=== PATIENT | male | born 1985 | race African-American/Black ===

== ENCOUNTER 2022-10-15 13:27 | Emergency (ER) | payer MEDICARE, MEDICAID, SELFPAY ==
[2022-10-15 13:28] VITALS: BP 155/105; PULSE 85; RESP 16; TEMP 36.2; O2SAT 100; BMI 43.7
--- NOTE | 2022-10-15 14:24 | CT_ITS ---
CT LEFT LOWER EXTREMITY WITH 3-D IMAGING CLINICAL INDICATION: Nonspecific pain and swelling TECHNIQUE: Axial CT images of the LEFT lower extremity was performed without IV contrast material. Coronal and sagittal reformats were provided. RADIATION DOSAGE (If Supplied By Facility): CTDIvol = ( 15.35 ) mGy, DLP = ( 979.32 ) mGycm COMPARISON: No relevant prior comparison study available FINDINGS: Bones: Femur demonstrates normal mineralization. There is mild narrowing of the lateral patellofemoral joint space with a small joint effusion. Degenerative spur noted on the anterior as well as posterior femoral condyles. Nonspecific subchondral lucency noted in the distal aspect of the lateral femur and there is subchondral sclerosis along the articular surface of the medial femoral condyle suggesting osteochondritis dissecans. There are similar subchondral sclerotic and lucent changes in the medial tibial plateau with degenerative spurs noted in the medial and lateral proximal tibia. There is a remnant of a threaded screw in the posterior proximal tibia there is a lucency inferior to the screw which I suspect was from previous surgical hardware. There is no demonstrated fracture or suspicious osseous lesion in the tibia fibula or visualized foot bones. Soft Tissues: There is induration of the subcutaneous fat anterior to the proximal medial tibia with skin thickening suggesting an inflammatory process such as cellulitis but this could also be post traumatic. There is no organized abscess. The musculature around the tibia and fibula otherwise free of abnormality. No induration of the posterior tissues. CT/Extremity Lower WITH Contrast IMPRESSION: Significant degenerative arthritic changes in the knee joint with moderate narrowing of the medial knee joint compartment, mild narrowing of the lateral posterior patellofemoral joint space. Associated joint effusion Degenerative spurs and subchondral sclerotic changes and lucencies in the distal femur and tibia, the sclerotic change on the articular surface of the distal medial femur suggests osteochondritis dissecans. Lucency in the proximal tibia likely from previous hardware there is a threaded screw in the posterior femur but it is incomplete. Induration of the subcutaneous fat anterior and medial to the proximal tibia suggesting a diffuse cellulitis there is associated skin thickening. Electronically Signed: Larry Paris MD at 15:25 EDT ,
--- NOTE | 2022-10-15 14:27 | ED.VIS.LOWEX ---
HPI History of Present Illness Chief Complaint: Lower Extremity Injury Narrative Narrative: 37-year-old male past medical history of remote tibial osteotomy secondary to deformity, originally had surgery at [facility], then [address] [facility] for bone graft presents with his because of left knee pain worse with movement, and warmth to his left anterior tibial area. He denies any fevers or chills, but has been having increased pain worse with movement of his left leg. No nausea or vomiting, no other symptoms. He and his are concerned mainly because he is having heat in the area of his scar on the anterior tibial area. He has pain on the lower portion of his knee that hurts when he bends it. He is able to get it into a sitting position. He denies any drainage from the area. No other symptoms. No chest pain or shortness of breath. PFSH PFSH Home Medications doxycycline hyclate 100 mg tablet 100 mg PO BID 10 days #20 tabs 10/15/22 [Rx Last Taken Unknown] hydrocodone-acetaminophen 5-325mg 5mg-325mg 1 tab PO Q6H PRN PRN Pain 3 days #10 TABLETS 10/15/22 [Rx Last Taken Unknown] sulfamethoxazole 800 mg-trimethoprim 160 mg tablet (Bactrim DS) 1 tab PO BID #20 tabs 10/15/22 [Rx Last Taken Unknown] Allergy/AdvReac Type Severity Reaction Status Date / Time Penicillins Allergy Severe Anaphylaxis Verified 10/15/22 13:30 Social History Smoking Status: Light Smoker (<10/day) ROS ROS ED ROS Narrative Constitutional: No fever, no chills. HEENT: No sore throat. No neck pain. No loss of vision. No rhinorrhea. Cardiovascular: No chest pain. No palpitations. No pedal edema. Respiratory: No cough, no shortness of breath. Abdominal: No abdominal pain. No nausea. No vomiting. Genitourinary: No dysuria. No hematuria. Musculoskeletal: No myalgias. Left knee pain, left anterior tibial pain with warmth. Neurologic: No headaches. No dizziness. No lightheadedness. Skin: No rash. No change in color. Psychiatric: No depression. No anxiety. EXAM Physical Exam Narrative Exam Narrative: Afebrile. Vital signs noted. HEENT: Normocephalic. Atraumatic. PERRL, EOMI. Neck soft and supple. No point tenderness or step off. Cardiovascular: Regular rate and rhythm. No murmurs, rubs, or gallops appreciated. Respiratory: No tachypnea. Lungs clear to auscultation bilaterally. Gastrointestinal: Abdomen soft, nontender, with normoactive bowel sounds. No rebound or guarding. Neurological: Awake. Alert. Nonfocal, nonlateralizing. Skin: No rash. Normal color. No pallor. Musculoskeletal: No pedal edema. Limited range of motion left knee secondary to pain. Able to slowly lift leg off bed. No overt erythema. Positive scarring anterior tibial area. No fluctuance. Palpable dorsalis pedis pulse. Const Vital Signs: 10/15/22 13:28 Temperature 97.2 F L Temperature Source Temporal Pulse Rate 85 Respiratory Rate 16 Blood Pressure 155/105 H Blood Pressure Mean 121 Pulse Ox 100 Oxygen Delivery Method Room Air MDM MDM MDM Narrative Medical decision making narrative: Concern would be for cutaneous abscess. I have low suspicion for septic arthritis of his left knee as that area is not as warm, and he is afebrile here, there is no overt erythema of the joint. Comprehensive work-up was pursued. He was administered morphine and ondansetron and a bolus of normal saline provided for analgesia. I will check a CBC, CMP, and lactic acid along with an ESR and CRP. CT imaging will be obtained of the left knee and left anterior tibial area to look for effusion and/or abscess. I reviewed the patient's laboratory work, he has a normal white count of 5.9, hemoglobin 13.9, hematocrit 43.9, platelet count low at 86. There is no prior with which to compare. Review of his electrolyte panel shows sodium normal at 140 with potassium normal at 4.2, chloride slightly elevated at 111, anion gap low at 4 with a BUN of 21 and creatinine of 1.10. He was bolused normal saline 1 L intravenously. AST and ALT are normal. C-reactive protein is slightly elevated at 23.8 with a ESR of 51. However, based on review of the radiology report of the CT of the lower extremity, he does have cellulitis of the anterior tibial area. He has significant joint space narrowing and arthritis of the left knee especially in the medial area. Once again, I have low concern for septic arthritis. The CT did reveal induration of the subcutaneous fat anterior and medial to the proximal tibia consistent with cellulitis. I do feel that is where his ESR and CRP are slightly elevated from. I do not feel that arthrocentesis is indicated. He has a normal lactic acid as well. I feel he be treated with outpatient antibiotics for his cellulitis. He was given his first doses of doxycycline and Bactrim DS here as he has a penicillin allergy of anaphylaxis. He was referred to Dr. Christianson on-call for orthopedics. He was also given a prescription for 10 [place] tablets for analgesia. He was placed in an Wiley wrap and given crutches for his knee effusion. I feel he be discharged safely home with follow-up, I do not feel that he requires observation at this time. Patient and are agreeable to the plan. Return instructions reviewed. Disposition is discharged home in stable condition. History & Record Review Discussion w/independent historian: Patient and Family Additional record(s) reviewed:: No prior records Lab Data Attestation: I reviewed the patient's lab results. Labs: Laboratory Results - last 24 hr 10/15/22 14:40 WBC 5.9 RBC 4.83 Hgb 13.9 Hct 43.9 MCV 90.9 MCH 28.8 MCHC 31.7 L RDW Std Deviation 46.9 H RDW Coeff of Carmenza 13.9 Plt Count 86 L MPV 10.1 Immature Gran % (Auto) 0.200 Neut % (Auto) 66.9 Lymph % (Auto) 21.7 [place] % (Auto) 8.5 Eos % (Auto) 2.0 Baso % (Auto) 0.7 Absolute Neuts (auto) 4.0 Absolute Lymphs (auto) 1.28 Nucleated RBC % 0 Differential Comment SCANNED ESR 51 H Sodium 140 Potassium 4.2 Chloride 111 H Carbon Dioxide 25.0 Anion Gap 4 L BUN 21 H Creatinine 1.10 Estim Creat Clear Calc 99.94 Est GFR (MDRD) Af Amer 96 Est GFR (MDRD) Non-Af 80 BUN/Creatinine Ratio 19.1 Glucose 97 Lactic Acid 1.1 Calcium 8.7 Total Bilirubin 0.40 AST 29 ALT 51 Alkaline Phosphatase 96 C-React Prot Ext Range 23.80 H Total Protein 7.9 Albumin 3.3 Globulin 4.6 H Albumin/Globulin Ratio 0.7 L Radiography Diagnostic Testing: Clinical Impression(s) from Imaging Studies Lower Extremity CT 10/15/22 14:24 IMPRESSION: Significant degenerative arthritic changes in the knee joint with moderate narrowing of the medial knee joint compartment, mild narrowing of the lateral posterior patellofemoral joint space. Associated joint effusion Degenerative spurs and subchondral sclerotic changes and lucencies in the distal femur and tibia, the sclerotic change on the articular surface of the distal medial femur suggests osteochondritis dissecans. Lucency in the proximal tibia likely from previous hardware there is a threaded screw in the posterior femur but it is incomplete. Induration of the subcutaneous fat anterior and medial to the proximal tibia suggesting a diffuse cellulitis there is associated skin thickening. Electronically Signed: Larry Paris MD at 15:25 EDT , Discharge Plan Triage Chief Complaint: Lower Extremity Injury ED Provider: Dakota Goetz Dx/Rx/DC Orders Clinical Impression: Knee effusion, left, Cellulitis, Arthritis of knee, left Instructions: ED Cellulitis, ED Knee Effusion, ED Osteoarthritis Prescriptions: New sulfamethoxazole-trimethoprim [Bactrim DS] 800-160 mg tablet 1 tab PO BID Qty: 20 0RF doxycycline hyclate 100 mg tablet 100 mg PO BID 10 Days Qty: 20 0RF hydrocodone-acetaminophen 5-325 mg tablet 1 tab PO Q6H PRN PRN (Reason: Pain) 3 Days Qty: 10 0RF Primary Care Provider: Adilia Yoder MD Referrals: Adilia Yoder MD [Other] Thom Christianson DO [Med Staff - Active Staff] - 3-5 Days Disposition Disposition: Home, Self Care
[2022-10-15] MEDS: Morphine 4 MG/ML Syringe IV (14:45)
[2022-10-15] MEDS: Ondansetron 4 MG/2 ML Vial IV (14:45)
[2022-10-15] MEDS: 0.9% Normal Saline 1,000 ML 1000 ML IV (14:45)
[2022-10-15 14:57] LABS: Absolute Lymphocyte Count 1.28 X10^3/uL (0.83-4.51); Basophil# 0.04 X10^3/uL; Basophil% 0.7 % (0-1); Eosinophil# 0.12 X10^3/uL; Hematocrit 43.9 % (40-54); Hemoglobin 13.9 g/dL (13.0-16.5); Lymphocyte # 1.28 X10^3/ul (0.83-4.51); Lymphocyte % 21.7 % (19-41); Mean Corp Hgb Conc 31.7 g/dL (32-36); Mean Corpuscular Hgb 28.8 pg (27.0-32.0); Mean Corpuscular Volume 90.9 fL (80-94); Mean Platelet Vol. 10.1 fl (6.2-12.0); Monocyte% 8.5 % (0-10); NRBC Flagged by Analyzer 0 % (0-5); Neutrophil # 3.95 X10^3/uL (2.7-7.7); Neutrophil % 66.9 % (47-70); POSITIVE COUNT YES; Platelet Count 86 K/mm3 (150-450); RBC Distribution Width CV 13.9 % (11.6-14.6); RBC Distribution Width SD 46.9 fl (35.1-43.9); Red Blood Count 4.83 M/mm3 (4.6-6.2); White Blood Count 5.9 K/mm3 (4.4-11.0)
[2022-10-15 15:00] LABS: Differential Indicated SCAN CRITERIA MET
[2022-10-15 15:14] LABS: Differential Comment SCANNED
[2022-10-15 15:19] LABS: ALB/GLOB Ratio 0.7 RATIO (0.9-2.4); AST(SGOT) 29 U/L (15-37); Alanine Aminotransfer ALT/SGPT 51 U/L (16-61); Albumin, Serum 3.3 g/dL (3.2-5.0); Alkaline Phosphatase 96 U/L (45-117); Anion Gap 4 (5-15); BUN 21 mg/dL (7-18); BUN/Creat Ratio 19.1 RATIO (10-20); Calcium,Total 8.7 mg/dL (8.5-10.1); Chloride 111 mmol/L (98-107); EST Glomerular Filtration Rate 80 mL/min (>60); Est Glom Filt Rate - Afr Amer 96 mL/min (>60); Estimated Creatinine Clearance 99.94 ml/min; Globulin 4.6 g/dL (2.2-4.2); Glucose 97 mg/dL (74-106); Potassium 4.2 mmol/L (3.5-5.1); Protein, Total 7.9 g/dL (6.4-8.2); Sodium Level 140 mmol/L (136-145)
[2022-10-15 15:20] LABS: Erythrocyte Sedimentation Rate 51 mm/hr (0-20)
[2022-10-15 15:29] LABS: Lactic Acid 1.1 mmol/L (0.4-1.9)
[2022-10-15] MEDS: Doxycycline 100 MG CAPSULE PO (16:38)
[2022-10-15] MEDS: Smz/Tmp Ds Tablet 1 TABLET PO (16:38)
[2022-10-15 16:48] VITALS: BP 142/82; PULSE 80; RESP 16
== END 2022-10-15 16:49 | disposition home or self-care (01) ==
PROVIDERS: Emergency Provider Emergency Medicine; Visit Provider Emergency Medicine
DX: L03.116 Cellulitis of left lower limb (principal); F17.200 Nicotine dependence, unspecified, uncomplicated; M17.12 Unilateral primary osteoarthritis, left knee; Z79.899 Other long term (current) drug therapy
CPT/HCPCS: 73701; 80053; 83605; 85025; 85652; 86140; 96361; 96374; 96375; 99283; J7030; Q9967; A4216; J2405

== ENCOUNTER → 2022-10-22 | Outpatient (CLI) | payer MEDICARE, MEDICAID, SELFPAY ==
[2022-10-22 11:40] LABS: Pathologist Comment May follow
[2022-10-22 12:24] LABS: RBC /Synovial Fluid 0.034 10^6/uL (0); Synovial Fld Mononuclear WBC # 0.527 10^3/ul; Synovial Fld Mononuclear WBC % 95.3 %; Synovial Fld Polynuclear WBC # 0.026 10^3/uL; Synovial Fld Polynuclear WBC % 4.7 %
[2022-10-22 12:26] LABS: AUTO B FLUID DILUENT BKGD CT WBC <0.1 RBC <0.01 (W<.1,R<.01); Appearance /Synovial Fluid Cloudy (CLEAR); Color / Synovial Fluid Red (Pale Yellow); Source- Body Fluid SYNOVIAL
[2022-10-22 12:30] LABS: Source / Synovial Fluid LEFT KNEE
[2022-10-22 12:37] LABS: CRYSTALS, BODY FLUID See PATH REV
[2022-10-22 13:03] LABS: Body Fluid QC Type(s) BF1Q,BF2Q; Lymph 74 %; Monocyte /Synovial Fluid 11 %; Neutrophil 11 % (0-25); Other Cell /Synovial Fluid 4 %
[2022-10-23 13:19] LABS: Pathologist Review Reviewed
== END | disposition home or self-care (01) ==
LOC: LABSPEC 11:32
PROVIDERS: Referring Provider Physician Assistant Surgical; Visit Provider Physician Assistant Surgical
DX: M17.32 Unilateral post-traumatic osteoarthritis, left knee (principal); M25.462 Effusion, left knee
CPT/HCPCS: 87205; 89050; 89051; 89060

== ENCOUNTER 2022-11-13 21:27 | Observation (INO) | payer MEDICARE, MEDICAID, SELFPAY ==
[2022-11-13 21:28] VITALS: BP 146/93; PULSE 86; RESP 18; TEMP 36.8; O2SAT 100
--- NOTE | 2022-11-13 22:06 | CT_ITS ---
INDICATION: Neuro deficit, acute, stroke suspected EXAMINATION: CT BRAIN - CT Head Stroke Protocol W/O Contrast Injection TECHNIQUE: Multiple axial images were obtained of the head with sagittal and coronal reconstructed images. Individualized dose optimization techniques were used for this CT. IV Contrast dosage and agent: None. COMPARISON: None. FINDINGS: BRAIN PARENCHYMA: No evidence of an acute infarct or intracranial hemorrhage. No evidence of a mass. Focal area of low-attenuation in the peripheral left temporooccipital lobe. CSF SPACES: The ventricles, sulci and subarachnoid cisterns are appropriate for age. CALVARIUM, SKULL BASE, PARANASAL SINUSES AND MASTOID AIR CELLS: No fracture. Mastoid air cells are clear. Probable mucous retention cysts in the bilateral maxillary sinuses. ORBITS: The globes, extraocular muscles, optic nerves and retrobulbar fat are unremarkable. CT/STROKE Brain/Head without Cont IMPRESSION: 1. No acute intracranial abnormality. 2. Focal area of low-attenuation in the peripheral left temporooccipital lobe likely representing encephalomalacia from prior injury or infarct. Given no prior exams for comparison, recommend follow-up with nonemergent MRI. N.B. : The above Results were Read Back by Mark Song DO to TOM Figueroa, and understanding confirmed on 11/13/2022 22:53:02 (ET). Electronically Signed: Mark Song DO at 22:53 EDT ,
[2022-11-13 22:24] VITALS: BMI 43.4
[2022-11-13 22:28] VITALS: PULSE 79; RESP 18; O2SAT 100; BMI 43.4
[2022-11-13 22:30] VITALS: BMI 43.4
--- NOTE | 2022-11-13 22:32 | RAD_ITS ---
INDICATION: Neuro deficit, acute, stroke suspected EXAMINATION/TECHNIQUE: X-RAY - XR Chest 1 View COMPARISON: None. FINDINGS: LINES/DEVICES: None. LUNGS: No consolidation or evidence of an effusion. No evidence of edema or a pneumothorax. MEDIASTINUM AND CARDIOVASCULAR STRUCTURES: Cardiac silhouette is normal in size and contour. Mediastinum is unremarkable. BONES AND SOFT TISSUES: No acute abnormality. RAD/Chest 1 View IMPRESSION: No evidence of cardiopulmonary disease. Electronically Signed: Mark Song DO at 23:07 EDT ,
[2022-11-13 22:36] LABS: Absolute Lymphocyte Count 1.95 X10^3/uL (0.83-4.51); Absolute Neutrophil Count 2.8 X10^3/uL (2.0-7.7); Basophil# 0.05 X10^3/uL; Basophil% 0.9 % (0-1); Eosinophil# 0.18 X10^3/uL; Eosinophils% 3.3 % (0-5); Hemoglobin 13.3 g/dL (13.0-16.5); Lymphocyte # 1.95 X10^3/ul (0.83-4.51); Lymphocyte % 35.6 % (19-41); Mean Corp Hgb Conc 32.4 g/dL (32-36); Mean Corpuscular Hgb 29.2 pg (27.0-32.0); Mean Corpuscular Volume 89.9 fL (80-94); Mean Platelet Vol. 10.4 fl (6.2-12.0); Monocyte# 0.48 X10^3/uL; Monocyte% 8.8 % (0-10); NRBC Flagged by Analyzer 0 % (0-5); Neutrophil # 2.79 X10^3/uL (2.7-7.7); POSITIVE COUNT YES; Platelet Count 74 K/mm3 (150-450); RBC Distribution Width CV 13.1 % (11.6-14.6); Red Blood Count 4.56 M/mm3 (4.6-6.2); White Blood Count 5.5 K/mm3 (4.4-11.0)
[2022-11-13 22:43] LABS: Prothrombin Time (Protime)PT. 13.4 SECONDS (11.7-14.9)
--- NOTE | 2022-11-13 22:44 | ED.RN ---
PER DR DACOSTA, [facility] NOT NEEDED
[2022-11-13 22:45] LABS: Partial Thromboplast Time 68.6 Seconds (24.1-36.2)
[2022-11-13 22:49] LABS: Differential Indicated SCAN CRITERIA MET
[2022-11-13 22:50] LABS: Platelet Estimate MOD DEC (ADEQ); Red Cell Morphology N CHROM NORMAL (NORM C&C)
[2022-11-13 22:51] LABS: Anisocytosis RARE; Macrocytosis RARE
[2022-11-13 22:52] LABS: Anion Gap 1 (5-15); BUN 12 mg/dL (7-18); BUN/Creat Ratio 10.2 RATIO (10-20); Chloride 106 mmol/L (98-107); Creatinine, Serum 1.18 mg/dL (0.70-1.30); EST Glomerular Filtration Rate 73 mL/min (>60); Est Glom Filt Rate - Afr Amer 89 mL/min (>60); Estimated Creatinine Clearance 93.16 ml/min; Glucose 253 mg/dL (74-106); Potassium 4.1 mmol/L (3.5-5.1); Sodium Level 135 mmol/L (136-145); Troponin-I HS 10 pg/mL (3.0-78.0)
--- NOTE | 2022-11-13 23:06 | PCM.HP.STD ---
HPI - General General Date of Admission: 11/13/22 Date of Service: 11/13/22 Chief Complaint: Aphasia HPI Narrative MITALI RAMOS, is a 37 M with a significant history of morbid obesity, type 2 diabetes mellitus and DVT of the right leg who presents emergency department with aphasia x2 days. Patient reports that per his at times he gets stuck in bringing his words out. He denies dysarthria. He also reports left-sided headache which with coughing and with lying flat. The headache is mild to moderate. Further he reports 30 minutes episode where he had blurry vision. This transient vision loss occurred on the day before presentation. And at that time with abnormal eye he could see better. He denies any weakness. [facility] Medical History (Updated 11/13/22 @ 23:[address] Inocente Valles MD) DM type 2 (diabetes mellitus, type 2) Home Medications doxycycline hyclate 100 mg tablet 100 mg PO BID 10 days #20 tabs 10/15/22 [Rx Last Taken Unknown] hydrocodone-acetaminophen 5-325mg 5mg-325mg 1 tab PO Q6H PRN PRN Pain 3 days #10 TABLETS 10/15/22 [Rx Last Taken Unknown] sulfamethoxazole 800 mg-trimethoprim 160 mg tablet (Bactrim DS) 1 tab PO BID #20 tabs 10/15/22 [Rx Last Taken Unknown] metformin 1,000 mg tablet 1,000 mg PO BID 11/13/22 [History Last Taken Unknown] Allergy/AdvReac Type Severity Reaction Status Date / Time Penicillins Allergy Severe Anaphylaxis Verified 11/13/22 21:30 Family History (Updated 11/13/22 @ 23:[address] Inocente Valles MD) Other Aneurysm of artery of head and neck region Diabetes Surgical History (Updated 11/13/22 @ 23:[address] Inocente Valles MD) History of surgery on lower extremity Social History Smoking Status: Light Smoker (<10/day) ROS ROS Narrative Pertinent positives and pertinent negatives as noted in HPI. All other systems were reviewed and are negative Vital Signs Vital Signs Vital Signs: 11/13/22 21:28 11/13/22 22:28 11/13/22 22:28 Temperature 98.3 F Temperature Source Temporal Pulse Rate 86 79 Respiratory Rate 18 18 Blood Pressure 146/93 H Blood Pressure Mean 110 Pulse Ox 100 100 100 Oxygen Delivery Method Room Air Room Air Weight Weight: 145.5 kg Body Mass Index (BMI) 43.4 Physical Exam Narrative Physical exam: General: Well-nourished, well-developed. Head: Normocephalic, atraumatic, no tenderness Eyes: Vision is grossly intact. EOMI ENT, no trauma, moist mucous membranes, no rhinorrhea Neck: Nontender, No thyromegaly. CVS: Regular rate and rhythm. S1-S2 present. No murmur, gallop or rub. Respiratory : clear to auscultation bilaterally, chest wall nontender Abdomen: Soft, nontender, nondistended, normal bowel sounds, no masses : Deferred Back: Nontender, no CVA tenderness Extremities: Nontender full range of motion, no trauma Skin: Normal color, no trauma, abrasions Neuro: Alert, oriented, cranial nerves II through XII grossly intact. Strength 5 out of 5 in all 5 extremities. No dysmetria with [id number] test or dobbins to heel test. Not Hyperreflexia in the elbow or knee jerk reflex bilateral. Psychiatry: Normal mood. Normal affect. Not depressed. Not anxious. Results Lab / Micro Data Attestation: I reviewed the patient's lab results. 11/13/22 22:25 11/13/22 22:25 Labs: Laboratory Results - last 24 hr 11/13/22 22:25: WBC 5.5, RBC 4.56 L, Hgb 13.3, Hct 41.0, MCV 89.9, MCH 29.2, MCHC 32.4, RDW Std Deviation 43.0, RDW Coeff of Carmenza 13.1, Plt Count 74 L, MPV 10.4, Immature Gran % (Auto) 0.400, Neut % (Auto) 51.0, Lymph % (Auto) 35.6, [place] % (Auto) 8.8, Eos % (Auto) 3.3, Baso % (Auto) 0.9, Absolute Neuts (auto) 2.8, Absolute Lymphs (auto) 1.95, Nucleated RBC % 0, Differential Comment SEE COMMENT, Platelet Estimate MOD DEC, RBC Morphology N CHROM, Anisocytosis RARE, Macrocytosis RARE, PT 13.4, INR 1.0, APTT 68.6 H, Sodium 135 L, Potassium 4.1, Chloride 106, Carbon Dioxide 28.0, Anion Gap 1 L, BUN 12, Creatinine 1.18, Estim Creat Clear Calc 93.16, Est GFR (MDRD) Af Amer 89, Est GFR (MDRD) Non-Af 73, BUN/Creatinine Ratio 10.2, Glucose 253 H, Calcium 9.0, Troponin I High Sens [address] 11/13/22 22:06 IMPRESSION: 1. No acute intracranial abnormality. 2. Focal area of low-attenuation in the peripheral left temporooccipital lobe likely representing encephalomalacia from prior injury or infarct. Given no prior exams for comparison, recommend follow-up with nonemergent MRI. N.B. : The above Results were Read Back by Mark Song DO to TOM Figueroa, and understanding confirmed on 11/13/2022 22:53:02 (ET). Electronically Signed: Mark Song DO at 22:53 EDT , ADDENDUM: 11/13/22 2300 IMPRESSION: 1. No acute intracranial abnormality. 2. Focal area of low-attenuation in the peripheral left temporooccipital lobe likely representing encephalomalacia from prior injury or infarct. Given no prior exams for comparison, recommend follow-up with nonemergent MRI. N.B. : The above Results were Read Back by Mark Song DO to TOM Figueroa, and understanding confirmed on 11/13/2022 22:53:02 (ET). 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 Focal area of low attenuation in the peripheral left temporal occipital lobe likely representing encephalomalacia from prior injury or infarcts Hospitalist independent interpretation of head CT:Agree with radiologist interpretation Lipid profile and A1c ordered. Physical therapy, occupational therapy and speech therapy to work with patient. N.p.o. until bedside swallow eval. Daily aspirin ordered. High intensity statin ordered Patient is outside window for permissive hypertension. MRI of head; brain; and neck. Echocardiogram ordered. Diabetes mellitus Patient with hyperglycemia on presentation Hold home metformin Monitor Accu-Cheks Correction scale insulin ordered. Elevated blood pressure without diagnosis of hypertension: Trend blood pressures. As needed hydralazine ordered. Morbid Obesity: BMI: 43.5 kg/m?. Complicates care. Lifestyle modification recommended. Tobacco abuse Counseled. Nicotine patch applied DVT Prophylaxis Continue home Eliquis the patient takes for history of right leg DVT. Time spent in the patient's overall evaluation,decision-making process, review of diagnostic data, adjustment of management, discussion with other providers, nursing nursing and ancillary staff involved in patient's care documentation, 60 minutes. Charges/Coding Visit Charges Inpatient E&M: 82765 Init Hosp L3
[2022-11-13 23:16] VITALS: BP 135/86; PULSE 79; RESP 18; TEMP 36.4; O2SAT 99
[2022-11-13 23:37] VITALS: BP 142/82; PULSE 77; RESP 19; O2SAT 100
[2022-11-13] MEDS: Aspirin 81 MG TAB.CHEW 324 MG PO (23:37)
--- NOTE | 2022-11-13 23:56 | ECHOD_ITS ---
Reason For Study: TIA/CVA Procedure This was a 2D Doppler, Color Flow transthoracic echocardiogram. Exam performed portable in patient room. Left Ventricle Normal LV size. Mild concentric left ventricular hypertrophy. Mid cavitary false tendon noted. The left ventricular ejection fraction is 65 %. Right Ventricle Normal right ventricle. Atria The left atrium is moderately enlarged. Normal right atrium. Bubble contrast study is negative for PFO/ASD. Mitral Valve Moderate focal mitral valve thickening. Mild (1+) mitral valve insufficiency. Tricuspid Valve Trivial tricuspid valve insufficiency. Unable to estimate RV systolic pressure due to insufficient tricuspid regurgitant envelope. Aortic Valve Trisinus/trileaflet aortic valve. Pulmonic Valve Trivial pulmonic valve insufficiency. Great Vessels Normal sized aortic root. Pericardium/Pleural No pericardial effusion. Medication Performed a rapid injection of agitated mix of 9 cc saline and 1cc air to assess for atrial septal defect. MMode/2D Measurements & Calculations LVIDd: 5.2 cm IVSd: 1.2 cm Ao root diam: 3.4 cm LVIDs: 3.2 cm LVPWd: 1.3 cm RVDd: 4.2 cm FS: 37.3 % LAV(MOD-bp): 53.2 ml LVAd ap4: 35.1 cm2 SV(MOD-sp4): 79.8 ml LAV(MOD-bp) Indexed: 20.4 ml/m2 LVLd ap4: 8.5 cm LAV(MOD-sp2): 63.5 ml EDV(MOD-sp4): 117.7 ml LAV(MOD-sp4): 44.5 ml EDV(sp4-el): 122.4 ml LVAs ap4: 18.0 cm2 LVLs ap4: 7.1 cm ESV(MOD-sp4): 37.9 ml ESV(sp4-el): 39.0 ml EF(MOD-sp4): 67.8 % EF(sp4-el): 68.1 % SV(sp4-el): 83.3 ml LA A4 area: 18.0 cm2 LA dimension(2D): 4.6 cm RA A4 area: 16.5 cm2 TAPSE: 2.8 cm Time Measurements MV dec time: 0.38 sec Doppler Measurements & Calculations MV E max jose: 113.2 cm/sec Lat Peak E' Jose: 6.0 cm/sec Med Peak E' Jose: 6.9 cm/sec MV A max jose: 125.6 cm/sec E/E' lat: 18.9 E/E' med: 16.3 MV E/A: 0.90 MV dec slope: 295.3 cm/sec2 Ao V2 max: 141.2 cm/sec LV V1 max: 116.8 cm/sec Ao max P.0 mmHg LV V1 max P.5 mmHg Ao V2 mean: 97.6 cm/sec Ao mean P.3 mmHg Ao V2 VTI: 30.4 cm PA V2 max: 110.0 cm/sec ECHO/Echo Complete Interpretation Summary Mild concentric left ventricular hypertrophy. The left ventricular ejection fraction is 65 %. Mid cavitary false tendon noted. The left atrium is moderately enlarged. Bubble contrast study is negative for PFO/ASD. Mild (1+) mitral valve insufficiency. Moderate focal mitral valve thickening. Consider cardiac MRI/CRISTI for further ev aluation if clinically indicated. Ordering Physician: Inocente Valles Performed By: Feli Briscoe, LIU, RVT
[2022-11-14 00:01] VITALS: BP 168/109; PULSE 72; RESP 18; TEMP 36.8; O2SAT 100
--- NOTE | 2022-11-14 00:06 | ED.VIS.STROK ---
HPI History of Present Illness Chief Complaint: Neuro S/Sx Narrative Narrative: 37-year-old male with past medical history of diabetes, hypertension, tobacco abuse presenting with intermittent symptoms of difficulty with word finding/speech. He states that at times his cannot recognize what he is saying. He also points out that sometimes he is having trouble saying the words and can identify that what he saying is not correct. He states that yesterday he had some pain behind his eye and states that his vision was blurred for about 30 minutes and he just rested and slept better. No history of stroke. No history of head trauma. No history of migraine. Patient currently feeling like it is his baseline. [facility] Medical History DM type 2 (diabetes mellitus, type 2) Home Medications doxycycline hyclate 100 mg tablet 100 mg PO BID 10 days #20 tabs 10/15/22 [Rx Last Taken Unknown] hydrocodone-acetaminophen 5-325mg 5mg-325mg 1 tab PO Q6H PRN PRN Pain 3 days #10 TABLETS 10/15/22 [Rx Last Taken Unknown] sulfamethoxazole 800 mg-trimethoprim 160 mg tablet (Bactrim DS) 1 tab PO BID #20 tabs 10/15/22 [Rx Last Taken Unknown] metformin 1,000 mg tablet 1,000 mg PO BID 11/13/22 [History Last Taken Unknown] Allergy/AdvReac Type Severity Reaction Status Date / Time Penicillins Allergy Severe Anaphylaxis Verified 11/13/22 21:30 Family History Other Aneurysm of artery of head and neck region Diabetes Surgical History History of surgery on lower extremity Social History Smoking Status: Light Smoker (<10/day) ROS ROS ED Constitutional Constitutional ED: Denies chills, fever(s) or sweats Eyes Eyes: Denies blurry vision or change in vision ENT ENT ED: Denies ear pain or sore throat Cardiovascular Cardiovascular: Denies chest pain, palpitations or racing heartbeat Respiratory/Chest Respiratory/Chest: Denies cough, dyspnea or sputum Gastrointestinal Gastrointestinal: Denies abdominal pain, constipation, diarrhea, nausea or vomiting Genitourinary Genitourinary ED: Denies dysuria, hematuria or urinary frequency Musculoskeletal Musculoskeletal: Denies arthralgias, myalgias or neck pain Integumentary Denies abscess, Abrasions or rash Neurologic Neurologic: Reports other Details: Patient difficult ; Denies headache(s), paresthesias or weakness Psychiatric Psychiatric: Denies anxiety, depression, suicidal ideation or suicidal thoughts Endocrine Endocrinology: Denies polydipsia or polyuria EXAM Physical Exam Const Vital Signs: 11/13/22 21:28 11/13/22 22:28 11/13/22 22:28 Temperature 98.3 F Temperature Source Temporal Pulse Rate 86 79 Respiratory Rate 18 18 Blood Pressure 146/93 H Blood Pressure Mean 110 Pulse Ox 100 100 100 Oxygen Delivery Method Room Air Room Air Positive well nourished General Appearance ED: NAD HEENT Reports moist mucous membranes Eyes PERRL and EOMs intact bilaterally Chest Wall inspection of chest normal Resp normal respiratory effort and clear to auscultation bilaterally Auscultation: Negative for rales, rhonchi or wheezes Cardio no murmurs GI normal to inspection, nondistended, normoactive bowel sounds Extremity normal to inspection General Extremety ED: Yes deformity General Extremity: deformity Neuro oriented x3 and CN's II-XII intact bilaterally Sensorium / Orientation: alert Motor Exam: strength 5/5 throughout Psych mental status grossly normal Skin no wounds NIHSS NIHSS Initial: 1a Level of Consciousness: 0 1b LOC Questions (Score 2 if aphasic/stupor): 0 1c LOC Commands (Only score 1st attempt): 0 2 Best Gaze (If aphasic, use reflexive mvmts.): 0 3 Visual: 0 4 Facial Palsy: 0 5 Motor Arm Right (UN = amputation/fusion): 0 5 Motor Arm Left: 0 6 Motor Leg Right: 0 6 Motor Leg Left: 0 7 Limb ataxia (Only + if out of proportion): 0 8 Sensory (Aphasia/stupor=0 or 1, coma=2): 0 9 Best Language: 0 10 Dysarthria (mute, coma=2, intubated=UN): 0 11 Extinction and Inattention (only scored if +): 0 Total Score: 0 MDM MDM MDM Narrative Medical decision making narrative: 37-year-old male presenting with intermittent problems with speech. Does not describe slurred speech but more word finding at difficulty expressing himself. He also had a headache behind his eyes states that his vision was blurred for about 30 minutes. Currently he is at his baseline. NIH stroke scale score of 0. Differential includes TIA, stroke, migraine. CBC was obtained to assess white blood cell count, hemoglobin, platelets. BMP to assess renal function and electrolytes as well as glucose and anion gap. High-sensitivity troponin EKG to assess for ischemia and dysrhythmia. Chest x-ray to rule out pneumonia. CT brain was obtained as well. Lab work-up all within normal limits. EKG sinus rhythm with a ventricular rate of 79 bpm without sign of ischemic change or ectopy on my interpretation. My interpretation is no acute process. CT brain interpreted asFocal area of low-attenuation in the peripheral left temporooccipital lobe likely representing encephalomalacia from prior injury or infarct. Has no history of stroke. Given the abnormal finding the radiologist did call me to state that the patient would benefit from an MRI. Discussed with hospitalist for admission. Impression: 1. TIA Lab Data Attestation: I reviewed the patient's lab results. Labs: Laboratory Results - last 24 hr 11/13/22 22:25 WBC 5.5 RBC 4.56 L Hgb 13.3 Hct 41.0 MCV 89.9 MCH 29.2 MCHC 32.4 RDW Std Deviation 43.0 RDW Coeff of Carmenza 13.1 Plt Count 74 L MPV 10.4 Immature Gran % (Auto) 0.400 Neut % (Auto) 51.0 Lymph % (Auto) 35.6 [place] % (Auto) 8.8 Eos % (Auto) 3.3 Baso % (Auto) 0.9 Absolute Neuts (auto) 2.8 Absolute Lymphs (auto) 1.95 Nucleated RBC % 0 Differential Comment SEE COMMENT Platelet Estimate MOD DEC RBC Morphology N CHROM Anisocytosis RARE Macrocytosis RARE PT 13.4 INR 1.0 APTT 68.6 H Sodium 135 L Potassium 4.1 Chloride 106 Carbon Dioxide 28.0 Anion Gap 1 L BUN 12 Creatinine 1.18 Estim Creat Clear Calc 93.16 Est GFR (MDRD) Af Amer 89 Est GFR (MDRD) Non-Af 73 BUN/Creatinine Ratio 10.2 Glucose 253 H Calcium 9.0 Troponin I High Sens 10 Radiography Diagnostic Testing: Clinical Impression(s) from Imaging Studies Brain CT 11/13/22 22:06 IMPRESSION: 1. No acute intracranial abnormality. 2. Focal area of low-attenuation in the peripheral left temporooccipital lobe likely representing encephalomalacia from prior injury or infarct. Given no prior exams for comparison, recommend follow-up with nonemergent MRI. N.B. : The above Results were Read Back by Mark Song DO to TOM Figueroa, and understanding confirmed on 11/13/2022 22:53:02 (ET). Electronically Signed: Mark Song DO at 22:53 EDT , ADDENDUM: 11/13/22 2300 IMPRESSION: 1. No acute intracranial abnormality. 2. Focal area of low-attenuation in the peripheral left temporooccipital lobe likely representing encephalomalacia from prior injury or infarct. Given no prior exams for comparison, recommend follow-up with nonemergent MRI. N.B. : The above Results were Read Back by Mark Song DO to TOM Figueroa, and understanding confirmed on 11/13/2022 22:53:02 (ET). Electronically Signed: Mark Song DO at 22:53 EDT , Chest X-Ray 11/13/22 22:32 IMPRESSION: No evidence of cardiopulmonary disease. Electronically Signed: Mark Song DO at 23:07 EDT , Discharge Plan Disposition Disposition: Acute Care Hospital [facility], [place] Discharge Date/Time: 11/13/22 23:43
[2022-11-14 00:20] VITALS: BMI 43.0
[2022-11-14] MEDS: Acetaminophen 325 MG Tablet 650 MG PO ×2 (00:57→06:57)
[2022-11-14] MEDS: Atorvastatin Calcium 80 MG Tablet PO (00:57)
[2022-11-14] MEDS: APIXABAN 5 MG TABLET PO ×2 (00:58→11:56)
[2022-11-14 01:42] LABS: Bedside Glucose 208 mg/dL (74-106)
[2022-11-14 02:24] VITALS: BMI 43.0
[2022-11-14 04:05] VITALS: BP 143/95; PULSE 71; RESP 18; TEMP 35.8; O2SAT 100
[2022-11-14 06:30] LABS: Absolute Lymphocyte Count 1.88 X10^3/uL (0.83-4.51); Absolute Neutrophil Count 2.7 X10^3/uL (2.0-7.7); Basophil# 0.05 X10^3/uL; Basophil% 0.9 % (0-1); Eosinophil# 0.24 X10^3/uL; Eosinophils% 4.3 % (0-5); Hematocrit 39.7 % (40-54); Hemoglobin 12.9 g/dL (13.0-16.5); Lymphocyte # 1.88 X10^3/ul (0.83-4.51); Lymphocyte % 34.1 % (19-41); Mean Corp Hgb Conc 32.5 g/dL (32-36); Mean Corpuscular Hgb 29.5 pg (27.0-32.0); Mean Corpuscular Volume 90.8 fL (80-94); Mean Platelet Vol. 10.2 fl (6.2-12.0); Monocyte# 0.65 X10^3/uL; Monocyte% 11.8 % (0-10); NRBC Flagged by Analyzer 0 % (0-5); Neutrophil # 2.67 X10^3/uL (2.7-7.7); Neutrophil % 48.4 % (47-70); POSITIVE COUNT YES; Platelet Count 73 K/mm3 (150-450); RBC Distribution Width CV 13.1 % (11.6-14.6); RBC Distribution Width SD 44.3 fl (35.1-43.9); Red Blood Count 4.37 M/mm3 (4.6-6.2); White Blood Count 5.5 K/mm3 (4.4-11.0)
[2022-11-14] MEDS: Insulin Lispro 100 UNIT/ML INSULN.PEN SC ×3 (06:54→16:34)
[2022-11-14 06:58] LABS: Anion Gap 2 (5-15); BUN 13 mg/dL (7-18); Calcium,Total 8.6 mg/dL (8.5-10.1); Chloride 106 mmol/L (98-107); Cholesterol 123 mg/dL (200); Creatinine, Serum 1.18 mg/dL (0.70-1.30); EST Glomerular Filtration Rate 73 mL/min (>60); Est Glom Filt Rate - Afr Amer 89 mL/min (>60); Estimated Creatinine Clearance 93.16 ml/min; Glucose 226 mg/dL (74-106); High Density Lipoprotein 30 mg/dL; Potassium 3.9 mmol/L (3.5-5.1); Sodium Level 134 mmol/L (136-145); Triglycerides 183 mg/dL; Very Low Density Lipoprotein 37 mg/dL (5-40)
[2022-11-14 07:16] LABS: Bedside Glucose 269 mg/dL (74-106)
[2022-11-14 08:35] LABS: Hemoglobin A1c 7.4 % (3.8-5.6)
--- NOTE | 2022-11-14 09:05 | PN.HOSP_ITS ---
Subjective Subjective Had issues in regards to expressive aphasia. States that it is better but he still having difficulty finding the words. Objective Data Objective Data Vital Signs: Vital Signs Temp Pulse Resp BP Pulse Ox O2 Del Method 35.8 C L 71 18 143/95 H 100 Room Air 11/14/22 04:05 11/14/22 04:05 11/14/22 04:05 11/14/22 04:05 11/14/22 04:05 11/14/22 08:33 Oxygen Delivery Method Room Air Weight: 144.1 kg Body Mass Index (BMI) 43.0 Intake & Output: Intake and Output for Last 24 Hours 11/12/22 11/13/22 11/14/22 23:59 23:59 23:59 Intake Total 120 / 120 Balance 120 / 120 Lab / Micro Data 11/14/22 05:15 11/14/22 05:15 Labs: Laboratory Results - last 24 hr 11/13/22 22:25: WBC 5.5, RBC 4.56 L, Hgb 13.3, Hct 41.0, MCV 89.9, MCH 29.2, MCHC 32.4, RDW Std Deviation 43.0, RDW Coeff of Carmenza 13.1, Plt Count 74 L, MPV 10.4, Immature Gran % (Auto) 0.400, Neut % (Auto) 51.0, Lymph % (Auto) 35.6, [place] % (Auto) 8.8, Eos % (Auto) 3.3, Baso % (Auto) 0.9, Absolute Neuts (auto) 2.8, Absolute Lymphs (auto) 1.95, Nucleated RBC % 0, Differential Comment SEE COMMENT, Platelet Estimate MOD DEC, RBC Morphology N CHROM, Anisocytosis RARE, Macrocytosis RARE, PT 13.4, INR 1.0, APTT 68.6 H, Sodium 135 L, Potassium 4.1, Chloride 106, Carbon Dioxide 28.0, Anion Gap 1 L, BUN 12, Creatinine 1.18, Estim Creat Clear Calc 93.16, Est GFR (MDRD) Af Amer 89, Est GFR (MDRD) Non-Af 73, BUN/Creatinine Ratio 10.2, Glucose 253 H, Calcium 9.0, Troponin I High Sens 10 11/14/22 01:01: POC Glucose 208 H 11/14/22 05:15: WBC 5.5, RBC 4.37 L, Hgb 12.9 L, Hct 39.7 L, MCV 90.8, MCH 29.5, MCHC 32.5, RDW Std Deviation 44.3 H, RDW Coeff of Carmenza 13.1, Plt Count 73 L, MPV 10.2, Immature Gran % (Auto) 0.500, Neut % (Auto) 48.4, Lymph % (Auto) 34.1, Mo no % (Auto) 11.8 H, Eos % (Auto) 4.3, Baso % (Auto) 0.9, Absolute Neuts (auto) 2.7, Absolute Lymphs (auto) 1.88, Nucleated RBC % 0, Sodium 134 L, Potassium 3.9, Chloride 106, Carbon Dioxide 26.0, Anion Gap 2 L, BUN 13, Creatinine 1.18, Estim Creat Clear Calc 93.16, Est GFR (MDRD) Af Amer 89, Est GFR (MDRD) Non-Af 73, BUN/Creatinine Ratio 11.0, Glucose 226 H, Hemoglobin A1c 7.4 H, Calcium 8.6, Triglycerides 183, Cholesterol 123, LDL Cholesterol 56, VLDL Cholesterol 37, HDL Cholesterol 30 L 11/14/22 06:52: POC Glucose 269 H Radiography Diagnostic Testing: Radiology Impression Brain CT 11/13/22 22:06 IMPRESSION: 1. No acute intracranial abnormality. 2. Focal area of low-attenuation in the peripheral left temporooccipital lobe likely representing encephalomalacia from prior injury or infarct. Given no prior exams for comparison, recommend follow-up with nonemergent MRI. N.B. : The above Results were Read Back by Mark Song DO to TOM Figueroa, and understanding confirmed on 11/13/2022 22:53:02 (ET). Electronically Signed: Mark Song DO at 22:53 EDT , ADDENDUM: 11/13/22 0335 IMPRESSION: 1. No acute intracranial abnormality. 2. Focal area of low-attenuation in the peripheral left temporooccipital lobe likely representing encephalomalacia from prior injury or infarct. Given no prior exams for comparison, recommend follow-up with nonemergent MRI. N.B. : The above Results were Read Back by Mark Song DO to TOM Figueroa, and understanding confirmed on 11/13/2022 22:53:02 (ET). Electronically Signed: Mark Song DO at 22:53 EDT , Chest X-Ray 11/13/22 22:32 IMPRESSION: No evidence of cardiopulmonary disease. Electronically Signed: Mark Song DO at 23:07 EDT , Physical Exam Const alert and no apparent distress HEENT head/scalp atraumatic and moist oral mucous membranes Extremity normal to inspection Neuro oriented x3, moves all extremities, no focal motor deficits and no sensory deficits noted Sensorium / Orientation: awake and alert Psych affect normal Assessment & Plan Assessment/Plan (1) CVA (cerebral vascular accident): PLAN: MRI of the brain shows acute left posterior cerebral artery territory infarct. MRA of the head neck showed narrowing and diminished flow of the T3 segment of the left posterior cerebellar artery, concerning for thrombus. Echo pending Consult SOC teleneurology (2) Thrombocytopenia: PLAN: Through [facility]: Last available plt was from 06/06/2022: plt 106. PLAN: Plan Chronic conditions: * Diabetes mellitus type 2: Patient with hyperglycemia on presentation. Hold home metformin. Monitor Accu-Cheks. Correction scale insulin ordered. * Elevated blood pressure without diagnosis of hypertension: Trend blood pressures. As needed hydralazine ordered. * Morbid Obesity: BMI: 43.5 kg/m?. Complicates care. Lifestyle modification recommended. * Tobacco abuseCounseled. Nicotine patch applied * h/o DVT: apixaban. DVT Prophylaxis: not indicated as already on anticoagulation. Charges/Coding Visit Charges Inpatient E&M: 01280 Subs Hosp L2
--- NOTE | 2022-11-14 09:30 | MRI_ITS ---
ACR Level 3 findings have been noted. An addendum which confirms receipt of the report will follow. HISTORY: stroke, left-sided headache, difficulty with speech. TECHNIQUE: Multiplanar and multisequence MR images of the brain were obtained without contrast. 294 images. COMPARISON: CT prior day. FINDINGS: BRAIN PARENCHYMA: Mild-moderate zone of restricted diffusion in the left temporal lobe extending to the occipital cortex. Corresponding cytotoxic edema with T2 FLAIR signal abnormality and mild sulcal effacement. No acute intracranial hemorrhage identified. CSF SPACES: Cerebral ventricles, cortical sulci, and other extra-axial CSF spaces otherwise within normal limits in size for age. No significant midline shift or other mass effect.No extra-axial fluid collection. VASCULAR SYSTEM: Refer to MRA. PARANASAL SINUSES AND MASTOID AIR CELLS: No significant air fluid levels. ORBITS: Symmetric contents. MRI/Brain without Contrast IMPRESSION: Acute left posterior cerebral artery territory infarct. Electronically Signed: Leigh Ann Cruz MD at 12:00 EDT ,
--- NOTE | 2022-11-14 09:30 | MRI_ITS ---
HISTORY: stroke, slurred speech. TECHNIQUE: Routine [id number] carotid MR angiogram protocol was performed without contrast. 3D reconstructions were reviewed. NASCET criteria using the distal ICAs for comparison were used for evaluation of stenoses. 552 images. COMPARISON: None. FINDINGS: RIGHT CCA: No occlusion or significant stenosis. RIGHT ICA: No occlusion, significant stenosis, or dissection. LEFT CCA: No occlusion or significant stenosis. LEFT ICA: No occlusion, significant stenosis, or dissection. RIGHT VERTEBRAL ARTERY: No occlusion, significant stenosis, or dissection. LEFT VERTEBRAL ARTERY: No occlusion, significant stenosis, or dissection. MRI/MRA Neck without Contrast IMPRESSION: No evidence for significant stenosis or occlusion in the vertebral or carotid arteries of the neck. Electronically Signed: Leigh Ann Cruz MD at 13:05 EDT ,
--- NOTE | 2022-11-14 09:30 | MRI_ITS ---
HISTORY: Stroke, lt sided headache difficulty with speech. TECHNIQUE: Routine [place]/brain 3D time of flight MR angiogram protocol was performed without contrast. 3D reconstructions were reviewed. 195 images. COMPARISON: None. FINDINGS: ICAs: No significant stenosis, occlusion, or aneurysm at the intracranial/visualized segments. ACAs: No significant stenosis at the visualized segments. No anterior communicating artery aneurysm. MCAs: No significant stenosis or vascular malformation at the visualized segments. instrument sterilizer: Narrowing and diminished flow in the P3 segment of the left posterior cerebral artery. Patent left P1, P2, and T4 segments of the left posterior cerebral artery. No significant stenosis on the right. BASILAR ARTERY: No significant stenosis, occlusion, or aneurysm. VERTEBRAL ARTERIES: No significant stenosis or vascular malformation at the intradural/visualized segments. MRI/MRA Head ONLY without Contrast IMPRESSION: Narrowing and diminished flow in the T3 segment of the left posterior cerebral artery, concerning for thrombus. No evidence for large vessel occlusion in the anterior circulation. Electronically Signed: Leigh Ann Cruz MD at 12:11 EDT ,
[2022-11-14 11:46] VITALS: BP 157/98; PULSE 65; RESP 16; TEMP 36; O2SAT 100
[2022-11-14] MEDS: Aspirin 81 MG TAB.CHEW PO (11:56)
[2022-11-14 12:15] LABS: Bedside Glucose 197 mg/dL (74-106)
--- NOTE | 2022-11-14 13:52 | CHAPLAIN ---
Type of Pastoral Visit _x__ Initial Visit ___ Follow-up Visit ___ On-call Visit ___ General Patient Visit ___ Spiritual Assessment ___ Family Conference ___ Bereavement ___ Rapid Response ___ Code Blue ___ Other (describe below) Pastoral Care Referral From _x__ Patient ___ Family ___ Nurse ___ Physician ___ Lime Spreader ___ Chief Operator Hydroformer ___ Other (describe below) Sacrament/Intervention ___ Active listening ___ Anointing ___ Yazdanism ___ Bereavement ___ Communion ___ Mona exploration ___ ___ Life review ___ Prayer ___ Reconciliation ___ Sacrament of Sick _x__ Supportive presence ___ Wedding ___ Other (describe below) Pastoral Comments patient is resting in the recliner; pt states that he is waiting for his results and just wants to know what his results are so he can go home; pt says that what he wants is to have his children come; in another minute his family arrived; left pt to have visit with his family
[2022-11-14 14:35] VITALS: BMI 43.0
[2022-11-14 15:10] VITALS: BP 151/84; PULSE 68; RESP 16; TEMP 36.4; O2SAT 100
--- NOTE | 2022-11-14 15:22 | CASEMGMT ---
SHAWNA CM in to discuss discharging needs with patient. Discussed recommendation for outpatient ST therapy. Script received and provided to patient with information for [facility], placed in discharge folder. Patient had no further questions or concerns at this time.
--- NOTE | 2022-11-14 15:49 | CASEMGMT ---
Met with patient to complete MONTILLA form. M[place]A form explained to patient who voiced understanding and signed form. Original form placed in pt?s chart and copy provided to patient. Cathleen Dutton, Discharge Planning Asst.
--- NOTE | 2022-11-14 16:00 | PCM.DC.SUM ---
Providers Date of Admission: 11/13/22 Primary Care Physician: No Primary Care Phys Reason For Visit: ACUTE CVA Diagnosis Discharge Diagnosis (1) CVA (cerebral vascular accident): Status: Acute Code(s): I63.9 - Cerebral infarction, unspecified Plan: MRI of the brain shows acute left posterior cerebral artery territory infarct. MRA of the head neck showed narrowing and diminished flow of the T3 segment of the left posterior cerebellar artery, concerning for thrombus. Echo pending [facility] teleneurology: recommending consult to hematology and cardiology for CRISTI. Concern for underlying coagulopathy. I discussed with Dr. Perez. He recommended labs checking for factor V Leiden mutation, prothrombin gene mutation and MTHFR. By time does get back patient can follow-up with the hematology office. 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 With the patient's thrombocytopenia, Dr. Mcguire is okay with the patient being on apixaban and aspirin. I discussed with Dr. Herrera about the recommendations by neurology. He is currently unavailable to review the echocardiogram the patient just had. Being the patient is overall better, I do not feel the patient needs to stay in the hospital to have a CRISTI which would not be able to be performed until next week as patient is already anticoagulated. There is no clinical signs of endocarditis. Patient to follow-up with cardiology as outpatient to see if a CRISTI would be warranted. Additionally, patient will need to follow-up with neurology as outpatient. (2) Thrombocytopenia: Status: Inactive Code(s): D69.6 - Thrombocytopenia, unspecified Plan: Through [facility]: Last available plt was from 06/06/2022: plt 106. Will need outpt follow up. Plan Chronic conditions: Diabetes mellitus type 2: Patient with hyperglycemia on presentation. Hold home metformin. Monitor Accu-Cheks. Correction scale insulin ordered. Elevated blood pressure without diagnosis of hypertension: Trend blood pressures. As needed hydralazine ordered. Morbid Obesity: BMI: 43.5 kg/m?. Complicates care. Lifestyle modification recommended. Tobacco abuseCounseled. Nicotine patch applied h/o DVT: apixaban. DVT Prophylaxis: not indicated as already on anticoagulation. Medications at Discharge Home Medications metformin 1,000 mg tablet 1,000 mg PO BID 11/13/22 apixaban 5 mg tablet (Eliquis) 5 mg PO BID CLOT IN RT LEG 11/14/22 aspirin 81 mg chewable tablet 81 mg PO DAILY@0800 #0 tabs 11/14/22 atorvastatin 80 mg tablet 80 mg PO QHS #30 tabs 11/14/22 cetirizine 10 mg tablet 10 mg PO BID ALLERGY 11/14/22 epinephrine 0.3 mg/0.3 mL injection, auto-injector 0.3 mg subcut PRN 11/14/22 omeprazole 20 mg capsule,delayed release 20 mg PO BID ACID REFLUX 11/14/22 Hospital Course Operations None Procedures 2-D Echocardiogram Summary of Care Provided Minutes Spent on Discharge: 45 Hospital Course: Patient presents with a several day history of expressive aphasia. Patient came and had MRI that showed acute left posterior cerebellar artery territory infarct. Since he has been here, his speech is improved where the expressive aphasia is less prominent. Patient was seen by neurology who is concern for coagulopathy. Patient does have a known history of DVT and had been on Eliquis for that and had been seeing hematology for that. Neurology did recommend inpatient hematology as well as cardiology consultations. I spoke with specialist from [facility] and both did not feel it was necessary to keep the patient in the hospital. Patient will follow-up with both the specialist. Dr. Perez, of hematology, recommended checking a prothrombin gene mutation, factor V mutation as well as MTHFR. Those are send outs and will take time to get back and can follow-up with them in the office. Spoke with Dr. Herrera who has not had a chance to read the 2D echocardiogram yet but stated that any CRISTI would not be able to be performed until next week. I do not feel is necessary to keep the patient in the hospital waiting for test as there is no ongoing medical management and patient is already anticoagulated on apixaban. Given patient's new diagnosis of thrombocytopenia, it was seen that patient did have a low normal platelet count back in May but no other baseline labs to compare to (that was seen in [facility]). Dr. Perez is okay with the patient being on apixaban as well as aspirin even with his thrombocytopenia. Weight / BMI Weight Weight: 144.1 kg Body Mass Index (BMI) 43.0 ABG / Lab / Microbiology Data 11/14/22 05:15 11/14/22 05:15 Laboratory: Laboratory Results - last 24 hr 11/13/22 22:25: WBC 5.5, RBC 4.56 L, Hgb 13.3, Hct 41.0, MCV 89.9, MCH 29.2, MCHC 32.4, RDW Std Deviation 43.0, RDW Coeff of Carmenza 13.1, Plt Count 74 L, MPV 10.4, Immature Gran % (Auto) 0.400, Neut % (Auto) 51.0, Lymph % (Auto) 35.6, [place] % (Auto) 8.8, Eos % (Auto) 3.3, Baso % (Auto) 0.9, Absolute Neuts (auto) 2.8, Absolute Lymphs (auto) 1.95, Nucleated RBC % 0, Differential Comment SEE COMMENT, Platelet Estimate MOD DEC, RBC Morphology N CHROM, Anisocytosis RARE, Macrocytosis RARE, PT 13.4, INR 1.0, APTT 68.6 H, Sodium 135 L, Potassium 4.1, Chloride 106, Carbon Dioxide 28.0, Anion Gap 1 L, BUN 12, Creatinine 1.18, Estim Creat Clear Calc 93.16, Est GFR (MDRD) Af Amer 89, Est GFR (MDRD) Non-Af 73, BUN/Creatinine Ratio 10.2, Glucose 253 H, Calcium 9.0, Troponin I High Sens 10 11/14/22 01:01: POC Glucose 208 H 11/14/22 05:15: WBC 5.5, RBC 4.37 L, Hgb 12.9 L, Hct 39.7 L, MCV 90.8, MCH 29.5, MCHC 32.5, RDW Std Deviation 44.3 H, RDW Coeff of Carmenza 13.1, Plt Count 73 L, MPV 10.2, Immature Gran % (Auto) 0.500, Neut % (Auto) 48.4, Lymph % (Auto) 34.1, [place] % (Auto) 11.8 H, Eos % (Auto) 4.3, Baso % (Auto) 0.9, Absolute Neuts (auto) 2.7, Absolute Lymphs (auto) 1.88, Nucleated RBC % 0, Sodium 134 L, Potassium 3.9, Chloride 106, Carbon Dioxide 26.0, Anion Gap 2 L, BUN 13, Creatinine 1.18, Estim Creat Clear Calc 93.16, Est GFR (MDRD) Af Amer 89, Est GFR (MDRD) Non-Af 73, BUN/Creatinine Ratio 11.0, Glucose 226 H, Hemoglobin A1c 7.4 H, Calcium 8.6, Triglycerides 183, Cholesterol 123, LDL Cholesterol 56, VLDL Cholesterol 37, HDL Cholesterol 30 L 11/14/22 06:52: POC Glucose 269 H 11/14/22 11:53: POC Glucose 197 H Radiography Diagnostic Testing: Radiology Impression Brain CT 11/13/22 22:06 IMPRESSION: 1. No acute intracranial abnormality. 2. Focal area of low-attenuation in the peripheral left temporooccipital lobe likely representing encephalomalacia from prior injury or infarct. Given no prior exams for comparison, recommend follow-up with nonemergent MRI. N.B. : The above Results were Read Back by Mark Song DO to TOM Figueroa, and understanding confirmed on 11/13/2022 22:53:02 (ET). Electronically Signed: Mark Song DO at 22:53 EDT Reading Location ID and State: [facility] / [place] Tel , Service support , ADDENDUM: 11/13/22 2300 IMPRESSION: 1. No acute intracranial abnormality. 2. Focal area of low-attenuation in the peripheral left temporooccipital lobe likely representing encephalomalacia from prior injury or infarct. Given no prior exams for comparison, recommend follow-up with nonemergent MRI. N.B. : The above Results were Read Back by Mark Song DO to TOM Figueroa, and understanding confirmed on 11/13/2022 22:53:02 (ET). Electronically Signed: Mark Song DO at 22:53 EDT , Chest X-Ray 11/13/22 22:32 IMPRESSION: No evidence of cardiopulmonary disease. Electronically Signed: Mark Song DO at 23:07 EDT , Brain MRI 11/14/22 09:30 IMPRESSION: Acute left posterior cerebral artery territory infarct. Electronically Signed: Leigh Ann Cruz MD at 12:00 EDT , ADDENDUM: 11/14/22 1437 IMPRESSION: Acute left posterior cerebral artery territory infarct. N.B. : Eve Quiñones RN, confirmed on 11/14/2022 14:30:59 (ET) that the healthcare facility has received the radiology report. Electronically Signed: Leigh Ann Cruz MD at 12:00 EDT Reading Location ID and State: [facility] / [place] Tel , Service support , Head MRA 11/14/22 09:30 IMPRESSION: Narrowing and diminished flow in the T3 segment of the left posterior cerebral artery, concerning for thrombus. No evidence for large vessel occlusion in the anterior circulation. Electronically Signed: Leigh Ann Cruz MD at 12:11 EDT , ADDENDUM: 11/14/22 1310 IMPRESSION: undefined Neck MRA 11/14/22 09:30 IMPRESSION: No evidence for significant stenosis or occlusion in the vertebral or carotid arteries of the neck. Electronically Signed: Leigh Ann Cruz MD at 13:05 EDT , D/C Instructions Discharge Diet: Low fat / Low cholesterol Meaningful Use Info Meaningful Use Diagnoses (Choose all that apply): Ischemic CVA CVA Therapy Assessed for PT,OT and/or ST?: Yes Ischemic Stroke Antithrombotic order at d/c?: Yes Dx of Atrial fib/flutter?: No Anticoagulant at discharge?: Yes Statins at discharge?: Yes Primary Dx Acute Ischemic CVA?: Yes Reason IV thrombolytic not ordered: Medical Contraindication Discharge Plan Admission Admit Date/Time: 11/13/22 23:06 Primary Reason for Your Visit: Stroke Attending Provider: Mayur Fields Primary Care Provider: Tia Shelton,Tawanna Primary Consulting Providers: Inocente Valles Instructions Additional Instructions / Restrictions: You had a stroke. You had studies to evaluate for what is called a hypercoagulable state (clotting disorder) performed. You will need to follow-up with hematology for follow-up on those labs to see if any changes need to be done with your medications or not. The neurologist who saw you recommended you see cardiology for a procedure called a transesophageal echocardiogram. Please follow-up with cardiology to set that appointment up. Also follow-up with neurology for follow-up purposes from your stroke. If you have any further events such as difficulty speaking, weakness on one side of the body or the other, notify someone or return to the emergency room immediately. Discharge Orders/Prescriptions Prescriptions: New atorvastatin 80 mg Tablet 80 mg PO QHS Qty: 30 0RF aspirin 81 mg Tablet,Chewable 81 mg PO DAILY@0800 Qty: 0 0RF Continued metformin 1,000 mg tablet 1,000 mg PO BID cetirizine 10 mg tablet 10 mg PO BID omeprazole 20 mg capsule,delayed release(DR/EC) 20 mg PO BID epinephrine 0.3 mg/0.3 mL auto-injector 0.3 mg subcut PRN Eliquis 5 mg tablet 5 mg PO BID Referrals / Follow Up: [facility] [Provider Group] - Within 1 Month (Stroke follow-up) [facility] [Provider Group] - Within 1 Month (Stroke follow-up. Evaluation for transesophageal echocardiogram) *[facility] [Provider Group] - Within 2 Weeks (Follow-up for hypercoagulable studies, thrombocytopenia.) Care Physician,No Primary [Primary Care Provider] - Disposition Disposition (needs filled in before D/C Order can be placed): Home, Self Care Charges/Coding Visit Charges Inpatient E&M: 52759 Disch Hosp >30min
--- NOTE | 2022-11-14 16:01 | CASEMGMT ---
Social Work Reason for referral: CVA - complete PHQ-9 SW presented to pt's room. Introduced self and role. Inquired how pt was feeling since CVA dx. Pt states fine other than occasional slurred speech. SW requested to complete PHQ-9. Pt agreed. Score 5/. Pt answered yes to poor appetite and explained he has lost about 100 lbs in 5 months. Stating he only eats dinner, which is an average size amount of well-balanced food; otherwise, pt drinks water throughout the day. SW offered to notify Dr for possible intervention. Pt states this was desired, stating I just figured that was the best way to [lose weight] and it worked. SW offered for pt to speak with [facility] about proper diet for desired weight loss. Pt agreed. SW inquired about alcohol/tobacco/drug use. Pt admitted to alcohol use on the weekend. SW requested further details. Pt states Thursday to Thursday at noon he drinks a 24 pack of beer, and smokes 1/2 pack of cigarettes of day. Pt denied resources or desired to quick smoking or drinking. Denied drug use. SW inquired about PCP. Pt states he saw [facility] but would like to establish with local PCP. SW provided healthcare directory for resources. Pt denied any other issues/concerns. SW thanked pt for conversation. No other SW needs identified. ELY verbally notified RN of ticket sales supervisor consult. Evelyn Lewis, [employer]
[2022-11-14 16:58] LABS: Bedside Glucose 217 mg/dL (74-106)
[2022-11-14 17:50] VITALS: BMI 43.0
== END 2022-11-14 16:12 | disposition home or self-care (01) ==
LOC: ED 23:09 → PCU 23:21
PROVIDERS: Admitting Provider Hospitalist; Emergency Provider Student in an Organized Health Care Education/Training Program
DX: I63.9 Cerebral infarction, unspecified (principal); E66.01 Morbid (severe) obesity due to excess calories; Z68.41 Body mass index [BMI] 40.0-44.9, adult; D69.6 Thrombocytopenia, unspecified; E11.9 Type 2 diabetes mellitus without complications; R47.01 Aphasia; I10 Essential (primary) hypertension; Z79.84 Long term (current) use of oral hypoglycemic drugs; H53.8 Other visual disturbances; Z79.899 Other long term (current) drug therapy; F17.200 Nicotine dependence, unspecified, uncomplicated; R29.700 NIHSS score 0; Z86.718 Personal history of other venous thrombosis and embolism; Z79.01 Long term (current) use of anticoagulants; I08.1 Rheumatic disorders of both mitral and tricuspid valves
CPT/HCPCS: 36415; 70450; 70544; 70547; 70551; 71045; 80048; 80061; 81240; 81241; 81291; 82962; 83036; 84484; 85025; 85610; 85730; 92523; 93005; 93306; 94762; 97161; 97166; 99221; 99285; 99406; Q9957; A4216; G0378

== ENCOUNTER 2022-11-23 17:24 | Emergency (ER) | payer MEDICARE, MEDICAID, SELFPAY ==
[2022-11-23 17:25] VITALS: BP 187/97; PULSE 102; RESP 16; TEMP 36.3; O2SAT 100; BMI 42.3
--- NOTE | 2022-11-23 17:37 | EDS_ITS ---
<Statement entered by Kristy Ott MD - 11/23/22 21:02> I have personally performed a face to face assessment of the patient and have reviewed the CORNELIUS Note. Patient presents with painful rash to his penis. He does have a history of diabetes and states his blood sugars have been running between 80 and 130 at home. He was admitted last month secondary to a CVA. He denies dysuria. He has no fever or chills. He denies concern for STD. Patient sitting upright in bed no acute distress. Head and neck examination unremarkable. Heart is regular rate and rhythm. Lung sounds are clear. Abdomen is soft and nontender. examination reveals mild edema along the distal aspect of the penis around the circumcision site. No focal draining wound. No discharge from the urethra. No skin rash noted in the groin lines. Urinalysis obtained and does reveal 1000 of glucose. No definite infection. Urine for gonorrhea and chlamydia is sent, however will take several hours for a final result. Patient is given a dose of Diflucan here and given topical yeast cream to treat balanitis. Return instructions given. HPI History of Present Illness Chief Complaint: Rash Narrative Narrative: 37-year-old male presents with rash on his penis that started a week ago. It started as 1 small painful sore on the left side and now he has several on the right side as well with some fluid accumulation under the foreskin. No discharge from the tip of the penis. No dysuria. He states he always has frequency with his type 2 diabetes. No fever or chills. Denies concern for STI. [facility] Medical History DM type 2 (diabetes mellitus, type 2) Home Medications metformin 1,000 mg tablet 1,000 mg PO BID diabetes 11/13/22 [History Last Taken Unknown] apixaban 5 mg tablet (Eliquis) 5 mg PO BID CLOT IN RT LEG 11/14/22 [History Last Taken 11/13/22 09:16 5 mg] aspirin 81 mg chewable tablet 81 mg PO DAILY@0800 #0 tabs 11/14/22 [Rx Last Taken Unknown] atorvastatin 80 mg tablet 80 mg PO QHS #30 tabs 11/14/22 [Rx Last Taken Unknown] cetirizine 10 mg tablet 10 mg PO BID ALLERGY 11/14/22 [History Last Taken 11/13/22 09:17 10 mg] epinephrine 0.3 mg/0.3 mL injection, auto-injector 0.3 mg subcut PRN allergies 11/14/22 [History Last Taken Unknown] omeprazole 20 mg capsule,delayed release 20 mg PO BID ACID REFLUX 11/14/22 [History Last Taken 11/13/22 09:18 20 mg] clotrimazole 1 % topical cream 1 applic topical BID #15 grams 11/23/22 [Rx Last Taken Unknown] Allergy/AdvReac Type Severity Reaction Status Date / Time bee venom protein (honey bee) Allergy Severe Anaphylaxis Verified 11/23/22 17:26 Penicillins Allergy Severe Anaphylaxis Verified 11/23/22 17:26 Family History Other Aneurysm of artery of head and neck region Diabetes Surgical History History of surgery on lower extremity Social History Smoking Status: Light Smoker (<10/day) ROS ROS ED ROS Narrative Constitutional: Negative for fever, chills, malaise. GI: Negative for abdominal pain, nausea, vomiting. : Negative for dysuria. Skin: Positive for rash. EXAM Physical Exam Narrative Exam Narrative: CONST: Patient sitting in no acute distress. EYES: Normal inspection. NECK: Normal inspection. RESP: No respiratory distress, CTAB. CVS: Regular rate and rhythm, no murmur, no gallop. ABD: Soft and nontender, no guarding or rebound, nondistended. : Uncircumcised penis, under the foreskin there are small amount of yellow discharge that looks like smegma and several small red lesions on the shaft of the penis. No vesicles, no swelling. Normal scrotum and groin. SKIN: Color normal, no rash, warm, dry, intact. EXTREMITIES: Normal appearance, no pedal edema. NEURO: Oriented x4. PSYCH: Normal affect. Const Vital Signs: 11/23/22 17:25 Temperature 97.4 F L Temperature Source Temporal Pulse Rate 102 H Respiratory Rate 16 Blood Pressure 187/97 H Blood Pressure Mean 127 Pulse Ox 100 Oxygen Delivery Method Room Air MDM MDM MDM Narrative Medical decision making narrative: Patient was evaluated for a genital rash. On exam his uncircumcised penis has evidence of balanitis. There is smegma/discharge that may be a candidal infection. Since he is diabetic a fingerstick glucose was checked and is 190. There are a few sores that don't necessarily look herpetic in nature and there is no fluid present to culture. At this time he has no concern for STI and I don't think antivirals are indicated. There is no evidence of abscess or Vicki's gangrene. Urinalysis has no evidence of radha UTI and was sent for gonorrhea/chlamydia culture. He was treated with Diflucan 150 mg x 1 and prescribed topical clotrimazole with follow-up instructions. He was discharged in stable condition. Lab Data Attestation: I reviewed the patient's lab results. Labs: Laboratory Results - last 24 hr 11/23/22 11/23/22 17:41 18:58 Urine Color Yellow Urine Clarity Clear Urine pH 6.0 Ur Specific [place] 1.025 Urine Protein 100 H Urine Glucose (UA) 1000 H Urine Ketones 5 H Urine Occult Blood 150 H Urine Nitrite Negative Urine Bilirubin Negative Urine Urobilinogen Normal Ur Leukocyte Esterase 25 H Urine RBC 5-10 SEEN Urine WBC 0-5 SEEN Ur Squamous Epith Cells 0-5 SEEN Urine Bacteria 1+ Urine Mucus 0 SEEN POC Glucose 190 H Discharge Plan Triage Chief Complaint: Rash ED Midlevel Provider: Heather Fry ED Provider: Kristy Ott Dx/Rx/DC Orders Clinical Impression: Balanitis Instructions: ED Balanitis Prescriptions: New clotrimazole 1 % cream 1 applic topical BID Qty: 15 0RF Rx Instructions: applied topically until symptoms resolve No Action metformin 1,000 mg tablet 1,000 mg PO BID cetirizine 10 mg tablet 10 mg PO BID omeprazole 20 mg capsule,delayed release(DR/EC) 20 mg PO BID epinephrine 0.3 mg/0.3 mL auto-injector 0.3 mg subcut PRN Eliquis 5 mg tablet 5 mg PO BID atorvastatin 80 mg Tablet 80 mg PO QHS Qty: 30 0RF aspirin 81 mg Tablet,Chewable 81 mg PO DAILY@0800 Qty: 0 0RF Primary Care Provider: Care Physician,No Primary Referrals: Care Physician,No Primary [Primary Care Provider] - Activity Restrictions/Additional Instructions: We are treating you for balanitis which is inflammation of the foreskin and head of the penis. Please carefully cleanse the foreskin daily and apply the cream twice a day until symptoms resolve. If symptoms worsen see your primary care doctor or return to ER. Disposition Disposition: Home, Self Care
[2022-11-23 18:10] LABS: Mucous, Urine 0 SEEN /hpf (<or=2+)
[2022-11-23 18:13] LABS: Color, Urine Yellow (Yellow); Glucose, Dipstick 1000 mg/dl (Normal); Ketone-Dipstick 5 mg/dl (Negative); Leukocyte Esterase-Dipstick 25 /ul (Negative); Nitrite-Dipstick Negative (Negative); Occult Blood-Urine 150 /ul (Negative); Protein-Dipstick 100 mg/dl (Negative); Specific Gravity, Urine 1.025 (1.002-1.030); Urine Bilirubin Dipstick Negative (Negative); Urine Clarity Clear (Clear); Urine Urobilinogen Normal (Normal)
[2022-11-23 19:07] LABS: Bacteria 1+ /hpf (None Seen); Red Blood Cells-Urine 5-10 SEEN /hpf (0-5); Squamous Epithelial Cells - UA 0-5 SEEN /hpf (0-5); White Blood Cells 0-5 SEEN /hpf (0-5)
[2022-11-23 19:16] LABS: Bedside Glucose 190 mg/dL (74-106)
[2022-11-23] MEDS: FLUCONAZOLE 150 MG TABLET PO (19:52)
== END 2022-11-23 19:55 | disposition home or self-care (01) ==
PROVIDERS: Physician Assistant; Emergency Provider Emergency Medicine; Visit Provider Emergency Medicine
DX: N48.1 Balanitis (principal); E11.9 Type 2 diabetes mellitus without complications; F17.200 Nicotine dependence, unspecified, uncomplicated
CPT/HCPCS: 81001; 82962; 87491; 87591; 99282

== ENCOUNTER 2022-12-05 09:36 | Emergency (ER) | payer MEDICARE, MEDICAID, SELFPAY ==
[2022-12-05 09:37] VITALS: BP 159/100; PULSE 95; RESP 18; TEMP 35.5; O2SAT 97
[2022-12-05 09:54] VITALS: BMI 42.2
--- NOTE | 2022-12-05 09:54 | EX.ED.DYSGE1 ---
HPI History of Present Illness Chief Complaint: Bite Informant: patient Narrative Narrative: 37-year-old male diabetic on Eliquis due to recent CVA presenting to the emergency room following a dog bite. Patient states that he was letting his new pitbull mix dog outside. He states that it bit him left hand and face. Unknown last tetanus but he states that it is most likely need of updating. He notes a penicillin allergy. [facility] Medical History Atypical chest pain CVA (cerebral vascular accident) Deep vein thrombosis (DVT) of popliteal vein of right lower extremity Depression DM type 2 (diabetes mellitus, type 2) ED (erectile dysfunction) Elevated blood pressure reading Essential hypertension GERD (gastroesophageal reflux disease) Lupus anticoagulant positive Morbid obesity due to excess calories Thrombocytopenia Tobacco abuse Home Medications metformin 1,000 mg tablet 1,000 mg PO BID diabetes 11/13/22 [History Last Taken Unknown] apixaban 5 mg tablet (Eliquis) 5 mg PO BID CLOT IN RT LEG 11/14/22 [History Last Taken 11/13/22 09:16 5 mg] aspirin 81 mg chewable tablet 81 mg PO DAILY@0800 #0 tabs 11/14/22 [Rx Last Taken Unknown] atorvastatin 80 mg tablet 80 mg PO QHS #30 tabs 11/14/22 [Rx Last Taken Unknown] cetirizine 10 mg tablet 10 mg PO BID ALLERGY 11/14/22 [History Last Taken 11/13/22 09:17 10 mg] epinephrine 0.3 mg/0.3 mL injection, auto-injector 0.3 mg subcut PRN allergies 11/14/22 [History Last Taken Unknown] clotrimazole 1 % topical cream 1 applic topical BID #15 grams 11/23/22 [Rx Last Taken Unknown] omeprazole 20 mg capsule,delayed release 20 mg PO BID PRN ACID REFLUX 11/25/22 [History Last Taken Unknown] clindamycin HCl 300 mg capsule (Cleocin HCl) 300 mg PO Q6H #28 CAPSULES 12/05/22 [Rx Last Taken Unknown] hydrocodone-acetaminophen 5-325mg 5mg-325mg 1 tab PO Q6H PRN PRN Pain 3 days #12 TABLETS 12/05/22 [Rx Last Taken Unknown] sulfamethoxazole 800 mg-trimethoprim 160 mg tablet 1 tab PO BID #14 TABLETS 10/20/23 [Rx Last Taken Unknown] Allergy/AdvReac Type Severity Reaction Status Date / Time bee venom protein (honey bee) Allergy Severe Anaphylaxis Verified 11/25/22 10:45 Penicillins Allergy Severe Anaphylaxis Verified 11/25/22 10:45 pineapple Allergy Severe Anaphylaxis Verified 11/25/22 10:45 bee pollen Allergy Intermediate Swelling Verified 11/25/22 10:45 celecoxib AdvReac Intermediate Hives Verified 11/25/22 10:45 Family History Mother Diabetes Hypertension Heart disease DVT (deep venous thrombosis) Father Diabetes Hypertension Other Aneurysm of artery of head and neck region Surgical History History of surgery on lower extremity Social History Smoking Status: Light Smoker (<10/day) alcohol intake: current alcohol intake frequency: a few times a month substance use type: does not use ROS ROS ED Constitutional Constitutional ED: Denies chills or weight loss Eyes Eyes: Denies change in vision or diplopia ENT ENT ED: Denies ear pain, rhinorrhea or sore throat Cardiovascular Cardiovascular: Denies chest pain, orthopnea, palpitations or racing heartbeat Respiratory/Chest Respiratory/Chest: Denies cough, dyspnea or orthopnea Gastrointestinal Gastrointestinal: Denies abdominal pain, diarrhea, nausea or vomiting Genitourinary Genitourinary ED: Denies dysuria, hematuria or urinary frequency Musculoskeletal Musculoskeletal: Denies arthralgias or myalgias Integumentary Reports other Details: See history of present illness ; Denies abscess or rash Neurologic Neurologic: Denies headache(s) or weakness Psychiatric Psychiatric: Denies anxiety, depression, suicidal ideation or suicidal thoughts Endocrine Endocrinology: Denies polydipsia, polyphagia or polyuria Allergic/Immunologic Allergic/Immunologic ED: Denies mouth swelling, tongue swelling or urticaria EXAM Physical Exam Const Vital Signs: 12/05/22 09:37 Temperature 95.9 F L Temperature Source Temporal Pulse Rate 95 Respiratory Rate 18 Blood Pressure 159/100 H Blood Pressure Mean 119 Pulse Ox 97 Oxygen Delivery Method Room Air Positive well nourished and well developed General Appearance ED: well developed HEENT Reports normocephalic and moist mucous membranes HEENT Narrative: The left upper lip is gone. There is no pink remaining. It is down to subcutaneous tissue. Bleeding controlled. There is a 5 cm Y-shaped laceration over the anterior aspect of the nose. There are 2 puncture wounds on the dorsum of the left hand laterally. There is a 3 cm laceration to the thenar eminence of the left hand. There is mild venous bleeding. Eyes PERRL and EOMs intact bilaterally Neck no lymphadenopathy, supple and no JVD Resp normal respiratory effort and clear to auscultation bilaterally Cardio regular rate, regular rhythm and no murmurs GI normal to inspection, nondistended, normoactive bowel sounds and non-tender Palpation: soft Back/Spine no CVA tenderness and normal ROM Extremity normal to inspection General Extremety ED: Negative for edema General Extremity: Negative for edema Neuro oriented x3 and CN's II-XII intact bilaterally Sensorium / Orientation: alert Motor Exam: strength 5/5 throughout Psych mental status grossly normal Mood & Affect: Negative for depressed or tearful Skin no rashes or lesions noted and no wounds MDM MDM MDM Narrative Medical decision making narrative: My independent interpretation of the plain films of the left hand is metallic subcutaneous foreign bodies noted in the index finger. No obvious dental fragments from dog. Let was applied to the nose. Patient received a [place] clindamycin and Bactrim due to penicillin allergy. Using 1% lidocaine the laceration on the left thenar eminence was anesthetized. It was washed with Shur-Clens irrigated and explored. Wound edges were loosely approximated using a total of 7 simple interrupted 4-0 Ethilon sutures. There were a total of 4 puncture wounds noted on the dorsum of the left hand laterally. 2 were gaping significantly and still had bleeding. 2 were very superficial in nature. The 2 lacerations were about 0.5 cm in length. They were washed with Shur-Clens and explored irrigated and locally anesthetized using 1% lidocaine. Each was closed using a single simple opted 4-0 Ethilon stitch. After sufficient time attention was turned to the nose and let was removed. The wound was further locally anesthetized using 1% lidocaine. Upon exploration revealed this is more of a flap-like laceration. It was fully irrigated using sterile saline and washed with Shur-Clens. A total of 6 simple interrupted 5-0 Ethilon sutures were used to loosely approximate the wound edges. Attention then was turned towards the lip. The upper lip avulsion was unable to be restored and bleeding is controlled at this time. There is actually a lower lip laceration crossing the vermilion border and extending into the mucosal surface of the left lower mouth. This measures approximately 1 cm and is also Y-shaped and formation. A simple interrupted 5-0 Ethilon stay stitch was placed along the vermilion border. 5-0 Vicryl stitches were used to close the lip and mucosal surface. Patient will receive pain medication and as well as clindamycin and Bactrim to cover for the dog bites. He was given return instructions. He will need to follow-up with plastic surgery. Radiography Diagnostic Testing: Clinical Impression(s) from Imaging Studies Hand X-Ray 12/05/22 10:19 IMPRESSION: Multiple punctate radiopaque foreign bodies in the volar fat pad of the distal second finger. No demonstrated acute fracture. Electronically Signed: Shawn Huffman MD at 10:42 EDT , Discharge Plan Triage Chief Complaint: Bite ED Provider: Malachi Jaramillo Dx/Rx/DC Orders Clinical Impression: DM type 2 (diabetes mellitus, type 2), Dog bite of hand, Avulsion of lip, Dog bite of face, Complex laceration of nose, Laceration of lip Instructions: Animal Bites and Scratches, ED Dog Bite, ED Laceration: All Closures, ED Skin Avulsion Prescriptions: New clindamycin HCl [Cleocin HCl] 300 mg capsule 300 mg PO Q6H Qty: 28 0RF hydrocodone-acetaminophen [hydrocodone-acetaminophen] 5-325 mg tablet 1 tab PO Q6H PRN PRN (Reason: Pain) 3 Days Qty: 12 0RF sulfamethoxazole-trimethoprim [sulfamethoxazole-trimethoprim] 800-160 mg tablet 1 tab PO BID Qty: 14 0RF No Action clotrimazole 1 % cream 1 applic topical BID Qty: 15 0RF Rx Instructions: applied topically until symptoms resolve metformin 1,000 mg tablet 1,000 mg PO BID cetirizine 10 mg tablet 10 mg PO BID epinephrine 0.3 mg/0.3 mL auto-injector 0.3 mg subcut PRN Eliquis 5 mg tablet 5 mg PO BID atorvastatin 80 mg Tablet 80 mg PO QHS Qty: 30 0RF aspirin 81 mg Tablet,Chewable 81 mg PO DAILY@0800 Qty: 0 0RF omeprazole 20 mg capsule,delayed release(DR/EC) 20 mg PO BID PRN (Reason: ACID REFLUX) Primary Care Provider: Care Physician,No Primary Referrals: Srinath Vasquez MD [Med Staff - Active Staff] - As soon as possible Care Physician,No Primary [Primary Care Provider] - Disposition Disposition: Home, Self Care
[2022-12-05] MEDS: Diphth,Pertuss(Acell),Tet Vac 0.5 ML Vial IM (10:13)
[2022-12-05] MEDS: HYDROcodone Bitartrate/Apap 5/325 Tablet PO (10:14)
[2022-12-05] MEDS: Clindamycin HCl 150 MG Capsule 300 MG PO (10:14)
[2022-12-05] MEDS: Smz/Tmp Ds Tablet 1 TABLET PO (10:14)
[2022-12-05] MEDS: Lidocaine/Epi/Tetracaine 50 ML 1 APPLIC TOPICAL (10:15)
[2022-12-05] MEDS: Lidocaine 1% (20 ml mdv) 20 ML Vial INFILT (10:15)
--- NOTE | 2022-12-05 10:19 | RAD_ITS ---
STUDY: X-RAY - LEFT HAND REASON FOR EXAM: Male, 37 years old. Dog bite. TECHNIQUE: 3 views of the left hand. COMPARISON: None. FINDINGS: Normal radiocarpal articulation. Normal distal radioulnar joint. Normal visualized carpal bones. Normal carpal articulations Normal carpometacarpal articulation of the thumb. Normal second through fifth carpometacarpal joints. Normal metacarpi. Normal metacarpophalangeal joint of the thumb. Normal interphalangeal joint of the thumb. Normal proximal and distal phalanges of the thumb. Normal metacarpophalangeal joints of the second through fifth fingers. Normal proximal and distal interphalangeal joints of the second through fifth fingers. Normal phalanges of the second through fifth fingers. There is no demonstrated acute fracture. There are multiple punctate radiopaque foreign bodies in the volar fat pad of the distal second finger. RAD/Hand Min 3 Views IMPRESSION: Multiple punctate radiopaque foreign bodies in the volar fat pad of the distal second finger. No demonstrated acute fracture. Electronically Signed: Shawn Huffman MD at 10:42 EDT ,
[2022-12-05 11:57] VITALS: BP 138/80; PULSE 76; RESP 16; O2SAT 99
== END 2022-12-05 11:58 | disposition home or self-care (01) ==
PROVIDERS: Emergency Provider Emergency Medicine; Visit Provider Emergency Medicine
DX: S01.21XA Laceration without foreign body of nose, initial encounter (principal); E11.9 Type 2 diabetes mellitus without complications; S61.432A Puncture wound without foreign body of left hand, initial encounter; S01.511A Laceration without foreign body of lip, initial encounter; S61.412A Laceration without foreign body of left hand, initial encounter; W54.0XXA Bitten by dog, initial encounter; I10 Essential (primary) hypertension; F17.200 Nicotine dependence, unspecified, uncomplicated; Z79.01 Long term (current) use of anticoagulants; Z79.82 Long term (current) use of aspirin; Z79.84 Long term (current) use of oral hypoglycemic drugs; Z79.899 Other long term (current) drug therapy; Z88.0 Allergy status to penicillin; Z86.73 Personal history of transient ischemic attack (TIA), and cerebral infarction without residual deficits
CPT/HCPCS: 12002; 12014; 73130; 90715; 99285

== ENCOUNTER 2023-08-24 12:36 | Emergency (ER) | payer MEDICARE, MEDICAID, SELFPAY ==
[2023-08-24 12:36] VITALS: BP 161/95; PULSE 90; RESP 16; TEMP 36.4; O2SAT 98; BMI 41.5
--- NOTE | 2023-08-24 12:59 | ED.RN ---
PATIENT STATES THIS INJURY HAPPENED AT WORK BUT DOES NOT WANT TO FILE UNDER WORKERS COMP
--- NOTE | 2023-08-24 13:53 | EX.ED.UPPERE ---
HPI History of Present Illness HPI Narrative: 38-year-old gentleman history of prior DVT on Eliquis has lupus anticoagulant and diabetes. He was using a knife and accidentally cut his left thumb webspace. He is right-hand dominant. Denies any other complaints is just at the last couple hours. Chief Complaint: Laceration Informant: patient Occured/Mechanism Mechanism/Context: Yes injury Onset/Context/Timing Onset: Today Timing: Continuous Quality of Pain: Sharp Current Severity: Mild Maximum Severity: Mild Associated Symptoms Associated Symptoms: Negative for Parasthesia, Weakness or Loss of Funtion Narrative Narrative: 38-year-old male [id number] on Eliquis due to DVT and lupus anticoagulant laceration left thumb webspace. Needs repaired. Tetanus Immunization: <5 years Prior similar symptoms: Yes Recent Illness/Hospitalization: No PFSH PFSH Medical History Laceration of lower lip with complication Smoker On apixaban therapy DM type 2, goal HbA1c < 7.5% Open wound of left hand due to dog bite Open wound of lip due to dog bite Open wound of nose due to dog bite Dog bite Tibial anomaly Avulsion of lip Essential hypertension ED (erectile dysfunction) Depression Atypical chest pain Deep vein thrombosis (DVT) of popliteal vein of right lower extremity GERD (gastroesophageal reflux disease) Lupus anticoagulant positive CVA (cerebral vascular accident) Morbid obesity due to excess calories Tobacco abuse Elevated blood pressure reading DM type 2 (diabetes mellitus, type 2) Thrombocytopenia Home Medications ?Medication ?Instructions ?Recorded ?Last Taken ?Type metformin 1,000 mg tablet 1,000 mg PO BID diabetes 11/13/22 Unknown History apixaban 5 mg tablet (Eliquis) 5 mg PO BID CLOT IN RT LEG 11/14/22 11/13/22 09:16 History 5 mg aspirin 81 mg chewable tablet 81 mg PO DAILY@0800 #0 tabs 11/14/22 Unknown Rx atorvastatin 80 mg tablet 80 mg PO QHS #30 tabs 11/14/22 Unknown Rx cetirizine 10 mg tablet 10 mg PO BID ALLERGY 11/14/22 11/13/22 09:17 History 10 mg epinephrine 0.3 mg/0.3 mL 0.3 mg subcut PRN allergies 11/14/22 Unknown History injection, auto-injector clotrimazole 1 % topical cream 1 applic topical BID #15 grams 11/23/22 Unknown Rx omeprazole 20 mg capsule,delayed 20 mg PO BID PRN ACID REFLUX 11/25/22 Unknown History release sulfamethoxazole 800 1 tab PO BID #14 TABLETS 12/05/22 Unknown Rx mg-trimethoprim 160 mg tablet mupirocin 2 % topical ointment 1 applic topical DAILY #22 grams 12/16/22 Unknown Rx Allergy/AdvReac Type Severity Reaction Status Date / Time bee venom protein (honey bee) Allergy Severe Anaphylaxis Verified 08/24/23 12:38 Penicillins Allergy Severe Anaphylaxis Verified 08/24/23 12:38 pineapple Allergy Severe Anaphylaxis Verified 08/24/23 12:38 bee pollen Allergy Intermediate Swelling Verified 08/24/23 12:38 celecoxib AdvReac Intermediate Hives Verified 08/24/23 12:38 Family History Mother Diabetes Hypertension Heart disease DVT (deep venous thrombosis) Father Diabetes Hypertension Other Aneurysm of artery of head and neck region Surgical History History of surgery on lower extremity Social History Smoking Status: Light Smoker (<10/day) alcohol intake: current alcohol intake frequency: a few times a month substance use type: does not use ROS ROS ED ROS Narrative Denies recent illness. Review of Systems ROS Unobtainable: Denies due to encephalopathy Constitutional Constitutional ED: Denies chills or fever(s) Eyes Eyes: Denies blurry vision ENT ENT ED: Denies ear pain Cardiovascular Cardiovascular: Denies chest pain Respiratory/Chest Respiratory/Chest: Denies cough or dyspnea Gastrointestinal Gastrointestinal: Denies abdominal pain Genitourinary Genitourinary ED: Denies dysuria or hematuria Musculoskeletal Musculoskeletal: Denies back pain Integumentary Denies abscess, Abrasions or rash Neurologic Neurologic: Denies headache(s) Psychiatric Psychiatric: Denies anxiety Endocrine Endocrinology: Denies cold intolerance Hematologic/Lymphatic Hematologic/Lymphatic: Reports easy bleeding and easy bruising Allergic/Immunologic Allergic/Immunologic ED: Denies mouth swelling or tongue swelling EXAM Physical Exam Narrative Exam Narrative: 38-year-old male no acute distress vital signs stable afebrile. HEENT exam unremarkable. Lungs clear. Heart regular rhythm no murmur. Abdomen soft nontender. Moving all 4 extremities. Left thumb webspace is a laceration. Hand is neurovascularly intact. There is oozing of blood. No pulsatile bleeding. No foreign body or infection. Const Vital Signs: 08/24/23 12:36 Temperature 97.5 F L Temperature Source Temporal Pulse Rate 90 Respiratory Rate 16 Blood Pressure 161/95 H Blood Pressure Mean 117 Pulse Ox 98 Oxygen Delivery Method Room Air Positive well nourished and well developed; Negative for cachectic, contractures or unkempt General Appearance ED: well developed and NAD; Negative for unkempt, cachectic, contractures, cyanotic or diaphoretic Nutritional Appearance: Negative for cachectic HEENT Reports moist mucous membranes normocephalic and atraumatic; Negative for trauma or tenderness Eyes PERRL and EOMs intact bilaterally General Eye ED: Negative for other Neck full ROM and supple General: Negative for tenderness Lymph Lymphatic: Negative for other Chest Wall inspection of chest normal Resp normal respiratory effort and clear to auscultation bilaterally Effort and Inspection: Negative for pain with movement Auscultation: Negative for rales, rhonchi, wheezes or diminished lung sounds Cardio regular rate, regular rhythm, S1 normal heart sound, S2 normal heart sound and no murmurs Rate: Negative for bradycardia or tachycardic Rhythm: Negative for abnormal rhythm GI non-tender, non-distended and no masses Inspection: Negative for abdominal distention Auscultation: normoactive bowel sounds Palpation: soft; Negative for tender, guarding or rebound tenderness present Back/Spine no CVA tenderness General Back: Negative for CVA tenderness Cervical Spine: Negative for cervical spine tenderness Thoracic Spine / Upper Back: Negative for thoracic spinal tenderness Lumbar Spine / Lower Back: Negative for lumbar spinal tenderness Extremity normal to inspection and full ROM Extremity Narrative: Except left hand webspace between thumb and index finger laceration. Neurovascular intact. Normal range of motion. Normal sensation. General Extremety ED: Negative for edema General Extremity: Negative for edema Neuro oriented x3, CN's II-XII intact bilaterally, moves all extremities, no focal motor deficits and no sensory deficits noted Sensorium / Orientation: alert, oriented to person, oriented to place and oriented to time; Negative for orientation impaired, lethargic or stuporous Motor Exam: strength 5/5 throughout Psych mental status grossly normal Appearance: Negative for unkempt Attitude: No agitated Mood & Affect: Negative for depressed, anxious or tearful Skin General Skin Exam: Negative for petechiae Lesions: no lesions Rashes: no rashes Trauma: no lacerations or abrasions and laceration; Negative for abrasion MDM MDM MDM Narrative Medical decision making narrative: 38-year-old male left hand laceration will need repaired. Tetanus is up-to-date. Left hand laceration repair. About 1 inch laceration on the skin and subcu tissue of his left webspace. Patient did not want any anesthetic. Cleaned with Shur-Clens. Washed and irrigated with saline. Explored. Closed using 3 simple interrupted 4-0 Ethilon sutures. Proper hemostasis wound closure obtained. Patient instructed on wound care and suture removal in 10 days. History & Record Review Discussion w/independent historian: Patient and Family Procedures Lacerations Left hand laceration repair:: Length: 1 in Prep: [place]-Clens Laceration repair: Irrigated, Skin sutures and Wound explored Number of Sutures/Triangle: 3 Suture Information: Ethilon, Simple and 4-0 Comment: Left hand laceration near the webspace of the left thumb and index finger. Left thumb is neurovascularly intact with full flexion extension. Normal sensation. And range of motion. Patient did not want an anesthetized he was offered several times. Cleaned with Shur-Clens. Irrigated. Closed using 3 simple erupted 4-0 Ethilon sutures. Proper hemostasis and wound closure obtained. Discharge Plan Triage Chief Complaint: Laceration ED Provider: Zacekry Souza Dx/Rx/DC Orders Clinical Impression: Laceration of left hand, Chronic anticoagulation, History of deep vein thrombosis, History of diabetes mellitus Instructions: ED Laceration, Hand: All Closures Prescriptions: No Action mupirocin 2 % ointment 1 applic topical DAILY Qty: 22 3RF clotrimazole 1 % cream 1 applic topical BID Qty: 15 0RF Rx Instructions: applied topically until symptoms resolve metformin 1,000 mg tablet 1,000 mg PO BID cetirizine 10 mg tablet 10 mg PO BID epinephrine 0.3 mg/0.3 mL auto-injector 0.3 mg subcut PRN Eliquis 5 mg tablet 5 mg PO BID atorvastatin 80 mg Tablet 80 mg PO QHS Qty: 30 0RF aspirin 81 mg Tablet,Chewable 81 mg PO DAILY@0800 Qty: 0 0RF omeprazole 20 mg capsule,delayed release(DR/EC) 20 mg PO BID PRN (Reason: ACID REFLUX) sulfamethoxazole-trimethoprim [sulfamethoxazole-trimethoprim] 800-160 mg tablet 1 tab PO BID Qty: 14 0RF Primary Care Provider: Care Physician,No Primary Referrals: Care Physician,No Primary [Primary Care Provider] - Activity Restrictions/Additional Instructions: Keep the wound dry and clean. You can clean it daily with soap and water or peroxide and water. Dry thoroughly. Do not let it soak in any dirty water. Apply antibiotic ointment daily. Stitches out in 10 days. Watch for any signs of infection such as pus, redness, fever or streaks is seen return. Print Language: Upper Sorbian Disposition Disposition: Home, Self Care
[2023-08-24 15:18] VITALS: BP 155/92; PULSE 87; RESP 18; TEMP 36.6; O2SAT 98
== END 2023-08-24 15:20 | disposition home or self-care (01) ==
PROVIDERS: Emergency Provider Emergency Medicine; Visit Provider Emergency Medicine
DX: S61.412A Laceration without foreign body of left hand, initial encounter (principal); E11.9 Type 2 diabetes mellitus without complications; W26.0XXA Contact with knife, initial encounter; D68.62 Lupus anticoagulant syndrome; I10 Essential (primary) hypertension; F17.200 Nicotine dependence, unspecified, uncomplicated; Z79.82 Long term (current) use of aspirin; Z79.84 Long term (current) use of oral hypoglycemic drugs; Z79.01 Long term (current) use of anticoagulants; Z79.899 Other long term (current) drug therapy; Z86.718 Personal history of other venous thrombosis and embolism
CPT/HCPCS: 12001; 99284

== ENCOUNTER 2024-08-09 07:31 | Emergency (ER) | payer MEDICARE, MEDICAID, SELFPAY ==
[2024-08-09 07:33] VITALS: BP 153/92; PULSE 78; RESP 16; TEMP 36.7; O2SAT 100; BMI 41.2
--- NOTE | 2024-08-09 07:54 | ED.VIS.LOWEX ---
HPI History of Present Illness Chief Complaint: Lower Extremity Injury Informant: patient and spouse/S.O. 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 There is drainage. States that a year and a half ago had a skin tag for which he bumped it sheared off. He did have intermittent swelling and drainage that would resolve. He went to [facility] care 1 time was told to monitor. We discussed if he is discussed this with his primary care doctor he cannot recall the discussion. She no other states when things brought up he has always been told to monitor it. No formal evaluation of it. Denies fever or chills. States yesterday with Band-Aids there is exudative drainage. Prior similar symptoms: Yes PFSH PFS Medical History Laceration of lower lip with complication Smoker On apixaban therapy DM type 2, goal HbA1c < 7.5% Open wound of left hand due to dog bite Open wound of lip due to dog bite Open wound of nose due to dog bite Dog bite Tibial anomaly Avulsion of lip Essential hypertension ED (erectile dysfunction) Depression Atypical chest pain Deep vein thrombosis (DVT) of popliteal vein of right lower extremity GERD (gastroesophageal reflux disease) Lupus anticoagulant positive CVA (cerebral vascular accident) Morbid obesity due to excess calories Tobacco abuse Elevated blood pressure reading DM type 2 (diabetes mellitus, type 2) Thrombocytopenia Home Medications ?Medication ?Instructions ?Recorded ?Last Taken ?Type metformin 1,000 mg tablet 1,000 mg PO BID diabetes 11/13/22 Unknown History apixaban 5 mg tablet (Eliquis) 5 mg PO BID CLOT IN RT LEG 11/14/22 11/13/22 09:16 History 5 mg aspirin 81 mg chewable tablet 81 mg PO DAILY@0800 #0 tabs 11/14/22 Unknown Rx atorvastatin 80 mg tablet 80 mg PO QHS #30 tabs 11/14/22 Unknown Rx cetirizine 10 mg tablet 10 mg PO BID ALLERGY 11/14/22 11/13/22 09:17 History 10 mg epinephrine 0.3 mg/0.3 mL 0.3 mg subcut PRN allergies 11/14/22 Unknown History injection, auto-injector clotrimazole 1 % topical cream 1 applic topical BID #15 grams 11/23/22 Unknown Rx omeprazole 20 mg capsule,delayed 20 mg PO BID PRN ACID REFLUX 11/25/22 Unknown History release sulfamethoxazole 800 1 tab PO BID #14 TABLETS 12/05/22 Unknown Rx mg-trimethoprim 160 mg tablet mupirocin 2 % topical ointment 1 applic topical DAILY #22 grams 12/16/22 Unknown Rx doxycycline monohydrate 100 mg 100 mg PO BID #14 CAPSULES 08/09/24 Unknown Rx capsule Allergy/AdvReac Type Severity Reaction Status Date / Time bee venom protein (honey bee) Allergy Severe Anaphylaxis Verified 08/09/24 07:35 Penicillins Allergy Severe Anaphylaxis Verified 08/09/24 07:35 pineapple Allergy Severe Anaphylaxis Verified 08/09/24 07:35 bee pollen Allergy Intermediate Swelling Verified 08/09/24 07:35 celecoxib AdvReac Intermediate Hives Verified 08/09/24 07:35 Family History Mother Diabetes Hypertension Heart disease DVT (deep venous thrombosis) Father Diabetes Hypertension Other Aneurysm of artery of head and neck region Surgical History History of surgery on lower extremity Social History Smoking Status: Light Smoker (<10/day) alcohol intake: current alcohol intake frequency: a few times a month substance use type: does not use ROS ROS ED Constitutional Constitutional ED: Denies fever(s) Cardiovascular Cardiovascular: Denies chest pain Respiratory/Chest Respiratory/Chest: Denies cough Gastrointestinal Gastrointestinal: Denies diarrhea or vomiting Musculoskeletal Musculoskeletal: Denies none Integumentary Reports wounds; Denies rash Neurologic Neurologic: Denies weakness EXAM Physical Exam Const Vital Signs: 08/09/24 07:33 Temperature 98.1 F Temperature Source Oral Pulse Rate 78 Respiratory Rate 16 Blood Pressure 153/92 H Blood Pressure Mean 112 Pulse Ox 100 Oxygen Delivery Method Room Air Positive well nourished and well developed General Appearance ED: well developed HEENT normocephalic and atraumatic Eyes General Eye ED: Yes normal appearance of both eyes Neck full ROM Resp normal respiratory effort and normal air movement Cardio regular rate and regular rhythm GI soft to palpation Extremity full ROM Extremity Narrative: Right lower leg: Ankle medial aspect proximal to the malleolus there is an open wound slight drainage. Dark pigmentation of skin no clear evaluation of erythema. No tenderness proximally on the skin. No crepitus. Neuro oriented x3 Skin no rashes or lesions noted and no wounds MDM MDM MDM Narrative Medical decision making narrative: Interventions / MDM: Differential diagnosis: Recurrent wound infection right leg. History of diabetes, chronic anticoagulation Diagnosis considered but do not suspect: N/A My EKG interpretation: N/A Imaging independently reviewed and interpreted by myself: Three-view x-ray right ankle: Soft tissue swelling no soft tissue air. External documents reviewed: N/A Test considered but not ordered:N/A ED course: Diabetic increasing drainage. Recurrent. I will check basic labs x-ray will obtain wound culture. 0910: White count normal at 5.7. Creatinine stable at 1.39 from previous labs. Wound culture sent pending. Patient started on doxycycline twice a day. He is given follow-up with podiatry for recurrent wound infection near his ankle. He use Tylenol as needed. Re-evaluation: stable Disposition discussed with patient/family/significant other: Patient and significant other Case discussed with consulting clinician: N/A This note was generated with [employer] dictation software. It may contain incorrect words, spelling, and punctuation that were not noted in checking the note before signing. Lab Data Attestation: I reviewed the patient's lab results. Labs: Laboratory Results - last 24 hr 08/09/24 08/09/24 08:00 08:06 WBC 5.7 RBC 4.40 L Hgb 13.3 Hct 40.0 MCV 90.9 MCH 30.2 MCHC 33.3 RDW Std Deviation 46.9 H RDW Coeff of [place] 13.9 Plt Count 89 L MPV 9.8 Immature Gran % (Auto) 0.500 Neut % (Auto) 61.4 Lymph % (Auto) 25.3 [place] % (Auto) 9.1 Eos % (Auto) 3.0 Baso % (Auto) 0.7 Absolute Neuts (auto) 3.5 Absolute Lymphs (auto) 1.44 Nucleated RBC % 0 Sodium 136 Potassium 5.0 Chloride 106 Carbon Dioxide 19.4 L Anion Gap 11 BUN 20 H Creatinine 1.39 H Estim Creat Clear Calc 101.66 Est GFR (MDRD) Non-Af 66 BUN/Creatinine Ratio 14.3 Glucose 224 H Calcium 8.6 Radiography Diagnostic Testing: Clinical Impression(s) from Imaging Studies Ankle X-Ray 08/09/24 07:55 IMPRESSION: Soft tissue swelling. No bony abnormality is seen. Reading Location: [id number] Discharge Plan Triage Chief Complaint: Lower Extremity Injury ED Provider: Usama Pool Dx/Rx/DC Orders Clinical Impression: Wound infection, History of diabetes mellitus, Chronic anticoagulation Instructions: ED Wound Check (Infection) Prescriptions: New doxycycline monohydrate 100 mg capsule 100 mg PO BID Qty: 14 0RF No Action mupirocin 2 % ointment 1 applic topical DAILY Qty: 22 3RF clotrimazole 1 % cream 1 applic topical BID Qty: 15 0RF Rx Instructions: applied topically until symptoms resolve metformin 1,000 mg tablet 1,000 mg PO BID cetirizine 10 mg tablet 10 mg PO BID epinephrine 0.3 mg/0.3 mL auto-injector 0.3 mg subcut PRN Eliquis 5 mg tablet 5 mg PO BID atorvastatin 80 mg Tablet 80 mg PO QHS Qty: 30 0RF aspirin 81 mg Tablet,Chewable 81 mg PO DAILY@0800 Qty: 0 0RF omeprazole 20 mg capsule,delayed release(DR/EC) 20 mg PO BID PRN (Reason: ACID REFLUX) sulfamethoxazole-trimethoprim [sulfamethoxazole-trimethoprim] 800-160 mg tablet 1 tab PO BID Qty: 14 0RF Referrals: Malachi Piña DPM [Med Staff - Active Staff] - 1 Week Care Physician,No Primary [Non-Staff] - Activity Restrictions/Additional Instructions: Recurrent wound infections to your right lower leg. White count normal wound culture sent and pending. Take antibiotic as prescribed. Daily wound care. Follow-up with podiatry. Print Language: Serbian Disposition Disposition: Home, Self Care
--- NOTE | 2024-08-09 07:55 | RAD_ITS ---
PROCEDURE: ANKLE 2 VIEWS 08/09/2024 REASON FOR EXAM: INFECTION TECHNIQUE: ANKLE 2 VIEWS COMPARISON: None FINDINGS: Bones: No fracture or bony lesion. Joints: Normal alignment. Mortise appears intact. No effusion. Soft tissues: Soft tissue swelling. Other: RAD/Ankle 2 Views IMPRESSION: Soft tissue swelling. No bony abnormality is seen. Reading Location: [facility]
[2024-08-09 08:14] LABS: Absolute Lymphocyte Count 1.44 X10^3/uL (0.83-4.51); Absolute Neutrophil Count 3.5 X10^3/uL (2.0-7.7); Basophil# 0.04 X10^3/uL; Basophil% 0.7 % (0-1); Eosinophil# 0.17 X10^3/uL; Hemoglobin 13.3 g/dL (13.0-16.5); Lymphocyte # 1.44 X10^3/ul (0.83-4.51); Lymphocyte % 25.3 % (19-41); Mean Corp Hgb Conc 33.3 g/dL (32-36); Mean Corpuscular Hgb 30.2 pg (27.0-32.0); Mean Corpuscular Volume 90.9 fL (80-94); Mean Platelet Vol. 9.8 fl (6.2-12.0); Monocyte# 0.52 X10^3/uL; Monocyte% 9.1 % (0-10); NRBC Flagged by Analyzer 0 % (0-5); Neutrophil # 3.49 X10^3/uL (2.7-7.7); Neutrophil % 61.4 % (47-70); POSITIVE COUNT YES; Platelet Count 89 K/mm3 (150-450); RBC Distribution Width CV 13.9 % (11.6-14.6); RBC Distribution Width SD 46.9 fl (35.1-43.9); White Blood Count 5.7 K/mm3 (4.4-11.0)
[2024-08-09 08:18] LABS: Differential Indicated SCAN CRITERIA MET
[2024-08-09 09:09] LABS: Anion Gap 11 (5-15); BUN 20 mg/dL (4-19); BUN/Creat Ratio 14.3 RATIO (10-20); Calcium,Total 8.6 mg/dL (7.6-11.0); Carbon Dioxide 19.4 mmol/L (21.0-32.0); Chloride 106 mmol/L (98-108); Creatinine, Serum 1.39 mg/dL (0.70-1.20); EST Glomerular Filtration Rate 66 (>60); Estimated Creatinine Clearance 101.66 ml/min (50-250); Glucose 224 mg/dL (70-99); Sodium Level 136 mmol/L (133-145)
[2024-08-09] MEDS: Doxycycline 100 MG CAPSULE PO (09:19)
[2024-08-09 09:23] VITALS: BP 135/78; PULSE 78; RESP 16; TEMP 37.1; O2SAT 100
== END 2024-08-09 09:24 | disposition home or self-care (01) ==
PROVIDERS: Emergency Provider Emergency Medicine; Visit Provider Emergency Medicine
DX: S91.001A Unspecified open wound, right ankle, initial encounter (principal); E11.9 Type 2 diabetes mellitus without complications; L08.9 Local infection of the skin and subcutaneous tissue, unspecified; X58.XXXA Exposure to other specified factors, initial encounter; I10 Essential (primary) hypertension; F17.200 Nicotine dependence, unspecified, uncomplicated; Z79.01 Long term (current) use of anticoagulants; Z79.82 Long term (current) use of aspirin; Z79.84 Long term (current) use of oral hypoglycemic drugs; Z79.899 Other long term (current) drug therapy
CPT/HCPCS: 73600; 80048; 85025; 87070; 87075; 87077; 87186; 87205; 99284; A4216

== ENCOUNTER → 2024-08-26 | Outpatient (CLI) | payer MEDICARE, MEDICAID, SELFPAY ==
--- NOTE | 2024-08-26 09:00 | VDLE_ITS ---
Reason For Study Reason For Study: BLE SWelling RIGHT LEFT GSV is normal. GSV is normal. CFV is compressible, spontaneous, phasic, competent CFV is compressible, spontaneous, phasic, competent, and demonstrates normal augmentation. and demonstrates normal augmentation. FV is compressible, spontaneous, phasic, competent FV is compressible, spontaneous, phasic, competent and demonstrates normal augmentation. and demonstrates normal augmentation. POP V is compressible, spontaneous, phasic, competent POP V is compressible, spontaneous, phasic, competent and demonstrates normal augmentation. and demonstrates normal augmentation. T/P Trunk is PARTIALLY COMPRESSIBLE with hyperechoic T/P Trunk is compressible. intraluminal echogenicity. Finding is consistent with PTV is compressible. CHRONIC DVT. LT PerV is compressible. PTV is compressible. RT PerV is compressible. Procedure This is a venous duplex using B-mode, color flow and spectral Doppler. Exam performed in department. The exam was diagnostic. VL/Venous Duplex US - Michael Extrem Interpretation Summary Chronic deep vein thrombosis noted in the right tibioperoneal trunk vein. Deep veins of the left lower extremity are patent and compressible segmentally. There is no evidence of left lower extremity deep vein thrombosis. The bilateral great saphenous veins appear dong nt and compressible segmentally. Ordering Physician: Malachi Piña Referring Physician: N/A Performed By: Titi Snyder RVT
== END | disposition home or self-care (01) ==
LOC: CVS 08:58
PROVIDERS: Referring Provider Podiatrist; Visit Provider Podiatrist
DX: I82.541 Chronic embolism and thrombosis of right tibial vein (principal); I82.551 Chronic embolism and thrombosis of right peroneal vein; R22.42 Localized swelling, mass and lump, left lower limb
CPT/HCPCS: 93970

== ENCOUNTER → 2024-09-03 | Outpatient (CLI) | payer MEDICARE, MEDICAID, SELFPAY ==
--- OUTSIDE RECORDS SUMMARY | 2024-09-03 09:11 | XMS RPT_ITS | CCD ---
Author Organization [facility] CliniSywy Care Team Providers Care Oracle Database Administrator Name Role Phone CHETAN BLAKE Unavailable Unavailable SonticLing edwards Unavailable Unavailable SonticLing edwards Unavailable Unavailable Danielle Clarke Unavailable Unavaila ble IMCA Primary Care Unavailable QUINTEN DONG Attending Unavailable Adilia Ascencio Unavailable Unavailable Adilia Ascencio Unavailable Unavailable Ling Allen Unavailable Unavailable Antonio Bojorquez Unavailable Unavailable Jim El Unavailable Unavailable Rachel Ascencio Unavailable Unavailable Danielle Clarke DO Primary Care Provider Adilia Ascencio Unavailable Unavailable Unavailable Unavailable Primary Care Provider Unavailabl e Unavailable Unavailable IMELDA FONG Attending Unavailable NO, PHYSICIAN Primary Care Unavailable Sonu, Dr. Adilia Hawthorne Referring Unavail able Sonu, Dr. Adilia Hawthorne Primary Care Unavail able Sonu, Dr. Adilia Hawthorne Attending Unavail able Sonu, Dr. Adilia Hawthorne Referring Unavail able Sonu, Dr. Adilia Hawthorne Primary Care Unavail able Sonu, Dr. Adilia Hawthorne Attending Unavail able Adilia Ascencio MD Primary Care Provider Dr. Milton Tate Emergency Provider Care Physician, No Primary Primary Care Provider Unavailable Dr. Inocente Valles Admit Provider [phone] Dr. Inocente Valles Other Provider [phone] Dr. Mayur Fields Attending Provider [phone] Dr. Mayur Fields Other Provider Dr. Amber Herrera Attending Provider Adilia Ascencio MD (Historical) Primary Care Provid er Unavailable Adilia Ascencio MD Primary Care Provider Adilia Ascencio MD Unavailable ADILIA ASCENCIO Primary Care Unavailable NINFA FELIPE Referring Unavailable ADILIA ASCENCIO Primary Care Unavailable ADILIA ASCENCIO Attending Unavailable ADILIA ASCENCIO Primary Care Unavailable NINFA FELIPE Attending Unavailable ADILIA ASCENCIO Referring Unavailable ADILIA ASCENCIO Primary Care Unavailable Adilia Ascencio MD Unavailable Adilia Ascencio MD (Historical) Primary Care Provid er Unavailable Corine MELO, Dr. Forrester Emergency Provider Corine MELO, Dr. Forrester Attending Provider Ayana DPM, Dr. Ly Attending Provider Ayana DPM, Dr. Ly Referring Provider [phone] ADILIA OSEI Primary Care Provider Dede DHALIWAL, Dr. Merchant Attending Provider [phone] Master DPM, Dr. Khan Attending Provider Care Physician, No Primary Primary Care Provider Unavailable Mayur Aguayo Attending Unavailable Usama Pool Attending Unavailable Care Physician, No Primary Primary Care Unava ilable Malachi Piña Referring Unavailable Malachi Piña Attending Unavailable Town Doctor, Out of Primary Care Unavailable Care Physician, No Primary Primary Care Unava ilable Malachi Piña Referring Unavailable Bill Thao Attending Unavailable Malachi Piña Referring Unavailable Malachi Piña Attending Unavailable LLOYD SALAZAR Primary Care Unavailable Allergies Allergy Classification Reported Allergen(s) Allergy Type Date of Onset Reaction(s) Facility Bee/Wasp/Ant Venom (1 source) bee venom Substance Allergy 5 [facility] Penicillins (antibiotic) (2 sources) Amoxicillin Drug Allergy 5 [facility] pineapple allergenic extract (1 source) pineapple allergenic extract Drug Allergy 5 [facility] (7 sources) amoxicillin; Translations: [AMOXICILLIN] Drug Allergy 5 [facility] Repository (15 sources) bee pollen; Translations: [BEE POLLEN] Drug Allergy 3 Unknown, [facility] Repository (20 sources) Penicillins; Translations: [PENICILLINS] Propensity to adverse reactions to drug (disorder) 5 Anaphylaxis, Unknown, Hives [facility] Repository (16 sources) pineapple flavor; Translations: [PINEAPPLE] Drug Allergy 5 Anaphylaxis, Swelling [facility] Repository (12 sources) apis mellifera venom Allergy to substance (finding) [facility] Work Phone: (12 sources) bee pollen Allergy to substance (finding) [facility] Work Phone: (18 sources) celecoxib; Translations: [CeleBREX CAPS] Drug Allergy 3 Hives [facility] Work Phone: (7 sources) bee venom Propensity to adverse reactions to drug 5 Hives, Unknown [facility] Work Phone: (3 sources) celecoxib; Translations: [CELECOXIB] Drug Allergy 3 [facility] (3 sources) BEE VENOM PROTEIN (HONEY BEE); Translations: [BEE VENOM PROTEIN (HONEY BEE)] Propensity to adverse reactions to drug (disorder) 3 [facility] Medications Current Medications Medication Drug Class(es) Dates Sig (Normalized) Sig (Original) [id number] 200 actuat albuterol 0.09 mg/actuat metered dose inhaler (3 sources) beta2-Adrenergic Agonist Start: 05-26-2024 take 2 puff(s) by inhalation every four hours as needed for wheezing albuterol HFA (PROVENTIL HFA, VENTOLIN HFA) 90 mcg/actuation inhaler Inhale 2 puffs as instructed every 4 hours as needed for wheezing/shortnes s of breath. 1 each 05/26/2024 Active Start: 10-12-2015 albuterol (PRO VENTIL) (2.5 MG/3ML) 0.083% nebulizer solution Take 3 mLs by nebulization every 6 hours as needed for Wheezing 120 each 3 10/12/2015 Active apixaban 5 mg oral tablet (20 sources) Factor Xa Inhibitor Start: 05-22-2022 End: 04-29-2024 take 1 tablet by mouth twice daily Apixaban (Eliquis) 5 mg tablet Active 5 mg PO TWICE A DAY November 14, 2022 12:00am CLOT IN RT LEG Start: 05-22-2022 End: 04-30-2023 ELIQUIS 5 mg tab(s) once jose alfredo ly. 01/14/2023 Active Start: 01-14-2017 take 1 tablet by swapna th twice daily Eliquis 5 MG Oral Tablet take 1 tablet by mouth twice a day Quantity: 60 Refills: 5 Ordered: 11-Sep-2021 Adilia Ascencio MD Start : 14-Jan-2017 Active Start: 01-09-2017 take 2 tablets by mo uth twice daily, then take 1 tablet by mouth twice daily apixaban (ELIQUIS) 5 MG TABS tablet Take 2 tablets by mouth twice daily for 7 days then take 1 tablet by mouth twice daily thereafter. 74 tablet 0 01/09/2017 Active Comment on above: once daily. aspirin 81 mg chewable tablet (5 sources) Platelet Aggregation Inhibitor, Nonsteroidal Anti-inflammatory Drug Start: 11-15-19 take 1 tablet by mouth once daily Aspirin 81 mg Tablet,Chewable Active 81 mg PO DAILY@0800 0 0 November 14, 2022 12:00am atorvastatin 80 mg oral tablet (6 sources) HMG-CoA Reductase Inhibitor Start: 11-15-19 End: 10-27-19 take 1 tablet by mouth at bedtime Atorvastatin 80 mg Tablet Active 80 mg PO AT BEDTIME 30 0 November 14, 2022 12:00am cetirizine hydrochloride 10 mg oral tablet (20 sources) Histamine-1 Receptor Antagonist Start: 05-23-19 End: 07-29-19 take 1 tablet by mouth twice daily Cetirizine 10 mg tablet Active 10 mg PO TWICE A DAY November 14, 2022 12:00am ALLERGY Start: 06-03-2017 take 1 tablet by swapna th once daily in the morning cetirizine (ZYRTEC) 10 mg tablet Take 1 tablet by mouth every morning. 30 tablet 11 06/30/2017 Active Start: 06-03-2017 take 1 tablet by swapna th twice daily Cetirizine HCl - 10 MG Oral Tablet 1 po bid Quantity: 180 Refills: 3 Ordered: 28-Feb-2021 Adilai Ascencio MD Start : 03-Jun-2017 Active Comment on above: Take 1 tablet by swapna th every morning. [id number] 0.3 ml EPINEPHrine 1 mg/ml auto-injector (20 sources) alpha-Adrenergic Agonist, beta-Adrenergic Agonist, Catecholamine Start: 11-14-2022 Epinephrine 0.3 mg/0.3 mL auto-injector Active 0.3 mg SC NEEDED November 14, 2022 12:00am allergies Start: 07-31-2017 EPINEPHrine (E PIPEN 2-DIANNE) 0.3 mg/0.3 mL auto-injector Inject 0.3 mL intramuscularly as needed (for allergic reaction.Seek emergent medical care immediately after use.Disp:one 2-pack w/net trainer). 1 Each 1 07/31/2017 Active Start: 09-13-2014 End: 06-06-2022 EPINEPHrine 0.3 mg/0.3 mL in jection syringe Indications: Bee sting allergy Inject 0.3 mL (0.3 mg) as directed if needed for anaphylaxis. As Directed 2 each 2 06/06/2022 Active Start: 09-13-2014 EPINEPHrine 0. 3 MG/0.3ML Injection Solution Auto-injector INJECT 0.3ML INTRAMUSCULARLY DIRECTED. Quantity: 1 Refills: 1 Ordered: 12-Jun-2020 Adilia Ascencio MD Start : 13-Sep-2014 Active Start: 09-13-2014 EpiPen 2-Dianne 0 .3 MG/0.3ML Injection Solution Auto-injector INJECT 0.3ML INTRAMUSCULARLY DIRECTED. Quantity: 1 Refills: 1 Adilia Ascencio MD Start : 13-Sep-2014 Active 2 Solution Auto-injector Pen Comment on above: Inject 0.3 mL intram uscularly as needed (for allergic reaction.Seek emergent medical care immediately after use.Disp:one 2-pack w/net trainer). FreeStyle glucose monitoring kit (3 sources) FreeStyle glucos e monitoring kit 1 each. Check blood sugar 1-2 times daily Active FreeStyle glucos e monitoring kit 1 each. Check blood sugar 1-2 times daily 0 Active furosemide 20 mg oral tablet (2 sources) Loop Diuretic Start: 11-10-2016 take 1 tablet by mouth twice daily furosemide (LASIX) 20 MG tablet Indications: Edema of right lower extremity Take 1 tablet by mouth 2 times daily 60 tablet 3 11/10/2016 Active hydrocortisone 25 mg/ml topical cream (2 sources) Corticosteroid Start: 10-22-2016 hydrocortisone (ANUSOL-HC) 2.5 % rectal cream Indications: First degree hemorrhoids Place rectally 2 times daily. 30 g 0 10/22/2016 Active Inhalational Spacing Device (1 source) Start: 05-26-2024 End: 05-26-2024 Inhalational Spacing Device 1 device one time only for 1 dose. 1 each 05/26/2024 05/26/2024 Active lisinopril 5 mg oral tablet (2 sources) Angiotensin Converting Enzyme Inhibitor Start: 01-12-2017 take 1 tablet by mouth once daily lisinopril (PRINIVIL;ZESTRIL) 5 MG tablet take 1 tablet by mouth once daily 90 tablet 2 01/12/2017 Active loratadine 10 mg oral tablet (2 sources) Start: 06-03-2017 take 1 tablet by mouth once daily at bedtime loratadine (CLARITIN) 10 MG tablet Indications: Urticaria One po qhs 30 tablet 6 06/03/2017 Active metFORMIN hydrochloride 1000 mg oral tablet (20 sources) Biguanide Start: 11-13-2022 End: 05-02-2023 take 1 tablet by mouth twice daily Metformin 1,000 mg tablet Active 1000 mg PO TWICE A DAY November 13, 2022 12:00am diabetes Start: 06-22-2021 take 2 tablets by mo uth twice daily at mealtime metFORMIN (GLUCOPHAGE) 500 mg tablet Indications: Knee pain , Left tibia vara Take 2 tablets by mouth twice daily with meals. 60 tablet 06/22/2021 Active Start: 04-11-2014 End: 06-09-2022 take 1 tablet by mouth in the morning metFORMIN (Glucophage) 500 mg tablet Take 1 tablet (500 mg) by mouth in the morning and 1 tablet (500 mg) in the evening. Take with meals. 0 04/11/2014 06/09/2022 Discontinued (Reorder) Comment on above: Take 2 tablets by mo uth twice daily with meals. naproxen 500 mg oral tablet (2 sources) Nonsteroidal Anti-inflammatory Drug Start: 11-11-19 17 take 1 tablet by mouth twice daily at mealtime naproxen (NAPROSYN) 500 MG tablet Indications: Acute right ankle pain Take 1 tablet by mouth 2 times daily (with meals) 60 tablet 3 11/10/2016 Active sertraline 50 mg oral tablet (2 sources) Serotonin Reuptake Inhibitor Start: 12-15-19 15 take 1 tablet by mouth once daily sertraline (ZOLOFT) 50 MG tablet Indications: Major depressive disorder, single episode, moderate (HCC) Take 1 tablet by mouth daily 30 tablet 5 12/14/2014 Active tadalafil 20 mg oral tablet (2 sources) Phosphodiesterase 5 Inhibitor Start: 04-14-19 17 tadalafil (CIALIS) 20 MG tablet Indications: Vasculogenic erectile dysfunction, unspecified vasculogenic erectile dysfunction type Take 1 tablet by mouth as needed for Erectile Dysfunction 9 tablet 3 04/14/2016 Active Completed/Discontinued Medications Medication Drug Class(es) Dates Sig (Normalized) Sig (Original) acetaminophen 325 mg / HYDROcodone bitartrate 5 mg oral tablet (9 sources) Opioid Agonist Start: 12-05-2022 End: 08-24-2023 Hydrocodone-Acetami nophen 5-325 mg tablet Discontinued 1 {tbl} PO EVERY 6 HOURS NEEDED as needed for Pain 12 3 December 05, 2022 August 24, 2023 12:58pm Dog bite of face Open bite of other part of head, initial encounter Bitten by dog, initial encounter Start: 12-05-2022 take 1 tablet by swapna th every six hours as needed Hydrocodone-Acetaminophen Active 1 TABLE T PO EVERY 6 HOURS NEEDED 12 3 December 05, 2022 Start: 10-15-2022 End: 11-14-2022 Hydrocodone-Acetaminophen 5- 325 mg tablet Discontinued 1 {tbl} PO EVERY 6 HOURS NEEDED as needed for Pain 10 3 October 15, 2022 November 14, 2022 12:14am Effusion of left knee Effusion, left knee Start: 10-15-2022 End: 11-14-2022 take 1 tablet by mouth every six hours as needed Hydrocodone-Acetaminophen Discontinued 1 TABLET PO EVERY 6 HOURS NEEDED 10 3 October 15, 2022 November 14, 2022 12:14am acetaminophen 325 mg / oxyCODONE hydrochloride 5 mg oral tablet (4 sources) Opioid Agonist Start: 12-11-2022 End: 12-23-2022 take 7-10 tablets by mouth every six hours as needed for pain Oxycodone-Acetaminophen (Percocet) 5-325 mg tablet Discontinued 1 {tbl} PO EVERY 6 HOURS as needed for pain (scale score 7-10) 28 7 0 December 16, 2022 December 22, 2022 1:00am December 23, 2022 1:05am Lip laceration Dog bite of face Complex laceration of nose Dog bite of hand Avulsion of lip Laceration without foreign body of lip, initial encounter Open bite of other part of head, initial encounter Bitten by dog, initial encounter Laceration without foreign body of nose, initial encounter Open bite of unspecified hand, initial encounter Unspecified open wound of lip, initial encounter 28 tabs (twenty-eight) Boost Glucose Control Oral Liquid (8 sources) Start: 06-12-2020 Boost Glucose Control Oral Liquid 1 CAN TWICE A DAY Quantity: 1 Refills: 4 Ordered: 12-Jun-2020 Adilia Ascencio MD Start : 12-Jun-2020 Active clindamycin 300 mg oral capsule (3 sources) Lincosamide Antibacterial Start: 12-05-2022 End: 12-16-2022 take 1 capsule by mouth every six hours Clindamycin Hcl (Cleocin Hcl) 300 mg capsule Discontinued 300 mg PO EVERY 6 HOURS 28 0 December 05, 2022 12:00am December 16, 2022 9:53am clotrimazole 10 mg/ml topical cream (3 sources) Azole Antifungal Start: 11-23-2022 End: 08-31-2024 Clotrimazole 1 % cream Discontinued 1 NMA TOPICAL TWICE A DAY 15 0 November 23, 2022 12:00am August 31, 2024 8:44am applied topically until symptoms resolve doxycycline monohydrate 100 mg oral capsule (9 sources) Tetracycline-clas s Drug Start: 08-09-2024 End: 08-31-2024 take 1 capsule by mouth twice daily Doxycycline Monohydrate 100 mg capsule Discontinued 100 mg PO TWICE A DAY 14 0 August 09, 2024 12:00am August 31, 2024 8:44am Start: 05-26-2024 End: 05-31-2024 take 1 tablet by mouth twice daily doxycycline (VIBRA-TABS) 100 mg tablet Indications: Acute non-recurrent maxillary sinusitis Take 1 tablet by mouth two times a day for 5 days. 10 tablet 05/26/2024 05/31/2024 Active Start: 10-15-2022 End: 11-14-2022 take 1 tablet by mouth twice daily Doxycycline Hyclate 100 mg tablet Discontinued 100 mg PO TWICE A DAY 20 10 0 October 15, 2022 12:00am November 14, 2022 12:14am iopamidol (ISOVUE-370) 76 % injection 75 mL (1 source) Start: 02-10-2021 End: 02-10-2021 iopamidol (ISOVUE-370) 76 % injection 75 mL isopropyl alcohol 0.7 ml/ml medicated pad (4 sources) Start: 05-18-2014 RA Flo Rosa bs 70 % Pad USE TWICE A DAY FOR CHECKING BLOOD SUGARS Quantity: 200 Refills: 3 Adilia Ascencio MD Start : 18-May-2014 Active mupirocin 0.02 mg/mg topical ointment (5 sources) RNA Synthetase Inhibitor Antibacterial Start: 04-20-2023 End: 04-30-2023 mupirocin (Bactroban) 2 % ointment Start: 12-11-2022 End: 08-31-2024 Mupirocin 2 % ointment Disco ntinued 1 NMA TOPICAL DAILY 22 3 December 16, 2022 10:23am August 31, 2024 8:44am nut.tx.gluc intol,lf,soy-fib er (Boost Glucose ControL) 0.06-1.1 gram-kcal/mL liquid (2 sources) Start: 06-12-2020 End: 04-30-2023 nut.tx.gluc intol,lf,soy-fib er (Boost Glucose ControL) 0.06-1.1 gram-kcal/mL liquid Take by mouth 2 times a day. 1 CAN TWICE A DAY 0 06/12/2020 04/30/2023 Discontinued (Med List Cleanup) Start: 06-12-2020 nut.tx.gluc in emily,lf,soy-fiber (Boost Glucose ControL) 0.06- 1.1 gram-kcal/mL liquid Take by mouth 2 times a day. 1 CAN TWICE A DAY 0 06/12/2020 Active omeprazole 20 mg delayed release oral capsule (20 sources) Proton Pump Inhibitor Start: 06-06-2022 End: 07-24-2024 take 1 capsule by mouth twice daily Omeprazole 20 mg capsule,delayed release(DR/EC) Discontinued 20 mg PO TWICE A DAY November 14, 2022 12:00am November 25, 2022 10:44am ACID REFLUX Start: 02-27-2014 End: 06-06-2022 take 1 capsule by mouth once daily omeprazole (PriLOSEC) [address] capsule Take 1 capsule (20 mg) by mouth once daily. 0 02/27/2014 06/06/2022 Discontinued (Reorder) Comment on above: Take 20 mg by mouth once daily. RHM TechnologyTouch Ultra 2 w/Device Kit (4 sources) Start: 11-18-2017 OneTouch Ultra 2 w/Device Kit USE TO CHECK BLOOD SUGARS 1-2 TIMES DAILY Quantity: 1 Refills: 0 Adilia Ascencio MD Start : 18-Nov-2017 Active OneTouch Ultra Blue STRP (1 source) Start: 04-11-2014 OneTouch Ultra Blue STRP USE TO TEST 1-2 times per day Quantity: 200 Refills: 3 Adilia Ascencio MD Start : 11-Apr-2014 Active sulfamethoxazole 800 mg / trimethoprim 160 mg oral tablet (9 sources) Dihydrofolate Reductase Inhibitor Antibacterial, Sulfonamide Antimicrobial Start: 12-05-2022 End: 08-31-2024 Sulfamethoxazole-Trime thoprim 800-160 mg tablet Discontinued 1 {tbl} PO TWICE A DAY December 05, 2022 12:00am August 31, 2024 8:44am Start: 12-05-2022 take 1 tablet by swapna twice daily Sulfamethoxazole-Trimethoprim Active 1 T ABLET PO TWICE A DAY December 05, 2022 12:00am Start: 10-15-2022 End: 11-14-2022 Sulfamethoxazole-Trimethopri m (Bactrim Ds) 800-160 mg tablet Discontinued 1 {tbl} PO TWICE A DAY October 15, 2022 12:00am November 14, 2022 12:14am varenicline 0.5 mg oral tablet (10 sources) Partial Cholinergic Nicotinic Agonist Start: 01-18-2018 take 1 tablet by mouth twice daily Chantix Continuing Month Dianne 1 MG Oral Tablet TAKE 1 TABLET TWICE DAILY. Quantity: 60 Refills: 1 Adilia Ascencio MD Start : 18-Jan-2018 Active Start: 09-05-2015 varenicline (C HANTIX STARTING MONTH DIANNE) 0.5 MG X 11 & 1 MG X 42 tablet Indications: Tobacco use Take by mouth. 53 each 0 09/05/2015 Active warfarin sodium 5 mg oral tablet (6 sources) Vitamin K Antagonist Start: 05-28-2023 End: 08-24-2023 take 1 tablet by mouth once daily Warfarin 10 mg tablet Discontinued 10 mg PO DAILY 5 May 28, 2023 12:00am August 24, 2023 12:58pm Start: 05-28-2023 End: 08-24-2023 take 1 tablet by mouth once daily Warfarin 5 mg tablet Discontinued 5 mg PO DAILY 30 May 28, 2023 12:00am August 24, 2023 12:58pm Problems Active Problems Problem Classification Problem Date Documented Da te Episodic/Chronic Acute cerebrovascular disease (9 sources) Cerebrovascular accident; Translations: [Cerebral infarction, unspecified] Onset: 4 11-25-2022 Chronic Aortic and peripheral arterial embolism or thrombosis (2 sources) Thromboembolic disorder; Translations: [Embolism and thrombosis of unspecified artery] 12-09-2022 Chronic Comment on above: Pt has been on Eliqu is for a long time. Remains on it. 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 Has had Thrombocytop enia for some time. This could be ITP. Since KHRIS is positive it may be related to Rheumatologic disease. Diabetes mellitus without complication (20 sources) Type 2 diabetes mellitus; Translations: [Type 2 diabetes mellitus without complication] Onset: 5 11-08-2014 Chronic E Codes: Natural/environment (2 sources) Dog bite - wound; Translations: [Bitten by dog, initial encounter] 12-11-2022 Episodic Esophageal disorders (1 source) Gastroesophageal reflux disease without esophagitis; Translations: [Gastro-esophageal reflux disease without esophagitis] 06-06-2022 Chronic Essential hypertension (10 sources) Hypertensive disorder; Translations: [Essential (primary) hypertension] Onset: 5 Resolved: 0 04-14-2016 Chronic Headache; including migraine (2 sources) Chronic tension-type headache, not intractable; Translations: [Chronic tension-type headache, not intractable] Onset: 4 Chronic Hemorrhoids (4 sources) Internal hemorrhoids; Translations: [Internal hemorrhoid] Episodic Immunizations and screening for infectious disease (20 sources) Lupus anticoagulant disorder; Translations: [Other and unspecified nonspecific immunological findings] Onset: 2 Resolved: 1 Episodic Comment on above: Persistent KHRIS posit ivity Inflammatory conditions of male genital organs (3 sources) Balanitis; Translations: [Balanitis] 12-01-2022 Chronic Mood disorders (3 sources) Major depression, single episode; Translations: [Major depressive disorder, single episode, unspecified] Onset: 7 06-13-2020 Chronic Mycoses (4 sources) Tinea barbae; Translations: [Tinea barbae] Episodic Open wounds of extremities (4 sources) Unspecified open wound, right lower leg, initial encounter; Translations: [Dog bite of hand] Onset: 2 12-05-2022 Episodic Open wounds of extremities (4 sources) Open wound of left hand due to dog bite; Translations: [Open bite of left hand, initial encounter] 12-11-2022 Episodic Open wounds of head; neck; and trunk (20 sources) Laceration of lip ; Translations: [Laceration without foreign body of lip, initial encounter] 12-05-2022 Episodic Comment on above: left upper lip near the commissure left lower lip invol ving the lexis border near the commissure Osteoarthritis (9 sources) Arthritis of knee; Translations: [Unilateral primary osteoarthritis, left knee] Onset: 1 10-15-2022 Chronic Other aftercare (1 source) Removal of sutures done; Translations: [Encounter for removal of sutures] Episodic Other aftercare (4 sources) Long-term current use of anticoagulant; Translations: [snf (current) use of anticoagulants] 08-09-2024 Episodic Other aftercare (2 sources) Drug therapy finding; 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] 12-11-2022 Episodic Other bone disease and musculoskeletal deformities (8 sources) Tibia vara; 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, 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 Other bone disease and musculoskeletal deformities (4 sources) Tibia vara; Translations: [[place]'s disease, left] Episodic Other circulatory disease (2 sources) Peripheral vascular disease; Translations: [Other specified peripheral vascular diseases] 08-31-2024 Chronic Other circulatory disease (1 source) Other specified peripheral vascular diseases; Translations: [Other specified peripheral vascular diseases] Onset: 5 Chronic Other circulatory disease (3 sources) Elevated blood pressure; Translations: [Elevated blood-pressure reading, without diagnosis of hypertension] 11-25-2022 Episodic Other connective tissue disease (4 sources) Foot pain; Translations: [Left foot pain] Episodic Other connective tissue disease (3 sources) Neurological symptom; Translations: [Unspecified symptoms and signs involving the nervous system] 11-22-2022 Episodic Other connective tissue disease (1 source) Unspecified symptoms and signs involving the nervous system; Translations: [Other symptoms involving nervous and musculoskeletal systems] 11-14-2022 Episodic Other injuries and conditions due to external causes (1 source) Angioneurotic edema, initial encounter; Translations: [Angioneurotic edema, initial encounter] Onset: 8 Episodic Other injuries and conditions due to external causes (4 sources) Nonunion of fracture; Translations: [Nonunion, fracture] Episodic Other injuries and conditions due to external causes (2 sources) Local infection of wound; Translations: [Other injury of unspecified body region, initial encounter] 08-09-2024 Episodic Other injuries and conditions due to external causes (1 source) Unspecified injury of right ankle, initial encounter; Translations: [Unspecified injury of right ankle, initial encounter] Onset: 5 Episodic Other lower respiratory disease (1 source) Wheezing; Translations: [Wheezing] 05-26-2024 Episodic Other male genital disorders (4 sources) Impotence; Translations: [Erectile dysfunction] Chronic Other male genital disorders (5 sources) Erectile dysfunction co-occurrent and due to arterial insufficiency; Translations: [Erectile dysfunction due to arterial insufficiency] Onset: 5 11-08-2014 Chronic Other male genital disorders (17 sources) Male erectile dysfunction, unspecified; Translations: [Erectile dysfunction] Onset: 7 04-18-2022 Chronic Other non-traumatic joint disorders (6 sources) Effusion of joint of left knee; Translations: [Effusion, left knee] 10-15-2022 Episodic Other nutritional; endocrine; and metabolic disorders (8 sources) Morbid obesity; Translations: [Morbid (severe) obesity due to excess calories] Onset: 5 11-08-2014 Chronic Other nutritional; endocrine; and metabolic disorders (4 sources) H/O: diabetes mellitus; Translations: [Personal history of other endocrine, nutritional and metabolic disease] 08-09-2024 Episodic Other screening for suspected conditions (not mental disorders or infectious disease) (13 sources) Patient encounter status; Translations: [Screening for thyroid disorders] Episodic Other skin disorders (1 source) Localized swelling, mass and lump, right lower limb; Translations: [Localized swelling, mass and lump, right lower limb] Onset: 5 Episodic Other upper respiratory disease (1 source) Allergic rhinitis due to pollen; Translations: [Allergic rhinitis due to pollen] 04-30-2023 Chronic Other upper respiratory disease (2 sources) Allergic rhinitis due to pollen; Translations: [Allergic rhinitis due to pollen] Onset: 4 Chronic Other upper respiratory infections (6 sources) Viral upper respiratory tract infection; Translations: [Acute upper respiratory infection, unspecified] Onset: 8 Episodic Phlebitis; thrombophlebitis and thromboembolism (20 sources) Chronic deep venous thrombosis of popliteal vein; Translations: [Chronic venous embolism and thrombosis of deep vessels of proximal lower extremity] Onset: 7 Chronic Phlebitis; thrombophlebitis and thromboembolism (20 sources) Deep venous thrombosis of lower extremity; Translations: [Acute deep venous thrombosis of femoral vein] Onset: 6 Resolved: 8 08-27-2015 Episodic Pneumonia (except that caused by tuberculosis or sexually transmitted disease) (2 sources) Pneumonia, unspecified organism; Translations: [Pneumonia, unspecified organism] Onset: 3 Episodic Residual codes; unclassified (4 sources) Chronic pain; Translations: [Chronic pain] Chronic Residual codes; unclassified (3 sources) Tobacco user; Translations: [Tobacco use] 11-22-2022 Episodic Screening and history of mental health and substance abuse codes (8 sources) Ex-cigarette smoker; Translations: [Personal history of tobacco use] Episodic Comment on above: 3-4 cigarrettes olivia y; Skin and subcutaneous tissue infections (17 sources) Furuncle of buttock; Translations: [Cellulitis] Onset: 5 10-15-2022 Episodic Substance-related disorders (12 sources) Smoker; Translations: [Nicotine dependence] Onset: 7 06-13-2020 Chronic Transient cerebral ischemia (2 sources) Transient cerebral ischemic attack, unspecified; Translations: [Transient cerebral ischemic attack, unspecified] Onset: 4 Chronic Unclassified (2 sources) Pain in unspecified knee / M25.569(ICD-10) Onset: 8 Unclassified (1 source) Unilateral primary osteoarthritis, left knee / M17.12(ICD-10) Onset: 8 Unclassified (2 sources) Dry socket Onset: 9 Viral infection (1 source) Viral disease; Translations: [Viral infection, unspecified] 04-17-2023 Episodic Past or Other Problems Problem Classification Problem Date Documented Date Episodic/Chronic Adjustment disorders (15 sources) Adjustment disorder; Translations: [Unspecified adjustment reaction] Onset: 04-18-2022 Resolved: 04-18-2022 04-18-2022 Chronic Allergic reactions (20 sources) Allergy, unspecified, initial encounter; Translations: [Allergy to bee venom] Onset: 11-07-2016 Resolved: 04-18-2022 06-06-2022 Episodic Anal and rectal conditions (20 sources) Anal fissure; Translations: [Anorectal pain] Onset: 04-18-2022 Resolved: 04-18-2022 04-18-2022 Episodic Blindness and vision defects (10 sources) Visual disturbance; Translations: [Unspecified visual disturbance] Onset: 04-18-2022 Resolved: 04-18-2022 04-18-2022 Episodic Fracture of lower limb (15 sources) Unspecified fracture of left lower leg, subsequent encounter for open fracture type I or II with malunion; Translations: [Open fracture of lower leg] Onset: 04-18-2022 Resolved: 04-18-2022 04-18-2022 Episodic Malaise and fatigue (11 sources) Fatigue; Translations: [Other malaise and fatigue] Onset: 04-18-2022 Resolved: 04-18-2022 04-18-2022 Episodic Nonspecific chest pain (2 sources) Chest pain; Translations: [Chest pain, unspecified] Onset: 06-19-2021 Resolved: 06-20-2021 Episodic Other acquired deformities (3 sources) Knee joint valgus deformity; Translations: [Valgus deformity, not elsewhere classified, unspecified knee] Onset: 06-13-2020 06-13-2020 Episodic Other aftercare (3 sources) Long-term current use of insulin; 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] Onset: 01-09-2017 06-13-2020 Episodic Other aftercare (3 sources) Long-term current use of drug therapy; Translations: [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] Onset: 11-07-2016 06-13-2020 Episodic Other bone disease and musculoskeletal deformities (1 source) Left tibia vara; 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, left] Onset: 04-18-2022 Resolved: 04-18-2022 04-18-2022 Chronic Other bone disease and musculoskeletal deformities (2 sources) Juvenile osteochondrosis of lower extremity, excluding foot; 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, left] Onset: 04-18-2022 Resolved: 04-18-2022 04-18-2022 Chronic Other connective tissue disease (3 sources) Disorder of soft tissue; Translations: [Other specified soft tissue disorders] Onset: 01-09-2017 06-13-2020 Episodic Other connective tissue disease (3 sources) Enthesopathy; Translations: [Other enthesopathies, not elsewhere classified] Onset: 12-26-2016 06-13-2020 Episodic Other injuries and conditions due to external causes (8 sources) H/O: fracture; Translations: [Personal history of traumatic fracture] Resolved: 06-12-2020 Episodic Other lower respiratory disease (4 sources) Snoring; Translations: [Snoring] Onset: 09-24-2023 Episodic Other lower respiratory disease (1 source) Snoring; Translations: [Snoring] 11-04-2023 Episodic Other non-traumatic joint disorders (5 sources) Pain in unspecified knee; Translations: [Pain in joint, lower leg] Onset: 08-15-2014 11-08-2014 Episodic Other non-traumatic joint disorders (5 sources) Knee pain; Translations: [Pain in unspecified knee] Onset: 11-08-2014 11-08-2014 Episodic Other skin disorders (8 sources) Sebaceous cyst of skin; Translations: [Sebaceous cyst] Resolved: 06-12-2020 Episodic Poisoning by nonmedicinal substances (3 sources) Poisoning due to arthropod venom; Translations: [Toxic effect of venom of other arthropod, undetermined, initial encounter] Onset: 06-17-2016 06-13-2020 Episodic Residual codes; unclassified (6 sources) Postprocedural state finding; Translations: [Other specified postprocedural states] Onset: 11-07-2016 06-13-2020 Episodic Residual codes; unclassified (3 sources) Localized edema; Translations: [Localized edema] Onset: 11-07-2016 06-13-2020 Episodic Residual codes; unclassified (3 sources) No current problems or disability; Translations: [Other specified health status] Onset: 06-13-2020 06-13-2020 Episodic Screening and history of mental health and substance abuse codes (4 sources) Ex-cigarette smoker; Translations: [Former cigarette smoker] Unclassified (4 sources) Patient encounter status; Translations: [Routine screening for STI (sexually transmitted infection)] Unclassified (4 sources) Sebaceous cyst of skin; Translations: [Sebaceous cyst of right axilla] Unclassified (2 sources) Onset: 04-30-2023 Resolved: 09-24-2023 04-30-2023 NEGATED: Highlighted row has not occurred!Residual codes; unclassified (20 sources) Disease Episodic Results Test Name Value Interpretation Reference Range Facility Venous duplex ultrasound rep ortOrdered By: Mayur Aguayo on 08-29-2024 US Vein [facility] [address] [place] [address] Venous Duplex US - Michael Extrem 08/26/24 0909 MR#: [id number] Acct: [id number] Name: MITALI RAMOS Rep #:[id number] : 1985 39 From: Mayur Almaraz Attending Dr: Dr. Malachi Piña, DPM Status: REG CLI Ordering Dr: Malachi Piña DPM Date: 08/26/24 Location: CVS Sex: M AA Admitted: Reason For Study Reason For Study: BLE SWelling RIGHT LEFT GSV is normal. GSV is normal. CFV is compressible, spontaneous, phasic, competent CFV is compressible, spontaneous, phasic, competent, and demonstrates normal augmentation. and demonstrates normal augmentation. FV is compressible, spontaneous, phasic, competent FV is compressible, spontaneous, phasic, competent and demonstrates normal augmentation. and demonstrates normal augmentation. POP V is compressible, spontaneous, phasic, competent POP V is compressible, spontaneous, phasic, competent and demonstrates normal augmentation. and demonstrates normal augmentation. T/P Trunk is PARTIALLY COMPRESSIBLE with hyperechoic T/P Trunk is compressible. intraluminal echogenicity. Finding is consistent with PTV is compressible. CHRONIC DVT. LT PerV is compressible. PTV is compressible. RT PerV is compressible. Procedure This is a venous duplex using B-mode, color flow and spectral Doppler. Exam performed in department. The exam was diagnostic. VL/Venous Duplex US - Michael Extrem Interpretation Summary Chronic deep vein thrombosis noted in the right tibioperoneal trunk vein. Deep veins of the left lower extremity are patent and compressible segmentally. There is no evidence of left lower extremity deep vein thrombosis. The bilateral great saphenous veins appear patent and compressible segmentally. 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 Malachi Piña, DPM Status: R EG CLI Ordering Dr: Malachi Piña DPM Date: 08/26/24 Location: CVS Sex: M AA Admitted: Reason For Study Reason For Study: BLE SWelling RIGHT LEFT GSV is normal. GSV is normal. CFV is compressible, spontaneous, phasic, competent CFV is compressible, spontaneous, phasic, competent, and demonstrates normal augmentation. and demonstrates normal augmentation. FV is compressible, spontaneous, phasic, competent FV is compressible, spontaneous, phasic, competent and demonstrates normal augmentation. and demonstrates normal augmentation. POP V is compressible, spontaneous, phasic, competent POP V is compressible, spontaneous, phasic, competent and demonstrates normal augmentation. and demonstrates normal augmentation. T/P Trunk is PARTIALLY COMPRESSIBLE with hyperechoic T/P Trunk is compressible. intraluminal echogenicity. Finding is consistent with PTV is compressible. CHRONIC DVT. LT PerV is compressible. PTV is compressible. RT PerV is compressible. Procedure This is a venous duplex using B-mode, color flow and spectral Doppler. Exam performed in department. The exam was diagnostic. VL/Venous Duplex US - Michael Extrem Interpretation Summary Chronic deep vein thrombosis noted in the right tibioperoneal trunk vein. Deep veins of the left lower extremity are patent and compressible segmentally. There is no evidence of left lower extremity deep vein thrombosis. The bilateral great saphenous veins appear patent and compressible segmentally. ___ Ordering Physician: Malachi Piña Referring Physician: N/A Performed By: Titi Snyder, T 08/29/24 1245 Date Mayur Aguayo MD CC: DPJimmy Piña; ADILIAAnaya OSEI Date Dictated: 08/26/24 0909 Date Transcribed: 08/29/24 1245 Professor Of Biblical Studies: Signed [facility] Wound Cultureon 08-20-2024 WC #2 PSEUDOMONAS LUTEO LA IDENTIFICATION AND SENSITIVITY PERFORMED AT [facility]. #3 Clinical correlation necessary, Possible skin contamination. Wound Culture RESULTS CALLED TO KATIE CANO 08/13/24 0850 Juju Serrano. REPORT READ BACK BY . Wound Culture Copy of report sent to Infection Control Printer [id number] 08/13/24 0851 [facility] Aeromonas sobria Amount Growth 2+ MARKER Multi Drug Resistant OrganismA MARKER Multi Drug Resistant OrganismA Amount Growth 2+ Pseudomonas spp Amount Growth Rare Aeromonas sobria: REACTION Staphylococcus epidermidis Pip+Tazo Islt BEULAH >=128 Pseudomonas spp: REACTION Amikacin Islt BEULAH Aztreonam Islt BEULAH S Cefepime Islt BEULAH S Cefotaxime Islt BEULAH cefTRIAXone Islt BEULAH S Ciprofloxacin Islt BEULAH S Gentamicin Islt BEULAH S levoFLOXacin Islt BEULAH S Meropenem Islt BEULAH S Pip+Tazo Islt BEULAH S Tetracycline Islt BEULAH S Tobramycin Islt BEULAH S TMP SMX Islt BEULAH S Staphylococcus epidermidis: REACTION cefOXitin Susc Islt NEG Doxycycline Islt BEULAH 1 S Clindamycin Islt BEULAH >=4 R Clindamycin.induced Susc Islt Erythromycin Islt BEULAH >=8 R Gentamicin Islt BEULAH <=0.5 S Linezolid Islt BEULAH 1 S Oxacillin Susc Islt <=0.25 S Tetracycline Islt BEULAH 2 S TMP SMX Islt BEULAH >=320 R Vancomycin Islt BEULAH 2 S Normal [facility] Comment on above: Performed By: #### M 100.3000, M100.4001, M100.1999 #### [facility] [address] [place], [address] Culture, Anaerobic Any Sourc fernando 08-13-2024 CUAN No anaerobic bacteri a isolated. Normal [facility] Comment on above: Performed By: #### M 100.3000, M100.4001, M100.1999 #### [facility] [address] [place], [address] Absolute lymphocyte countOrd ered By: Usama Pool on 08-09-2024 Lymphocytes Auto (Unsp spec) [#/Vol] 1.44 10*3/uL 0.83-4.51 [facility] Absolute neutrophil countOrd ered By: Usama Pool on 08-09-2024 Neutrophils (Bld) [#/Vol] 3.5 10*3/uL 2.0-7.7 [facility] Anaerobic cultureOrdered By: Usama Pool on 08-09-2024 Bacteria identified Anaer cx Nom (Unsp spec) No anaerobic bacteria isolated. [facility] Anion gap in Serum or Plasma Ordered By: Usama Pool on 08-09-2024 Anion gap [Moles/Vol] 11 mmol/L 5-15 [facility] Ankle 2 Viewson 08-09-[address] [facility] Services [address] [place] [address] Ankle 2 Views MR#: [id number] Acct: [id number] Name: MITALI RAMOS Rep #: [id number] : 1985 M 39 From: Flaquito person MD PCP: Status: REG ER Study: Ankle 2 Views Date of Exam: 08/09/24 Exam# [id number] Ordering Dr: Usama Pool DO PROCEDURE: ANKLE 2 VIEWS 08/09/2024 REASON FOR EXAM: INFECTION TECHNIQUE: ANKLE 2 VIEWS COMPARISON: None FINDINGS: Bones: No fracture or bony lesion. Joints: Normal alignment. Mortise appears intact. No effusion. Soft tissues: Soft tissue swelling. Other: RAD/Ankle 2 Views IMPRESSION: Soft tissue swelling. No bony abnormality is seen. Reading Location: [id number] CC: Dr. Usama Pool, DO Professor Of Biblical Studies: Signed Normal [facility] Automated lymphocyte count a s percentage of total leukocytesOrdered By: Usama Pool on 08-09-2024 Lymphocytes/100 WBC Auto (Unsp spec) 25.3 % 19-41 [facility] BUN/creatinine ratioOrdered By: Usama Pool on 08-09-2024 Urea nitrogen/Creatinine [Mass ratio] 14.3 mg/mg 10- [facility] Basic Metabolic Profile (BMP )on 08-09-2024 BUN/CRE 14.3 RATIO Normal -20 [facility] Comment on above: Performed By: #### L 100.0100, L500.2500 #### [facility] [address] [place], [address] ECRCL 101.66 ml/min Normal 50-250 [facility] Comment on above: Performed By: #### L 100.0100, L500.2500 #### [facility] [address] [place], [address] GAP 11 Normal 5-15 [facility] Comment on above: Performed By: #### L 100.0100, L500.2500 #### [facility] [address] [place], [address] Potassium [Moles/Vol] 5.0 mmol/L Normal 3.3-5.1 [facility] Comment on above: Result Comment: Hemo lysis present, Results??could be affected. ?? Performed By: #### L 100.0100, L500.2500 #### [facility] [address] [place], [address] Basophil percentageOrdered B y: Usama Pool on 08-09-2024 Basophils/100 WBC (Bld) 0.7 % 0-1 [facility] CBC W/Diff, Automatedon 06-2 4-2025 Absolute Lymph 1.44 X10 3/uL Normal 0.83-4.51 [facility] Comment on above: Performed By: #### L 100.0100, L500.2500 #### [facility] [address] [place], [address] Absolute Neut 3.5 X10 3/uL Normal 2.0-7.7 [facility] Comment on above: Performed By: #### L 100.0100, L500.2500 #### [facility] [address] [place], [address] Basophils/100 WBC (Bld) 0.7 % Normal 0-1 [facility] Comment on above: Performed By: #### L 100.0100, L500.2500 #### [facility] [address] [place], [address] Eosinophils/100 WBC (Bld) 3.0 % Normal 0-5 [facility] Comment on above: Performed By: #### L 100.0100, L500.2500 #### [facility] [address] [place], [address] Erythrocyte distribution width (RBC) [Ratio] 13.9 % Normal 11.6-14.6 [facility] Comment on above: Performed By: #### L 100.0100, L500.2500 #### [facility] [address] [place], [address] Hematocrit (Bld) [Volume fraction] 40.0 % Normal 40-54 [facility] Comment on above: Performed By: #### L 100.0100, L500.2500 #### [facility] [address] [place], [address] Hemoglobin (Bld) [Mass/Vol] 13.3 g/dL Normal 13.0-16.5 [facility] Comment on above: Performed By: #### L 100.0100, L500.2500 #### [facility] [address] [place], [address] IG% 0.500 Normal 0.0-0.9 [facility] Comment on above: Result Comment: IG% - Immature Granulocytes (promyelocytes, myelocytes and metamyelocytes) > 1% indicates that a LEFT SHIFT is Present. Performed By: #### L 100.0100, L500.2500 #### [facility] [address] [place], [address] Lymphocytes/100 WBC (Bld) 25.3 % Normal 19-41 [facility] Comment on above: Performed By: #### L 100.0100, L500.2500 #### [facility] [address] [place], [address] MCH (RBC) [Entitic mass] 30.2 pg Normal 27.0-32.0 [facility] Comment on above: Performed By: #### L 100.0100, L500.2500 #### [facility] [address] [place], [address] MCHC (RBC) [Mass/Vol] 33.3 g/dL Normal 32-36 [facility] Comment on above: Performed By: #### L 100.0100, L500.2500 #### [facility] [address] [place], [address] MCV (RBC) [Entitic vol] 90.9 fL Normal 80-94 [facility] Comment on above: Performed By: #### L 100.0100, L500.2500 #### [facility] [address] [place], [address] Monocytes/100 WBC (Bld) 9.1 % Normal 0-10 [facility] Comment on above: Performed By: #### L 100.0100, L500.2500 #### [facility] [address] [place], [address] Neutrophils/100 WBC (Bld) 61.4 % Normal 47-70 [facility] Comment on above: Performed By: #### L 100.0100, L500.2500 #### [facility] [address] [place], [address] Nucleated RBC (Bld) [#/Vol] 0 10*3/uL Normal 0-5 [facility] Comment on above: Performed By: #### L 100.0100, L500.2500 #### [facility] [address] [place], [address] Platelet mean volume (Bld) [Entitic vol] 9.8 fL Normal 6.2-12.0 [facility] Comment on above: Performed By: #### L 100.0100, L500.2500 #### [facility] [address] [place], [address] Platelets (Bld) [#/Vol] 89 10*3/uL Low 150-450 [facility] Comment on above: Performed By: #### L 100.0100, L500.2500 #### [facility] [address] [place], [address] RBC (Bld) [#/Vol] 4.40 10*6/uL Low 4.6-6.2 [facility] Comment on above: Performed By: #### L 100.0100, L500.2500 #### [facility] [address] [place], [address] RDW SD 46.9 fl High 35.1-43.9 [facility] Comment on above: Performed By: #### L 100.0100, L500.2500 #### [facility] [address] [place], [address] WBC (Bld) [#/Vol] 5.7 10*3/uL Normal 4.4-11.0 [facility] Comment on above: Performed By: #### L 100.0100, L500.2500 #### [facility] [address] [place], [address] Carbon dioxide, total [Moles /volume] in Central venous bloodOrdered By: Usama Pool on 08-09-2024 CO2 [Moles/Vol] 19.4 mmol/L Low 21.0-32.0 [facility] Comment on above: Performed By: #### L 100.0100, L500.2500 #### [facility] [address] [place], [address] Chloride assayOrdered By: Wood Pool on 08-09-2024 Chloride [Moles/Vol] 106 mmol/L Normal 98-108 [facility] Comment on above: Performed By: #### L 100.0100, L500.2500 #### [facility] [address] [place], [address] Emergency Department Summary on 08-09-2024 Emergency Department Summary [facility] Medical Records Department [address] [place] [address] Emergency Department Summary 08/09/24 MR#: [id number] Acct: [id number] Name: MITALI RAMOS Rep #: [id number] : 1985 39 From: Usama Mayfield PCP: Status:REG ER Location: ED HPI History of Present Illness Chief Complaint: Lower Extremity Injury Informant: patient and spouse/S.O. 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 There is drainage. States that a year and a half ago had a skin tag for which he bumped it sheared off. He did have intermittent swelling and drainage that would resolve. He went to express care 1 time was told to monitor. We discussed if he is discussed this with his primary care doctor he cannot recall the discussion. She no other states when things brought up he has always been told to monitor it. No formal evaluation of it. Denies fever or chills. States yesterday with Band-Aids there is exudative drainage. Prior similar symptoms: Yes PFSH PFSH Medical History Laceration of lower lip with complication Smoker On apixaban therapy DM type 2, goal HbA1c < 7.5% Open wound of left hand due to dog bite Open wound of lip due to dog bite Open wound of nose due to dog bite Dog bite Tibial anomaly Avulsion of lip Essential hypertension ED (erectile dysfunction) Depression Atypical chest pain Deep vein thrombosis (DVT) of popliteal vein of right lower extremity GERD (gastroesophageal reflux disease) Lupus anticoagulant positive CVA (cerebral vascular accident) Morbid obesity due to excess calories Tobacco abuse Elevated blood pressure reading DM type 2 (diabetes mellitus, type 2) Thrombocytopenia Home Medications ???Medication ???Instructions ???Recorded ???Last Taken ???Type metformin 1,000 mg tablet 1,000 mg PO BID diabetes 11/13/22 Unknown History apixaban 5 mg tablet (Eliquis) 5 mg PO BID CLOT IN RT LEG 3 11/13/22 09:16 History 5 mg aspirin 81 mg chewable tablet 81 mg PO DAILY@0800 #0 tabs Unknown Rx atorvastatin 80 mg tablet 80 mg PO QHS #30 tabs 11/14/22 Unk nown Rx cetirizine 10 mg tablet 10 mg PO BID ALLERGY 11/14/2210/18 09:17 History 10 mg epinephrine 0.3 mg/0.3 mL 0.3 mg subcut PRN allergies Unknown History injection, auto-injector clotrimazole 1 % topical cream 1 applic topical BID #15 grams 10/08 Unknown Rx omeprazole 20 mg capsule,delayed 20 mg PO BID PRN ACID REFLUX 11/25 Unknown History release sulfamethoxazole 800 1 tab PO BID #14 TABLETS 12/05/22 Unknown Rx mg-trimethoprim 160 mg tablet mupirocin 2 % topical ointment 1 applic topical DAILY #22 grams 1 Unknown Rx doxycycline monohydrate 100 mg 100 mg PO BID #14 CAPSULES 5 Unknown Rx capsule Allergy/AdvReac Type Severity Reaction Status Date / Time bee venom protein (honey bee) Allergy Severe Anaphylaxis Verified 08/09/24 07:35 Penicillins Allergy Severe Anaphylaxis Verified 08/09/24 07:35 pineapple Allergy Severe Anaphylaxis Verified 08/09/24 07:35 bee pollen Allergy Intermediate Swelling Verified 08/09/24 07:35 celecoxib AdvReac Intermediate Hives Verified 08/09/24 07:35 Family History Mother Diabetes Hypertension Heart disease DVT (deep venous thrombosis) Father Diabetes Hypertension Other Aneurysm of artery of head and neck region Surgical History History of surgery on lower extremity Social History Smoking Status: Light Smoker (<10/day) alcohol intake: current alcohol intake frequency: a few times a month substance use type: does not use ROS ROS ED Constitutional Constitutional ED: Denies fever(s) Cardiovascular Cardiovascular: Denies chest pain Respiratory/Chest Respiratory/Chest: Denies cough Gastrointestinal Gastrointestinal: Denies diarrhea or vomiting Musculoskeletal Musculoskeletal: Denies none Integumentary Reports wounds; Denies rash Neurologic Neurologic: Denies weakness EXAM Physical Exam Const Vital Signs: 08/09/24 07:33 Temperature 98.1 F Temperature Source Oral Pulse Rate 78 Respiratory Rate 16 Blood Pressure 153/92 H Blood Pressure Mean 112 Pulse Ox 100 Oxygen Delivery Method Room Air Positive well nourished and well developed General Appearance ED: well developed HEENT normocephalic and atraumatic Eyes General Eye ED: Yes normal appearance of both eyes Neck full ROM Resp normal respiratory effort and normal air movement Cardio re (more content not included)... Normal [facility] Eosinophil percentageOrdered By: Usama Pool on 08-09-2024 Eosinophils/100 WBC (Bld) 3.0 % 0-5 [facility] Erythrocyte distribution wid th ratioOrdered By: Usama Pool on 08-09-2024 Erythrocyte distribution width (RBC) [Ratio] 13.9 % 11.6-14.6 [facility] Erythrocyte distribution wid th standard deviationOrdered By: Usama Pool on 08-09-2024 Erythrocyte distribution width (RBC) [Ratio] 46.9 fl High 35.1-43.9 [facility] Glomerular filtration rate ( GFR) estimation/1.73 sq m using serum, plasma, or whole bOrdered By: Usama Pool on 06-24-2025 GFR/1.73 sq M.predicted among non-blacks MDRD (S/P/Bld) [Vol rate/Area] 66 mL/min/{1.73_m2} Normal >60 [facility] Comment on above: mL/min/1.73m2 CKD-EP I Creatinine Equation (2020) Result Comment: mL/m in/1.73m2 CKD-EPI Creatinine Equation (2020) Performed By: #### L 100.0100, L500.2500 #### [facility] [address] [place], [address] Gram Stainon 08-09-2024 GS Negative Normal [facility] Comment on above: Performed By: #### M 100.3000, M100.4001, M100.2000 #### [facility] [address] [place], [address] Gram stainOrdered By: Usama santacruz on 08-09-2024 Microscopic observation Gram stain Nom (Unsp spec) [facility] Hematocrit Auto (Bld) [Volum e fraction]Ordered By: Usama Pool on 08-09-2024 Hematocrit (Bld) [Volume fraction] 40.0 % 40-54 [facility] Hemoglobin measurementOrdere d By: Usama Pool on 08-09-2024 Hemoglobin (Bld) [Mass/Vol] 13.3 g/dL 13.0-16.5 [facility] Immature granulocytes/100 WB C Auto (Bld)Ordered By: Usama Pool on 08-09-2024 Immature granulocytes/100 WBC (Bld) 0.500 % 0.0-0.9 [facility] Comment on above: IG% - Immature Granu locytes (promyelocytes, myelocytes and metamyelocytes) > 1% indicates that a LEFT SHIFT is Present. MCV (mean corpuscular volume ) determinationOrdered By: Usama Pool on 08-09-2024 MCV (RBC) [Entitic vol] 90.9 fL 80-94 [facility] Mean corpuscular hemoglobin (MCH) determinationOrdered By: Usama Pool on 08-09-2024 MCH (RBC) [Entitic mass] 30.2 pg 27.0-32.0 [facility] Mean corpuscular hemoglobin concentration (MCHC) determinationOrdered By: Usama Le on 08-09-2024 MCHC (RBC) [Mass/Vol] 33.3 g/dL 32-36 [facility] Mean platelet volume determi nationOrdered By: Usama Le on 08-09-2024 Platelet mean volume (Bld) [Entitic vol] 9.8 fL 6.2-12.0 [facility] Monocyte percentageOrdered B y: Usama Pool on 08-09-2024 Monocytes/100 WBC (Bld) 9.1 % 0-10 [facility] Neutrophil percentageOrdered By: Usama Pool on 08-09-2024 Neutrophils/100 WBC (Bld) 61.4 % 47-70 [facility] Nucleated red blood cell per centageOrdered By: Usama Pool on 08-09-2024 Nucleated RBC/100 WBC (Bld) [Ratio] 0 % 0-5 [facility] Platelet countOrdered By: Wood Pool on 08-09-2024 Platelets (Bld) [#/Vol] 89 10*3/uL Low 150-450 [facility] Potassium measurement (mass/ volume)Ordered By: Usama Pool on 08-09-2024 Potassium (Unsp spec) [Mass/Vol] 5.0 mmol/L 3.3-5.1 [facility] Comment on above: Hemolysis present, R esults could be affected. RBC Auto (Bld) [#/Vol]Ordere d By: Usama Pool on 08-09-2024 RBC (Bld) [#/Vol] 4.40 10*6/uL Low 4.6-6.2 [facility] Routine wound cultureOrdered By: Usama Pool on 08-09-2024 Microbial culture, routine Staphylococcus epidermidis Abnormal [facility] Serum creatinine measurement (mass/volume)Ordered By: Usama Pool on 08-09-2024 Creatinine [Mass/Vol] 1.39 mg/dL High 0.70-1.20 [facility] Comment on above: Performed By: #### L 100.0100, L500.2500 #### [facility] [place], [address] Serum glucose measurement (m ass/volume)Ordered By: Usama Pool on 08-09-2024 Glucose [Mass/Vol] 224 mg/dL High 70-99 [facility] Comment on above: Performed By: #### L 100.0100, L500.2500 #### [facility] [address] [place], [address] Serum or plasma calcium eran urement (mass/volume)Ordered By: Usama Pool on 08-09-2024 Calcium [Mass/Vol] 8.6 mg/dL Normal 7.6-11.0 [facility] Comment on above: Performed By: #### L 100.0100, L500.2500 #### [facility] [address] [place], [address] Serum or plasma urea nitroge n measurement (mass/volume)Ordered By: Usama Pool on 08-09-2024 Urea nitrogen [Mass/Vol] 20 mg/dL High 4-19 [facility] Comment on above: Performed By: #### L 100.0100, L500.2500 #### [facility] [address] [place], [address] Sodium levelOrdered By: Usama Pool on 08-09-2024 Sodium [Moles/Vol] 136 mmol/L Normal 133-145 [facility] Comment on above: Performed By: #### L 100.0100, L500.2500 #### [facility] [address] [place], [address] White blood cell (WBC) count Ordered By: Usama Pool on 08-09-2024 WBC (Bld) [#/Vol] 5.7 10*3/uL 4.4-11.0 [facility] CNCOon 07-05-2024 CNCO Letter Text Normal [facility] CNOVon 05-26-2024 CNOV Office Visit ([facility] ) ----- MITALI RAMOS ([id number]) 1985 M Date Time Provider Department 05/26/24 9:15 AM CHARLES MARTINEZ [facility] During your visit today, we recorded the following information about you: Temperature Pulse Respiration Blood pressure 98.1 degrees 79/minute 20/minute 142/91 Weight 140.5 kg Charles Martinez APRN.[facility] 05/26/2024 9:38 AM Signed Sinusitis You have been seen for a sinus infection. Sinus infections are common. They often happen after people have a virus or a common cold. Symptoms are: Pain in the face, green or yellow mucous from the nose, fever (temperature higher than 100.4?F / 38?C) and chills. There may also be a feeling of fullness or pressure in the face. Decongestants may be used to help the sinuses drain. Sometimes a steroid spray is used. You may need antibiotics for the infection. Not all cases of sinusitis need antibiotics. Viruses cause most sinusitis. Antibiotics do not work on viruses. Sometimes sinusitis and be caused by bacteria. These cases usually get better with medicine to help the sinuses drain. Antibiotics should be given only to patients who have symptoms for more than 2 weeks and if they have fever, severe sinus pain and pus mixed in with the mucus. YOU SHOULD SEEK MEDICAL ATTENTION IMMEDIATELY, EITHER HERE OR AT THE NEAREST EMERGENCY DEPARTMENT, IF ANY OF THE FOLLOWING OCCURS: You do not get better with treatment. You have severe headaches and high fever (temperature higher than 100.4?F / 38?C) or any confusion. You have worse pain in the face Your face gets more swollen Charles Martinez APRN.[employer] 05/26/2024 10:07 AM Signed [facility] Subjective Mitali Ramos is a 38 year old male. Patient presents with: Cough: Chest congestion x1 week Cough Associated symptoms include wheezing. Pertinent negatives include no chest pain, no chills and no shortness of breath. patient is a 38-year-old male with a chronic history of DM II, DVTs, and smoking who presents with sinus cough and congestion times a week. He denies any fever body aches no chest pain or shortness of breath. He is taking sinus cough and congestion over the counter, with little relief. Review of Systems Constitutional: Negative for chills, fatigue and fever. HENT: Positive for sinus pressure and sinus pain. Respiratory: Positive for cough and wheezing. Negative for chest tightness and shortness of breath. Cardiovascular: Negative for chest pain. Gastrointestinal: Negative for abdominal pain, nausea and vomiting. Objective BP 142/91 Pulse 79 Temp 36.7 ?C (98.1 ?F) Resp 20 Wt (!) 140.5 kg (309 lb 11.9 oz) SpO2 100% BMI 42.01 kg/m? PAST MEDICAL HISTORY Diagnosis Date Diabetes mellitus (HCC) DVT (deep venous thrombosis) (HCC) GERD (gastroesophageal reflux disease) Hypertension PAST SURGICAL HISTORY Procedure Laterality Date HIP SURGERY HX pins in femers bilaterally KNEE SURGERY HX 2014 ALLERGIES Amoxicillin, Bee Pollen, Penicillins, and Pineapple MEDICATIONS ELIQUIS 5 mg tab(s) once daily. metFORMIN (GLUCOPHAGE) 500 mg tablet Take 2 tablets by mouth twice daily with meals. EPINEPHrine (EPIPEN 2-DIANNE) 0.3 mg/0.3 mL auto-injector Inject 0.3 mL intramuscularly as needed (for allergic reaction.Seek emergent medical care immediately after use.Disp:one 2-pack w/net trainer). omeprazole (PRILOSEC) 20 mg capsule Take 20 mg by mouth once daily. cetirizine (ZYRTEC) 10 mg tablet Take 1 tablet by mouth every morning. doxycycline (VIBRA-TABS) 100 mg tablet Take 1 tablet by mouth two times a day for 5 days. albuterol HFA (PROVENTIL HFA, VENTOLIN HFA) 90 mcg/actuation inhaler Inhale 2 puffs as instructed every 4 hours as needed for wheezing/shortness of breath. Inhalational Spacing Device 1 device one time only for 1 dose. ONETOUCH ULTRA TEST test strip FAMILY HISTORY Problem Relation Age of Onset Diabetes Mother Ischemic Heart Disease Mother Previous stent Hypertension Father Diabetes Father Diabetes Sister Heart Sister Heart Failure Sister Social History Tobacco Use Smoking status: Every Day Current packs/day: 0.50 Types: Cigarettes Smokeless tobacco: Never Substance Use Topics Alcohol use: Yes Comment: occ Drug use: Yes Frequency: 7.0 times per week Types: Marijuana Comment: DAILY Physical Exam Constitutional: Appearance: Normal appearance. HENT: Head: Normocephalic and atraumatic. Right Ear: A middle ear effusion is present. Left Ear: A middle ear effusion is present. Nose: Congestion and rhinorrhea present. Right Sinus: Maxillary sinus tenderness present. Left Sinus: Maxillary sinus tenderness present. Cardiovascular: Rate and Rhythm: Normal rate and regular rhythm. Pulmonary: Effort: Pulmonary effort is normal. No respiratory distress. Breath sounds: No stridor. Wheezing present. No rhonch (more content not included)... Normal [facility] Home sleep apnea test (HSAT) on 11-04-[address] [facility] Work Phone: Albumin/Creatinineon 024 Albumin/Creatinine DL <= 20 mg/L (U) [Mass ratio] 392.8 ug/mg Creat Normal [facility] Comment on above: Performed By: #### 1 4959-1 #### MAGO Tomas ([id number]) [facility] ([facility]) [address] [place] [address] Albumin/Creatinine DL <= 20 mg/L (U) [Mass ratio]on 04-30-2023 Albumin DL <= 20 mg/L (U) [Mass/Vol] 768.0 mg/L Normal Not established [facility] Comment on above: Performed By: #### 1 4959-1 #### MAGO Tomas ([id number]) [facility] ([facility]) [address] [place] [address] Creatinine (U) [Mass/Vol] 195.5 mg/dL Normal 20.0-370.0 [facility] Comment on above: Performed By: #### 1 4959-1 #### MAGO Tomas ([id number]) [facility] ([facility]) [address] [place] [address] 25158 CBC W Auto Differential pane l (Bld)on 04-30-2023 Basophils (Bld) [#/Vol] 0.04 x10*3/uL Normal 0.00-0.10 [facility] Comment on above: Performed By: #### 5 7021-8 #### MAGO Tomas ([id number]) [facility] ([facility]) [address] [place] [address] 41173 Basophils/100 WBC (Bld) 0.7 % Normal 0.0-2.0 [facility] Comment on above: Performed By: #### 5 7021-8 #### MAGO Tomas ([id number]) [facility] ([facility]) [address] [place] [address] 31776 Eosinophils (Bld) [#/Vol] 0.13 x10*3/uL Normal 0.00-0.70 [facility] Comment on above: Performed By: #### 5 7021-8 #### MAGO Tomas ([id number]) [facility] ([facility]) [address] [place] [address] 04763 Eosinophils/100 WBC (Bld) 2.1 % Normal 0.0-6.0 [facility] Comment on above: Performed By: #### 5 7021-8 #### MAGO Tomas ([id number]) [facility] ([facility]) [address] [place] [address] 59885 Erythrocyte distribution width (RBC) [Ratio] 14.3 % Normal 11.5-14.5 [facility] Comment on above: Performed By: #### 5 7021-8 #### MAGO Tomas ([id number]) [facility] ([facility]) [address] [place] [address] 24013 Hematocrit (Bld) [Volume fraction] 44.3 % Normal 41.0-52.0 [facility] Comment on above: Performed By: #### 5 7021-8 #### MAGO Tomas ([id number]) [facility] ([facility]) [address] [place] [address] 32023 Hemoglobin (Bld) [Mass/Vol] 14.5 g/dL Normal 13.5-17.5 [facility] Comment on above: Performed By: #### 5 7021-8 #### MAGO Tomas ([id number]) [facility] ([facility]) [address] [place] [address] 68564 Immature granulocytes (Bld) [#/Vol] 0.03 x10*3/uL Normal 0.00-0.70 [facility] Comment on above: Performed By: #### 5 7021-8 #### MAGO Tomas ([id number]) [facility] ([facility]) [address] [place] [address] Immature granulocytes/100 WBC (Bld) 0.5 % Normal 0.0-0.9 [facility] Comment on above: Result Comment: Shelby ture Granulocyte Count (IG) includes promyelocytes, myelocytes and metamyelocytes but does not include bands. Percent differential counts (%) should be interpreted in the context of the absolute cell counts (cells/UL). Performed By: #### 5 7021-8 #### MAGO Tomas ([id number]) [facility] ([facility]) [address] [place] [address] 19450 Lymphocytes (Bld) [#/Vol] 2.10 x10*3/uL Normal 1.20-4.80 [facility] Comment on above: Performed By: #### 5 7021-8 #### MAGO Tomas ([id number]) [facility] ([facility]) [address] [place] [address] 43869 Lymphocytes/100 WBC (Bld) 34.4 % Normal 13.0-44.0 [facility] Comment on above: Performed By: #### 5 7021-8 #### MAGO Tomas ([id number]) [facility] ([facility]) [address] [place] [address] 76584 MCH (RBC) [Entitic mass] 29.9 pg Normal 26.0-34.0 [facility] Comment on above: Performed By: #### 5 7021-8 #### MAGO Tomas ([id number]) [facility] ([facility]) [id number] [place] [address] 98121 MCHC (RBC) [Mass/Vol] 32.7 g/dL Normal 32.0-36.0 [facility] Comment on above: Performed By: #### 5 7021-8 #### MAGO Tomas ([id number]) [facility] ([facility]) [address] [place] [address] MCV (RBC) [Entitic vol] 91 fL Normal 80-100 [facility] Comment on above: Performed By: #### 5 7021-8 #### MAGO Tomas ([id number]) [facility] ([facility]) [address] [place] [address] 79238 Monocytes (Bld) [#/Vol] 0.52 x10*3/uL Normal 0.10-1.00 [facility] Comment on above: Performed By: #### 5 7021-8 #### MAGO Tomas ([id number]) [facility] ([facility]) [address] [place] [address] 52534 Monocytes/100 WBC (Bld) 8.5 % Normal 2.0-10.0 [facility] Comment on above: Performed By: #### 5 7021-8 #### MAGO Tomas ([id number]) [facility] ([facility]) [address] [place] [address] 69456 Neutrophils (Bld) [#/Vol] 3.28 x10*3/uL Normal 1.20-7.70 [facility] Comment on above: Result Comment: Perc ent differential counts (%) should be interpreted in the context of the absolute cell counts (cells/uL). Performed By: #### 5 7021-8 #### MAGO Tomas ([id number]) [facility] ([facility]) [id number] [place] [address] 50428 Neutrophils/100 WBC (Bld) 53.8 % Normal 40.0-80.0 [facility] Comment on above: Performed By: #### 5 7021-8 #### MAGO Tomas ([id number]) [facility] ([facility]) [address] [place] [address] 47678 Nucleated RBC/100 WBC (Bld) [Ratio] 0.0 /100 WBCs Normal 0.0-0.0 [facility] Comment on above: Performed By: #### 5 7021-8 #### MAGO Tomas ([id number]) [facility] ([facility]) [address] [place] [address] 85444 Platelets (Bld) [#/Vol] 122 x10*3/uL Low 150-450 [facility] Comment on above: Performed By: #### 5 7021-8 #### MAGO Tomas ([id number]) [facility] ([facility]) [id number] [place] [address] 21913 RBC (Bld) [#/Vol] 4.85 x10*6/uL Normal 4.50-5.90 [facility] Comment on above: Performed By: #### 5 7021-8 #### MAGO Tomas ([id number]) [facility] ([facility]) [address] [place] [address] 92894 WBC (Bld) [#/Vol] 6.1 x10*3/uL Normal 4.4-11.3 [facility] Comment on above: Performed By: #### 5 7021-8 #### MAGO Tomas ([id number]) [facility] ([facility]) [address] [place] [address] 35228 Comprehensive metabolic 2000 panelon 04-30-2023 Albumin BCP dye [Mass/Vol] 4.1 g/dL Normal 3.4-5.0 [facility] Comment on above: Performed By: #### 2 4323-8 #### MAGO Tomas ([id number]) [facility] ([facility]) [address] [place] [address] 36306 ALP [Catalytic activity/Vol] 104 U/L Normal 33-120 [facility] Comment on above: Performed By: #### 2 4323-8 #### MAGO Tomas ([id number]) [facility] ([facility]) [id number] [place] [address] 82406 ALT With P-5'-P [Catalytic activity/Vol] 82 U/L High 10-52 [facility] Comment on above: Result Comment: Keyana ents treated with Sulfasalazine may generate falsely decreased results for ALT. Performed By: #### 2 4323-8 #### MAGO Tomas ([id number]) [facility] ([facility]) [id number] [place] [address] 31742 Anion gap [Moles/Vol] 12 mmol/L Normal 10-20 [facility] Comment on above: Performed By: #### 2 4323-8 #### MAGO Tomas ([id number]) [facility] ([facility]) [address] [place] [address] 32378 AST With P-5'-P [Catalytic activity/Vol] 40 U/L High 9-39 [facility] Comment on above: Performed By: #### 2 4323-8 #### MAGO Tomas ([id number]) [facility] ([facility]) [id number] [place] [address] 09519 Bilirubin [Mass/Vol] 0.5 mg/dL Normal 0.0-1.2 [facility] Comment on above: Performed By: #### 2 4323-8 #### MAGO Tomas ([id number]) [facility] ([facility]) [address] [place] [address] 56871 Calcium [Mass/Vol] 9.2 mg/dL Normal 8.6-10.6 [facility] Comment on above: Performed By: #### 2 4323-8 #### MAGO Tomas ([id number]) [facility] ([facility]) [address] [place] [address] 46918 Chloride [Moles/Vol] 104 mmol/L Normal 98-107 [facility] Comment on above: Performed By: #### 2 4323-8 #### MAGO Tomas ([id number]) [facility] ([facility]) [address] [place] [address] 64011 CO2 [Moles/Vol] 25 mmol/L Normal 21-32 [facility] Comment on above: Performed By: #### 2 4323-8 #### MAGO Tomas ([id number]) [facility] ([facility]) [address] [place] [address] Creatinine [Mass/Vol] 1.05 mg/dL Normal 0.50-1.30 [facility] Comment on above: Performed By: #### 2 4323-8 #### MAGO Tomas ([id number]) [facility] ([facility]) [address] [place] [address] GFR/1.73 sq M.predicted MDRD (S/P/Bld) [Vol rate/Area] mL/min/{1.73_m2} Normal >60 [facility] Comment on above: Result Comment: Calc ulations of estimated GFR are performed using the 2020 CKD-EPI Study Refit equation without the race variable for the IDMS-Traceable creatinine methods. https://jasn.asnjournals.org/content//ASN.15999 16388 Performed By: #### 2 4323-8 #### MAGO Tomas ([id number]) [facility] ([facility]) [address] [place] [address] Glucose [Mass/Vol] 110 mg/dL High 74-99 [facility] Comment on above: Performed By: #### 2 4323-8 #### MAGO ZEPEDA L ([id number]) [facility] ([facility]) [address] [place] [address] Potassium [Moles/Vol] 4.2 mmol/L Normal 3.5-5.3 [facility] Comment on above: Performed By: #### 2 4323-8 #### MAGO ZEPEDA L ([id number]) [facility] ([facility]) [address] [place] [address] Protein [Mass/Vol] 7.7 g/dL Normal 6.4-8.2 [facility] Comment on above: Performed By: #### 2 4323-8 #### MAGO ZEPEDA L ([id number]) [facility] ([facility]) [address] [place] [address] Sodium [Moles/Vol] 137 mmol/L Normal 136-145 [facility] Comment on above: Performed By: #### 2 4323-8 #### MAGO Tomas ([id number]) [facility] ([facility]) [id number] [place] [address] 34617 Urea nitrogen [Mass/Vol] 12 mg/dL Normal 6-23 [facility] Comment on above: Performed By: #### 2 4323-8 #### MAGO Tomas ([id number]) [facility] ([facility]) [id number] [place] [address] 26521 HbA1c (Bld) [Mass fraction]o n 04-30-2023 Average glucose Estimated from glycated hemoglobin (Bld) [Mass/Vol] 209 mg/dL Normal Not Established [facility] Comment on above: Order Comment: Diagn osis of Diabetes-Adults Non-Diabetic: < or = 5.6% Increased risk for developing diabetes: 5.7-6.4% Diagnostic of diabetes: > or = 6.5% Monitoring of Diabetes Age (y)....................... Therapeutic Goal (%) Adults: >18.........................<7.0 Pediatrics: 13-18...................<7.5 Pediatrics: 7-12....................<8.0 Pediatrics: 0-6..................... 7.5-8.5 [place] [employer]. Diabetes Care 33(S1), Feb 2009 Performed By: #### 4 548-4 #### MAGO Tomas ([id number]) [facility] ([facility]) [address] [place] [address] 81353 Hemoglobin A1c/Hemoglobin.to maxi 04-30-2023 HbA1c (Bld) [Mass fraction] 8.9 % High see below [facility] Comment on above: Order Comment: Diagn osis of Diabetes-Adults Non-Diabetic: < or = 5.6% Increased risk for developing diabetes: 5.7-6.4% Diagnostic of diabetes: > or = 6.5% Monitoring of Diabetes Age (y)....................... Therapeutic Goal (%) Adults: >18.........................<7.0 Pediatrics: 13-18...................<7.5 Pediatrics: 7-12....................<8.0 Pediatrics: 0-6..................... 7.5-8.5 [place] [employer]. Diabetes Care 33(S1), Feb 2009 Performed By: #### [phone] #### MAGO Tomas ([id number]) [facility] ([facility]) [id number] [place] [address] STREP A MOLECULAR (POC)on Procedural Control Valid [facility] Strep A (POCT) Negative Negative [facility] Basophil percentageOrdered B y: Heather Fry on 11-23-2022 Basophil percentage 0-5 SEEN /hpf 0-5 [facility] Bilirubin Test strip Ql (U)O rdered By: Heather Fry on 11-23-2022 Bilirubin Ql (U) Negative Negative [facility] Glucose Glucometer (BldC) [M ass/Vol]Ordered By: Kristy Ott on 11-23-2022 Glucose [Mass/Vol] 190 mg/dL 74-106 [facility] Comment on above: MANAGEMENT OF PATIEN T CARE PER NURSING PROTOCOL Ketones Test strip Ql (U)Ord ered By: Heather Fry on 11-23-2022 Ketones Ql (U) 5 mg/dl Negative [facility] Mucus LM Ql (Urine sed)Order ed By: Heather Fry on 11-23-2022 Mucus Ql (Urine sed) 0 SEEN /hpf [facility] Neisseria gonorrhoeae genita l PCROrdered By: Heather Fry on 11-23-2022 N. gonorrhoeae DNA LÓPEZ+probe Ql (Genital specimen) [facility] Nitrite Test strip Ql (U)Ord ered By: Heather Fry on 11-23-2022 Nitrite Ql (U) Negative Negative [facility] No Panel InformationOrdered By: Heather Fry on 11-23-2022 Chlamydia trachomatis (PCR) [facility] Protein Test strip Ql (U)Ord ered By: Heather Fry on 11-23-2022 Protein Ql (U) 100 mg/dl Negative [facility] Squamous epithelial cells de tection in urine sediment by light microscopyOrdered By: Heather Fry on 11-23-2022 Epithelial cells.squamous LM Ql (Urine sed) 0-5 SEEN /hpf 0-5 [facility] Urine blood detectionOrdered By: Heather Fry on 11-23-2022 RBC Ql (U) 150 /ul Negative [facility] RBC Ql (U) 5-10 SEEN /hpf 0-5 [facility] Urine clarityOrdered By: Claudia Fry on 11-23-2022 Clarity (U) Clear Clear [facility] Urine color determinationOrd ered By: Heather Fry on 11-23-2022 Color (U) Yellow Yellow [facility] Urine glucose detectionOrder ed By: Heather Fry on 11-23-2022 Glucose Ql (U) 1000 mg/dl Normal [facility] Urine leukocyte esterase det ection by dipstickOrdered By: Heather Fry on 11-23-2022 Leukocyte esterase Test strip Ql (U) 25 /ul Negative [facility] Urine pHOrdered By: Heather raphael on 11-23-2022 pH (U) 6.0 [pH] 5.0 - 8.0 [facility] Urine sediment bacteria coun t by microscopy (number/high power field)Ordered By: Heather Fry on 11-23-2022 Bacteria LM.HPF (Urine sed) [#/Area] 1 /[HPF] None Seen [facility] Urine specific gravity measu rementOrdered By: Heather Fry on 11-23-2022 Specific gravity (U) [Rel density] 1.025 1.002-1.030 [facility] Urobilinogen Auto test strip Ql (U)Ordered By: Heather Fry on 11-23-2022 Urobilinogen Ql (U) Normal mg/dl Normal [facility] Absolute lymphocyte countOrd ered By: Inocente Valles on 11-14-2022 Lymphocytes Auto (Unsp spec) [#/Vol] 1.88 10*3/uL 0.83-4.51 [facility] Basophil percentageOrdered B y: Inocente Valles on 11-14-2022 Basophils/100 WBC (Bld) 0.9 % 0-1 [facility] Chloride [Moles/Vol] 106 mmol/L 98-107 [facility] Cholesterol [Mass/Vol] 123 mg/dL <200 [facility] Comment on above: <200 mg/dL Desirable 200-240 mg/dL Borderline >240 mg/dL High Risk Eosinophils/100 WBC (Bld) 4.3 % 0-5 [facility] Glucose [Mass/Vol] 226 mg/dL 74-106 [facility] Comment on above: Glucose result great er than or equal to 200 mg/dLsuggests DIABETES MELLITUS per A.D.A. criteria. Neutrophils (Bld) [#/Vol] 2.7 10*3/uL 2.0-7.7 [facility] Neutrophils/100 WBC (Bld) 48.4 % 47-70 [facility] Potassium [Moles/Vol] 3.9 mmol/L 3.5-5.1 [facility] Sodium [Moles/Vol] 134 mmol/L 136-145 [facility] Triglyceride [Mass/Vol] 183 mg/dL <199 [facility] Comment on above: The drugs N-Acetylcy steine and Metamizole may falsely depress this assay.Serum Triglycerides Reference Interval Normal <150 mg/dL Borderline high 150 - 199 mg/dL High 200 - 499 mg/dL Very High > or = 500 mg/dL WBC (Bld) [#/Vol] 5.5 10*3/uL 4.4-11.0 [facility] Blood erythrocytes count (nu mber/volume)Ordered By: Inocente Valles on 11-14-2022 RBC (Bld) [#/Vol] 4.37 10*6/uL 4.6-6.2 [facility] Blood hemoglobin measurement (mass/volume)Ordered By: Inocente Reena on 11-14-2022 Hemoglobin (Bld) [Mass/Vol] 12.9 g/dL 13.0-16.5 [facility] Blood lymphocytes/100 leukoc ytesOrdered By: Inocente Reena on 11-14-2022 Lymphocytes/100 WBC (Bld) 34.1 % 19-41 [facility] Blood monocytes/100 leukocyt esOrdered By: Inocente Reena on 11-14-2022 Monocytes/100 WBC (Bld) 11.8 % 0-10 [facility] Blood or tissue coagulation factor II targeted mutation analysis by molecular geneticOrdered By: Mayur Fields on 11-14-2022 F2 gene targeted mutation analysis [employer] Nom (Bld/Tiss) Comment . [facility] Comment on above: Result: c.*97G>A - N ot DetectedThis result is not associated with an increased risk for venousthromboembolism. See Additional Clinical Information andComments.Additional Clinical Information:Venous thromboembolism is a multifactorial disease influenced bygenetic, environmental, and circumstantial risk factors. The c.*97G>Avariant in the F2 gene is a genetic risk factor for venousthromboembolism. Heterozygous carriers have a 2- to 4-fold increasedrisk for venous thromboembolism. Homozygotes for the c.*97G>A variantare rare. The annual risk of VTE in homozygotes has been reported william 1.1%/year. Individuals who carry both a c.*97G>A variant in theF2 gene and a c.1601G>A (p. [id number]) variant in the F5 gene(commonly referred to as Factor V Leiden) have an approximately 20-fold increased risk for venous thromboembolism. Risks are likely william even higher in more complex genotype combinations involving theF2 c.*97G>A variant and Factor V Leiden (PMID: 03815999). Additionalrisk factors include but are not limited to: deficiency of protein C,protein S, or antithrombin III, age, male sex, personal or familyhistory of deep vein thromboembolism, smoking, surgery, prolongedimmobilization, malignant neoplasm, tamoxifen treatment, raloxifenetreatment, oral contraceptive use, hormone replacement therapy, andpregnancy. Management of thrombotic risk and thrombotic events shouldfollow established guidelines and fit the clinical circumstance. Thisresult cannot predict the occurrence or recurrence of a thromboticevent.Comments:Genetic counseling is recommended to discuss the potential clinicalimplications of positive results, as well as recommendations fortesting family members.Genetic Coordinators are available for health care providers to discussresults at [phone] ([phone] Details:Variant analyzed: c.*97G>A, previously referred to as [id number]/Limitations:DNA analysis of the F2 gene (NM_000506.5) was performed by PCRamplification followed by restriction enzyme analysis. The diagnosticsensitivity is >99%. Results must be combined with clinicalinformation for the most accurate interpretation. Molecular-basedtesting is highly accurate, but as in any laboratory test, diagnosticerrors may occur. False positive or false negative results may occurfor reasons that include genetic variants, blood transfusions, bonemarrow transplantation, somatic or tissue-specific mosaicism,mislabeled samples, or erroneous representation of familyrelationships.This test was developed and its performance characteristics determinedby [facility]. It has not been cleared or approved by the Food and DrugAdministration.References:Jamal Chance, Serina KUMAR, Olivier R, Jose WW, Don JH; [employer] ProfessionalPractice and Guidelines Committee. Addendum: [place] [employer] consensus statement on factor V Leiden mutationtesting. Nely Med. 2020Apr 20. doi: 10.1038/i22893-661-14859-b.PMID: 41609017.Claudia AMBROCIO. Prothrombin Thrombophilia. 2005Sep 09[Updated 2020Mar 22]. In: Antonio MP, Nato HH, Melissa RA, et al.,editors. Mauro(R) [Internet]. [place] ([place]): [facility]; 3444-3177. Available from:https://www.ncbi.nlm.nih.gov/books/RKB5120/Darshan Chance, Serina KUMAR, Jose X, Hong B, Mirta EB, Kathy P, John CS;[employer] Laboratory Machine Filler Shredder Committee. Venous thromboembolismlaboratory testing (factor V Leiden and factor II c.*97G>A),2018 update: a technical standard of the [place] [employer] MedicalGen[employer] and Genomics ([employer]MG). Nely Med. 2018 Jan;20(12):4540-7330.doi: 10.1038/[id number]-f. Epub 2017Nov 20. PMID: 37132394. Blood platelet mean volumeOr dered By: Inocente Valles on 11-14-2022 Platelet mean volume (Bld) [Entitic vol] 10.2 fL 6.2-12.0 [facility] Determination of erythrocyte mean corpuscular volume (MCV)Ordered By: Inocente Valles on 11-14-2022 MCV (RBC) [Entitic vol] 90.8 fL 80-94 [facility] Glucose Glucometer (BldC) [M ass/Vol]Ordered By: Mayur Fields on 11-14-2022 Glucose [Mass/Vol] 217 mg/dL 74-106 [facility] Comment on above: MANAGEMENT OF PATIEN T CARE PER NURSING PROTOCOL Hematocrit Auto (Bld) [Volum e fraction]Ordered By: Inocente Valles on 11-14-2022 Hematocrit (Bld) [Volume fraction] 39.7 % 40-54 [facility] - Chemistry and C hemistry - challengeOrdered By: Inocente Valles on 11-14-2022 CO2 [Moles/Vol] 26.0 mmol/L 21.0-32.0 [facility] Urea nitrogen/Creatinine [Mass ratio] 11.0 mg/mg 10-20 [facility] - Hematology and Cell countsOrdered By: Inocente Valles on 11-14-2022 Erythrocyte distribution width (RBC) [Entitic vol] 44.3 fL 35.1-43.9 [facility] Erythrocyte distribution width (RBC) [Ratio] 13.1 % 11.6-14.6 [facility] Immature granulocytes/100 WBC (Bld) 0.500 % 0.0-0.9 [facility] Comment on above: IG% - Immature Granu locytes (promyelocytes, myelocytes and metamyelocytes) > 1% indicates that a LEFT SHIFT is Present. MCH (RBC) [Entitic mass] 29.5 pg 27.0-32.0 [facility] Nucleated RBC/100 WBC (Bld) [Ratio] 0 % 0-5 [facility] MCHC Auto (RBC) [Mass/Vol]Or dered By: Inocente Valles on 11-14-2022 MCHC (RBC) [Mass/Vol] 32.5 g/dL 32-36 [facility] No Panel InformationOrdered By: Mayur Fields on 11-14-2022 Factor V Leiden Mutation Comment . [facility] Comment on above: Result: c.1601G>A (p .Inr503Vys) - Not DetectedThis result is not associated with an increased risk for venousthromboembolism. See Additional Clinical Information andComments.Additional Clinical Information:Venous thromboembolism is a multifactorial diseaseinfluenced by genetic, environmental, and circumstantialrisk factors. The c.1601G>A (p. Ueh806Eth) variant in theF5 gene, commonly referred to as Factor V Leiden, is agenetic risk factor for venous thromboembolism.Heterozygous carriers of this variant have a 6- to 8-foldincreased risk for venous thromboembolism. Individualshomozygous for this variant (ie, with a copy of the varianton each chromosome) have an approximately 80-fold increasedrisk for venous thromboembolism. Individuals who carry candelario c.*97G>A variant in the F2 gene and Factor V Leiden havean approximately 20-fold increased risk for venousthromboembolism. Risks are likely to be even higher in morecomplex genotype combinations involving the F2 c.*97G>Avariant and Factor V Leiden (PMID: 72884495). Additionalrisk factors include but are not limited to: deficiency ofprotein C, protein S, or antithrombin III, age, male sex,personal or family history of deep vein thromboembolism,smoking, surgery, prolonged immobilization, malignantneoplasm, tamoxifen treatment, raloxifene treatment, oralcontraceptive use, hormone replacement therapy, andpregnancy. Management of thrombotic risk and thromboticevents should follow established guidelines and fit theclinical circumstance. This result cannot predict theoccurrence or recurrence of a thrombotic event.Comment:Genetic counseling is recommended to discuss thepotential clinical implications of positive results, aswell as recommendations for testing family members.Genetic Coordinators are available for health careproviders to discuss results at [phone] Details:Variant Analyzed: c.1601G>A (p. Xla058Nbz), referred toas Factor V LeidenMethods/Limitations:DNA analysis of the F5 gene (NM_000130.5) was performedby PCR amplification followed by restriction enzymeanalysis. The diagnostic sensitivity is >99%. Results mustbe combined with clinical information for the most accurateinterpretation. Molecular-based testing is highly accurate,but as in any laboratory test, diagnostic errors may occur.False positive or false negative results may occur forreasons that include genetic variants, blood transfusions,bone marrow transplantation, somatic or tissue-specificmosaicism, mislabeled samples, or erroneous representationof family relationships.This test was developed and its performance characteristicsdetermined by [facility]. It has not been cleared orapproved by the Food and Drug Administration.References:Jamal Chance, Serina KUMAR, Olivier R, Jose WW, Don OVALLES; ACMGProfessional Practice and Guidelines Committee. Addendum:[place] [employer] consensus statement onfactor V Leiden mutation testing. Nely Med. 2020Apr 20.doi: 10.1038/[id number]-f. PMID: 39255159.Claudia AMBROCIO. Factor V Leiden Thrombophilia. 1998June 29(Updated 2017Feb 19). In: Antonio MP, Nato HH, Melissa RA,et al., editors. Mauro(R) (Internet). [place] ([place]):[facility]; 2241-0078. Availablefrom: https://www.ncbi.nlm.nih.gov/books/IXF3102/Darshan Chance, Serina KUMAR, Jose X, Hong B, Mirta EB, Kathy P,John CS; [employer] Laboratory Machine Filler Shredder Committee.Venous thromboembolism laboratory testing (factor V Leidenand factor II c.*97G>A), 2018 update: a technical standardof the [place] [employer] and Genomics([employer]MG). Nely Med. 2018 Jan;20(12):2016-8899. doi:10.1038/[id number]-p. Ep2017Nov 20. PMID: 03204876. MTHFR Comment Comment . [facility] Comment on above: Inocente Javier, Ph DDirector, Molecular GeneticsPerformed at: [facility] [id number], [place], [place] [id number] Director: Shaka Donis [facility], Phone: [phone] MTHFR Thermolabile Variant DNA Anal Comment . [facility] Comment on above: Result:c.665C>T (p. Ulb611Hyb), legacy name: [id number] - NotDetected c.1286A>C (p. Fbt894Kyu), legacy name: [id number] -Not Detected Interpretation:This result is not associated with an increased risk forhyperhomocysteinemia. See Additional Clinical Informationand Comments.Additional Clinical Information:Hyperhomocysteinemia is multifactorial involving genetic,clinical, and environmental risk factors. Reduced enzymeactivity of methylenetetrahydrofolate reductase (MTHFR) dane genetic risk factor for hyperhomocysteinemia,particularly when serum folate levels are low. There aretwo common variants in the MTHFR gene that can decreaseenzyme activity; c.665C>T (p. Dab553Qey), legacy [id number], and c.1286A>C (p. Keq142Tsy), legacy name [id number].These variants do not independently increase risk ofconditions related to hyperhomocysteinemia in the absenceof elevated homocysteine levels. Measurement of totalplasma homocysteine is recommended. Patients should sharetheir MTHFR genotype with physicians who are makingdecisions regarding chemotherapy treatments that depend onfolate, such as methotrexate.Guidelines do not recommend genotyping of these two MTHFRvariants in the evaluation of venous thrombosis orobstetric risk due to limited evidence of clinical utility(PMID: 14784840). Comments:Genetic Coordinators are available for health careproviders to discuss results at [phone] Details:Variants Analyzed: c.665C>T (p. Pka082Hnt), legacy name:[id number] and c.1286A>C (p. Vcj015Ebe), legacy name: [id number]/Limitations:DNA analysis of the MTHFR gene was performed by PCRamplification followed by restriction enzyme analysis. Thediagnostic sensitivity is >99%. Results must be combinedwith clinical information for the most accurateinterpretation. Molecular-based testing is highlyaccurate, but as in any laboratory test, diagnosticerrors may occur. False positive or false negative resultsmay occur for reasons that include genetic variants, bloodtransfusions, bone marrow transplantation, somatic ortissue-specific mosaicism, mislabeled samples, or erroneousrepresentation of family relationships.This test was developed and its performancecharacteristics determined by [facility]. It has not beencleared or approved by the Food and Drug Administration.References:Ana SE, Fadi CJ, Gerson LOPES. [facility] PracticeGuideline: lack of evidence for MTHFR polymorphism testing.Nely Med. 2013 Mar;15(2):153-6. doi: 10.1038/gim.2012.165.Epub 2012Feb 18. PMID: 72083440.[place] [employer]st[employer]ians and Gynecologists'Committee on Practice Bulletins-Obstetrics. [facility] PracticeBulletin No. 197: Inherited Thrombophilias in .Obstet Gynecol. 2018 Aug;132(1):e18-e34. doi:10.1097/AOG.[id number]. Erratum in: Obstet Gynecol.2018 Nov;132(4):1069. PMID: 33033193. No Panel InformationOrdered By: Inocente Valles on 11-14-2022 Estimated Creatinine Clearance Calc 93.16 ml/min [facility] Estimated GFR (MDRD) Amer 89 mL/min >60 [facility] Comment on above: GFR Calc Estimated GFR (MDRD) Non-Af Amer 73 mL/min >60 [facility] Comment on above: Non- GFR Calc Platelets bldOrdered By: Thomas Valles on 11-14-2022 Platelets (Bld) [#/Vol] 73 10*3/uL 150-450 [facility] Serum or plasma calcium eran urement (mass/volume)Ordered By: Inocente Valles on 11-14-2022 Calcium [Mass/Vol] 8.6 mg/dL 8.5-10.1 [facility] Serum or plasma cholesterol in HDL measurement (mass/volume)Ordered By: Inocente Valles on 11-14-2022 Cholesterol in HDL [Mass/Vol] 30 mg/dL >40 [facility] Comment on above: The drugs N-Acetylcy steine and Metamizole may falsely depress this assay. Reference Range HDL <40 mg/dL Low HDL Cholesterol HDL >or= 60 mg/dL High HDL Cholesterol Serum or plasma cholesterol in VLDL measurement (mass/volume)Ordered By: Inocente Valles on 11-14-2022 Cholesterol in VLDL [Mass/Vol] 37 mg/dL 5-40 [facility] Serum or plasma creatinine m easurement (mass/volume)Ordered By: Inocente Valles on 11-14-2022 Creatinine [Mass/Vol] 1.18 mg/dL 0.70-1.30 [facility] Comment on above: The validity of the calculated GFR & GFRAA in patients over 70 years has not been determined. Clinical correlation is essential. Serum or plasma low density lipoprotein (LDL) cholesterol measurement (mass/volume)Ordered By: Inocente Valles on 11-14-2022 Cholesterol in LDL [Mass/Vol] 56 mg/dL 0-130 [facility] Serum or plasma urea nitroge n measurement (mass/volume)Ordered By: [facility] on 11-14-2022 Urea nitrogen [Mass/Vol] 13 mg/dL 7-18 [facility] Thin prep Papanicolaou smear with manual screeningOrdered By: Inocente Valles on 11-14-2022 Thin prep Papanicolaou smear with manual screening 2 5-15 [facility] Whole blood hemoglobin A1c/t otal hemoglobin ratio (mass fraction)Ordered By: Inocente Valles on 11-14-2022 HbA1c (Bld) [Mass fraction] 7.4 % 3.8-5.6 [facility] Comment on above: Normal < 5.7 % Predi abetic 5.7 - 6.4 % Diabetic >or= 6.5 % Please note range changes. Absolute lymphocyte countOrd ered By: Milton Tate on 11-13-2022 Lymphocytes Auto (Unsp spec) [#/Vol] 1.95 10*3/uL 0.83-4.51 [facility] Basophil percentageOrdered B y: Milton Tate on 11-13-2022 Basophils/100 WBC (Bld) 0.9 % 0-1 [facility] Chloride [Moles/Vol] 106 mmol/L 98-107 [facility] Eosinophils/100 WBC (Bld) 3.3 % 0-5 [facility] Glucose [Mass/Vol] 253 mg/dL 74-106 [facility] Comment on above: Glucose result great er than or equal to 200 mg/dLsuggests DIABETES MELLITUS per A.D.A. criteria. Neutrophils (Bld) [#/Vol] 2.8 10*3/uL 2.0-7.7 [facility] Neutrophils/100 WBC (Bld) 51.0 % 47-70 [facility] Potassium [Moles/Vol] 4.1 mmol/L 3.5-5.1 [facility] Comment on above: Slight Hemolysis, Re sult may be falsely increased. Sodium [Moles/Vol] 135 mmol/L 136-145 [facility] WBC (Bld) [#/Vol] 5.5 10*3/uL 4.4-11.0 [facility] Blood erythrocytes count (nu mber/volume)Ordered By: Milton Tate on 11-13-2022 RBC (Bld) [#/Vol] 4.56 10*6/uL 4.6-6.2 [facility] Blood hemoglobin measurement (mass/volume)Ordered By: Milton Tate on 11-13-2022 Hemoglobin (Bld) [Mass/Vol] 13.3 g/dL 13.0-16.5 [facility] Blood lymphocytes/100 leukoc ytesOrdered By: Milton Tate on 11-13-2022 Lymphocytes/100 WBC (Bld) 35.6 % 19-41 [facility] Blood manual differential co mment interpretation (narrative result)Ordered By: Milton Tate on 11-13-2022 Manual differential comment Nikhil (Bld) [Interp] SEE COMMENT [facility] Comment on above: THROMBOCYTOPENIA NOT ED Blood monocytes/100 leukocyt esOrdered By: Milton Tate on 11-13-2022 Monocytes/100 WBC (Bld) 8.8 % 0-10 [facility] Blood platelet adequacy dete ction by light microscopyOrdered By: Milton Tate on 11-13-2022 Platelets LM Ql (Bld) MOD DEC ADEQ [facility] Blood platelet mean volumeOr dered By: Milton Tate on 11-13-2022 Platelet mean volume (Bld) [Entitic vol] 10.4 fL 6.2-12.0 [facility] Determination of erythrocyte mean corpuscular volume (MCV)Ordered By: Milton Tate on 11-13-2022 MCV (RBC) [Entitic vol] 89.9 fL 80-94 [facility] Hematocrit Auto (Bld) [Volum e fraction]Ordered By: Milton Tate on 11-13-2022 Hematocrit (Bld) [Volume fraction] 41.0 % 40-54 [facility] INR in Blood by Coagulation assayOrdered By: Milton Tate on 11-13-2022 INR Coag (Bld) [Relative time] 1.0 {INR} [facility] - Chemistry and C hemistry - challengeOrdered By: Milton Tate on 11-13-2022 CO2 [Moles/Vol] 28.0 mmol/L 21.0-32.0 [facility] Urea nitrogen/Creatinine [Mass ratio] 10.2 mg/mg 10-20 [facility] Laboratory - CoagulationOrde red By: Milton Tate on 11-13-2022 aPTT Coag (Bld) [Time] 68.6 s 24.1-36.2 [facility] PT Coag (PPP) [Time] 13.4 s 11.7-14.9 [facility] Laboratory - Hematology and Cell countsOrdered By: Milton Tate on 11-13-2022 Anisocytosis Ql (Bld) RARE [facility] Erythrocyte distribution width (RBC) [Entitic vol] 43.0 fL 35.1-43.9 [facility] Erythrocyte distribution width (RBC) [Ratio] 13.1 % 11.6-14.6 [facility] Immature granulocytes/100 WBC (Bld) 0.400 % 0.0-0.9 [facility] Comment on above: IG% - Immature Granu locytes (promyelocytes, myelocytes and metamyelocytes) > 1% indicates that a LEFT SHIFT is Present. MCH (RBC) [Entitic mass] 29.2 pg 27.0-32.0 [facility] Nucleated RBC/100 WBC (Bld) [Ratio] 0 [facility] [Mass/Vol]Or dered By: Milton Tate on 11-13-2022 MCHC (RBC) [Mass/Vol] 32.4 g/dL 32-36 [facility] Macrocytes detectionOrdered By: Milton Tate on 11-13-2022 Macrocytes Ql (Bld) [facility] No Panel InformationOrdered By: Milton Tate on 11-13-2022 Estimated Creatinine Clearance Calc 93.16 ml/min [facility] Estimated GFR (MDRD) Amer 89 mL/min >60 [facility] Comment on above: GFR Calc Estimated GFR (MDRD) Non-Af Amer 73 mL/min >60 [facility] Comment on above: Non- GFR Calc Troponin I High Sensitivity 10 pg/mL 3.0-78.0 [facility] Comment on above: Please Note: New [place] t Units and Gender Specific Reference Ranges. For more information see Policy Stat Procedure [place] High Sensitivity Troponin (TNIH) and attachments. Platelets bldOrdered By: Dex Tate on 11-13-2022 Platelets (Bld) [#/Vol] 74 10*3/uL 150-450 [facility] RBC morphologyOrdered By: Do david Tate on 11-13-2022 RBC morphology finding Nom (Bld) N CHROM NORMAL NORM C&C [facility] Serum or plasma calcium eran urement (mass/volume)Ordered By: Milton Tate on 11-13-2022 Calcium [Mass/Vol] 9.0 mg/dL 8.5-10.1 [facility] Serum or plasma creatinine m easurement (mass/volume)Ordered By: Milton Tate on 11-13-2022 Creatinine [Mass/Vol] 1.18 mg/dL 0.70-1.30 [facility] Comment on above: The validity of the calculated GFR & GFRAA in patients over 70 years has not been determined. Clinical correlation is essential. Serum or plasma urea nitroge n measurement (mass/volume)Ordered By: Milton Tate on 11-13-2022 Urea nitrogen [Mass/Vol] 12 mg/dL 7-18 [facility] Thin prep Papanicolaou smear with manual screeningOrdered By: Milton Tate on 11-13-2022 Thin prep Papanicolaou smear with manual screening 1 5-15 [facility] * Body fluid crystals type b y light microscopyOrdered By: Regina Nixon on 10-22-2022 Crystals LM Nom (Body fld) See PATH REV [facility] Comment on above: CRYSTAL RESULT IS PRELIMINARY. SEE PATH REVIEW FOR FINAL REPORT. Blood lymphocytes/100 leukoc ytesOrdered By: Regina Nixon on 10-22-2022 Lymphocytes/100 WBC (Bld) 74 % [facility] Color of Synovial fluidOrder ed By: Regina Nixon on 10-22-2022 Color (Syn fld) Red Pale Yellow [facility] Determination of appearance of synovial fluidOrdered By: Regina Nixon on 10-22-2022 Appearance (Syn fld) Cloudy CLEAR [facility] Gram stain for investigation of transfusion reactionOrdered By: Regina Nixon on 10-22-2022 Microscopic observation Gram stain Nom (Unsp spec) [facility] No Panel InformationOrdered By: Regina Nixon on 10-22-2022 Synovial Fluid Mononuclear WBCs 0.527 10^3/ul [facility] Synovial Fluid Mononuclear WBCs % 95.3 % [facility] Synovial Fluid Polynuclear WBCs 0.026 10^3/uL [facility] Synovial Fluid Polynuclear WBCs % 4.7 % [facility] Synovial Fluid Total Cells Counted 0.5720 10^3/uL 0.000-0.000 [facility] Comment on above: This is the Total Nu mber of Nucleated Cell Types in the Body Fluid. Review by pathologistOrdered By: Regina Nixon on 10-22-2022 Pathologist review Nikhil (Unsp spec) [Interp] May follow [facility] Pathologist review Nikhil (Unsp spec) [Interp] Reviewed [facility] Comment on above: Previous reported re sult: Will follow Edited by: RGORADHA on 10/23/22:1318Negative for malignant cells and crystals.John Overton M.D. 10/23/22 AMENDED REPORT 10/23/22 1318 PATH REV previously reported as: Will follow Specimen source identificati on of body fluidOrdered By: Regina Nixon on 10-22-2022 Specimen source Nom (Body fld) SYNOVIAL [facility] Specimen source Nom (Body fld) LEFT KNEE [facility] Synovial fluid erythrocytes count (number/volume)Ordered By: Regina Nixon on 10-22-2022 RBC (Syn fld) [#/Vol] 0.034 10^6/uL 0-0 [facility] Synovial fluid leukocytes co unt (number/volume)Ordered By: Regina Nixon on 10-22-2022 WBC (Syn fld) [#/Vol] 0.5530 10^3/uL 0.000-0.00 2 [facility] Synovial fluid monocyte perc entageOrdered By: Regina Nixon on 10-22-2022 Monocytes/100 WBC (Syn fld) 11 % [facility] Synovial fluid neutrophil pe rcentageOrdered By: Regina Nixon on 10-22-2022 Neutrophils/100 WBC (Syn fld) 11 % 0-25 [facility] Synovial fluid other cells/1 00 leukocytes identificationOrdered By: Regina Nixon on 10-22-2022 Other cells/100 WBC Nom (Syn fld) 4 % [facility] Absolute lymphocyte countOrd ered By: Dakota Goetz on 10-15-2022 Lymphocytes Auto (Unsp spec) [#/Vol] 1.28 10*3/uL 0.83-4.51 [facility] Basophil percentageOrdered B y: Dakota Goetz on 10-15-2022 Basophils/100 WBC (Bld) 0.7 % 0-1 [facility] Bilirubin [Mass/Vol] 0.40 mg/dL 0.20-1.00 [facility] Comment on above: For patients on eltr ombopag therapy, use of Dimension [place] TBIL is not recommended. Chloride [Moles/Vol] 111 mmol/L 98-107 [facility] Eosinophils/100 WBC (Bld) 2.0 % 0-5 [facility] Glucose [Mass/Vol] 97 mg/dL 74-106 [facility] Lactate [Moles/Vol] 1.1 mmol/L 0.4-2.0 [facility] Neutrophils (Bld) [#/Vol] 4.0 10*3/uL 2.0-7.7 [facility] Neutrophils/100 WBC (Bld) 66.9 % 47-70 [facility] Potassium [Moles/Vol] 4.2 mmol/L 3.5-5.1 [facility] Protein [Mass/Vol] 7.9 g/dL 6.4-8.2 [facility] Sodium [Moles/Vol] 140 mmol/L 136-145 [facility] WBC (Bld) [#/Vol] 5.9 10*3/uL 4.4-11.0 [facility] Blood erythrocytes count (nu mber/volume)Ordered By: Dakota Goetz on 10-15-2022 RBC (Bld) [#/Vol] 4.83 10*6/uL 4.6-6.2 [facility] Blood hemoglobin measurement (mass/volume)Ordered By: Dakota Goetz on 10-15-2022 Hemoglobin (Bld) [Mass/Vol] 13.9 g/dL 13.0-16.5 [facility] Blood lymphocytes/100 leukoc ytesOrdered By: Dakota Goetz on 10-15-2022 Lymphocytes/100 WBC (Bld) 21.7 % 19-41 [facility] Blood manual differential co mment interpretation (narrative result)Ordered By: Dakota Goetz on 10-15-2022 Manual differential comment Nikhil (Bld) [Interp] SCANNED [facility] Blood monocytes/100 leukocyt esOrdered By: Dakota Goetz on 10-15-2022 Monocytes/100 WBC (Bld) 8.5 % 0-10 [facility] Blood platelet mean volumeOr dered By: Dakota Goetz on 10-15-2022 Platelet mean volume (Bld) [Entitic vol] 10.1 fL 6.2-12.0 [facility] Determination of erythrocyte mean corpuscular volume (MCV)Ordered By: Dakota Goetz on 10-15-2022 MCV (RBC) [Entitic vol] 90.9 fL 80-94 [facility] Erythrocyte sedimentation ra teOrdered By: Dakota Goetz on 10-15-2022 ESR (Bld) [Velocity] 51 mm/h 0-20 [facility] Hematocrit Auto (Bld) [Volum e fraction]Ordered By: Dakota Goetz on 10-15-2022 Hematocrit (Bld) [Volume fraction] 43.9 % 40-54 [facility] Laboratory - Chemistry and C hemistry - challengeOrdered By: Dakota Goetz on 10-15-2022 ALP [Catalytic activity/Vol] 96 U/L 45-117 [facility] ALT [Catalytic activity/Vol] 51 U/L 16-61 [facility] CO2 [Moles/Vol] 25.0 mmol/L 21.0-32.0 [facility] Globulin (S) [Mass/Vol] 4.6 g/dL 2.2-4.2 [facility] Urea nitrogen/Creatinine [Mass ratio] 19.1 mg/mg 10-20 [facility] - Hematology and Cell countsOrdered By: Dakota Goetz on 10-15-2022 Erythrocyte distribution width (RBC) [Entitic vol] 46.9 fL 35.1-43.9 [facility] Erythrocyte distribution width (RBC) [Ratio] 13.9 % 11.6-14.6 [facility] Immature granulocytes/100 WBC (Bld) 0.200 % 0.0-0.9 [facility] Comment on above: IG% - Immature Granu locytes (promyelocytes, myelocytes and metamyelocytes) > 1% indicates that a LEFT SHIFT is Present. MCH (RBC) [Entitic mass] 28.8 pg 27.0-32.0 [facility] Nucleated RBC/100 WBC (Bld) [Ratio] 0 % 0-5 [facility] MCHC Auto (RBC) [Mass/Vol]Or dered By: Dakota Goetz on 10-15-2022 MCHC (RBC) [Mass/Vol] 31.7 g/dL 32-36 [facility] No Panel InformationOrdered By: Dakota Goetz on 10-15-2022 Estimated Creatinine Clearance Calc 99.94 ml/min [facility] Estimated GFR (MDRD) Amer 96 mL/min >60 [facility] Comment on above: GFR Calc Estimated GFR (MDRD) Non-Af Amer 80 mL/min >60 [facility] Comment on above: Non- GFR Calc Platelets bldOrdered By: Beni Goetz on 10-15-2022 Platelets (Bld) [#/Vol] 86 10*3/uL 150-450 [facility] Serum or plasma C reactive p rotein measurement (mass/volume)Ordered By: Dakota Goetz on 10-15-2022 CRP [Mass/Vol] 23.80 mg/L 0.0-3.0 [facility] Comment on above: C-Reactive Protein ( CRP) provides useful information for thediagnosis, therapy and monitoring of inflammatory processesand associated diseases. For the evaluation of Relative Riskfor Cardiovascular Disease, a High Sensitivity CRP (HSCRP)should be ordered. Serum or plasma albumin eran urement (mass/volume)Ordered By: Dakota Goetz on 10-15-2022 Albumin [Mass/Vol] 3.3 g/dL 3.2-5.0 [facility] Serum or plasma albumin/glob ulin mass ratioOrdered By: Dakota Goetz on 10-15-2022 Albumin/Globulin [Mass ratio] 0.7 {ratio} 0.9-2.4 [facility] Serum or plasma calcium eran urement (mass/volume)Ordered By: Dakota Goetz on 10-15-2022 Calcium [Mass/Vol] 8.7 mg/dL 8.5-10.1 [facility] Serum or plasma creatinine m easurement (mass/volume)Ordered By: Dakota Goetz on 10-15-2022 Creatinine [Mass/Vol] 1.10 mg/dL 0.70-1.30 [facility] Comment on above: The validity of the calculated GFR & GFRAA in patients over 70 years has not been determined. Clinical correlation is essential. Serum or plasma urea nitroge n measurement (mass/volume)Ordered By: Dakota Goetz on 10-15-2022 Urea nitrogen [Mass/Vol] 21 mg/dL 7-18 [facility] Thin prep Papanicolaou smear with manual screeningOrdered By: Dakota Goetz on 10-15-2022 Thin prep Papanicolaou smear with manual screening 29 U/L 15-37 [facility] Thin prep Papanicolaou smear with manual screening 4 5-15 [facility] ALBUMIN, URINE SPOTon 2022 ALBUMIN,URINE 665.0 mg/L Normal Not Established [facility] Comment on above: Performed By: #### A LBSP #### [facility] [id number] 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 [address] CREATININE,URINE 184.0 mg/dL Normal 20.0 - 370.0 [facility] Comment on above: Performed By: #### A LBSP #### [facility] [address] [place] [address] Albumin , Urine Randomon Albumin/Creatinine DL <= 20 mg/L (U) [Mass ratio] 361.4 mg/g High [facility] Albumin/Creatinine DL <= 20 mg/L (U) [Mass ratio]on 06-07-2022 ALBUMIN (MG/L) IN URINE 665 mg/L Not Established [facility] Creatinine (U) [Mass/Vol] 184 mg/dL 20.0 - 370.0 mg/dL [facility] COMPREHENSIVE PANELon 2022 Albumin [Mass/Vol] 4.3 g/dL Normal 3.4 - 5.0 [facility] Comment on above: Performed By: #### C MP ####[id number] [place] [address] ALP [Catalytic activity/Vol] 74 U/L Normal 33 - 120 [facility] Comment on above: Performed By: #### C MP ####[id number] [place] [address] ALT [Catalytic activity/Vol] 33 U/L Normal 10 - 52 [facility] Comment on above: Result Comment: [place] ents treated with Sulfasalazine may generate falsely decreased results for ALT. Performed By: #### C MP ####[id number] [place] [address] Anion gap [Moles/Vol] 13 mmol/L Normal 10 - 20 [facility] Comment on above: Performed By: #### C MP ####[id number] [place] [address] AST [Catalytic activity/Vol] 28 U/L Normal 9 - 39 [facility] Comment on above: Performed By: #### C MP ####[id number] [place] [address] Bilirubin [Mass/Vol] 0.6 mg/dL Normal 0.0 - 1.2 [facility] Comment on above: Performed By: #### C MP ####[id number] [place] [address] Calcium [Mass/Vol] 9.3 mg/dL Normal 8.6 - 10.6 [facility] Comment on above: Performed By: #### C MP ####[id number] [place] [address] Chloride [Moles/Vol] 104 mmol/L Normal 98 - 107 [facility] Comment on above: Performed By: #### C MP ####[id number] [place] [address] Creatinine [Mass/Vol] 1.18 mg/dL Normal 0.50 - 1.30 [facility] Comment on above: Performed By: #### C MP ####[id number] [place] [address] GFR/1.73 sq M.predicted among non-blacks MDRD (S/P/Bld) [Vol rate/Area] 81 mL/min/{1.73_m2} Normal >90 [facility] Comment on above: Result Comment: CALC ULATIONS OF ESTIMATED GFR ARE PERFORMED USING THE 2020 CKD-EPI STUDY REFIT EQUATION WITHOUT THE RACE VARIABLE FOR THE IDMS-TRACEABLE CREATININE METHODS. https://jasn.asnjournals.org/content/early/ASN.09090 57008 Performed By: #### C MP ####[id number] [place] [address] Glucose [Mass/Vol] 85 mg/dL Normal 74 - 99 [facility] Comment on above: Performed By: #### C MP ####[id number] [place] [address] HCO3 (Bld) [Moles/Vol] 24 mmol/L Normal 21 - 32 [facility] Comment on above: Performed By: #### C MP ####[id number] [place] [address] Potassium [Moles/Vol] 4.3 mmol/L Normal 3.5 - 5.3 [facility] Comment on above: Performed By: #### C MP ####[id number] [place] [address] Protein [Mass/Vol] 7.8 g/dL Normal 6.4 - 8.2 [facility] Comment on above: Performed By: #### C MP ####[id number] [place] [address] Sodium [Moles/Vol] 137 mmol/L Normal 136 - 145 [facility] Comment on above: Performed By: #### C MP ####[id number] [place] [address] Urea nitrogen [Mass/Vol] 19 mg/dL Normal 6 - 23 [facility] Comment on above: Performed By: #### C MP ####[id number] [place] [address] Comprehensive metabolic 2000 panelon 06-07-2022 Albumin BCP dye [Mass/Vol] 4.3 g/dL 3.4 - 5.0 g/dL [facility] ALP [Catalytic activity/Vol] 74 U/L 33 - 120 U/L [facility] ALT With P-5'-P [Catalytic activity/Vol] 33 U/L 10 - 52 U/L [facility] Comment on above: Patients treated wit h Sulfasalazine may generate falsely decreased results for ALT. Anion gap [Moles/Vol] 13 mmol/L 10 - 2 0 mmol/L [facility] AST With P-5'-P [Catalytic activity/Vol] 28 U/L 9 - 39 U/L [facility] Bilirubin [Mass/Vol] 0.6 mg/dL 0.0 - 1 .2 mg/dL [facility] Calcium [Mass/Vol] 9.3 mg/dL 8.6 - 10. 6 mg/dL [facility] Chloride [Moles/Vol] 104 mmol/L 98 - 10 7 mmol/L [facility] CO2 [Moles/Vol] 24 mmol/L 21 - 32 mmol/L [facility] Creatine [Mass/Vol] 1.18 mg/dL 0.50 - 1 .30 mg/dL [facility] GFR MALE 81 - PINF [facility] Comment on above: CALCULATIONS OF SADIQ MATED GFR ARE PERFORMED USING THE 2020 CKD-EPI STUDY REFIT EQUATION WITHOUT THE RACE VARIABLE FOR THE IDMS-TRACEABLE CREATININE METHODS. https://jasn.asnjournals.org/content//ASN.30766 93163 Glucose [Mass/Vol] 85 mg/dL 74 - 99 mg/dL [facility] Potassium [Moles/Vol] 4.3 mmol/L 3.5 - 5.3 mmol/L [facility] Protein [Mass/Vol] 7.8 g/dL 6.4 - 8.2 g/dL [facility] Sodium [Moles/Vol] 137 mmol/L 136 - 145 mmol/L [facility] Urea nitrogen [Mass/Vol] 19 mg/dL 6 - 23 mg/dL [facility] LIPID PANEL (CORONARY RISK 2 )on 06-07-2022 Cholesterol [Mass/Vol] 137 mg/dL Normal 0 - 199 [facility] Comment on above: Result Comment: . AGE DESIRABLE BORDERLINE HIGH HIGH 0-19 Y 0 - 169 170 - 199 >/= 200 20-24 Y 0 - 189 190 - 224 >/= 225 >24 Y 0 - 199 200 - 239 >/= 240 All ranges are based on fasting samples. Specific therapeutic targets will vary based on patient-specific cardiac risk. . Pediatric guidelines reference:Pediatrics 2011, 128(S5). Adult guidelines reference: NCEP ATPIII Guidelines, EMIL 2001, 258:2486-97 . Venipuncture immediately after or during the administration of Metamizole may lead to falsely low results. Testing should be performed immediately prior to Metamizole dosing. Performed By: #### L IPID #### [facility] [id number] [address] Cholesterol in HDL [Mass/Vol] 39.0 mg/dL Abnormal [facility] Comment on above: Result Comment: . AGE VERY LOW LOW NORMAL HIGH 0-19 Y < 35 < 40 40-45 ---- 20-24 Y ---- < 40 >45 ---- >24 Y ---- < 40 40-60 >60 . Performed By: #### L IPID #### [facility] [id number] [place] [address] Cholesterol in LDL [Mass/Vol] 80 mg/dL Normal 0 - 99 [facility] Comment on above: Result Comment: . NEAR BORD AGE DESIRABLE OPTIMAL HIGH HIGH VERY HIGH 0-19 Y 0 - 109 --- 110-129 >/= 130 ---- 20-24 Y 0 - 119 --- 120-159 >/= 160 ---- >24 Y 0 - 99 100-129 130-159 160-189 >/=190 . Performed By: #### L IPID #### [facility] [id number] [place] [address] Cholesterol in VLDL [Mass/Vol] 18 mg/dL Normal 0 - 40 [facility] Comment on above: Performed By: #### L IPID #### [facility] [id number] [place] [address] Cholesterol.total/Chol esterol in HDL [Mass ratio] 3.5 {ratio} Normal [facility] Comment on above: Result Comment: REF VALUES DESIRABLE < 3.4 HIGH RISK > 5.0 Performed By: #### L IPID #### [facility] [id number] [place] [address] Triglyceride [Mass/Vol] 88 mg/dL Normal 0 - 149 [facility] Comment on above: Result Comment: . AGE DESIRABLE BORDERLINE HIGH HIGH VERY HIGH 0 D-90 D 19 - 174 ---- ---- ---- 91 D- 9 Y 0 - 74 75 - 99 >/= 100 ---- 10-19 Y 0 - 89 90 - 129 >/= 130 ---- 20-24 Y 0 - 114 115 - 149 >/= 150 ---- >24 Y 0 - 149 150 - 199 200- 499 >/= 500 . Venipuncture immediately after or during the administration of Metamizole may lead to falsely low results. Testing should be performed immediately prior to Metamizole dosing. Performed By: #### L IPID #### [facility] [address] [place] [address] Lipid 1996 panelon 3 Cholesterol [Mass/Vol] 137 mg/dL 0 - 1 99 mg/dL [facility] Comment on above: . AGE DESIRABLE BORDERLINE HIGH HIGH 0-19 Y 0 - 169 170 - 199 >/= 200 20-24 Y 0 - 189 190 - 224 >/= 225 >24 Y 0 - 199 200 - 239 >/= 240 All ranges are based on fasting samples. Specific therapeutic targets will vary based on patient-specific cardiac risk. . Pediatric guidelines reference:Pediatrics 2011, 128(S5). Adult guidelines reference: NCEP ATPIII Guidelines, EMIL 2001, 258:2486-97 . Venipuncture immediately after or during the administration of Metamizole may lead to falsely low results. Testing should be performed immediately prior to Metamizole dosing. Cholesterol in HDL [Mass/Vol] 39 mg/dL Abnormal [facility] Comment on above: . AGE VERY LOW LOW NORMAL HIGH 0-19 Y < 35 < 40 40-45 ---- 20-24 Y ---- < 40 >45 ---- >24 Y ---- < 40 40-60 >60 . Cholesterol in LDL [Mass/Vol] 80 mg/dL 0 - 99 mg/dL [facility] Comment on above: . NEAR BORD AGE DESIRABLE OPTIMAL HIGH HIGH VERY HIGH 0-19 Y 0 - 109 --- 110-129 >/= 130 ---- 20-24 Y 0 - 119 --- 120-159 >/= 160 ---- >24 Y 0 - 99 100-129 130-159 160-189 >/=190 . Cholesterol in VLDL [Mass/Vol] 18 mg/dL 0 - 40 mg/dL [facility] Cholesterol.total/Chol esterol in HDL [Mass ratio] 3.5 {ratio} [facility] Comment on above: REF VALUES DESIRABLE < 3.4 HIGH RISK > 5.0 Triglyceride [Mass/Vol] 88 mg/dL 0 - 149 mg/dL [facility] Comment on above: . AGE DESIRABLE BORDERLINE HIGH HIGH VERY HIGH 0 D-90 D 19 - 174 ---- ---- ---- 91 D- 9 Y 0 - 74 75 - 99 >/= 100 ---- 10-19 Y 0 - 89 90 - 129 >/= 130 ---- 20-24 Y 0 - 114 115 - 149 >/= 150 ---- >24 Y 0 - 149 150 - 199 200- 499 >/= 500 . Venipuncture immediately after or during the administration of Metamizole may lead to falsely low results. Testing should be performed immediately prior to Metamizole dosing. No Panel Informationon 06-07 Interpretation and review of laboratory results Abnormal [facility] TSH WITH REFLEX TO FREE T4 I F ABNORMALon 06-07-2022 TSH Qn 1.95 m[IU]/L Normal 0.44 - 3.98 [facility] Comment on above: Result Comment: TSH testing is performed using different testing methodology at [facility] than at other [facility]. Direct result comparisons should only be made within the same method. Performed By: #### T HYDS #### [facility] [id number] [place] [address] TSH with reflex to Free T4 i f abnormalon 06-07-2022 TSH Qn 1.95 m[IU]/L [facility] Comment on above: TSH testing is perfo rmed using different testing methodology at [facility] than at other [facility]. Direct result comparisons should only be made within the same method. [facility] ALBUMIN, URINE SPOTon 2022 Lab Specimen Source Urine Normal [facility] Comment on above: Performed By: #### A LBSP #### [facility] [address] [place] [address] CBC AND DIFFERENTIALon 06-06 % AUTOMATED IMMATURE GRAN 0.3 % Normal 0.0 - 0.9 [facility] Comment on above: Result Comment: Shelby ture Granulocyte Count (IG) includes promyelocytes, myelocytes and metamyelocytes but does not include bands. Percent differential counts (%) should be interpreted in the context of the absolute cell counts (cells/L). Performed By: #### C BCDF #### [facility] [address] [place] [address] Basophils (Bld) [#/Vol] 0.02 10*3/uL Normal 0.00 - 0.10 [facility] Comment on above: Performed By: #### C BCDF #### [facility] [address] [place] [address] Basophils/100 WBC (Bld) 0.3 % Normal 0.0 - 2.0 [facility] Comment on above: Performed By: #### C BCDF #### [facility] [address] [place] [address] Eosinophils (Bld) [#/Vol] 0.12 10*3/uL Normal 0.00 - 0.70 [facility] Comment on above: Performed By: #### C BCDF #### [facility] [address] [place] [address] Eosinophils/100 WBC (Bld) 1.8 % Normal 0.0 - 6.0 [facility] Comment on above: Performed By: #### C BCDF #### [facility] [address] [place] [address] Erythrocyte distribution width (RBC) [Ratio] 14.1 % Normal 11.5 - 14.5 [facility] Comment on above: Performed By: #### C BCDF #### [facility] [address] [place] [address] Hematocrit (Bld) [Volume fraction] 42.1 % Normal 41.0 - 52.0 [facility] Comment on above: Performed By: #### C BCDF #### [facility] [address] [place] [address] Hemoglobin (Bld) [Mass/Vol] 13.4 g/dL Low 13.5 - 17.5 [facility] Comment on above: Performed By: #### C BCDF #### [facility] [address] [place] [address] Lymphocytes (Bld) [#/Vol] 2.28 10*3/uL Normal 1.20 - 4.80 [facility] Comment on above: Performed By: #### C BCDF #### [facility] [address] [place] [address] Lymphocytes/100 WBC (Bld) 35.0 % Normal 13.0 - 44.0 [facility] Comment on above: Performed By: #### C BCDF #### [facility] [address] [place] [address] MCHC (RBC) [Mass/Vol] 31.8 g/dL Low 32.0 - 36.0 [facility] Comment on above: Performed By: #### C BCDF #### [facility] [address] [place] [address] MCV (RBC) [Entitic vol] 91 fL Normal 80 - 100 [facility] Comment on above: Performed By: #### C BCDF #### [facility] [address] [place] [address] Monocytes (Bld) [#/Vol] 0.71 10*3/uL Normal 0.10 - 1.00 [facility] Comment on above: Performed By: #### C BCDF #### [facility] [address] [place] [address] Monocytes/100 WBC (Bld) 10.9 % Normal 2.0 - 10.0 [facility] Comment on above: Performed By: #### C BCDF #### [facility] [address] [place] [address] Neutrophils (Bld) [#/Vol] 3.36 10*3/uL Normal 1.20 - 7.70 [facility] Comment on above: Performed By: #### C BCDF #### [facility] [address] [place] [address] Neutrophils/100 WBC (Bld) 51.7 % Normal 40.0 - 80.0 [facility] Comment on above: Performed By: #### C BCDF #### [facility] [address] [place] [address] NUCLEATED RBC 0.0 /100 WBC Normal 0.0-0.0 [facility] Comment on above: Performed By: #### C BCDF #### [facility] [address] [place] [address] Platelets (Bld) [#/Vol] 106 10*3/uL Low 150 - 450 [facility] Comment on above: Performed By: #### C BCDF #### [facility] [address] [place] [address] RBC 4.62 x10E12/L Normal 4.50 - 5.90 [facility] Comment on above: Performed By: #### C BCDF #### [facility] [address] [place] [address] WBC (Bld) [#/Vol] 6.5 10*3/uL Normal 4.4 - 11.3 [facility] Comment on above: Performed By: #### C BCDF #### [facility] [address] [place] [address] Lab Specimen Source Normal [facility] Comment on above: Performed By: #### C BCDF #### [facility] [address] [place] [address] Performed By: #### T HYDS #### [facility] [address] [place] [address] CBC W Auto Differential pane l (Bld)on 06-06-2022 Basophils (Bld) [#/Vol] 0.02 10*3/uL [facility] Basophils/100 WBC (Bld) 0.3 % 0.0 - 2.0 % [facility] Eosinophils (Bld) [#/Vol] 0.12 10*3/uL [facility] Eosinophils/100 WBC (Bld) 1.8 % 0.0 - 6.0 % [facility] Erythrocyte distribution width (RBC) [Ratio] 14.1 % 11.5 - 14.5 % [facility] Hematocrit (Bld) [Volume fraction] 42.1 % 41.0 - 52.0 % [facility] Hemoglobin (Bld) [Mass/Vol] 13.4 g/dL Low 13.5 - 17.5 g/dL [facility] Immature granulocytes/100 WBC (Bld) 0.3 % 0.0 - 0.9 % [facility] Comment on above: Immature Granulocyte Count (IG) includes promyelocytes, myelocytes and metamyelocytes but does not include bands. Percent differential counts (%) should be interpreted in the context of the absolute cell counts (cells/L). Interpretation and review of laboratory results Abnormal [facility] Lymphocytes (Bld) [#/Vol] 2.28 10*3/uL [facility] Lymphocytes/100 WBC (Bld) 35 % 13.0 - 44.0 % [facility] MCHC (RBC) [Mass/Vol] 31.8 g/dL Low 32.0 - 36.0 g/dL [facility] MCV (RBC) [Entitic vol] 91 fL 80 - [address] [facility] Monocytes (Bld) [#/Vol] 0.71 10*3/uL [facility] Monocytes/100 WBC (Bld) 10.9 % 2.0 - 10.0 % [facility] Neutrophils (Bld) [#/Vol] 3.36 10*3/uL [facility] Neutrophils/100 WBC (Bld) 51.7 % 40.0 - 80.0 % [facility] Nucleated RBC/100 WBC (Bld) [Ratio] 0 % [facility] Platelets (Bld) [#/Vol] 106 10*3/uL Low [facility] RBC (Bld) [#/Vol] 4.62 10*6/uL [facility] WBC (Bld) [#/Vol] 6.5 10*3/uL [facility] HEMOGLOBIN A1Con 06-06-2022 Glucose [Mass/Vol] 163 mg/dL Normal [facility] Comment on above: Performed By: #### H BA1E #### [facility] [address] [place] [address] HbA1c (Bld) [Mass fraction] 7.3 % Abnormal [facility] Comment on above: Result Comment: Diag nosis of Diabetes-Adults Non-Diabetic: < or = 5.6% Increased risk for developing diabetes: 5.7-6.4% Diagnostic of diabetes: > or = 6.5% . Monitoring of Diabetes Age (y) Therapeutic Goal (%) Adults: >18 <7.0 Pediatrics: 13-18 <7.5 7-12 <8.0 0- 6 7.5-8.5 [place] [employer]. Diabetes Care 33(S1), Feb 2009. Performed By: #### H BA1E #### [facility] [address] [place] [address] HbA1c (Bld) [Mass fraction]o n 06-06-2022 Estimated Average Glucose 163 MG/DL [facility] Interpretation and review of laboratory results Abnormal [facility] Hemoglobin A1Con 06-06-2022 HbA1c (Bld) [Mass fraction] 7.3 % Abnormal [facility] Comment on above: Diagnosis of Diabete s-Adults Non-Diabetic: < or = 5.6% Increased risk for developing diabetes: 5.7-6.4% Diagnostic of diabetes: > or = 6.5% . Monitoring of Diabetes Age (y) Therapeutic Goal (%) Adults: >18 <7.0 Pediatrics: 13-18 <7.5 7-12 <8.0 0- 6 7.5-8.5 [place]. Diabetes Care 33(S1), Feb 2009. XR CHEST PA/APon 03-04-2022 XR CHEST PA/AP EXAMINATION: XR CHEST PA/AP 03/04/2022 9:50 am HISTORY: ORDERING SYSTEM PROVIDED HISTORY: dizzy, TECHNOLOGIST PROVIDED HISTORY: Illness/Other Reason for exam: dizziness Cancer History: Surgery, RadiationHistory: Encounter Type: Initial Additional signs and symptoms: weakness, fatigue ORDERING SYSTEM PROVIDED DIAGNOSIS CODES: COMPARISON: None FINDINGS: Heart is normal in size. Vascularity is unremarkable. Left lung is unremarkable. There is an infiltrate in the right lower lobe along with a small right effusion. Right middle and upper lobes are unremarkable. IMPRESSION: Right lower lobe pneumonia with a small right effusion. Workstation ID: [id number] Dictated by: JIM CHAMBERS on ThuMar 04, 2022 9:52:53 AM EST Transcribed by: JIM CHAMBERS on ThuMar 04, 2022 9:52:53 AM EST Finalized by: JIM CHAMBERS on ThuMar 04, 2022 9:52:53 AM EST Normal [facility] Comment on above: Order Comment: Injur y/Trauma or Illness?:Illness/Other How long have you had these symptoms (acute/chronic)?:Acute Reason for exam?:dizziness History of cancer?: Surgeries, chemotherapy, or radiation?: Type of Exam?:Initial Additional signs and symptoms?:weakness, fatigue HEMOGLOBIN A1Con 09-24-2021 Glucose [Mass/Vol] 148 mg/dL Normal [facility] Comment on above: Performed By: #### H BA1E #### [facility] [address] [place] [address] HbA1c (Bld) [Mass fraction] 6.8 % Abnormal [facility] Comment on above: Result Comment: Diag nosis of Diabetes-Adults Non-Diabetic: < or = 5.6% Increased risk for developing diabetes: 5.7-6.4% Diagnostic of diabetes: > or = 6.5% . Monitoring of Diabetes Age (y) Therapeutic Goal (%) Adults: >18 <7.0 Pediatrics: 13-18 <7.5 7-12 <8.0 0- 6 7.5-8.5 [place] [employer]. Diabetes Care 33(S1), Feb 2009. Performed By: #### H BA1E #### [facility] [address] [place] [address] CBC AND DIFFERENTIALon 09-23 % AUTOMATED IMMATURE GRAN 0.4 % Normal 0.0 - 0.9 [facility] Comment on above: Result Comment: [place] ture Granulocyte Count (IG) includes promyelocytes, myelocytes and metamyelocytes but does not include bands. Percent differential counts (%) should be interpreted in the context of the absolute cell counts (cells/L). Performed By: #### C BCDF #### [facility] [address] [place] [address] Basophils (Bld) [#/Vol] 0.03 10*3/uL Normal 0.00 - 0.10 [facility] Comment on above: Performed By: #### C BCDF #### [facility] [address] [place] [address] Basophils/100 WBC (Bld) 0.6 % Normal 0.0 - 2.0 [facility] Comment on above: Performed By: #### C BCDF #### [facility] [address] [place] [address] Eosinophils (Bld) [#/Vol] 0.15 10*3/uL Normal 0.00 - 0.70 [facility] Comment on above: Performed By: #### C BCDF #### [facility] [address] [place] [address] Eosinophils/100 WBC (Bld) 2.8 % Normal 0.0 - 6.0 [facility] Comment on above: Performed By: #### C BCDF #### [facility] [address] [place] [address] Erythrocyte distribution width (RBC) [Ratio] 14.4 % Normal 11.5 - 14.5 [facility] Comment on above: Performed By: #### C BCDF #### [facility] [address] [place] [address] Hematocrit (Bld) [Volume fraction] 45.0 % Normal 41.0 - 52.0 [facility] Comment on above: Performed By: #### C BCDF #### [facility] [address] [place] [address] Hemoglobin (Bld) [Mass/Vol] 14.4 g/dL Normal 13.5 - 17.5 [facility] Comment on above: Performed By: #### C BCDF #### [facility] [address] [place] [address] Lymphocytes (Bld) [#/Vol] 2.01 10*3/uL Normal 1.20 - 4.80 [facility] Comment on above: Performed By: #### C BCDF #### [facility] [address] [place] [address] Lymphocytes/100 WBC (Bld) 37.2 % Normal 13.0 - 44.0 [facility] Comment on above: Performed By: #### C BCDF #### [facility] [address] [place] [address] MCHC (RBC) [Mass/Vol] 32.0 g/dL Normal 32.0 - 36.0 [facility] Comment on above: Performed By: #### C BCDF #### [facility] [address] [place] [address] MCV (RBC) [Entitic vol] 88 fL Normal 80 - 100 [facility] Comment on above: Performed By: #### C BCDF #### [facility] [address] [place] [address] Monocytes (Bld) [#/Vol] 0.52 10*3/uL Normal 0.10 - 1.00 [facility] Comment on above: Performed By: #### C BCDF #### [facility] [address] [place] [address] Monocytes/100 WBC (Bld) 9.6 % Normal 2.0 - 10.0 [facility] Comment on above: Performed By: #### C BCDF #### [facility] [address] [place] [address] Neutrophils (Bld) [#/Vol] 2.68 10*3/uL Normal 1.20 - 7.70 [facility] Comment on above: Performed By: #### C BCDF #### [facility] [address] [place] [address] Neutrophils/100 WBC (Bld) 49.4 % Normal 40.0 - 80.0 [facility] Comment on above: Performed By: #### C BCDF #### [facility] [address] [place] [address] NUCLEATED RBC 0.0 /100 WBC Normal 0.0-0.0 [facility] Comment on above: Performed By: #### C BCDF #### [facility] [address] [place] [address] Platelets (Bld) [#/Vol] 98 10*3/uL Low 150 - 450 [facility] Comment on above: Performed By: #### C BCDF #### [facility] [address] [place] [address] RBC 5.09 x10E12/L Normal 4.50 - 5.90 [facility] Comment on above: Performed By: #### C BCDF #### [facility] [address] [place] [address] WBC (Bld) [#/Vol] 5.4 10*3/uL Normal 4.4 - 11.3 [facility] Comment on above: Performed By: #### C BCDF #### [facility] [address] [place] [address] COMPREHENSIVE PANELon 2021 Albumin [Mass/Vol] 3.8 g/dL Normal 3.4 - 5.0 [facility] Comment on above: Performed By: #### C MP #### [facility] [address] [place] [address] ALP [Catalytic activity/Vol] 81 U/L Normal 33 - 120 [facility] Comment on above: Performed By: #### C MP #### [facility] [address] [place] [address] ALT [Catalytic activity/Vol] 52 U/L Normal 10 - 52 [facility] Comment on above: Result Comment: [place] ents treated with Sulfasalazine may generate falsely decreased results for ALT. Performed By: #### C MP #### [facility] [address] [place] [address] Anion gap [Moles/Vol] 8 mmol/L Low 10 - 20 [facility] Comment on above: Performed By: #### C MP #### [facility] [address] [place] [address] AST [Catalytic activity/Vol] 29 U/L Normal 9 - 39 [facility] Comment on above: Performed By: #### C MP #### [facility] [address] [place] [address] Bilirubin [Mass/Vol] 0.6 mg/dL Normal 0.0 - 1.2 [facility] Comment on above: Performed By: #### C MP #### [facility] [address] [place] [address] Calcium [Mass/Vol] 8.9 mg/dL Normal 8.6 - 10.6 [facility] Comment on above: Performed By: #### C MP #### [facility] [address] [place] [address] Chloride [Moles/Vol] 108 mmol/L High 98 - 107 [facility] Comment on above: Performed By: #### C MP #### [facility] [address] [place] [address] Creatinine [Mass/Vol] 1.06 mg/dL Normal 0.50 - 1.30 [facility] Comment on above: Performed By: #### C MP #### [facility] [address] [place] [address] eGFR MALE >90 Normal >90 [facility] Comment on above: Result Comment: CALC ULATIONS OF ESTIMATED GFR ARE PERFORMED USING THE 2020 CKD-EPI STUDY REFIT EQUATION WITHOUT THE RACE VARIABLE FOR THE IDMS-TRACEABLE CREATININE METHODS. https://jasn.asnjournals.org/content//ASN.83191 77114 Performed By: #### C MP #### [facility] [address] [place] [address] Glucose [Mass/Vol] 97 mg/dL Normal 74 - 99 [facility] Comment on above: Performed By: #### C MP #### [facility] [address] [place] [address] HCO3 (Bld) [Moles/Vol] 26 mmol/L Normal 21 - 32 [facility] Comment on above: Performed By: #### C MP #### [facility] [address] [place] [address] Potassium [Moles/Vol] 4.1 mmol/L Normal 3.5 - 5.3 [facility] Comment on above: Performed By: #### C MP #### [facility] [address] [place] [address] Protein [Mass/Vol] 7.5 g/dL Normal 6.4 - 8.2 [facility] Comment on above: Performed By: #### C MP #### [facility] [address] [place] [address] Sodium [Moles/Vol] 138 mmol/L Normal 136 - 145 [facility] Comment on above: Performed By: #### C MP #### [facility] [address] [place] [address] Urea nitrogen [Mass/Vol] 16 mg/dL Normal 6 - 23 [facility] Comment on above: Performed By: #### C MP #### [facility] [address] [place] [address] Complete Blood Count + Diffe rentialon 08-08-2022 Basophils/100 WBC (Bld) 0.6 % 0.0 - 2.0 [facility] Work Phone: Erythrocyte distribution width (RBC) [Ratio] 14.4 % See Below [facility] Work Phone: Comment on above: Reference Range: 11. 5 - 14.5 Hematocrit (Bld) [Volume fraction] 45.0 % See Below [facility] Work Phone: Comment on above: Reference Range: 41. 0 - 52.0 Hemoglobin (Bld) [Mass/Vol] 14.4 g/dL See Below [facility] Work Phone: Comment on above: Reference Range: 13. 5 - 17.5 Lymphocytes/100 WBC (Bld) 37.2 % See Below [facility] Work Phone: Comment on above: Reference Range: 13. 0 - 44.0 MCHC (RBC) [Mass/Vol] 32.0 g/dL See Below [facility] Work Phone: Comment on above: Reference Range: 32. 0 - 36.0 MCV (RBC) [Entitic vol] 88 fL 80 - 100 [facility] Work Phone: Monocytes/100 WBC (Bld) 9.6 % 2.0 - 10.0 [facility] Work Phone: Neutrophils/100 WBC (Bld) 49.4 % See Below [facility] Work Phone: Comment on above: Reference Range: 40. 0 - 80.0 Platelets (Bld) [#/Vol] 98 10*3/uL below low threshold 150 - 450 [facility] Work Phone: RBC (Bld) [#/Vol] 5.09 {x10E12/L} See Below [facility] Work Phone: Comment on above: Reference Range: 4.5 0 - 5.90 WBC (Bld) [#/Vol] 5.4 10*3/uL 4.4 - 11.3 [facility] Work Phone: Complete Blood Count + Differential 0.03 {x10E9/L} See Below [facility] Work Phone: Comment on above: Reference Range: 0.0 0 - 0.10 Complete Blood Count + Differential 0.15 {x10E9/L} See Below [facility] Work Phone: Comment on above: Reference Range: 0.0 0 - 0.70 Complete Blood Count + Differential 0.52 {x10E9/L} See Below [facility] Work Phone: Comment on above: Reference Range: 0.1 0 - 1.00 Complete Blood Count + Differential 2.01 {x10E9/L} See Below [facility] Work Phone: Comment on above: Reference Range: 1.2 0 - 4.80 Complete Blood Count + Differential 2.68 {x10E9/L} See Below [facility] Work Phone: Comment on above: Reference Range: 1.2 0 - 7.70 Complete Blood Count + Differential 2.8 % 0.0 - 6.0 [facility] Work Phone: Complete Blood Count + Differential 0.4 % 0.0 - 0.9 [facility] Work Phone: Comment on above: Immature Granulocyte Count (IG) includes promyelocytes, myelocytes and metamyelocytes but does not include bands. Percent differential counts (%) should be interpreted in the context of the absolute cell counts (cells/L). Complete Blood Count + Differential 0.0 {/100_WBC} 0.0-0.0 [facility] Work Phone: DUPLEX LOWER EXTREMITY VEINS , RIGHT, UNILATERALon 09-23-2021 DUPLEX LOWER EXTREMITY VEINS, RIGHT, UNILATERAL Patient Name: MITALI RAMOS STUDY: DUPLEX LOWER EXTREMITY VEINS, RIGHT, UNILATERAL; 09/23/2021 2:50 pm INDICATION: Pt had U/S in ER , which showed new DVT in popliteal Vein. However the scan was INcomplete, due to concurrent swelling from a RLE wound. Wound is healed. Please eval the status of his RLE DVT. I82.531: Chronic deep vein thrombosis (DVT) of popliteal vein of right lower extremity R76.0: Lupus anticoagulant positive. COMPARISON: None. ACCESSION NUMBER(S): [id number] ORDERING CLINICIAN: ADILIA ASCENCIO TECHNIQUE: Vascular ultrasound of the right lower extremity was performed. Real-time compression views as well as Melendez scale, color Doppler and spectral Doppler waveform analysis was performed. FINDINGS: Evaluation of the visualized portions of the right common femoral vein, proximal, mid, and distal femoral vein, and popliteal vein were performed. Limitations: The posterior tibial vein and peroneal veins were not visualized due to body habitus. The right common femoral, proximal, mid, and distal femoral veins demonstrate normal compressibility and appropriate flow. The right popliteal vein demonstrates partial compressibility with nonocclusive echogenic thrombus in the lumen. IMPRESSION: 1. Nonocclusive deep vein thrombosis of right popliteal vein. 2. Incomplete evaluation of the posterior tibial and peroneal veins due to body habitus. I personally reviewed the images/study and I agree with the findings as stated. This study was interpreted at [place], [place]. Electronically signed by: ONDINA DELEON MD Normal [facility] Hemoglobin A1Con 09-23-2021 Glucose [Mass/Vol] 148 mg/dL [facility] Work Phone: HbA1c (Bld) [Mass fraction] 6.8 % Abnormal [facility] Work Phone: Comment on above: Diagnosis of Diabete s-Adults Non-Diabetic: < or = 5.6% Increased risk for developing diabetes: 5.7-6.4% Diagnostic of diabetes: > or = 6.5%. Monitoring of Diabetes Age (y) Therapeutic Goal (%) Adults: >18 <7.0 Pediatrics: 13-18 <7.5 7-12 <8.0 0- 6 7.5-8.5 [place] [employer]. Diabetes Care 33(S1), Feb 2009. LIPID PANEL NON-FASTINGon Cholesterol [Mass/Vol] 146 mg/dL Normal 0 - 199 [facility] Comment on above: Result Comment: . AGE DESIRABLE BORDERLINE HIGH HIGH 0-19 Y 0 - 169 170 - 199 >/= 200 20-24 Y 0 - 189 190 - 224 >/= 225 >24 Y 0 - 199 200 - 239 >/= 240 All ranges are based on fasting samples. Specific therapeutic targets will vary based on patient-specific cardiac risk. . Pediatric guidelines reference:Pediatrics 2011, 128(S5). Adult guidelines reference: NCEP ATPIII Guidelines, EMIL 2001, 258:2486-97 . Venipuncture immediately after or during the administration of Metamizole may lead to falsely low results. Testing should be performed immediately prior to Metamizole dosing. Performed By: #### L IPIN #### [facility] [address] [place] [address] Cholesterol in HDL [Mass/Vol] 35.3 mg/dL Abnormal [facility] Comment on above: Result Comment: . AGE VERY LOW LOW NORMAL HIGH 0-19 Y < 35 < 40 40-45 ---- 20-24 Y ---- < 40 >45 ---- >24 Y ---- < 40 40-60 >60 . Performed By: #### L IPIN #### [facility] [address] [place] [address] Cholesterol.total/Chol esterol in HDL [Mass ratio] 4.1 {ratio} Normal [facility] Comment on above: Result Comment: REF VALUES DESIRABLE < 3.4 HIGH RISK > 5.0 Performed By: #### L IPIN #### [facility] [address] [place] [address] NON-HDL CHOLESTEROL 111 mg/dL Normal [facility] Comment on above: Result Comment: AGE DESIRABLE BORDERLINE HIGH HIGH VERY HIGH 0-19 Y 0 - 119 120 - 144 >/= 145 >/= 160 20-24 Y 0 - 149 150 - 189 >/= 190 ---- >24 Y 30 MG/DL ABOVE LDL CHOLESTEROL GOAL . Performed By: #### L IPIN #### [facility] [address] [place] [address] Laboratory - Chemistry and C hemistry - challengeon 09-23-2021 Albumin BCP dye [Mass/Vol] 3.8 g/dL 3.4 - 5.0 [facility] Work Phone: ALP [Catalytic activity/Vol] 81 U/L 33 - 120 [facility] Work Phone: ALT With P-5'-P [Catalytic activity/Vol] 52 U/L 10 - 52 [facility] Work Phone: Comment on above: Patients treated wit h Sulfasalazine may generate falsely decreased results for ALT. Anion gap [Moles/Vol] 8 mmol/L below low threshold 10 - 20 [facility] Work Phone: AST With P-5'-P [Catalytic activity/Vol] 29 U/L 9 - 39 [facility] Work Phone: Bilirubin [Mass/Vol] 0.6 mg/dL 0.0 - 1.2 [facility] Work Phone: Calcium [Mass/Vol] 8.9 mg/dL 8.6 - 10.6 [facility] Work Phone: Chloride [Moles/Vol] 108 mmol/L above high threshold 98 - 107 [facility] Work Phone: Cholesterol [Mass/Vol] 146 mg/dL 0 - 199 [facility] Work Phone: Comment on above: . AGE DESIRABLE BORD GENESIS HIGH HIGH 0-19 Y 0 - 169 170 - 199 >/= 200 20-24 Y 0 - 189 190 - 224 >/= 225 >24 Y 0 - 199 200 - 239 >/= 240 All ranges are based on fasting samples. Specific therapeutic targets will vary based on patient-specific cardiac risk.. Pediatric guidelines reference:Pediatrics 2011, 128(S5). Adult guidelines reference: NCEP ATPIII Guidelines, EMIL 2001, 258:2486-97. Venipuncture immediately after or during the administration of Metamizole may lead to falsely low results. Testing should be performed immediately prior to Metamizole dosing. Cholesterol in HDL [Mass/Vol] 35.3 mg/dL Abnormal [facility] Work Phone: Comment on above: . AGE VERY LOW LOW N ORMAL HIGH 0-19 Y < 35 < 40 40-45 ---- 20-24 Y ---- < 40 >45 ---- >24 Y ---- < 40 40-60 >60. Cholesterol non HDL [Mass/Vol] 111 mg/dL [facility] Work Phone: Comment on above: AGE DESIRABLE BORDER LINE HIGH HIGH VERY HIGH 0-19 Y 0 - 119 120 - 144 >/= 145 >/= 160 20-24 Y 0 - 149 150 - 189 >/= 190 ---- >24 Y 30 MG/DL ABOVE LDL CHOLESTEROL GOAL. Cholesterol.total/Chol esterol in HDL [Mass ratio] 4.1 {ratio} [facility] Work Phone: Comment on above: REF VALUESDESIRABLE < 3.4HIGH RISK > 5.0 CO2 [Moles/Vol] 26 mmol/L 21 - 32 [facility] Work Phone: Creatinine [Mass/Vol] 1.06 mg/dL See Below [facility] Work Phone: Comment on above: Reference Range: 0.5 0 - 1.30 Glucose [Mass/Vol] 97 mg/dL 74 - 99 [facility] Work Phone: Potassium [Moles/Vol] 4.1 mmol/L 3.5 - 5.3 [facility] Work Phone: Protein [Mass/Vol] 7.5 g/dL 6.4 - 8.2 [facility] Work Phone: Sodium [Moles/Vol] 138 mmol/L 136 - 145 [facility] [facility] Work Phone: Urea nitrogen [Mass/Vol] 16 mg/dL 6 - 23 [facility] Work Phone: No Panel Informationon 09-23 >90 >90 [facility] Work Phone: Comment on above: CALCULATIONS OF SADIQ MATED GFR ARE PERFORMED USING THE 2020 CKD-EPI STUDY REFIT EQUATION WITHOUT THE RACE VARIABLE FOR THE IDMS-TRACEABLE CREATININE METHODS.https://jasn.asnjournals.org/content/early//A SN.4759065432 Radiologyon 09-23-2021 US.doppler Lower extremity vein - right Normal [facility] Work Phone: Blood Pressure Cuff Sizeon 0 09-11-2021 Blood Pressure Cuff Size Large [facility] Work Phone: Office Visiton 09-11-2021 Follow-up visit Diagnoses/Problems Chronic deep vein thrombosis (DVT) of popliteal vein of right lower extremity (453.51) (I82.531) Diabetes mellitus, type 2 (250.00) (E11.9) Thrombocytopenia (287.5) (D69.6) Lipid screening (V77.91) (Z13.220) Lupus anticoagulant positive (795.79) (R76.0) Vision disturbance (368.9) (H53.9) Orders Chronic deep vein thrombosis (DVT) of popliteal vein of right lower extremity, Lupus anticoagulant positive Renew: Eliquis 5 MG Oral Tablet; take 1 tablet by mouth twice a day Chronic deep vein thrombosis (DVT) of popliteal vein of right lower extremity, PMH: History of chronic pain Renew: Omeprazole 20 MG Oral Capsule Delayed Release; take 1 capsule by mouth once daily Diabetes mellitus, type 2 Renew: metFORMIN HCl - 500 MG Oral Tablet; take 1 tablet by mouth twice a day with food Comprehensive Metabolic Panel; Status:Active; Requested for:[id number]; Hemoglobin A1C; Status:Active; Requested for:[id number]; Lipid screening LIPID PANEL NON-FASTING; Status:Active; Requested for:[id number]; Thrombocytopenia Complete Blood Count + Differential; Status:Active; Requested for:[id number]; Patient Discussion/Summary Recommend 1. Eye exam, to check into the left eye vision changes 2. Labwork, to check your sugar, liver, kidneys Follow up in [address] Ascencio Chief Complaint pt presents for 6 month f/u History of Present Illnesspt is her for 6 month f/u pt would like you to look at his right leg pt states that he gets these spells where one of his eyes will be blurry, and when it happens it fells that he is dizzy. if he closes his eye then it goes away Interval Hx Urgent Care visit - for wound right leg , dxed with infx , treated ,and with clot right leg, behind knee. Hx of lupus anticoagulant and chronic DVT, Chronic Anticoagulation . Feeling fine overall , and the wound healed. dizziness- not at work , usually at end of workday at home, when resting. . no recent eye exam a no assocd other sxs. Unfortunately had a stroke (she was a patient of mine ) ; she is doing okay now. Active Problems History of Acute deep vein thrombosis (DVT) of femoral vein of right lower extremity (453.41) (I82.411) Adjustment disorder, unspecified (309.9) (F43.20) Allergic to bees (V15.06) (Z91.030) Anal fissure (565.0) (K60.2) Posterior Anorectal pain (569.42) (K62.89) [place]'s disease, left (732.4) (M92.52) Chronic deep vein thrombosis (DVT) of popliteal vein of right lower extremity (453.51) (I82.531) Diabetes mellitus, type 2 (250.00) (E11.9) Erectile dysfunction (607.84) (N52.9) Fatigue (780.79) (R53.83) Former cigarette smoker (V15.82) (Z87.891) 3-4 cigarrettes daily Lupus anticoagulant positive (795.79) (R76.0) Malunion of fracture of lower leg, left, open type I or II (733.81) (S82.92XQ) Thrombocytopenia (287.5) (D69.6) Thyroid disorder screen (V77.0) (Z13.29) Urticaria (708.9) (L50.9) Past Medical History History of Acute deep vein thrombosis (DVT) of femoral vein of right lower extremity (453.41) (I82.411) Resolved Date: 26 Jun 2017 History of fracture with nonunion (V15.51) (Z87.81) Resolved Date: 12 Jun 2020 History of Routine screening for STI (sexually transmitted infection) (V74.5) (Z11.3) Resolved Date: 12 Jun 2020 History of Sebaceous cyst of right axilla (706.2) (L72.3) Resolved Date: 12 Jun 2020 Surgical History History of Femur Repair Pins inserted. History of Knee Surgery x2 Social History Denied: History of Current every day smoker 6-8 cigarettes per day Daily caffeine consumption 3-4 cans yearly Does not use illicit drugs (V49.89) (Z78.9) Former cigarette smoker (V15.82) (Z87.891) 3-4 cigarrettes daily Never chewed tobacco (V49.89) (Z78.9) No alcohol use Special occasions Allergies CeleBREX CAPS Allergy; Hives;; Recorded By: Adilia Ascencio; 04/24/2017 1:26:23 PM Penicillins Recorded By: Radha De Los Santos; 01/14/2017 1:46:43 PM Bee sting Recorded By: Radha De Los Santos; 01/14/2017 1:46:43 PM Pollen Recorded By: Radha De Los Santos; 01/14/2017 1:46:43 PM Current Meds Medication NameInstruction BD Pen Needle Mini U/F 31G X 5 MM Boost Glucose Control Oral Liquid1 CAN TWICE A DAY Cetirizine HCl - 10 MG Oral Tablet1 po bid Eliquis 5 MG Oral Tablettake 1 tablet by mouth twice a day EPINEPHrine 0.3 MG/0.3ML Injection Solution Auto-injectorINJECT 0.3ML INTRAMUSCULARLY DIRECTED. metFORMIN HCl - 500 MG Oral Tablettake 1 tablet by mouth twice a day with food Omeprazole 20 MG Oral Capsule Delayed Releasetake 1 capsule by mouth once daily OneToFoods You Can Delica Lancets 33GUSE TO CHECK BLOOD SUGAR 1 - 2 TIMES A DAY OneTouch Ultra 2 w/Device KitUSE TO CHECK BLOOD SUGARS 1-2 TIMES DAILY OneTouch Ultra In Vitro StripUSE TO TEST 1-2 times per day RA Alcohol Swabs 70 % PadUSE TWICE A DAY FOR CHECKING BLOOD SUGARS Vitals Vital Signs Recorded: [id number] 04:44PM Aydrghzvfha96.6 F, Temporal (more content not included)... Normal [employer] Blood Pressure Cuff Sizeon 0 02-28-2021 Blood Pressure Cuff Size Large [facility] Work Phone: Office Visit (Family Hira santacruz)on 02-28-2021 Follow-up visit Diagnoses/Problems Chronic deep vein thrombosis (DVT) of popliteal vein of right lower extremity (453.51) (I82.531) Diabetes mellitus, type 2 (250.00) (E11.9) Lupus anticoagulant positive (795.79) (R76.0) Urticaria (708.9) (L50.9) Orders Chronic deep vein thrombosis (DVT) of popliteal vein of right lower extremity, Lupus anticoagulant positive Renew: Eliquis 5 MG Oral Tablet; take 1 tablet by mouth twice a day Chronic deep vein thrombosis (DVT) of popliteal vein of right lower extremity, PMH: History of chronic pain Renew: Omeprazole 20 MG Oral Capsule Delayed Release; take 1 capsule by mouth once daily Diabetes mellitus, type 2 Renew: metFORMIN HCl - 500 MG Oral Tablet; take 1 tablet by mouth twice a day with food Urticaria Renew: Cetirizine HCl - 10 MG Oral Tablet; 1 po bid Patient Discussion/Summary Follow Up 6 months, DM2 , urticaria. Dr. Ascencio Provider Impressions Available records reviewed . Medication renewed. CP - unknown etiology ; neg CT chest , no assoc'd weakness , monitor sxs, report worsening. DM2 Continue current regimen Chronic DVT Continue current regimen has seen Heme in the past Chief Complaint pt here for f/u. History of Present Illness pt here for a f/u . Interval Hx DM2 sugars stable . he takes / tolerates medication CHronic DVT , Hx lupus Anticoag on blood thinner , no bleeding . Urticaria, chronic oral antihistamine . no recent flares, or use of epi pen Blounts , left . 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 sometiems left eye vision blurs ;has made eye appt ; sometimes upper chest, right or left, discomfort , not to palpation , diff to describe. not w exertion. no heavy lifting at work or home . resolves with position change. Recent ER visit, due to chest tightness , multiple ill exposures . 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) Chronic deep vein thrombosis (DVT) of popliteal vein of right lower extremity (453.51) (I82.531) Diabetes mellitus, type 2 (250.00) (E11.9) Erectile dysfunction (607.84) (N52.9) Fatigue (780.79) (R53.83) Former cigarette smoker (V15.82) (Z87.891) 3-4 cigarrettes daily Lupus anticoagulant positive (795.79) (R76.0) Malunion of fracture of lower leg, left, open type I or II (733.81) (S82.92XQ) Thyroid disorder screen (V77.0) (Z13.29) Urticaria (708.9) (L50.9) Past Medical History History of Acute deep vein thrombosis (DVT) of femoral vein of right lower extremity (453.41) (I82.411) Resolved Date: 26 Jun 2017 History of fracture with nonunion (V15.51) (Z87.81) Resolved Date: 12 Jun 2020 History of Routine screening for STI (sexually transmitted infection) (V74.5) (Z11.3) Resolved Date: 12 Jun 2020 History of Sebaceous cyst of right axilla (706.2) (L72.3) Resolved Date: 12 Jun 2020 Surgical History History of Femur Repair Pins inserted. History of Knee Surgery x2 Family History Family history of Blood clot in vein Family history of diabetes mellitus (V18.0) (Z83.3) Family history of eye disorder (V19.19) (Z83.518) Family history of hypertension (V17.49) (Z82.49) Family history of kidney disease (V18.69) (Z84.1) Family history of stroke (V17.1) (Z82.3) Family history of High cholesterol Family history of coronary artery disease (V17.3) (Z82.49) Family history of diabetes mellitus (V18.0) (Z83.3) Family history of eye disorder (V19.19) (Z83.518) Family history of hypertension (V17.49) (Z82.49) Family history of liver disease (V18.59) (Z83.79) Family history of High cholesterol Family history of diabetes mellitus (V18.0) (Z83.3) Family history of hypertension (V17.49) (Z82.49) Family history of myocardial infarction (V17.3) (Z82.49) Family history of High cholesterol Social History Denied: History of Current every day smoker 6-8 cigarettes per day Daily caffeine consumption 3-4 cans yearly Does not use illicit drugs (V49.89) (Z78.9) Former cigarette smoker (V15.82) (Z87.891) 3-4 cigarrettes daily Never chewed tobacco (V49.89) (Z78.9) No alcohol use Special occasions Allergies CeleBREX CAPS Allergy; Hives;; Recorded By: Adilia Ascencio; 04/24/2017 1:26:23 PM Penicillins Recorded By: Radha De Los Santos; 01/14/2017 1:46:43 PM Bee sting Recorded By: Radha De Los Santos; 01/14/2017 1:46:43 PM Pollen Recorded By: Radha De Los Santos; 01/14/2017 1:46:43 PM Current Meds Medication NameInstructionReason EPINEPHrine 0.3 MG/0.3ML Injection Solution Auto-injectorINJECT 0.3ML INTRAMUSCULARLY DIRECTED.Allergic to bees Eliquis 5 MG Oral Tablettake 1 tablet by mouth twice a dayChronic deep vein th (more content not included)... Normal [employer] COVID-19, Flu A/B, and RSV C omboon 02-10-2021 Influenza A by PCR Not detected [facility] Work Phone: Influenza B by PCR Not detected [facility] Work Phone: RSV PCR Not Detected. Expected Result: Not Detected _ Method: Real-time, RT-PCR This assay was developed by [employer] and distributed under an Emergency Use Authorization (EUA) granted by the FDA for the qualitative detection of nucleic acids from SARS-CoV-2, Influenza A, Influenza B, and Respiratory Syncytial Virus. Provider and patient fact sheets can be found at https://www.fda.gov/media /470203/download and https://www.fda.gov/media /156199/download. [facility] Work Phone: SARS-CoV-2 (COVID-19) RNA LÓPEZ+probe Ql (Unsp spec) Not detected [facility] Work Phone: Test Performed by [facility], [address] , [address] LAB [facility] Work Phone: CTA Chest W WO (PE study)on 02-10-2021 Patient Name: MITALI GHOTRA Computed Tomography ACCESSION EXAM DATE/TIME PROCEDURE ORDERING PROVIDER [id number] 02/10/2021 21:05 EST CTA Chest w/ + w/o JIM LEVINE Contrast CPT code 36426 Q9967 Reason For Exam (CTA Chest w/ + w/o Contrast) cough, pleuritic chest pain, prior DVT Report CLINICAL INDICATION: Cough, chest pain and dyspnea. Exposure to Covid. Evaluate for pulmonary embolism. TECHNIQUE: 1mm axial images through the chest following timed IV contrast. Coronal 3D maximum intensity projection (MIP) images were created concurrently. COMPARISON: 08/15/2015. FINDINGS: A less than optimal contrast bolus is identified within the pulmonary arterial tree. There are no filling defects to suggest pulmonary embolism. Cardiac chambers are not dilated. No mediastinal or hilar adenopathy is seen. Mild groundglass densities are redemonstrated and nonspecific. No acute consolidation or pleural effusion is evident. Inferior thoracic degenerative spondylosis. Slight anterior wedging of a lower thoracic vertebra, likely remote. IMPRESSION: 1. No evidence of pulmonary embolism. 2. No acute cardiopulmonary disease. Report Dictated on Workstation: [id number] --- Final --- Dictating Physician: JIM LOPEZ DO, I Signed Date and Time: 02/10/2021 9:15 pm Signed by: JIM LOPEZ DO, I Transcribed Date and Time: 02/10/2021 9:16 [facility] Jim Lopez DO - 02/10/2021 Patient Name: MITALI RAMOS Computed Tomography ACCESSION EXAM DATE/TIME PROCEDURE ORDERING PROVIDER [id number] 02/10/2021 21:05 EST CTA Chest w/ + w/o JIM LEVINE Contrast CPT code 70973 Q9967 Reason For Exam (CTA Chest w/ + w/o Contrast) cough, pleuritic chest pain, prior DVT Report CLINICAL INDICATION: Cough, chest pain and dyspnea. Exposure to Covid. Evaluate for pulmonary embolism. TECHNIQUE: 1mm axial images through the chest following timed IV contrast. Coronal 3D maximum intensity projection (MIP) images were created concurrently. COMPARISON: 08/15/2015. FINDINGS: A less than optimal contrast bolus is identified within the pulmonary arterial tree. There are no filling defects to suggest pulmonary embolism. Cardiac chambers are not dilated. No mediastinal or hilar adenopathy is seen. Mild groundglass densities are redemonstrated and nonspecific. No acute consolidation or pleural effusion is evident. Inferior thoracic degenerative spondylosis. Slight anterior wedging of a lower thoracic vertebra, likely remote. IMPRESSION: 1. No evidence of pulmonary embolism. 2. No acute cardiopulmonary disease. Report Dictated on Workstation: [id number] --- Final --- Dictating Physician: JIM LOPEZ DO, I Signed Date and Time: 02/10/2021 9:15 pm Signed by: JIM LOPEZ DO, I Transcribed Date and Time: 02/10/2021 9:16 [facility] Work Phone: Radiology Study observation (narrative) [facility] Work Phone: CTA Chest W WO (PE study)Ord ered By: Jim Lopez on 02-10-2021 [facility] Work Phone: CTA Chest w/ + w/o Contrasto n 02-10-2021 CTA Chest w/ + w/o Contrast Patient Name: MITALI RAMOS Computed Tomography ACCESSION EXAM DATE/TIME PROCEDURE ORDERING PROVIDER [id number] 02/10/2021 21:05 EST CTA Chest w/ + w/o 58JIM BUTCHER Contrast CPT code 94972 Q9967 Reason For Exam (CTA Chest w/ + w/o Contrast) cough, pleuritic chest pain, prior DVT Report CLINICAL INDICATION: Cough, chest pain and dyspnea. Exposure to Covid. Evaluate for pulmonary embolism. TECHNIQUE: 1mm axial images through the chest following timed IV contrast. Coronal 3D maximum intensity projection (MIP) images were created concurrently. COMPARISON: 08/15/2015. FINDINGS: A less than optimal contrast bolus is identified within the pulmonary arterial tree. There are no filling defects to suggest pulmonary embolism. Cardiac chambers are not dilated. No mediastinal or hilar adenopathy is seen. Mild groundglass densities are redemonstrated and nonspecific. No acute consolidation or pleural effusion is evident. Inferior thoracic degenerative spondylosis. Slight anterior wedging of a lower thoracic vertebra, likely remote. IMPRESSION: 1. No evidence of pulmonary embolism. 2. No acute cardiopulmonary disease. Report Dictated on Workstation: [id number] Final Dictating Physician: JIM LOPEZ DO, I Signed Date and Time: 02/10/2021 9:15 pm Signed by: JIM LOPEZ DO, I Transcribed Date and Time: 02/10/2021 9:16 Normal [facility] Comp Metabolic Panelon 02-10 ALP [Catalytic activity/Vol] 91 U/L Normal 38-126 [facility] Comment on above: Performed By: #### H EMDF, TROPN, DDI2, CMP3 #### [facility] [address] [place] [address] ALT [Catalytic activity/Vol] 37 U/L Normal 0-49 [facility] Comment on above: Result Comment: The ALT test is performed by an updated assay method. Please note that the reference intervals have been changed and are now sex specific. Performed By: #### H EMDF, TROPN, DDI2, CMP3 #### [facility] [address] [place] [address] Calcium [Mass/Vol] 9.5 mg/dL Normal 8.4-10.4 [facility] Comment on above: Performed By: #### H EMDF, TROPN, DDI2, CMP3 #### [facility] [address] [place] [address] Glucose [Mass/Vol] 144 mg/dL High 70-100 [facility] Comment on above: Performed By: #### H EMDF, TROPN, DDI2, CMP3 #### [facility] [address] [place] [address] Protein [Mass/Vol] 7.6 g/dL Normal 6.3-8.2 [facility] Comment on above: Performed By: #### H EMDF, TROPN, DDI2, CMP3 #### [facility] [address] [place] [address] Urea nitrogen [Mass/Vol] 14 mg/dL Normal 7-17 [facility] Comment on above: Performed By: #### H EMDF, TROPN, DDI2, CMP3 #### [facility] [address] [place] [address] Anion gap [Moles/Vol] 1 mmol/L Low 3-13 [facility] Comment on above: Performed By: #### H EMDF, TROPN, DDI2, CMP3 #### [facility] [address] [place] [address] AST [Catalytic activity/Vol] 43 U/L Normal 15-46 [facility] Comment on above: Performed By: #### H EMDF, TROPN, DDI2, CMP3 #### [facility] [address] [place] [address] Bilirubin [Mass/Vol] 0.3 mg/dL Normal 0.2-1.3 [facility] Comment on above: Performed By: #### H EMDF, TROPN, DDI2, CMP3 #### [facility] [address] [place] [address] CO2 [Moles/Vol] 25 mmol/L Normal 22-30 [facility] Comment on above: Performed By: #### H EMDF, TROPN, DDI2, CMP3 #### [facility] [address] [place] [address] Creatinine [Mass/Vol] 0.86 mg/dL Normal 0.52-1.25 [facility] Comment on above: Performed By: #### H EMDF, TROPN, DDI2, CMP3 #### [facility] [address] [place] [address] eGFR OTHER > 90.0 Normal >60 [facility] Comment on above: Result Comment: KDIG O guidelines provide the following GFR categories: Stage GFR(ml/min/1.73 m2) Terms G1 >=90 Normal or high G2 60-89 Mildly decreased* G3a 45-59 Mildly to moderately decreased G3b 30-44 Moderately to severely decreased G4 15-29 Severely decreased G5 <15 Kidney failure *Relative to young adult level. In the absence of evidence of kidney damage, neither GFR category G1 nor G2 fulfill the criteria for CKD. The CKD-EPI equation is validated in individuals 18 years of age and older. Currently the best equation for estimating glomerular filtration rate (GFR) from serum creatinine in children is the Bedside Buchanan equation. It is less accurate in patients with extremes of muscle mass, restriction of dietary protein, ingestion of creatine, extra-renal metabolism of creatinine, or treatment with medications that affect renal tubular creatinine secretion. Performed By: #### H EMDF, TROPN, DDI2, CMP3 #### [facility] [address] [place] [address] GFR/1.73 sq M.predicted among blacks MDRD (S/P/Bld) [Vol rate/Area] mL/min/{1.73_m2} Normal >60 [facility] Comment on above: Performed By: #### H EMDF, TROPN, DDI2, CMP3 #### [facility] [address] [place] [address] Chloride [Moles/Vol] 112 mmol/L High 98-107 [facility] Comment on above: Performed By: #### H EMDF, TROPN, DDI2, CMP3 #### [facility] [address] [place] [address] Potassium [Moles/Vol] 4.3 mmol/L Normal 3.5-5.1 [facility] Comment on above: Performed By: #### H EMDF, TROPN, DDI2, CMP3 #### [facility] [address] [place] [address] Sodium [Moles/Vol] 138 mmol/L Normal 135-145 [facility] Comment on above: Performed By: #### H EMDF, TROPN, DDI2, CMP3 #### [facility] [employer] [facility] [address] [place] [address] Albumin [Mass/Vol] 3.8 g/dL Normal 3.5-5.0 [facility] Comment on above: Performed By: #### H EMDF, TROPN, DDI2, CMP3 #### [facility] [address] [place] [address] Comprehensive Metabolic Pane [place] 02-10-2021 Albumin [Mass/Vol] 3.8 g/dL 3.5 - 5.0 g/dL [facility] Work Phone: ALP (Bld) [Catalytic activity/Vol] 91 U/L 38 - 126 U/L [facility] Work Phone: ) ALT [Catalytic activity/Vol] 37 U/L 0 - 49 U/L [facility] Work Phone: Comment on above: The ALT test is perf ormed by an updated assay method. Please note that the reference intervals have been changed and are now sex specific. Anion gap [Moles/Vol] 1 mmol/L Low 3 - 13 mmol/L [facility] Work Phone: ) AST [Catalytic activity/Vol] 43 U/L 15 - 46 U/L [facility] Work Phone: ) 222 Bilirubin [Mass/Vol] 0.3 mg/dL 0.2 - 1 .3 mg/dL [facility] Work Phone: ) 222 Calcium [Mass/Vol] 9.5 mg/dL 8.4 - 10. 4 mg/dL [facility] Work Phone: ) 222 Chloride [Moles/Vol] 112 mmol/L High 98 - 10 7 mmol/L [facility] Work Phone: 222 CO2 [Moles/Vol] 25 mmol/L 22 - 30 mmol/L [facility] Work Phone: )[phone] Creatinine [Mass/Vol] 0.86 mg/dL 0.52 - 1.25 mg/dL [facility] Work Phone: ) 222 EGFR IF NonAfrican Tunisian >90.0 >60 mL/min [employer] Work Phone: Comment on above: KDIGO guidelines pro vide the following GFR categories: Stage GFR(ml/min/1.73 m2) Terms G1 >=90 Normal or high G2 60-89 Mildly decreased* G3a 45-59 Mildly to moderately decreased G3b 30-44 Moderately to severely decreased G4 15-29 Severely decreased G5 <15 Kidney failure *Relative to young adult level. In the absence of evidence of kidney damage, neither GFR category G1 nor G2 fulfill the criteria for CKD. The CKD-EPI equation is validated in individuals 18 years of age and older. Currently the best equation for estimating glomerular filtration rate (GFR) from serum creatinine in children is the Bedside Buchanan equation. It is less accurate in patients with extremes of muscle mass, restriction of dietary protein, ingestion of creatine, extra-renal metabolism of creatinine, or treatment with medications that affect renal tubular creatinine secretion. Free PSA/Total PSA [Mass fraction] 7.6 g/dL 6.3 - 8.2 g/dL [employer] Work Phone: GFR/1.73 sq M.predicted among blacks MDRD (S/P/Bld) [Vol rate/Area] mL/min/{1.73_m2} >60 mL/min [employer] Work Phone: Glucose [Mass/Vol] 144 mg/dL High 70 - 100 mg/dL [employer] Phone: Interpretation and review of laboratory results Abnormal [employer] Work Phone: Potassium [Moles/Vol] 4.3 mmol/L 3.5 - 5.1 mmol/L [employer] Work Phone: Sodium [Moles/Vol] 138 mmol/L 135 - 145 mmol/L [employer] Work Phone: Urea nitrogen (BldV) [Mass/Vol] 14 mg/dL 7 - 17 mg/dL [employer] Phone: D-Dimer, [employer] 12-26-2 021 D-Dimer, [employer] 0.90 mg/L High <0.19-0.50 [facility] Comment on above: Result Comment: Inno stafford D-Dimer values of <0.50 mg/L FEU can be used in combination with a pre-test probability model (e.g. Well's) to exclude pulmonary embolism (PE) disease, as well as an aid in the diagnosis of deep vein thrombosis (DVT). Performed By: #### H EMDF, TROPN, DDI2, CMP3 #### [facility] [place] [employer] [facility] [address] [place] [address] D-Dimer, Quantitativeon 01-17 D-Dimer, Quant 0.9 mg/L High <0.19 - 0.50 [facility] [employer] Work Phone: [phone] Comment on above: [employer] D-Dimer va lues of <0.50 mg/L FEU can be used in combination with a pre-test probability model (e.g. Well's) to exclude pulmonary embolism (PE) disease, as well as an aid in the diagnosis of deep vein thrombosis (DVT). Interpretation and review of laboratory results Abnormal [employer] [employer] Work Phone: Test Performed by [facility], [address] , [place], [place] [id number] [place] [address] LAB [facility] [employer] Work Phone: [phone] Hemogram (CBC) w/Auto Diffon 02-10-2021 Absolute Baso # 0.0 10*3/uL 0.0 - 0.2 10*3/uL [employer] [employer] Work Phone: Absolute Neut # 2.8 10*3/uL 1.8 - 7.0 10*3/uL [facility] [employer] Work Phone: [phone] Basophils/100 WBC (Bld) 0.8 % 0.0 - 2.0 % [facility] [employer] Work Phone: [phone] Eosinophils (Bld) [#/Vol] 0.2 10*3/uL 0.0 - 0.5 10*3/uL [employer] Work Phone: 222 Eosinophils/100 WBC (Bld) 3.1 % 1.0 - 6.0 % [facility] Work Phone: 222 Granulocytes/100 WBC (Bld) 56.2 % 40.0 - 80.0 % [employer] Work Phone: [phone] Hematocrit (Bld) [Volume fraction] 41.6 % 40.0 - 52.0 % [employer] Work Phone: [phone] Hemoglobin.gastrointes tinal spec 1 Ql (Stl) 13.7 g/dL 13.0 - 18.0 g/dL [employer] Work Phone: [phone] Interpretation and review of laboratory results Abnormal [employer] Work Phone: [phone] Lymphocytes (Bld) [#/Vol] 1.5 10*3/uL 1.0 - 4.3 10*3/uL [employer] Work Phone: [phone] Lymphocytes/100 WBC (Bld) 31.0 % 20.0 - 40.0 % [employer] Work Phone: [phone] MCH (RBC) [Entitic mass] 28.6 pg 26.0 - 34.0 pg [employer] Work Phone: [phone] MCHC (RBC) [Mass/Vol] 32.9 % 32.0 - 36.0 % [employer] Work Phone: [phone] MCV (RBC) [Entitic vol] 86.7 fL 80.0 - 98.0 fL [employer] Work Phone: [phone] Monocytes (Bld) [#/Vol] 0.4 10*3/uL 0.0 - 0.8 10*3/uL [employer] Work Phone: [phone] Monocytes/100 WBC (Bld) 8.9 % 2.0 - 10.0 % [employer] Work Phone: [phone] Platelet distribution width (Bld) [Ratio] 13.6 % 11.5 - 14.5 % [employer] Work Phone: [phone] Platelet mean volume (Bld) [Entitic vol] 7.3 fL Low 7.4 - 10.4 fL [employer] Work Phone: () [phone] Platelets (Bld) [#/Vol] 79 10*3/uL Low 140 - 440 10*3/uL [employer] Work Phone: [phone] RBC (Bld) [#/Vol] 4.80 10*6/uL 4.40 - 5.9 0 10*6/uL [employer] Work Phone: [phone] WBC (Bld) [#/Vol] 4.9 10*3/uL 3.6 - 10.7 10*3/uL [facility] Work Phone: Test Performed by [facility], [address] [facility] , [place], [place] [id number] [place] [address] LAB [facility] Work Phone: Hemogram w/ Autodiffon 02-10 Abs Baso Cnt 0.0 10*3/uL Normal 0.0-0.2 [facility] Comment on above: Performed By: #### H EMDF, TROPN, DDI2, CMP3 #### [facility] [address] [place] [address] Abs Neutrophile Cnt 2.8 10*3/uL Normal 1.8-7.0 [facility] Comment on above: Performed By: #### H EMDF, TROPN, DDI2, CMP3 #### [facility] [address] [place] [address] Basophils/100 WBC (Bld) 0.8 % Normal 0.0-2.0 [facility] Comment on above: Performed By: #### H EMDF, TROPN, DDI2, CMP3 #### [facility] [address] [facility] [place] [address] Eosinophils (Bld) [#/Vol] 0.2 10*3/uL Normal 0.0-0.5 [facility] Comment on above: Performed By: #### H EMDF, TROPN, DDI2, CMP3 #### [facility] [address] [facility] [place] [address] Eosinophils/100 WBC (Bld) 3.1 % Normal 1.0-6.0 [facility] Comment on above: Performed By: #### H EMDF, TROPN, DDI2, CMP3 #### [facility] [address] [facility] [place] [address] Erythrocyte distribution width (RBC) [Ratio] 13.6 % Normal 11.5-14.5 [facility] Comment on above: Performed By: #### H EMDF, TROPN, DDI2, CMP3 #### [facility] [address] [place] [address] Granulocytes/100 WBC (Bld) 56.2 % Normal 40.0-80.0 [facility] Comment on above: Performed By: #### H EMDF, TROPN, DDI2, CMP3 #### [facility] [address] [place] [address] Hematocrit (Bld) [Volume fraction] 41.6 % Normal 40.0-52.0 [facility] Comment on above: Performed By: #### H EMDF, TROPN, DDI2, CMP3 #### [facility] [address] [place] [address] Hemoglobin (Bld) [Mass/Vol] 13.7 g/dL Normal 13.0-18.0 [facility] Comment on above: Performed By: #### H EMDF, TROPN, DDI2, CMP3 #### [address] [place] [address] Lymphocytes (Bld) [#/Vol] 1.5 10*3/uL Normal 1.0-4.3 [facility] Comment on above: Performed By: #### H EMDF, TROPN, DDI2, CMP3 #### [address] [place] [address] Lymphocytes/100 WBC (Bld) 31.0 % Normal 20.0-40.0 [facility] Comment on above: Performed By: #### H EMDF, TROPN, DDI2, CMP3 #### [address] [place] [address] MCH (RBC) [Entitic mass] 28.6 pg Normal 26.0-34.0 [facility] Comment on above: Performed By: #### H EMDF, TROPN, DDI2, CMP3 #### [address] [place] [address] MCHC 32.9 % Normal 32.0-36.0 [facility] Comment on above: Performed By: #### H EMDF, TROPN, DDI2, CMP3 #### [address] [place] [address] MCV (RBC) [Entitic vol] 86.7 fL Normal 80.0-98.0 [facility] Comment on above: Performed By: #### H EMDF, TROPN, DDI2, CMP3 #### [facility] [address] [place] [address] Monocytes (Bld) [#/Vol] 0.4 10*3/uL Normal 0.0-0.8 [facility] Comment on above: Performed By: #### H EMDF, TROPN, DDI2, CMP3 #### [facility] [address] [place] [address] Monocytes/100 WBC (Bld) 8.9 % Normal 2.0-10.0 [facility] Comment on above: Performed By: #### H EMDF, TROPN, DDI2, CMP3 #### [facility] [address] [place] [address] Platelet mean volume (Bld) [Entitic vol] 7.3 fL Low 7.4-10.4 [facility] Comment on above: Performed By: #### H EMDF, TROPN, DDI2, CMP3 #### [facility] [address] [place] [address] Platelets (Bld) [#/Vol] 79 10*3/uL Low 140-440 [facility] Comment on above: Performed By: #### H EMDF, TROPN, DDI2, CMP3 #### [facility] [address] [place] [address] RBC (Bld) [#/Vol] 4.80 10*6/uL Normal 4.40-5.90 [facility] Comment on above: Performed By: #### H EMDF, TROPN, DDI2, CMP3 #### [facility] [address] [place] [address] WBC (Bld) [#/Vol] 4.9 10*3/uL Normal 3.6-10.7 [facility] Comment on above: Performed By: #### H EMDF, TROPN, DDI2, CMP3 #### [facility] [address] [place] [address] No Panel Informationon 02-10 Test Performed by [facility], [address] , [place], [place] [address] [facility] LAB [facility] Work Phone: SARS-CoV-2, Flu A/B and RSVo n 02-10-2021 SARS-CoV-2 (COVID-19) RNA LÓPEZ+probe Ql (Unsp spec) SARS-CoV-2 --> Status: F Not Detected. Flu A PCR --> Status: F Not Detected. Flu B PCR --> Status: F Not Detected. RSV PCR --> Status: F Not Detected. Expected Result: Not Detected _ Method: Real-time, RT-PCR This assay was developed by [employer] and distributed under an Emergency Use Authorization (EUA) granted by the FDA for the qualitative detection of nucleic acids from SARS-CoV-2, Influenza A, Influenza B, and Respiratory Syncytial Virus. Provider and patient fact sheets can be found at https://www.fda.gov/media /762302/download and https://www.fda.gov/media /441287/download. Expected Result: Not Detected _ Method: Real-time, RT-PCR This assay was developed by [employer] and distributed under an Emergency Use Authorization (EUA) granted by the FDA for the qualitative detection of nucleic acids from SARS-CoV-2, Influenza A, Influenza B, and Respiratory Syncytial Virus. Provider and patient fact sheets can be found at https://www.fda.gov/media /437005/download and https://www.fda.gov/media /733046/download. Normal [facility] Comment on above: Performed By: #### C VFLR #### [facility] [address] [place] [place] [address] , [address] Troponin Ion 02-10-2021 Troponin I.cardiac [Mass/Vol] ng/mL Normal 0.000-0.034 [facility] Comment on above: Result Comment: . Performed By: #### H EMDF, TROPN, DDI2, CMP3 #### [facility] [address] [place] [address] Troponin x1on 02-10-2021 Troponin I.cardiac [Mass/Vol] ng/mL 0.000 - 0.034 ng/mL [facility] Work Phone: Comment on above: . Complete Blood Count + Diffe rentialon 01-07-2021 Basophils/100 WBC (Bld) 0.9 % 0.0 - 2.0 [facility] Work Phone: Erythrocyte distribution width (RBC) [Ratio] 13.9 % See Below [facility] Work Phone: Comment on above: Reference Range: 11. 5 - 14.5 Hematocrit (Bld) [Volume fraction] 45.3 % See Below [facility] Work Phone: Comment on above: Reference Range: 41. 0 - 52.0 Hemoglobin (Bld) [Mass/Vol] 13.6 g/dL See Below [facility] Work Phone: Comment on above: Reference Range: 13. 5 - 17.5 Lymphocytes/100 WBC (Bld) 36.6 % See Below [facility] Work Phone: Comment on above: Reference Range: 13. 0 - 44.0 MCHC (RBC) [Mass/Vol] 30.0 g/dL below low threshold See Below [facility] Work Phone: Comment on above: Reference Range: 32. 0 - 36.0 MCV (RBC) [Entitic vol] 96 fL 80 - 100 [facility] Work Phone: Monocytes/100 WBC (Bld) 8.6 % 2.0 - 10.0 [facility] Work Phone: Neutrophils/100 WBC (Bld) 51.2 % See Below [facility] Work Phone: Comment on above: Reference Range: 40. 0 - 80.0 Platelets (Bld) [#/Vol] 97 10*3/uL below low threshold 150 - 450 [facility] Work Phone: RBC (Bld) [#/Vol] 4.74 {x10E12/L} See Below [facility] Work Phone: Comment on above: Reference Range: 4.5 0 - 5.90 WBC (Bld) [#/Vol] 5.8 10*3/uL 4.4 - 11.3 [facility] Work Phone: Complete Blood Count + Differential 0.05 {x10E9/L} See Below [facility] Work Phone: Comment on above: Reference Range: 0.0 0 - 0.10 Complete Blood Count + Differential 0.13 {x10E9/L} See Below [facility] Work Phone: Comment on above: Reference Range: 0.0 0 - 0.70 Complete Blood Count + Differential 0.50 {x10E9/L} See Below [facility] Work Phone: Comment on above: Reference Range: 0.1 0 - 1.00 Complete Blood Count + Differential 2.13 {x10E9/L} See Below [facility] Work Phone: Comment on above: Reference Range: 1.2 0 - 4.80 Complete Blood Count + Differential 2.98 {x10E9/L} See Below [facility] Work Phone: Comment on above: Reference Range: 1.2 0 - 7.70 Complete Blood Count + Differential 2.2 % 0.0 - 6.0 [facility] Work Phone: Complete Blood Count + Differential 0.5 % 0.0 - 0.9 [facility] Work Phone: Comment on above: Immature Granulocyte Count (IG) includes promyelocytes, myelocytes and metamyelocytes but does not include bands. Percent differential counts (%) should be interpreted in the context of the absolute cell counts (cells/L). Complete Blood Count + Differential 0.0 {/100_WBC} 0.0-0.0 [facility] Work Phone: Hemoglobin A1Con 01-07-2021 Glucose [Mass/Vol] 157 mg/dL [facility] Work Phone: HbA1c (Bld) [Mass fraction] 7.1 % Abnormal [facility] Work Phone: Comment on above: Diagnosis of Diabete s-Adults Non-Diabetic: < or = 5.6% Increased risk for developing diabetes: 5.7-6.4% Diagnostic of diabetes: > or = 6.5%. Monitoring of Diabetes Age (y) Therapeutic Goal (%) Adults: >18 <7.0 Pediatrics: 13-18 <7.5 7-12 <8.0 0- 6 7.5-8.5 [place] [employer]. Diabetes Care 33(S1), Feb 2009. Laboratory - Chemistry and C hemistry - challengeon 01-07-2021 Albumin BCP dye [Mass/Vol] 4.0 g/dL 3.4 - 5.0 [facility] Work Phone: Albumin Ql (U) Canceled [facility] Work Phone: Albumin/Creatinine DL <= 20 mg/L (U) [Mass ratio] Canceled [facility] Work Phone: ALP [Catalytic activity/Vol] 85 U/L 33 - 120 [facility] Work Phone: ALT With P-5'-P [Catalytic activity/Vol] 31 U/L 10 - 52 [facility] Work Phone: Comment on above: Patients treated wit h Sulfasalazine may generate falsely decreased results for ALT. Anion gap [Moles/Vol] 14 mmol/L 10 - 20 [facility] Work Phone: AST With P-5'-P [Catalytic activity/Vol] 20 U/L 9 - 39 [facility] Work Phone: Bilirubin [Mass/Vol] 0.5 mg/dL 0.0 - 1.2 MP-G [facility] Work Phone: Calcium [Mass/Vol] 9.0 mg/dL 8.6 - 10.6 [facility] Work Phone: Chloride [Moles/Vol] 104 mmol/L 98 - 107 [facility] Work Phone: Cholesterol [Mass/Vol] 164 mg/dL 0 - 199 [facility] Work Phone: Comment on above: . AGE DESIRABLE BORD GENESIS HIGH HIGH 0-19 Y 0 - 169 170 - 199 >/= 200 20-24 Y 0 - 189 190 - 224 >/= 225 >24 Y 0 - 199 200 - 239 >/= 240 All ranges are based on fasting samples. Specific therapeutic targets will vary based on patient-specific cardiac risk.. Pediatric guidelines reference:Pediatrics 2011, 128(S5). Adult guidelines reference: NCEP ATPIII Guidelines, EMIL 2001, 258:2486-97. Venipuncture immediately after or during the administration of Metamizole may lead to falsely low results. Testing should be performed immediately prior to Metamizole dosing. Cholesterol in HDL [Mass/Vol] 33.0 mg/dL Abnormal [facility] Work Phone: Comment on above: . AGE VERY LOW LOW N ORMAL HIGH 0-19 Y < 35 < 40 40-45 ---- 20-24 Y ---- < 40 >45 ---- >24 Y ---- < 40 40-60 >60. Cholesterol non HDL [Mass/Vol] 131 mg/dL [facility] Work Phone: Comment on above: AGE DESIRABLE BORDER LINE HIGH HIGH VERY HIGH 0-19 Y 0 - 119 120 - 144 >/= 145 >/= 160 20-24 Y 0 - 149 150 - 189 >/= 190 ---- >24 Y 30 MG/DL ABOVE LDL CHOLESTEROL GOAL. Cholesterol.total/Chol esterol in HDL [Mass ratio] 5.0 {ratio} [facility] Work Phone: Comment on above: REF VALUESDESIRABLE < 3.4HIGH RISK > 5.0 CO2 [Moles/Vol] 25 mmol/L 21 - 32 [facility] Work Phone: Creatinine (U) [Mass/Vol] Canceled [facility] Work Phone: Creatinine [Mass/Vol] 1.24 mg/dL See Below [facility] Work Phone: Comment on above: Reference Range: 0.5 0 - 1.30 Glucose [Mass/Vol] 190 mg/dL above high threshold 74 - 99 [facility] Work Phone: Potassium [Moles/Vol] 4.3 mmol/L 3.5 - 5.3 [facility] Work Phone: Protein [Mass/Vol] 7.8 g/dL 6.4 - 8.2 [facility] Work Phone: Sodium [Moles/Vol] 139 mmol/L 136 - 145 [facility] Work Phone: TSH Qn 3.75 m[IU]/L See Below [facility] Work Phone: Comment on above: Reference Range: 0.4 4 - 3.98 TSH testing is performed using different testing methodology at [facility] than at other [facility]. Direct result comparisons should only be made within the same method. Urea nitrogen [Mass/Vol] 16 mg/dL 6 - 23 [facility] Work Phone: No Panel Informationon 01-07 >60 >60 [facility] Work Phone: Comment on above: CALCULATIONS OF SADIQ MATED GFR ARE PERFORMED USING THE MDRD STUDY EQUATION FOR THE IDMS-TRACEABLE CREATININE METHODS. CLIN CHEM 2007;53:766-72 KNEE; 1 OR 2 VIEWSon 018 KNEE; 1 OR 2 VIEWS Name: MITALI RAMOS STUDY:BN KNEE; 1 OR 2 VIEWS; 08/27/2017 1:23 pm INDICATION:Signs/Symptoms : Left knee pain. COMPARISON:09/20/2015 ORDERING CLINICIAN:LING ALLEN FINDINGS:Redemonstration of deformity of the proximal tibia status postosteotomy with grafting. Increased healing from the prior. Remnant ofa screw in the medial tibial plateau as well. Appearance is unchangedfrom the prior. Healed fracture deformity proximal fibula as well. Nonew fracture seen. Moderate osteophytosis is in the medialcompartment of the left knee joint with mild osteophytosis in thelateral and patellofemoral. Mild joint space narrowing seen as well. IMPRESSION:Postsurgical changes in the proximal tibia. Moderate degenerativechanges medial compartment with mild changes in the lateral andpatellofemoral compartmentElectronically signed by: ELSY WALLACE MD Normal [facility] APTTon 05-30-2017 aPTT 40.0 s High 23.0-32.4 [facility] Comment on above: Result Comment: Unfr actionated Heparin Therapeutic Ranges:Standard Heparin Nomogram: 53 to 78 seconds (anti-Xa level of 0.3 to 0.7 U/ml)Low Dose/ACS Nomogram: 49 to 67 seconds (anti-Xa level of 0.2 to 0.5 U/ml)Stroke Treatment Nomogram: 49 to 67 seconds (anti-Xa level of 0.2 to 0.5 U/ml)Note: The APTT therapeutic range has been determined for the current lot of laboratory APTT reagent in use throughout the [facility]. Performed By: #### C BCDIF, PT, PTT, CMP ####[facility] [address]3122 [address] CBC and Differentialon 05-30 Abs Baso <0.03 Normal <0.11 [facility] Comment on above: Performed By: #### C BCDIF, PT, PTT, CMP ####[facility] Uov[address]wqxds3459 [address] Abs [place] 0.50 k/uL Normal <0.87 [facility] Comment on above: Performed By: #### C BCDIF, PT, PTT, CMP ####[facility] Fnhattnibe6225 [address] Abs Neut 3.37 k/uL Normal 1.45-7.50 [facility] Comment on above: Performed By: #### C BCDIF, PT, PTT, CMP ####[facility] [address] [place] [address] Basophils/100 WBC Auto (Bld) 0.2 % Normal [facility] Comment on above: Performed By: #### C BCDIF, PT, PTT, CMP ####[facility] [address] [place] [address] Eosinophils 0.05 10*3/uL Normal <0.46 [facility] Comment on above: Performed By: #### C BCDIF, PT, PTT, CMP ####[place] [address] Eosinophils/100 leukocytes 1.0 % Normal [facility] Comment on above: Performed By: #### C BCDIF, PT, PTT, CMP ####[place] [address] Erythrocyte distribution width Auto Ratio (RBC) 14.2 % Normal 11.5-15.0 [facility] Comment on above: Performed By: #### C BCDIF, PT, PTT, CMP ####[place] [address] Erythrocytes (RBC) 5.42 10*6/uL Normal 4.20-6.00 [facility] Comment on above: Performed By: #### C BCDIF, PT, PTT, CMP ####[place] [address] Hematocrit (HCT) 47.2 % Normal 39.0-51.0 [facility] Comment on above: Performed By: #### C BCDIF, PT, PTT, CMP ####[facility] [address] [place] [address] Hemoglobin mass conc (Bld) 15.3 g/dL Normal 13.0-17.0 [facility] Comment on above: Performed By: #### C BCDIF, PT, PTT, CMP ####[facility] [address] [place] [address] Lymphocytes 1.19 10*3/uL Normal 1.00-4.00 [facility] Comment on above: Performed By: #### C BCDIF, PT, PTT, CMP ####[place] [address] Lymphocytes/100 leukocytes 23.2 % Normal [facility] Comment on above: Performed By: #### C BCDIF, PT, PTT, CMP ####[place] [address] MCH 28.2 pG Normal 26.0-34.0 [facility] Comment on above: Performed By: #### C BCDIF, PT, PTT, CMP ####[place] [address] MCHC mass conc (RBC) 32.4 g/dL Normal 30.5-36.0 [facility] Comment on above: Performed By: #### C BCDIF, PT, PTT, CMP ####[place] [address] MCV 87.1 fL Normal 80.0-100.0 [facility] Comment on above: Performed By: #### C BCDIF, PT, PTT, CMP ####[place] [address] Monocytes/100 leukocytes 9.8 % Normal [facility] Comment on above: Performed By: #### C BCDIF, PT, PTT, CMP ####[place] [address] Neutrophils/100 WBC Auto (Bld) 65.8 % Normal [facility] Comment on above: Performed By: #### C BCDIF, PT, PTT, CMP ####[place] [address] Platelet mean volume (PMV) 10.1 fL Normal 9.0-12.7 [facility] Comment on above: Performed By: #### C BCDIF, PT, PTT, CMP ####[place] [address] Platelets 166 10*3/uL Normal 150-400 [facility] Comment on above: Performed By: #### C BCDIF, PT, PTT, CMP ####[place] [address] WBC (Leukocytes) 5.12 10*3/uL Normal 3.70-11.00 [facility] Comment on above: Performed By: #### C BCDIF, PT, PTT, CMP ####[facility] [address] [place] [address] Comp Metabolic Panelon 05-30 Alanine aminotransferase (ALT) 35 U/L Normal 10-54 [facility] Comment on above: Performed By: #### C BCDIF, PT, PTT, CMP ####[facility] [address] [place] [address] Albumin 3.9 g/dL Normal 3.9-4.9 [facility] Comment on above: Performed By: #### C BCDIF, PT, PTT, CMP ####[facility] [address] [place] [address] Alkaline phosphatase (ALP) 68 U/L Normal 36-108 [facility] Comment on above: Performed By: #### C BCDIF, PT, PTT, CMP ####[facility] [address] [place] [address] Anion gap 11 mmol/L Normal 9-18 [facility] Comment on above: Performed By: #### C BCDIF, PT, PTT, CMP ####[facility] [address] [place] [address] Aspartate aminotransferase (AST) 23 U/L Normal 14-40 [facility] Comment on above: Performed By: #### C BCDIF, PT, PTT, CMP ####[facility] [address] [place] [address] Bilirubin (total) 0.5 mg/dL Normal 0.2-1.3 [facility] Comment on above: Performed By: #### C BCDIF, PT, PTT, CMP ####[facility] [address] [place] [address] Calcium 9.2 mg/dL Normal 8.5-10.2 [facility] Comment on above: Performed By: #### C BCDIF, PT, PTT, CMP ####[facility] [address] [place] [address] Chloride 103 mmol/L Normal 97-105 [facility] Comment on above: Performed By: #### C BCDIF, PT, PTT, CMP ####[facility] [address] [place], [place] [address] CO2 27 mmol/L Normal 22-30 [facility] Comment on above: Performed By: #### C BCDIF, PT, PTT, CMP ####[facility] [address] [place] [address] Creatinine 0.77 mg/dL Normal 0.73-1.22 [facility] Comment on above: Performed By: #### C BCDIF, PT, PTT, CMP ####[facility] Unnwepketi5738 [address] eGFR (non-black) mL/min/{1.73_m2} Normal [facility] Comment on above: Performed By: #### C BCDIF, PT, PTT, CMP ####[facility] [id number] [address] Result Comment: eGFR (Estimated GFR) Units of measure: mL/min/1.73 meters squaredeGFR is derived from the reexpressed MDRD Study equation using the following parameters: serum creatinine, age, gender and race. The creatinine assay has been calibrated to be traceable to IDMS.An eGFR <60 mL/min/1.73m2 for >3 months is consistent with chronic kidney disease. Refer to KDOQI guidelines for clinical interpretation.In patients with unstable renal function, e.g. those with acute kidney injury, the eGFR may not accurately reflect actual GFR. Glucose mass conc 80 mg/dL Normal 74-99 [facility] Comment on above: Result Comment: The [place] Diabetes Association (ADA) provides guidance for cutoff values for fasting glucose and random glucose. The ADA defines fasting as no caloric intake for at least 8 hours. Fasting plasma glucose results between 100 to 125 mg/dL indicate increased risk for diabetes (prediabetes).Fasting plasma glucose results greater than or equal to 126 mg/dL meet the criteria for diagnosis of diabetes. In the absence of unequivocal hyperglycemia, results should be confirmed by repeat testing. In a patient with classic symptoms of hyperglycemia or hyperglycemic crisis, random plasma glucose results greater than or equal to 200 mg/dL meet the criteria for diagnosis of diabetes.Reference: Standards of Medical Care in Diabetes 2016, [place] [employer]. Diabetes Care. 2016.39(Suppl 1). Performed By: #### C BCDIF, PT, PTT, CMP ####[facility] [address] [place] [id number] Potassium molar conc 3.5 mmol/L Low 3.7-5.1 [facility] Comment on above: Performed By: #### C BCDIF, PT, PTT, CMP ####[facility] [address] [place] [id number] Protein 7.6 g/dL Normal 6.3-8.0 [facility] Comment on above: Performed By: #### C BCDIF, PT, PTT, CMP ####[facility] [address] [place] [id number] Sodium 141 mmol/L Normal 136-144 [facility] Comment on above: Performed By: #### C BCDIF, PT, PTT, CMP ####[facility] [address] [place] [id number] Urea nitrogen 18 mg/dL Normal 9-24 [facility] Comment on above: Performed By: #### C BCDIF, PT, PTT, CMP ####[facility] [address] [place] [address] ED NOTEon 05-30-2017 ED NOTE HNO ID: [id number] thor: LEXX Skinner Rnervice: NursingAuthor Type: Registered NurseType: ED NotesFiled: 05/30/2017 9:16 PMNote Text: Pt is being discharged home in stable condition. Breathing even andunlabored, color good, skin warm and dry. Pt reports that his pain is 3/10at this time. Discharge instructions, prescriptions and follow upreviewed, pt verbalized understanding, with no further questions for thisnurse. Pt was provided with a copy of discharge instructions and theordered prescriptions. IV removed, no bleeding noted. Pt was encouraged toreturn to ED as needed, for persistent or worsening symptoms or any newconcerns, pt verbalized understanding. Pt ambulated off ED in nodistress. [facility] ED NOTE HNO ID: [id number] Author: Abida Giron, SHAWNA Service: Nursing Author Type: Registered Nurse Type: ED Notes Filed: 05/30/2017 8:41 PM Note Text: Dr Blake rounding at bedside. [facility] ED NOTE HNO ID: [id number] thor: Abida (Rn) LEXX Gironervice: NursingAuthor Type: Registered NurseType: ED NotesFiled: 05/30/2017 7:37 PMNote Text: Assumed care of pt at this time, pt in stable condition, denies any painor SOB, breathing even and unlabored. Pt reports swelling on the rightside neck that started in the morning. Pt reports slight difficultyswallowing, denies any SOB. Pt also reports right upper arm swelling thatstarted today, reports history of DVTs, last one 4 mo ago. [facility] ED NOTE HNO ID: [id number] Author: Tuyet PattonRn) SHAWNA Blake Service: Emergency Medicine Author Type: Registered Nurse Type: ED Notes Filed: 05/30/2017 7:20 PM Note Text: Report off care to Abida MATOS [facility] ED NOTE HNO ID: [id number] Author: Katja PattonRn) SHAWNA Davidson Service: (none) Author Type: Registered Nurse Type: ED Notes Filed: 05/30/2017 6:29 PM Note Text: Bed: ED-03 Expected date: Expected time: Means of arrival: Comments: [facility] ED NOTE HNO ID: [id number] thor: Ladonna Leggett NsService: (none)Author Type: (none)Type: ED NotesFiled: 05/30/2017 6:27 PMNote Text:Pt. C/O swelling on his bottom lip. Patient has been dealing withrashes/hives/itching that comes and goes over the past 2 months. Wastaking lisinopril for years and 2 months ago it was discontinued by hisdoctor because they thought it may be the cause of his lip swelling.Patient also reports right arm tenderness that is new and has a history ofDVT's. [facility] ED PROV NOTEon 05-30-2017 ED PROV NOTE HNO ID: [id number] thor: Emilio Berger IIISer: (none)Author Type: Physician AssistantType: ED Provider NotesFiled: 05/30/2017 8:55 PMNote Text:ED Provider NotePatient Name: Mitali MckeonerMRN: [id number] DATE: 05/30/17HistoryPatient presents with:Allergic Reaction: masses on bottom lip and neckArm Pain: tender right armHPIHPI:31-year-old male with a history of diabetes, DVT, hypertension, history ofquestionable angioedema presents to the emergency department forevaluation of swelling to the right lower lip, right-sided neck, and rightarm with itching to these areas. The patient states that this is beenongoing, waxing and waning for the last 2 months. The patient states thathe is currently finishing a dose of steroids 40 mg once daily for 4 daysand today was his last dose. The patient had also been taking Pepcid.The patient has been using Zyrtec as well. He did take some Benadrylearlier this morning. He is now noted some increased swelling to theright lower lip and to the right side of the neck as well as to the rightarm. The patient states that there are areas that do itch. The patientis not having any neck pain. The patient's not having any back pain. Thepatient states occasional shortness of breath but none currently. He doeshave a history of DVT and does take Eliquis.PMH:PAST MEDICAL HISTORYDiagnosis Date- Diabetes mellitus (HCC)- DVT (deep venous thrombosis) (HCC)- HypertensionPAST SURGICAL HISTORYProcedure Laterality Date- HIP SURGERY HX pins in femers bilaterally- KNEE SURGERY HX 2014Medications:No current facility-administered medications on file prior to encounter.Current Outpatient Prescriptions on File Prior to Encounter:predniSONE (DELTASONE) 20 mg tablet Take 2 tablets by mouth once daily for4 days.famotidine (PEPCID) 20 mg tablet Take 1 tablet by mouth twice daily for 14days.cetirizine (ZYRTEC) 10 mg tablet Take 1 tablet by mouth once daily for 14days.cetirizine (ZYRTEC) 10 mg tablet Take 1 tablet by mouth once daily for 14days.acetaminophen (TYLENOL) 500 mg tablet Take 1 tablet by mouth every 8 hoursas needed for Pain or Fever.ELIQUIS 5 mg tab tab(s)albuterol HFA (PROAIR HFA) 90 mcg/actuation inhaler Inhale 2 Puffs asinstructed every 4 hours as needed for Wheezing/Shortness of Breath.ONETOUCH ULTRA TEST test stripmetFORMIN (GLUCOPHAGE) 500 mg tabletAllergies:Amoxicill in; Bee Pollen; Penicillins; PineappleFamily History:FAMILY HISTORYProblem Relation Age of Onset- Diabetes Father- Diabetes Mother- Diabetes Sister- Heart SisterSocial History:Social History Marital status: Spouse name: Years of education: Number of children:Social History Main Topics Smoking status: Current Some Day Smoker Packs/day: 0.50 Years: 0.00 Types: Cigarettes Smokeless status: Never Used Alcohol use: No Drug use: No Sexual activity: NoReview of SystemsConstitutional: Negative for chills, fatigue and fever.HENT: Negative for congestion and rhinorrhea. Lip swelling, right-sided neck swelling, right arm swellingEyes: Negative for photophobia and pain.Respiratory: Positive for shortness of breath. Negative for cough, chesttightness and wheezing.Cardiovascular: Negative for chest pain, palpitations and leg swelling.Gastrointestinal : Negative for abdominal pain, diarrhea, nausea andvomiting.Genitourinary : Negative for dysuria and flank pain.Musculoskeletal: Negative for back pain, neck pain and neck stiffness.Skin: Negative for color change, pallor, rash and wound.Neurological: Negative for dizziness, syncope, speech difficulty,light-headedne ss and headaches.Hematological: Negative for adenopathy. Does not bruise/bleed easily.Psychiatric/Behavi oral: Negative for agitation and confusion.All other systems reviewed and are negative.Physical ExamBP 130/82 Pulse 79 Temp (Src) 98 (Oral) Resp 18 Wt 310 lb(140.6kg) SpO2 97%Physical ExamConstitutional: He is oriented to person, place, and time. He appearswell-developed and well-nourished. No distress.HENT:Head: Normocephalic and atraumatic.Right Ear: External ear normal.Left Ear: External ear normal.Nose: Nose normal.Mouth/Throat: Oropharynx is clear and moist.There is swelling to the right lower external lip, there is no swelling tothe upper lip. No swelling of the tongue. Posterior oropharynx wasclear. No drooling.Eyes: Conjunctivae are normal.Neck: No JVD present. No tracheal deviation present. No thyromegalypresent.Swelli ng noted to the right side of the neck. No posterior pain.Cardiovascular: Normal rate and regular rhythm.Pulmonary/Chest: Effort normal and breath sounds normal. No respiratorydistress. He has no wheezes. He has no rales. He exhibits no tenderness.Abdominal: Soft. Bowel sounds are normal. He exhibits no distension and nomass. There is no tenderness. There is no rebound and no guarding.Musculoskeletal: Normal range of motion. He exhibits no edema, tendernessor deformity.Neurological: He is alert and oriented to person, place, and time.Skin: Skin is warm and dry. No rash noted. He is not diaphoretic. Noerythema. No pallor.Psychiatric: He has a normal mood and affect.Nursing note and vitals reviewed.ProceduresED Course:Results for orders placed or performed during the hospital encounter of05/30/17CBC + DIFFResult Value Ref Range WBC 5.12 3.70 - 11.00 k/uL RBC 5.42 4.20 - 6.00 m/uL Hemoglobin 15.3 13.0 - 17.0 g/dL Hematocrit 47.2 39.0 - 51.0 % MCV 87.1 80.0 - 100.0 fL MCH 28.2 26.0 - 34.0 pG MCHC 32.4 30.5 - 36.0 g/dL RDW-CV 14.2 11.5 - 15.0 % Platelet Count 166 150 - 400 k/uL MPV 10.1 9.0 - 12.7 fL Neut% 65.8 % Abs Neut (ANC) 3.37 1.45 - 7.50 k/uL Lymph% 23.2 % Abs Lymph 1.19 1.00 - 4.00 k/uL Decatur% 9.8 % Abs [place] 0.50 <0.87 k/uL Eosin% 1.0 % Abs Eosin 0.05 <0.46 k/uL Baso% 0.2 % Abs Baso <0.03 <0.11 k/uLCOMP METABOLIC PANELResult Value Ref Range Protein, Total 7.6 6.3 - 8.0 g/dL Albumin 3.9 3.9 - 4.9 g/dL Calcium 9.2 8.5 - 10.2 mg/dL Bilirubin, Total 0.5 0.2 - 1.3 mg/dL Alkaline Phosphatase 68 36 - 108 U/L AST 23 14 - 40 U/L Glucose 80 74 - 99 mg/dL BUN 18 9 - 24 mg/dL Creatinine 0.77 0.73 - 1.22 mg/dL Sodium 141 136 - 144 mmol/L Potassium 3.5 (L) 3.7 - 5.1 mmol/L Chloride 103 97 - 105 mmol/L CO2 27 22 - 30 mmol/L Anion Gap 11 9 - 18 mmol/L ALT 35 10 - 54 U/L eGFR- >60 eGFR-All Other Races >60 .ACTIVATED PTTResult Value Ref Range APTT 40.0 (H) 23.0 - 32.4 secPROTHROMBIN TIME/PTResult Value Ref Range PT Sec 11.1 9.7 - 13.0 sec PT INR 1.1 0.9 - 1.3Medical Decision Making:The patient does not appear to be in any apparent distress or discomfort.He speaks in full complete sentences. His vital signs are noted to bewithin normal limits. The patient will have IV access established.Laboratory studies obtained. The patient will be treated with sidemedical, Pepcid, and Benadryl. Patient will be reassessed and reevaluatedafter the medications and laboratory studies.The patient's laboratory studies were reviewed. The patient had a normalwhite blood cell count of 5.12. Hemoglobin hematocrit were 15.3 and 47.2. Platelet count is 166. CMP was within normal limits other than apotassium of 3.5. The patient was given 40 mEq of potassium chloride.The patient had coags that showed a slightly prolonged PTT at 40.0. Thepatient is on Eliquis.The patient on repeat evaluation states that he is feeling better and heis no longer itching at this point. The swelling to the lower part of hislip has improved. Patient is speaking in full complete sentences. Thepatient had some swelling of the right side of his neck that has alsoimproved. Patient also has improvement of the swelling to the right biceparea. There is no signs of erythema. There is no signs of airwayobstruction. The patient was offered inpatient evaluation and assessmentto decline. The patient will be discharged home on steroids, Pepcid,Vistaril. The patient will have close follow-up with electrician wiring. Thepatient will be given the name and number for follow-up. Patient has noother questions or concerns at this time. The patient will be dischargedto home. Pain the signs or symptoms worsen he is to return immediately tothe emergency department.Clinical Impression:Encounter Diagnosis ICD-10-CM1. Allergic reaction, initial encounter T78.40XA2. Angioedema, initial encounter T78.3XXACondition at disposition:stableDisposi tion:DISCHARGED: Counseled patient regarding lab results AND suspected diagnosisAND need for follow-up. Discharged home with verbal and writteninstructions. They were instructed to return as needed for persistent orworsening symptoms or any new concerns.The attending who evaluated and managed this patient was Dr. CHAN Blake.SIGNATURE: Seth Young III have personally performed a face to face assessment of the patient andhave reviewed the PA/WINDOW DRAPER note. My cortes findings include:History - Mr. Ramos is a pleasant 31 yo MPresenting with itching andhives to his right lower lip and arm and neck that most days for the last2 weeks. He also feels like he has an itch in his throat. He deniesdyspnea or nausea or lightheadedness. He stopped prednisone today, afterhis last dose, which she was recently on for an allergic reaction similarto this. It was initially thought that this could be from lisinopril, buthe stopped that 2 months ago.Exam - pruritus and hives, improved from photos earlier, OP clear, lungsclear, no distress, perfusing well.Assessment/Plan - steroids/h1/h2, reassess, likely close f/u w/ allergy.Other additions or changes: NoneSignature: Chetan Blake, MDDate: 05/30/2017Time: 7:19 PMAlfred Fantasma Berger III05/30/172054 Normal [facility] Protimeon 05-30-2017 INR Coag RelTime (Bld) 1.1 {INR} Normal 0.9-1.3 [facility] Comment on above: Result Comment: Shanae min K Antagonist (VKA) Therapeutic Range: INR 2 to 3 (Target INR of 2.5)Note: For patients treated with VKA drugs, such as warfarin, the [place] [employer] 2012 Guideline recommends a therapeutic INR range of 2 to 3 (target INR of 2.5). This recommendation includes high-risk patients with antiphospholipid syndrome with previous arterial or venous thromboembolism, current-generation mechanical or bioprosthetic aortic heart valve replacement.Note: Patients with mechanical aortic valve replacement and additional risk factors for thromboembolic events (atrial fibrillation, previous thromboembolism, LV dysfunction, hypercoagulable conditions) or an older generation mechanical AVR (i.e., ball in-Cage) or any mechanical MVR should have a INR therapeutic range of 2.5 to 3.5 (target INR of 3).Reynaldo GH, et al. Chest 2012, 141:7S-47SNishabhay RA, et al. [facility] 2017, 70: 252-289 Performed By: #### C BCDIF, PT, PTT, CMP ####[facility] [address] [place] [phone] PT Sec 11.1 sec Normal 9.7-13.0 [facility] Comment on above: Performed By: #### C BCDIF, PT, PTT, CMP ####[facility] [address] [phone] Vital Signs Date Time Vital Sign Value Performing Clinician Facility 08-31-2024 08:18-0400 Body height 182.[address] Usama Mayfield Work Phone: 2(591)633-418203 [place] [address] 08-31-2024 08:18-0400 Body mass index (BMI) [Ratio] 41.2 kg/m2 Dr. Usama Mayfield Work Phone: 6(582)057-247103 [place] [address] 08-31-2024 08:18-0400 Body temperature 97 [degF] Dr. Usama Mayfield Work Phone: 5(998)032-973003 [place] [address] 08-31-2024 08:18-0400 Body weight 137.[address] Usama Mayfield Work Phone: 3(124)094-427203 [place] [address] 08-31-2024 08:18-0400 Diastolic blood pressure 89 mm[Hg] Dr. Usama Mayfield Work Phone: 0(804)680-038603 [place] [address] 08-31-2024 08:18-0400 Heart rate 71 /min Dr. Usama Mayfield Work Phone: 6(506)791-528703 [place] [address] 08-31-2024 08:18-0400 Respiratory rate 16 /min Dr. Usama Mayfield Work Phone: 5(931)984-880647 [address] 08-31-2024 08:18-0400 Systolic blood pressure 139 mm[Hg] Dr. Usama Mayfield Work Phone: 2(513)376-790680 [place] [address] 08-09-2024 09:23-0400 Body temperature 98.7 [degF] Dr. Usama Mayfield Work Phone: 5(662)216-002280 [place] [address] 08-09-2024 09:23-0400 Diastolic blood pressure 78 mm[Hg] Dr. Usama Mayfield Work Phone: 7(936)875-326080 [place] [address] 08-09-2024 09:23-0400 Heart rate 78 /min Dr. Usama Mayfield Work Phone: 9(525)362-381880 [place] [address] 08-09-2024 09:23-0400 Respiratory rate 16 /min Dr. Usama Mayfield Work Phone: 0(247)399-532880 [place] [address] 08-09-2024 09:23-0400 SaO2% (BldA) [Mass fraction] 100 % Dr. Usama Mayfield Work Phone: 8(413)017-933003 [place] [address] 08-09-2024 09:23-0400 Systolic blood pressure 135 mm[Hg] Dr. Usama Mayfield Work Phone: 6(120)707-764080 [place] [address] 08-09-2024 07:33-0400 Body height 182.[address] Usama Mayfield Work Phone: 2(952)391-763780 [place] [address] 08-09-2024 07:33-0400 Body mass index (BMI) [Ratio] 41.2 kg/m2 Dr. Usama Mayfield Work Phone: 3(790)974-447903 [place] [address] 08-09-2024 07:33-0400 Body weight 137.[address] Usama Mayfield Work Phone: 7(148)625-722280 [place] [address] 05-26-2024 09:22-0400 Body mass index (BMI) [Ratio] 42.01 kg/m2 Charles Martinez COORDINATOR OF LIBRARY SERVICES.MAINFRAME DEVELOPER Work Phone: [facility] 05-26-2024 09:22-0400 Body temperature 98.1 [degF] Charles Nazia COORDINATOR OF LIBRARY SERVICES.MAINFRAME DEVELOPER Work Phone: [facility] 05-26-2024 09:22-0400 Body weight 140.5 kg Charles Swank COORDINATOR OF LIBRARY SERVICES.MAINFRAME DEVELOPER Work Phone: [facility] 05-26-2024 09:22-0400 Diastolic blood pressure 91 mm[Hg] Charles Swank COORDINATOR OF LIBRARY SERVICES.MAINFRAME DEVELOPER Work Phone: [facility] 05-26-2024 09:22-0400 Heart rate 79 /min Charles Swank COORDINATOR OF LIBRARY SERVICES.MAINFRAME DEVELOPER Work Phone: [facility] 05-26-2024 09:22-0400 Respiratory rate 20 /min Charles Swank COORDINATOR OF LIBRARY SERVICES.MAINFRAME DEVELOPER Work Phone: [facility] 05-26-2024 09:22-0400 SaO2% (BldA) [Mass fraction] 100 % Charles Swank COORDINATOR OF LIBRARY SERVICES.MAINFRAME DEVELOPER Work Phone: [facility] 05-26-2024 09:22-0400 Systolic blood pressure 142 mm[Hg] Charles Swank COORDINATOR OF LIBRARY SERVICES.MAINFRAME DEVELOPER Work Phone: [facility] 04-30-2023 15:11-0400 Body height 182.9 cm Adilia Ascencio MD Work Phone: [facility] 04-30-2023 15:11-0400 Body mass index (BMI) [Ratio] 41.31 kg/m2 Adilia Ascencio MD Work Phone: [facility] 04-30-2023 15:11-0400 Body temperature 97.3 [degF] Adilia Ascencio MD Work Phone: [facility] 04-30-2023 15:11-0400 Body weight 138.17 kg Adilia Ascencio MD Work Phone: [facility] 04-30-2023 15:11-0400 Diastolic blood pressure 78 mm[Hg] Adilia Ascencio MD Work Phone: [facility] 04-30-2023 15:11-0400 Heart rate 78 /min Adilia Ascencio MD Work Phone: [facility] 04-30-2023 15:11-0400 SaO2% (BldA) [Mass fraction] 98 % Adilia Ascencio MD Work Phone: [facility] 04-30-2023 15:11-0400 Systolic blood pressure 128 mm[Hg] Adilia Ascencio MD Work Phone: [facility] 04-17-2023 12:55-0500 Body temperature 97.3 [degF] Mark Pendlebury COORDINATOR OF LIBRARY SERVICES.MAINFRAME DEVELOPER Work Phone: [facility] 04-17-2023 12:55-0500 Body weight 139.25 kg Mark Pendlebury COORDINATOR OF LIBRARY SERVICES.MAINFRAME DEVELOPER Work Phone: [facility] 04-17-2023 12:55-0500 Diastolic blood pressure 88 mm[Hg] Mark Pendlebury COORDINATOR OF LIBRARY SERVICES.MAINFRAME DEVELOPER Work Phone: [facility] 04-17-2023 12:55-0500 Heart rate 80 /min Mark Pendlebury COORDINATOR OF LIBRARY SERVICES.MAINFRAME DEVELOPER Work Phone: [facility] 04-17-2023 12:55-0500 Respiratory rate 16 /min Mark Pendlebury COORDINATOR OF LIBRARY SERVICES.MAINFRAME DEVELOPER Work Phone: [facility] 04-17-2023 12:55-0500 SaO2% (BldA) [Mass fraction] 98 % Mark Pendlebury COORDINATOR OF LIBRARY SERVICES.MAINFRAME DEVELOPER Work Phone: [facility] 04-17-2023 12:55-0500 Systolic blood pressure 142 mm[Hg] Mark Pendlebury COORDINATOR OF LIBRARY SERVICES.MAINFRAME DEVELOPER Work Phone: [facility] 12-05-2022 11:57-0400 Diastolic blood pressure 80 mm[Hg] Dr. Milton Tate Work Phone: [facility] 12-05-2022 11:57-0400 Heart rate 76 /min Dr. Milton Tate Work Phone: [facility] 12-05-2022 11:57-0400 Respiratory rate 16 /min Dr. Milton Tate Work Phone: 5(110)746-058403 [address] 12-05-2022 11:57-0400 SaO2% (BldA) [Mass fraction] 99 % Dr. Milton Tate Work Phone: 6(003)135-445073 [place] [address] 12-05-2022 11:57-0400 Systolic blood pressure 138 mm[Hg] Dr. Milton Tate Work Phone: 1(605)525-043473 [place] [address] 12-05-2022 09:54-0400 Body mass index (BMI) [Ratio] 42.2 kg/m2 Dr. Milton Tate Work Phone: 7(924)010-946973 [place] [address] 12-05-2022 09:54-0400 Body weight 141.[address] Milton Tate Work Phone: 0(716)126-836073 [place] [address] 12-05-2022 09:37-0400 Body height 182.[address] Milton Tate Work Phone: 9(980)723-000573 [place] [address] 12-05-2022 09:37-0400 Body temperature 95.9 [degF] Dr. Milton Tate Work Phone: 8(646)888-519273 [place] [address] 11-23-2022 17:25-0400 Body mass index (BMI) [Ratio] 42.3 kg/m2 Dr. Milton Tate Work Phone: 9(767)383-972273 [place] [address] 11-23-2022 17:25-0400 Body temperature 97.4 [degF] Dr. Milton Tate Work Phone: 4(034)896-317155 [place] [address] 11-23-2022 17:25-0400 Body weight 141.[address] Milton Tate Work Phone: 6(173)369-265355 [place] [address] 11-23-2022 17:25-0400 Diastolic blood pressure 97 mm[Hg] Dr. Milton Tate Work Phone: 1(637)841-981255 [place] [address] 11-23-2022 17:25-0400 Heart rate 102 /min Dr. Milton Tate Work Phone: 0(186)481-841655 [place] [address] 11-23-2022 17:25-0400 Respiratory rate 16 /min Dr. Milton Tate Work Phone: 5(839)514-705655 [place] [address] 11-23-2022 17:25-0400 SaO2% (BldA) [Mass fraction] 100 % Dr. Milton Tate Work Phone: 0(735)725-497055 [place] [address] 11-23-2022 17:25-0400 Systolic blood pressure 187 mm[Hg] Dr. Milton Tate Work Phone: 3(755)106-902673 [place] [address] 11-14-2022 17:50-0400 Body mass index (BMI) [Ratio] 43 kg/m2 Dr. Milton Tate Work Phone: 2(255)427-782573 [place] [address] 11-14-2022 15:10-0400 Body temperature 97.5 [degF] Dr. Milton Tate Work Phone: 2(627)837-116273 [place] [address] 11-14-2022 15:10-0400 Diastolic blood pressure 84 mm[Hg] Dr. Milton Tate Work Phone: 5(892)457-885973 [place] [address] 11-14-2022 15:10-0400 Heart rate 68 /min Dr. Milton Tate Work Phone: 8(343)458-249173 [place] [address] 11-14-2022 15:10-0400 Respiratory rate 16 /min Dr. Milton Tate Work Phone: 9(889)948-067873 [place] [address] 11-14-2022 15:10-0400 SaO2% (BldA) [Mass fraction] 100 % Dr. Milton Tate Work Phone: [phone] [place] [address] 11-14-2022 15:10-0400 Systolic blood pressure 151 mm[Hg] Dr. Milton Tate Work Phone: [phone] [place] [address] 11-14-2022 00:20-0400 Body weight 144.[address] Milton Tate Work Phone: [phone] [place] [address] 11-13-2022 23:37-0400 Diastolic blood pressure 82 mm[Hg] [facility] 11-13-2022 23:37-0400 Heart rate 77 /min [facility] 11-13-2022 23:37-0400 Respiratory rate 19 /min [facility] 11-13-2022 23:37-0400 SaO2% (BldA) [Mass fraction] 100 % [facility] 11-13-2022 23:37-0400 Systolic blood pressure 142 mm[Hg] [facility] 11-13-2022 23:16-0400 Body temperature 97.5 [degF] [facility] 11-13-2022 22:30-0400 Body height 182.88 cm [facility] 11-13-2022 22:30-0400 Body mass index (BMI) [Ratio] 43.4 kg/m2 [facility] 11-13-2022 22:30-0400 Body weight 145.5 kg [facility] 10-15-2022 16:48-0400 Diastolic blood pressure 82 mm[Hg] [facility] 10-15-2022 16:48-0400 Heart rate 80 /min [facility] 10-15-2022 16:48-0400 Respiratory rate 16 /min [facility] 10-15-2022 16:48-0400 Systolic blood pressure 142 mm[Hg] [facility] 10-15-2022 13:28-0400 Body height 182.88 cm [facility] 10-15-2022 13:28-0400 Body mass index (BMI) [Ratio] 43.7 kg/m2 [facility] 10-15-2022 13:28-0400 Body temperature 97.2 [degF] [facility] 10-15-2022 13:28-0400 Body weight 146.05 kg [facility] 10-15-2022 13:28-0400 SaO2% (BldA) [Mass fraction] 100 % [facility] 06-06-2022 12:59-0400 Body height 182.9 cm Adilia Ascencio MD Work Phone: [facility] 06-06-2022 12:59-0400 Body mass index (BMI) [Ratio] 42.71 kg/m2 Adilia Ascencio MD Work Phone: [facility] 06-06-2022 12:59-0400 Body temperature 98.6 [degF] Adilia Ascencio MD Work Phone: [facility] 06-06-2022 12:59-0400 Body weight 142.84 kg Adilia Ascencio MD Work Phone: [facility] 06-06-2022 12:59-0400 Diastolic blood pressure 73 mm[Hg] Adilia Ascencio MD Work Phone: [facility] 06-06-2022 12:59-0400 Heart rate 88 /min Adilia Ascencio MD Work Phone: [facility] 06-06-2022 12:59-0400 SaO2% (BldA) [Mass fraction] 97 % Adilia Ascencio MD Work Phone: [facility] 06-06-2022 12:59-0400 Systolic blood pressure 116 mm[Hg] Adilia Ascencio MD Work Phone: [facility] 09-11-2021 16:44-0400 Body height 181.61 cm Adilia Ascencio Work Phone: [facility] Work Phone: 09-11-2021 16:44-0400 Body mass index (BMI) [Ratio] 43.21 kg/m2 Adilia Ascencio Work Phone: [facility] Work Phone: 09-11-2021 16:44-0400 Body surface area Derived from formula 2.57 m2 Adilia Ascencio Work Phone: [facility] Work Phone: 09-11-2021 16:44-0400 Body temperature 96.6 [degF] Adilia Mathis Sonu Work Phone: [facility] Work Phone: 09-11-2021 16:44-0400 Body weight 142.52 kg Adilia Ascencio Work Phone: [facility] Work Phone: 09-11-2021 16:44-0400 Diastolic blood pressure 74 mm[Hg] Adilia Ascencio Work Phone: [facility] Work Phone: 09-11-2021 16:44-0400 Heart rate 87 /min Adilia J Sonu Work Phone: [facility] Work Phone: 09-11-2021 16:44-0400 Respiratory rate 16 /min Adilia J Sonu Work Phone: [facility] Work Phone: 09-11-2021 16:44-0400 SaO2% (BldA) [Mass fraction] 98 % Adilia J Sonu Work Phone: [facility] Work Phone: 09-11-2021 16:44-0400 Systolic blood pressure 123 mm[Hg] Adilia J Sonu Work Phone: [facility] Work Phone: 02-28-2021 16:16-0500 Body mass index (BMI) [Ratio] 44.86 kg/m2 Adilia J Sonu Work Phone: [facility] Work Phone: 02-28-2021 16:16-0500 Body surface area Derived from formula 2.61 m2 Adilia J Sonu Work Phone: [facility] Work Phone: 02-28-2021 16:16-0500 Body temperature 97.9 [degF] Adilia J Sonu Work Phone: [facility] Work Phone: 02-28-2021 16:16-0500 Body weight 147.96 kg Adilia J Sonu Work Phone: [facility] Work Phone: 02-28-2021 16:16-0500 Diastolic blood pressure 84 mm[Hg] Adilia J Sonu Work Phone: [facility] Work Phone: 02-28-2021 16:16-0500 Heart rate 80 /min Adilia J Sonu Work Phone: [facility] Work Phone: 02-28-2021 16:16-0500 SaO2% (BldA) [Mass fraction] 98 % Adilia Ascencio Work Phone: [facility] Work Phone: 02-28-2021 16:16-0500 Systolic blood pressure 134 mm[Hg] Adilia Ascencio Work Phone: [facility] Work Phone: 02-10-2021 21:02-0500 Diastolic blood pressure 86 mm[Hg] Jim Macias MD Work Phone: [facility] 02-10-2021 21:02-0500 Heart rate 74 /min Jim Macias MD Work Phone: [facility] 02-10-2021 21:02-0500 Respiratory rate 16 /min Jim Macias MD Work Phone: [facility] 02-10-2021 21:02-0500 SaO2% (BldA) [Mass fraction] 100 % Jim Macias MD Work Phone: [facility] 02-10-2021 21:02-0500 Systolic blood pressure 128 mm[Hg] Jim Macias MD Work Phone: [facility] 02-10-2021 18:48-0500 Body height 182.9 cm Jim Macias MD Work Phone: [facility] 02-10-2021 18:48-0500 Body mass index (BMI) [Ratio] 42.04 kg/m2 Jim Macias MD Work Phone: [facility] 02-10-2021 18:48-0500 Body temperature 98.71 [degF] Jim Macias MD Work Phone: [facility] 02-10-2021 18:48-0500 Body weight 140.62 kg Jim Macias MD Work Phone: [facility] 2020 10:57-0400 Body temperature 98.1 [degF] Capo Burgess MD Work Phone: [facility] Work Phone: 2020 10:57-0400 Diastolic blood pressure 91 mm[Hg] Capo Burgess MD Work Phone: [facility] Work Phone: 2020 10:57-0400 Heart rate 78 /min Capo Burgess MD Work Phone: [facility] Work Phone: 2020 10:57-0400 Respiratory rate 18 /min Capo Burgess MD Work Phone: [facility] Work Phone: 2020 10:57-0400 SaO2% (BldA) [Mass fraction] 100 % Capo Burgess MD Work Phone: [facility] Work Phone: 2020 10:57-0400 Systolic blood pressure 135 mm[Hg] Capo Burgess MD Work Phone: [facility] Work Phone: Encounters Encounter Date Encounter Type Care Provider Facility Start: 08-31-[address] [facility] Work Phone: Start: 08-31-2024 ambulatory No Primary Car e Physician Facility:[facility] Start: 08-29-2024 ambulatory Malachi Piña Facility :[facility] Start: 08-26-2024 Non-patient / Non-visit Dr. Mayur giles MD -[facility] Start: 08-26-2024 End: 08-26-[address] Usama Mayfield Work Phone: -[facility] Start: 08-26-2024 End: 08-26-[address] Malachi Piña DPM -[facility] Work Phone: Start: 08-26-2024 End: 08-26-2024 ambulatory Malachi Piña Facility:[facility] Start: 08-09-2024 End: 08-09-2024 Emergency department patient visit Dr. Usama Mayfield Work Phone: -Emergency Department Work Phone: Start: 05-26-2024 End: 05-26-2024 ambulatory Facility:[facility] Start: 05-26-2024 End: 05-26-2024 Patient encounter procedure Charles Martinez COORDINATOR OF LIBRARY SERVICES.MAINFRAME DEVELOPER Work Phone: [facility] Comment on above: Wheezing (Primary Dx ); Acute non-recurrent maxillary sinusitis Start: 11-04-2023 End: 11-04-2023 ambulatory [facility] Start: 10-22-2023 End: 11-04-2023 Patient encounter procedure Robyn Paige [facility] Comment on above: Snoring Start: 09-24-2023 End: 09-24-2023 ambulatory [facility] Start: 04-30-2023 End: 04-30-2023 ambulatory [facility] Start: 04-30-2023 End: 04-30-2023 Assay of hemosiderin, quant Adilia Ascencio MD Work Phone: [facility] Work Phone: Start: 04-30-2023 End: 04-30-2023 Patient encounter procedure Adilia Ascencio MD Work Phone: [facility] Comment on above: Routine general medi shane examination at health care facility (Primary Dx); Type 2 diabetes mellitus without complication, without long-term current use of insulin (CMS/HCC); Lupus anticoagulant positive; Thrombocytopenia (CMS/HCC); Chronic deep vein thrombosis (DVT) of popliteal vein of right lower extremity (CMS/HCC); Seasonal allergic rhinitis due to pollen; Cerebrovascular accident (CVA), unspecified mechanism (CMS/HCC) Start: 04-30-2023 End: 04-30-2023 ambulatory [facility] Start: 04-30-2023 End: 04-30-2023 Encounter for general adult medical examination without abnormal findings [facility] Start: 04-18-2023 Telephone encounter Juju mosley COORDINATOR OF LIBRARY SERVICES.MAINFRAME DEVELOPER Work Phone: [facility] Comment on above: Results Start: 04-17-2023 End: 04-17-2023 Office outpatient visit 15 minutes Mark Shah COORDINATOR OF LIBRARY SERVICES.MAINFRAME DEVELOPER Work Phone: [facility] Comment on above: Pharyngitis, unspeci fied etiology (Primary Dx); Viral illness Start: 12-05-2022 End: 12-05-2022 Emergency department patient visit Dr. Milton Tate Work Phone: [facility]-Emergency Department Work Phone: Start: 11-23-2022 End: 11-23-2022 Emergency department patient visit Dr. Milton Tate Work Phone: [facility]-Emergency Department Work Phone: Start: 11-14-2022 Non-patient / Non-visit Dr. Louis Work Phone: [facility] Start: 11-14-2022 Non-patient / Non-visit Dr. Louis Work Phone: [facility] Work Phone: Start: 11-13-2022 End: 11-14-2022 Evaluation and management of inpatient [facility]-Progressive Care Unit Work Phone: Start: 11-13-2022 observation encounter [facility] Work Phone: Start: 10-22-2022 End: 10-22-2022 ambulatory [facility] Work Phone: Start: 10-22-2022 End: 10-22-2022 Patient encounter procedure [facility]-Laboratory, Specimen Work Phone: Start: 10-15-2022 End: 10-15-2022 Emergency department patient visit [facility]Emergency Department Work Phone: Start: 06-06-2022 End: 06-06-2022 Office outpatient visit 25 minutes Adilia Ascencio MD Work Phone: [facility] Comment on above: Type 2 diabetes ángel itus without complication, without long- term current use of insulin ([facility]) (Primary Dx); Gastroesophageal reflux disease without esophagitis; Bee sting allergy; Lupus anticoagulant positive; Thrombocytopenia ([facility]); Chronic deep vein thrombosis (DVT) of popliteal vein of right lower extremity ([facility]/HCC) Start: 03-04-2022 End: 03-04-2022 Emergency department patient visit [facility] Start: 09-26-2021 Chart Update Adilia Ascencio Work Phone: [facility] Work Phone: Start: 09-24-2021 Chart Update Adilia Ascencio Work Phone: [facility] Work Phone: Start: 09-23-[address] Adilia Ascencio Facility:[id number] Start: 09-11-[address] Adilia Ascencio Facility:[id number] Start: 09-11-2021 Office outpatient vi sit 25 minutes Adilia Ascencio Work Phone: [facility] Work Phone: Start: 09-11-2021 Patient encounter procedure Adilia Ascencio Work Phone: [facility] Work Phone: Start: 02-28-2021 Office outpatient vi sit 25 minutes Adilia Ascencio Work Phone: [facility] Work Phone: Start: 02-10-2021 End: 02-10-2021 Emergency department patient visit Jim Macias MD Work Phone: [facility] Comment on above: Chest pain, unspecif ied type (Primary Dx); Viral URI Start: 01-09-2021 Chart Update Adilia Ascencio Work Phone: [facility] Work Phone: Start: 01-07-2021 Chart Update Adilia Ascencio Work Phone: [facility] Work Phone: Start: 2020 End: 2020 Emergency department patient visit Capo Burgess MD Work Phone: [facility] Comment on above: Visit for suture rem oval (Primary Dx) Start: 06-03-2019 Patient encounter procedure Adilia Ascencio [facility] Work Phone: Start: 12-13-2018 Patient encounter procedure Adilia Ascencio [facility] Work Phone: Start: 10-20-2018 Patient encounter procedure Adilia Ascencio [facility] Work Phone: Start: 07-19-2018 Patient encounter procedure Adilia Ascencio [facility] Work Phone: Start: 06-12-2018 End: 06-12-2018 Emergency department patient visit [place] Facility:[facility] Start: 04-19-2018 Patient encounter procedure Adilia Ascencio [facility] Work Phone: Start: 03-22-2018 Patient encounter procedure Adilia Ascencio [facility] Work Phone: Start: 01-18-2018 Patient encounter procedure Adilia Ascencio [facility] Work Phone: Start: 11-18-2017 Patient encounter procedure Adilia Ascencio [facility] Work Phone: Start: 09-25-2017 Patient encounter procedure Adilia Ascencio [facility] Work Phone: Start: 09-18-2017 Patient encounter procedure Adilia Ascencio [facility] Work Phone: Start: 09-15-2017 Patient encounter procedure Adilia Ascencio [facility] Work Phone: Start: 08-27-2017 Patient encounter Ling Allen Facility[facility] Start: 06-26-2017 Patient encounter procedure Adilia Ascencio [facility] Work Phone: Start: 05-30-2017 End: 05-30-2017 Emergency department patient visit [facility] Start: 05-10-2017 Patient encounter procedure Adilia Ascencio [facility] Work Phone: Start: 05-06-2017 Patient encounter procedure Adilia Ascencio [facility] Work Phone: Start: 05-05-2017 Patient encounter procedure Adilia Ascencio [facility] Work Phone: Procedures Date Procedure Procedure Detail Performing Clinician Start: 08-09-[address] Usama Pool DO Work Phone: Start: 08-09-2024 Gram stain microscopy Rufina Pool DO Work Phone: Start: 08-09-2024 End: 08-09-2024 Microbial culture, routine Dr. Usama Pool D O Work Phone: Start: 08-09-[address] Usama Mayfield Work Phone: Start: 08-09-2024 X-ray of ankle, two views Dr. Usama Mayfield Work Phone: Start: 11-04-2023 Sleep std airflow hr t rate&o2 sat effort unatt Ninfa Thom Felipe DO Work Phone: Start: 04-30-2023 ALBUMIN, URINE RANDOM M JOSE L ASCENCIO Start: 04-30-2023 CBC W Auto Different ial panel - Blood ADILIA SONU Start: 04-30-2023 Comprehensive metabo lic 2000 panel - Serum or Plasma ADILIA ASCENCIO Start: 04-30-2023 Hemoglobin A1c/Hemoglobin.total in Blood ADILIA ASCENCIO Start: 04-17-2023 STREP A MOLECULAR (POC) Mark Shah APRN.CNP Work Phone: Start: 12-05-2022 Plain x-ray of hand Dr. Milton Tate Work Phone: Start: 11-23-2022 Bacterial nucleic ac id assay Dr. Milton Tate Work Phone: Start: 11-23-2022 Chlamydia trachomatis (PCR) Dr. Milton Tate Work Phone: Start: 11-14-2022 Magnetic resonance angiography of head without contrast Dr. Milton Tate Work Phone: Start: 11-14-2022 Magnetic resonance angiography of neck without contrast Dr. Milton Tate Work Phone: Start: 11-14-2022 MRI of brain without contrast Dr. Milton Tate Work Phone: Start: 11-13-2022 Plain chest X-ray Start: 11-13-2022 CT of head without contrast Start: 10-22-2022 Investigation of transfusion reaction Start: 10-15-2022 CT of lower limb wit h contrast Start: 06-06-2022 Lipid 1996 panel - S kathleen or Plasma Adilia Ascencio MD Work Phone: Start: 02-10-2021 Ct angiography chest w/contrast/noncontrast Jim Macias MD Work Phone: Start: 02-10-2021 Comprehensive metabo lic panel Jim Macias MD Work Phone: Start: 02-10-2021 COVID-19, FLU A/B, A ND RSV COMBO Jim Macias MD Work Phone: Start: 02-10-2021 Ecg routine ecg w/le ast 12 lds w/i&r Jim Macias MD Work Phone: History of Femur Repair Adilia Ascencio Comment on above: Pins inserted.; History of Knee Surgery Adilia Ascencio Comment on above: x2; Plan of Treatment Date Care Activity Detail Author Start: 2049 Pneumococcal 0-64 years Vaccine (2 of 2 - PPSV23) Pneumococcal 0-64 years Vaccine (2 of 2 - PPSV23) [facility] Start: 2034 Zoster Vaccines (1 of 2) Zoster Vaccines (1 of 2) [facility] Start: 12-05-2032 DTaP/Tdap/Td Vaccines (3 - Td or Tdap) DTaP/Tdap/Td Vaccines (3 - Td or Tdap) [facility] Start: 12-05-2032 Urine microalbumin profile DTaP,Tdap,Td Vaccine (3 - Td or Tdap) [facility] Start: 06-13-2030 DTaP/Tdap/Td vaccine (2 - Td or Tdap) DTaP/Tdap/Td vaccine (2 - Td or Tdap) [facility] Start: 06-13-2030 DTaP/Tdap/Td vaccine (2 - Td) DTaP/Tdap/Td vaccine (2 - Td) [facility] Work Phone: Start: 06-13-2030 DTaP/Tdap/Td Vaccines (2 - Td or Tdap) DTaP/Tdap/Td Vaccines (2 - Td or Tdap) [facility] Start: 08-09-2024 Anaerobic Culture Anaerobic Culture [facility] Start: 08-09-2024 Microscopic observation [Identifier] in Unspecified specimen by Gram stain [facility] Start: 08-09-2024 Wound Culture Wound Culture [facility] Start: 08-09-2024 [facility] Start: 08-09-2024 Source specific culture [facility] Start: 07-05-2024 End: 07-05-2024 Patient encounter procedure 07/05/2024 10:40 AM EDT [facility] [address] [place] [address] Irina Arthur, COORDINATOR OF LIBRARY SERVICES.[facility] [address] [place] [address] [facility] Comment on above: [facility] Start: 04-30-2024 Medicare Annual Wellness Visit Medicare Annual Wellness Visit (AWV) [facility] Start: 04-29-2024 Hepatitis B screening Urine Albumin:Creatinine Ratio [facility] Start: 04-29-2024 Urine screening for protein Diabetes: Urine Protein Screening [facility] Start: 11-13-2023 End: 11-13-2023 Patient encounter procedure 11/13/2023 11:30 AM EDT Office Visit [facility] [address] [place] [phone] Adilia Ascencio MD [address] [facility], [address] [place] [address] [facility] Start: 11-06-2023 End: 11-06-2023 Patient encounter procedure 11/06/2023 10:00 AM EDT Office Visit [facility] Building [address] [place] [address] Abdirizak Velásquez MD [address], [address] [place], [place] [phone] [facility] Start: 10-18-2023 COVID-19 Vaccine ( season) COVID-19 Vaccine () [facility] Start: 10-18-2023 Covid-19 Vaccine () Covid-19 Vaccine () [facility] Start: 10-18-2023 Influenza vaccination Influenza Vaccine (#1) [facility] Start: 09-24-2023 End: 09-24-2023 Patient encounter procedure 09/24/2023 10:30 AM EDT Office Visit [facility] [address] [place] [address] Ninfa Felipe, [address] [place] [address] [facility] Start: 08-06-2023 End: 08-06-2023 Patient encounter procedure 08/06/2023 2:00 PM EDT Office Visit [facility] [address] [place] [address] Adilia Ascencio MD [address] [facility], [address] [place] [phone] [facility] Start: 07-31-2023 Hemoglobin A1c measurement [facility] Start: 06-07-2023 Hepatitis B surface antibody level LDL Cholesterol [facility] Start: 06-07-2023 Lipid panel Lipid Panel [facility] Start: 06-07-2023 Urine screening for protein Diabetes: Urine Protein Screening [facility] Start: 04-30-2023 End: 04-29-2024 CBC W Auto Differential panel - Blood [facility] Work Phone: Comment on above: Expected: 04/30/2023 (Approximate), Expi res: 04/29/2024 Start: 04-30-2023 End: 04-29-2024 Comprehensive metabolic 2000 panel - Serum or Plasma [facility] Work Phone: Comment on above: Expected: 04/30/2023 (Approximate), Expi res: 04/29/2024 Start: 04-30-2023 End: 04-29-2024 Hemoglobin A1c/Hemoglobin.total in Blood [facility] Work Phone: Comment on above: Expected: 04/30/2023 (Approximate), Expi res: 04/29/2024 Start: 04-30-2023 End: 04-29-2024 Microalbumin/Creatinine [Mass Ratio] in Urine [facility] Service Area Work Phone: Comment on above: Expected: 04/30/2023 (Approximate), Expi res: 04/29/2024 Start: 04-17-2023 End: 05-01-2023 COVID & INFLUENZA A/B & RSV NAAT, ROUTINE [facility] Work Phone: Comment on above: Expected: 04/17/2023, Expires: Start: 12-05-2022 End: 12-05-2022 Patient encounter procedure 12/05/2022 4:00 PM EDT Office Visit [facility] [address] [place] [phone] Adilia Ascencio MD [address] [facility], [address] [place] [phone] [facility] Start: 12-05-2022 [facility] Start: 11-23-2022 [facility] Start: 11-14-2022 Patient discharge [facility] Start: 11-14-2022 Telepractice consultation [facility] Start: 11-14-2022 Application of intermittent pneumatic compression device [facility] Start: 11-14-2022 Following clinical pathway protocol [facility] Start: 11-14-2022 Patient referral to dietitian [facility] Start: 11-13-2022 Assessment of risk of venous thromboembolism [facility] Start: 11-13-2022 Cardiac monitoring [facility] Start: 11-13-2022 Care regimes management [facility] Start: 11-13-2022 Catheterization of vein [facility] Start: 11-13-2022 Continuous pulse oximetry [facility] Start: 11-13-2022 Elevation of head of bed [facility] Start: 11-13-2022 Exercises [facility] Start: 11-13-2022 Implementation of planned interventions [facility] Start: 11-13-2022 Insertion of catheter into peripheral vein [facility] Start: 11-13-2022 Measuring intake and output [facility] Start: 11-13-2022 Notification of physician [facility] Start: 11-13-2022 Oxygen therapy [facility] Start: 11-13-2022 Providing care according to standard [facility] Start: 11-13-2022 Provision of activity privileges [facility] Start: 11-13-2022 Referral to occupational therapist [facility] Start: 11-13-2022 Referral to service [facility] Start: 11-13-2022 Speech therapy assessment [facility] Start: 11-13-2022 Tobacco use cessation education [facility] Start: 11-13-2022 [facility] Start: 11-13-2022 Vital signs measurements [facility] Start: 11-13-2022 Verification routine [facility] Start: 11-13-2022 Admission procedure [facility] Start: 11-13-2022 Oxygen therapy [facility] Start: 11-13-2022 [facility] Start: 10-17-2022 Covid-19 Vaccine () Covid-19 Vaccine () [facility] Start: 10-17-[address] [facility] Start: 09-05-2022 Hemoglobin A1c measurement [facility] Start: 02-10-2022 Creatinine measurement Creatinine monitoring [facility] Start: 02-10-2022 Potassium monitoring Potassium monitoring [facility] Start: 08-21-2021 FUV, Provider: Adilia Ascencio, Status: Pen, Time: 4:00 PM FUV, Provider: Adilia Ascencio, Status: Pen, Time: 4:00 PM [facility] Work Phone: Start: 11-20-2020 COVID-19 Vaccine (2 - Moderna series) COVID-19 Vaccine (2 - Moderna series) [facility] Start: 10-17-2020 Influenza vaccination [facility] Start: 08-07-2018 Annual Wellness Visit (AWV) Annual Wellness Visit (AWV) [facility] Work Phone: Start: 01-09-2018 Creatinine measurement Creatinine monitoring [facility] Work Phone: Start: 01-09-2018 Potassium monitoring Potassium monitoring [facility] Work Phone: Start: 12-31-2017 Diabetic retinal exam Diabetic retinal exam [facility] Start: 12-31-2017 Glaucoma screening Diabetes: Retinopathy Screening [facility] Start: 12-29-2017 Glaucoma screening [facility] Start: 12-29-2017 Ophthalmic examination and evaluation Diabetes: Retinopathy Screening [facility] Start: 06-27-2017 Diabetic microalbuminuria test Diabetic microalbuminuria test [facility] Work Phone: Start: 06-27-2017 Hemoglobin A1c measurement A1C test (Diabetic or Prediabetic) [facility] Start: 06-27-2017 Lipid panel Lipid screen [facility] Start: 06-27-2017 Urine screening for protein Diabetic microalbuminuria test [facility] Start: 12-18-2015 Pneumococcal vaccination Pneumococcal Vaccine (2 of 2 - PCV) [facility] Start: 12-18-2015 Pneumococcal Vaccine: Pediatrics (0 to 5 Years) and At-Risk Patients (6 to 64 Years) (2 - PCV) Pneumococcal Vaccine: Pediatrics (0 to 5 Years) and At-Risk Patients (6 to 64 Years) (2 - PCV) [facility] Start: 11-15-2014 Pneumococcal Vaccine: Pediatrics (0 to 5 Years) and At-Risk Patients (6 to 64 Years) (2 - PCV) Pneumococcal Vaccine: Pediatrics (0 to 5 Years) and At-Risk Patients (6 to 64 Years) (2 - PCV) [facility] Start: 11-15-2014 Pneumococcal Vaccine: Pediatrics (0 to 5 Years) and At-Risk Patients (6 to 64 Years) (2 of 2 - PCV) Pneumococcal Vaccine: Pediatrics (0 to 5 Years) and At-Risk Patients (6 to 64 Years) (2 of 2 - PCV) [facility] Start: 06-26-2003 Hepatitis B Vaccine (1 of 3 - 19+ 3-dose series) Hepatitis B Vaccine (1 of 3 - 19+ 3-dose series) [facility] Start: 06-26-2003 Hepatitis B vaccine (1 of 3 - Risk 3-dose series) Hepatitis B vaccine (1 of 3 - Risk 3-dose series) [facility] Start: 06-26-2003 Hepatitis B Vaccines (1 of 3 - 19+ 3-dose series) Hepatitis B Vaccines (1 of 3 - 19+ 3-dose series) [facility] Start: 2002 Annual PCP Team Chronic Disease Visit Annual PCP Team Chronic Disease Visit [facility] Start: 2002 Anxiety Screening Anxiety Screening [facility] Start: 2002 BP Controlled (<130/80) BP Controlled (<130/80) [facility] in Start: 2002 HIV screening HIV Screening [facility] Start: 2000 COVID-19 Vaccine (1) COVID-19 Vaccine (1) [facility] Work Phone: Start: 1997 Varicella vaccination Varicella Vaccines (1 of 2 - 13+ 2-dose series) [facility] Start: 1994 Diabetic foot examination [facility] Start: 1994 Hepatitis B screening Urine Albumin:Creatinine Ratio [facility] Start: 1989 COVID-19 Vaccine (1) COVID-19 Vaccine (1) [facility] Start: 1985 MMR Vaccines (1 of 1 - Standard series) MMR Vaccines (1 of 1 - Standard series) [facility] Start: 1985 Varicella vaccination Varicella Vaccines (1 of 2 - 2-dose childhood series) [facility] Start: 1985 Varicella vaccine (1 of 2 - 2-dose childhood series) Varicella vaccine (1 of 2 - 2-dose childhood series) [facility] Start: 1984 Hepatitis B Vaccine (1 of 3 - 3-dose series) Hepatitis B Vaccine (1 of 3 - 3-dose series) [facility] Start: 1984 Hepatitis B Vaccines (1 of 3 - 3-dose series) Hepatitis B Vaccines (1 of 3 - 3-dose series) [facility] Start: 1984 Hepatitis C screening Hepatitis C screen [facility] Start: 1984 Medicare Annual Wellness Visit Medicare Annual Wellness Visit (AWV) [facility] Bacteria identified in Unspecified specimen by Anaerobe culture [facility] EKG 12 Lead - Chest Pain EKG 12 Lead - Chest Pain ECG STAT 02/10/2021 7:46 PM EST [facility] Work Phone: Patient Education [facility] Work Phone: Patient referral [facility] Work Phone: Wound microscopy, cu lture and sensitivities [facility] Immunizations Immunization Date Immunization Notes Care Provider Fa cility 12-05-2022 tetanus toxoid, redu crystal diphtheria toxoid, and acellular pertussis vaccine, adsorbed Dr. Milton Tate Work Phone: [facility] 10-23-2020 Moderna COVID-19 Vaccine 100 MCG/0.5ML Intramuscular Suspension Adilia Ascencio Work Phone: [facility] 06-13-2020 tetanus toxoid, redu crystal diphtheria toxoid, and acellular pertussis vaccine, adsorbed Adilia Ascencio Work Phone: [facility] 10-21-2018 influenza, injectabl e, quadrivalent, preservative free Adilia Ascencio Work Phone: [facility] Work Phone: 10-21-2018 influenza, seasonal, injectable Adilia Ascencio MD Work Phone: [facility] Work Phone: 10-21-2018 influenza virus vaccine, unspecified formulation Adilia Ascencio MD Work Phone: [facility] Work Phone: 12-10-2017 influenza, injectabl e, quadrivalent, preservative free Adilia Mathis Sonu Work Phone: [facility] 11-10-2016 influenza, injectabl e, quadrivalent, preservative free Capo Burgess MD Work Phone: [facility] 10-17-2016 influenza virus vaccine, unspecified formulation Adilia Ascencio Work Phone: [facility] Work Phone: Comment on above: Series: 10-17-2016 influenza, seasonal, injectable Adilia Ascencio [facility] Work Phone: 12-27-2014 influenza, seasonal, injectable, preservative free Adilia Ascencio Work Phone: [facility] Work Phone: 12-17-2014 Influenza Vaccine, unspecified formulation Capo Burgess MD Work Phone: [facility] Work Phone: 12-17-2014 influenza, seasonal, injectable Mark Shah APRN.[facility] Work Phone: [facility] 12-17-2014 pneumococcal polysaccharide vaccine, 23 valent Capo Burgess MD Work Phone: [facility] Work Phone: 11-15-2013 influenza, seasonal, injectable, preservative free Adilia Ascencio Work Phone: [facility] Work Phone: 11-15-2013 pneumococcal polysaccharide vaccine, 23 valent Adilia Ascencio Work Phone: [facility] Work Phone: Payers Date Payer Category Payer Self-pay 2024 Unknown [id number] 2024 Medicare (Managed Care) UHC AARP MEDICARE PPO [id number] 2024 Medicare [id number] 2023 Private Health Insurance [facility] [id number] 2023-Present [address] [place] [address] [id number] 2022 Medicaid [id number] 2020 Medicare UHC MEDICARE [facility] MEDICARE [id number] 2020-Present [phone] [address] [place] [address] Medicare [id number] 2016 Medicaid [id number] 2016 Private Health Insurance [id number] 2016 Medicare [id number] 1984 Unknown [id number]. 278 1984 Unknown [id number]. 902 1984 Unknown [id number] [id number]. 356 1984 Unknown [id number]. 356 1984 Unknown [id number]. 1245 1984 Unknown [id number] [id number]. 1245 1984 Unknown [id number] [id number]. 1244 1984 Unknown [id number] [id number]. 1244 Medicare [id number] Unknown Unknown [id number] Unknown [id number]. 462 Unknown [id number]. 462 Unknown [id number] [id number]. 462 Unknown [id number]. 462 Unknown [id number] 462 Social History Date Type Detail Facility Start: 01-09-2017 End: 08-31-2024 Tobacco smoking status AZIS Current every day smoker [facility] History of tobacco use Cigarette Smoker [facility] Start: 01-09-2017 End: 09-03-2021 Cigarettes smoked current (pack per day) - Reported [facility] Comment on above: 3-4 cans yearly; Special occasions; 3-4 cigarrettes olivia y; Start: 01-09-2017 End: 05-26-2024 Tobacco use and exposure Never used [facility] Start: 01-09-2017 End: 05-26-2024 Alcohol intake Current drinker of alcohol (finding) [facility] Work Phone: Start: 1985 Sex Assigned At Not on file [facility] Work Phone: Start: 05-27-2022 End: 09-24-2023 Exposure to SARS-CoV-2 (event) Not sure [facility] Exposure to SARS-CoV -2 (event) Yes [facility] Work Phone: Start: 09-03-2021 End: 06-06-2022 Tobacco use panel [facility] Start: 06-06-2022 Alcohol Comment socially [facility] Work Phone: Start: 10-15-2022 End: 12-05-2022 Tobacco smoking status NHIS Unknown if ever smoked [facility] Start: 1985 Sex Assigned At Male W [facility] Start: 11-14-2022 Cigarettes [facility] PHQ2 Score 0 [facility] Start: 09-02-2021 Alcohol Comment occ [facility] Start: 08-09-2024 Tobacco smoking stat us NHIS Current Light tobacco smoker [facility] NEGATED: Highlighted row - - [facility] Work Phone: Comment on above: 6-8 cigarettes per d ay; Medical Equipment Procedure Code Equipment Code Equipment Origin al Text Equipment Identifier Dates Start: 04-17-2014 OneTouch Delica Lancets 33G USE TO CHECK BLOOD SUGAR 1 - 2 TIMES A DAY Quantity: 200 Refills: 3 Adilia Ascencio MD Start : 18-Nov-2017 Active Start: 11-18-2017 OneTouch Ultra B lue In Vitro Strip USE TO TEST 1-2 times per day Quantity: 200 Refills: 3 Adilia Ascencio MD Start : 11-Apr-2014 Active Start: 04-11-2014 BD Pen Needle Mi ni U/F 31G X 5 MM Quantity: 100 Refills: 0 Start : 17-Apr-2014 Active Start: 04-17-2014 OneTouch Delica Lancets 33G USE TO CHECK BLOOD SUGAR 1 - 2 TIMES A DAY Quantity: 200 Refills: 3 Adilia Ascencio MD Start : 18-Nov-2017 Active Start: 11-18-2017 OneTouch Ultra B lue In Vitro Strip USE TO TEST 1-2 times per day Quantity: 200 Refills: 3 Adilia Ascencio MD Start : 11-Apr-2014 Active Start: 04-11-2014 BD Pen Needle Mi ni U/F 31G X 5 MM Quantity: 100 Refills: 0 Start : 17-Apr-2014 Active Start: 04-17-2014 OneTouch Delica Lancets 33G USE TO CHECK BLOOD SUGAR 1 - 2 TIMES A DAY Quantity: 200 Refills: 3 Adilia Ascencio MD Start : 18-Nov-2017 Active Start: 11-18-2017 OneTouch Ultra B lue In Vitro Strip USE TO TEST 1-2 times per day Quantity: 200 Refills: 3 Adilia Ascencio MD Start : 11-Apr-2014 Active Start: 04-11-2014 BD Pen Needle Mi ni U/F 31G X 5 MM Quantity: 100 Refills: 0 Start : 17-Apr-2014 Active Start: 04-17-2014 OneTouch Delica Lancets 33G USE TO CHECK BLOOD SUGAR 1 - 2 TIMES A DAY Quantity: 200 Refills: 3 Adilia Ascencio MD Start : 18-Nov-2017 Active Start: 11-18-2017 [id number] Start: 08-06-2014 1 each by Other route 3 times daily [id number] Start: 12-19-2016 Test once a day. Type II DM, 250.00 [id number] Start: 12-19-2016 USE TO TEST 1-2 times per day [id number] Start: 06-06-2022 End: 04-30-2023 Use to check blo od sugar 1-2 times a day [id number] End: 04-30-2023 31G X 5 MM [id number] End: 04-30-2023 USE TO TEST 1-2 times per day [id number] Start: 04-11-2014 End: 06-06-2022 USE TO TEST 1-2 times per day [id number] Start: 04-30-2023 Use to check blo od sugar 1-2 times a day [id number] Start: 04-30-2023 Goals Date Patient Goal Desired Activity /State Functional Status Date Assessment Result Facility 11-14-2022 Functional status Chair [facility] Work Phone: 06-20-2021 Are you deaf, or do you have serious difficulty hearing No 06/20/2021 12:56 PM Kasia Contreras RN [facility] 06-20-2021 Are you blind, or do you have serious difficulty seeing, even when wearing glasses No 06/20/2021 12:56 PM Kasia Contreras, SHAWNA No [facility] 06-20-2021 Do you have serious difficulty walking or climbing stairs No 06/20/2021 12:56 PM Kasia Contreras, SHAWNA No [facility] 06-20-2021 Do you have difficul ty dressing or bathing No 06/20/2021 12:56 PM Kasia Contreras, SHAWNA No [facility] 06-20-2021 Because of a physica l, mental, or emotional condition, do you have difficulty doing errands alone such as visiting a physician's office or shopping No 06/20/2021 12:56 PM Kasia Contreras, SHAWNA No [facility] NEGATED: Highlighted row Functional performance Functional status health issues are not documented Disease [facility] Work Phone: Mental Status Date Assessment Result Facility 11-14-2022 Cognitive function Voice/Name [facility] Work Phone: 11-13-2022 Cognitive function Voice/Name [facility] Work Phone: 06-20-2021 Because of a physical, mental, or emotional condition, do you have serious difficulty concentrating, remembering, or making decisions No 06/20/2021 12:56 PM Kasia Contreras RN No [facility] NEGATED: Highlighted row Cognitive function [Interpretation] Cognitive status health issues are not documented Disease [facility] Work Phone: Clinical Notes 02-10-2021 to 08-31-2024 Note Date & Type Note Facility 08-31-2024 Evaluation note Diagnosis Onset Date Resolution DVT (deep venous thrombosis) acute August 31, 2024 7:59am Other specified peripheral vascular diseases acute August 31, 2024 7:59am 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 There is drainage. States that a year and a half ago had a skin tag for which he bumped it sheared off. He did have intermittent swelling and drainage that would resolve. He went to express care 1 time was told to monitor. We discussed if he is discussed this with his primary care doctor he cannot recall the discussion. She no other states when things brought up he has always been told to monitor it. No formal evaluation of it. Denies fever or chills. States yesterday withBand-Aids there is exudative drainage. Prior similar symptoms: Yes PFSH PFS Medical History Laceration of lower lip with complication Smoker On apixaban therapy DM type 2, goal HbA1c < 7.5% Open wound of left hand due to dog bite Open wound of lip due to dog bite Open wound of nose due to dog bite Dog bite Tibial anomaly Avulsion of lip Essential hypertension ED (erectile dysfunction) Depression Atypical chest pain Deep vein thrombosis (DVT) of popliteal vein of right lower extremity GERD (gastroesophageal reflux disease) Lupus anticoagulant positive CVA (cerebral vascular accident) Morbid obesity due to excess calories Tobacco abuse Elevated blood pressure reading DM type 2 (diabetes mellitus, type 2) Thrombocytopenia Home Medications ?Medication ?Instructions ?Recorded ?Last Taken ?Type metformin 1,000 mg tablet 1,000 mg PO BID diabetes Unknown History apixaban 5 mg tablet (Eliquis) 5 mg PO BID CLOT IN RT LEG 11/14/22 11/13/22 09:16 History 5 mg aspirin 81 mg chewable tablet 81 mg PO DAILY@0800 #0 t abs 11/14/22 Unknown Rx atorvastatin 80 mg tablet 80 mg PO QHS #30 tabs Unknown Rx cetirizine 10 mg tablet 10 mg PO BID ALLERGY 3 11/13/22 09:17 History 10 mg epinephrine 0.3 mg/0.3 mL 0.3 mg subcut PRN allergies 11/14/22 Unknown History injection, auto-injector clotrimazole 1 % topical cream 1 applic topical BID #1 5 grams 11/23/22 Unknown Rx omeprazole 20 mg capsule,delayed 20 mg PO BID PRN ACID REFLUX 11/25/22 Unknown History release sulfamethoxazole 800 1 tab PO BID #14 TABLETS Unknown Rx mg-trimethoprim 160 mg tablet mupirocin 2 % topical ointment 1 applic topical DAILY #22 grams 12/16/22 Unknown Rx doxycycline monohydrate 100 mg 100 mg PO BID #14 CAPSU LES 08/09/24 Unknown Rx capsule Allergy/AdvReac Type Severity Reaction Status Date / Time bee venom protein (honey bee) Allergy Severe Anaphylaxis Verified 08/09/24 07:35 Penicillins Allergy Severe Anaphylaxis Verified 08/09/24 07:35 pineapple Allergy Severe Anaphylaxis Verified 08/09/24 07:35 bee pollen Allergy Intermediate Swelling Verified 08/09/24 07:35 celecoxib AdvReac Intermediate Hives Verified 08/09/24 07:35 Family History Mother Diabetes Hypertension Heart disease DVT (deep venous thrombosis) Father Diabetes Hypertension Other Aneurysm of artery of head and neck region Surgical History History of surgery on lower extremity Social History Smoking Status: Light Smoker (<10/day) alcohol intake: current alcohol intake frequency: a few times a month substance use type: does not use ROS ROS ED Constitutional Constitutional ED: Denies fever(s) Cardiovascular Cardiovascular: Denies chest pain Respiratory/Chest Respiratory/Chest: Denies cough Gastrointestinal Gastrointestinal: Denies diarrhea or vomiting Musculoskeletal Musculoskeletal: Denies none Integumentary Reports wounds; Denies rash Neurologic Neurologic: Denies weakness EXAM Physical Exam Const Vital Signs: 08/09/24 07:33 Temperature 98.1 F Temperature Source Oral Pulse Rate 78 Respiratory Rate 16 Blood Pressure 153/92 H Blood Pressure Mean 112 Pulse Ox 100 Oxygen Delivery Method Room Air Positive well nourished and well developed General Appearance ED: well developed HEENT normocephalic and atraumatic Eyes General Eye ED: Yes normal appearance of both eyes Neck full ROM Resp normal respiratory effort and normal air movement Cardio regular rate and regular rhythm GI soft to palpation Extremity full ROM Extremity Narrative: Right lower leg: Ankle medial aspect proximal to the malleolus there is an open wound slight drainage. Dark pigmentation of skin no clear evaluation of erythema. No tenderness proximally on the skin.No crepitus. Neuro oriented x3 Skin no rashes or lesions noted and no wounds MDM MDM MDM Narrative Medical decision making narrative: Interventions / MDM: Differential diagnosis: Recurrent wound infection right leg. History of diabetes, chronic anticoagulation Diagnosis considered but do not suspect: N/A My EKG interpretation: N/A Imaging independently reviewed and interpreted by myself: Three-view x-ray rightankle: Soft tissue swelling no soft tissue air. External documents reviewed: N/A Test considered but not ordered:N/A ED course: Diabetic increasing drainage. Recurrent. I will check basic labs x- ray will obtain woundculture. 0910: White count normal at 5.7. Creatinine stable at 1.39 from previous labs. Wound culture sent pending. Patient started on doxycycline twice a day. He is given follow-up with podiatry for recurrent wound infection near his ankle. He use Tylenol as needed. Re-evaluation: stable Disposition discussed with patient/family/significant other: Patient and significant other Case discussed with consulting clinician: N/A This note was generated with [employer] dictation software. It may contain incorrectwords, spelling, and punctuation that were not noted in checking the note beforesigning. Lab Data Attestation: I reviewed the patient's lab results. Labs: Laboratory Results - last 24 hr 08/09/24 08/09/24 08:00 08:06 WBC 5.7 RBC 4.40 L Hgb 13.3 Hct 40.0 MCV 90.9 MCH 30.2 MCHC 33.3 RDW Std Deviation 46.9 H RDW Coeff of Carmenza 13.9 Plt Count 89 L MPV 9.8 Immature Gran % (Auto) 0.500 Neut % (Auto) 61.4 Lymph % (Auto) 25.3 [place] % (Auto) 9.1 Eos % (Auto) 3.0 Baso % (Auto) 0.7 Absolute Neuts (auto) 3.5 Absolute Lymphs (auto) 1.44 Nucleated RBC % 0 Sodium 136 Potassium 5.0 Chloride 106 Carbon Dioxide 19.4 L Anion Gap 11 BUN 20 H Creatinine 1.39 H Estim Creat Clear Calc 101.66 Est GFR (MDRD) Non-Af 66 BUN/Creatinine Ratio 14.3 Glucose 224 H Calcium 8.6 Radiography Diagnostic Testing: Clinical Impression(s) from Imaging Studies Ankle X-Ray 08/09/24 07:55 IMPRESSION: Soft tissue swelling. No bony abnormality is seen. Reading Location: [id number] Discharge Plan Triage Chief Complaint: Lower Extremity Injury ED Provider: Usama Pool Dx/Rx/DC Orders Clinical Impression: Wound infection, History of diabetes mellitus, Chronic anticoagulation Instructions: ED Wound Check (Infection) Prescriptions: New doxycycline monohydrate 100 mg capsule 100 mg PO BID Qty: 14 0RF No Action mupirocin 2 % ointment 1 applic topical DAILY Qty: 22 3RF clotrimazole 1 % cream 1 applic topical BID Qty: 15 0RF Rx Instructions: applied topically until symptoms resolve metformin 1,000 mg tablet 1,000 mg PO BID cetirizine 10 mg tablet 10 mg PO BID epinephrine 0.3 mg/0.3 mL auto-injector 0.3 mg subcut PRN Eliquis 5 mg tablet 5 mg PO BID atorvastatin 80 mg Tablet 80 mg PO QHS Qty: 30 0RF aspirin 81 mg Tablet,Chewable 81 mg PO DAILY@0800 Qty: 0 0RF omeprazole 20 mg capsule,delayed release(DR/EC) 20 mg PO BID PRN (Reason: ACID REFLUX) sulfamethoxazole-trimethoprim [sulfamethoxazole-trimethoprim] 800-160 mg tablet 1 tab PO BID Qty: 14 0RF Referrals: Malachi Piña DPM [[facility] Staff - Active Staff] - 1 Week Care Physician,No Primary [Non-Staff] - Activity Restrictions/Additional Instructions: Recurrent wound infections to your right lower leg. White count normal wound culture sent and pending. Take antibiotic as prescribed. Daily wound care. Follow-up with podiatry. Print Language: [place] Disposition Disposition: Home, Self Care What to do if you have Problems For any increased pain, shortness of breath, bleeding, nausea or vomiting, chestpain, or any unexpected problems, contact your Primary Care Provider. Call [facility] ([phone]) or report tothe closest Emergency Room. Call 911 if necessary. 08/09/24917 Cosigner Signature (if applicable): CC: ~ Signed [facility]06-24-2025 Radiology Diagnostic study note [facility] Imaging Services [address] [place] [address] Ankle 2 Views MR#: [id number] Acct: [id number] Name: MITALI RAMOS Rep #: [id number] : 1985 M 39 From: Richard Gan MD PCP: Status: REG ER Study:Ankle 2 Views Date of Exam: Exam# [id number] Ordering Dr: Usama Pool DO PROCEDURE: ANKLE 2 VIEWS 08/09/2024 REASON FOR EXAM: INFECTION TECHNIQUE: ANKLE 2 VIEWS COMPARISON: None FINDINGS: Bones: No fracture or bony lesion. Joints: Normal alignment. Mortise appears intact. No effusion. Soft tissues: Soft tissue swelling. Other: RAD/Ankle 2 Views IMPRESSION: Soft tissue swelling. No bony abnormality is seen. Reading Location: [facility] CC: Dr. Usama Pool DO ~ Professor Of Biblical Studies: Signed [facility]04-10-2025 NoteHNO ID: [id number] Author: CHARLES MARTINEZ APRN.MAINFRAME DEVELOPER Service: ? Author Type: Nurse Practitioner Type: Progress Notes Filed: 05/26/2024 10:07 Note Text: [facility] Subjective Mitali Ramos is a 38 year old male. Patient presents with: Cough: Chest congestion x1 week Cough Associated symptoms include wheezing. Pertinent negatives include no chest pain, no chills and no shortness of breath. patient is a 38-year-old male with a chronic history of DM II, DVTs, and smoking who presents with sinus cough and congestion times a week. He denies any fever body aches no chest pain or shortness of breath. He is taking sinus cough and congestion over the counter, with little relief. Review of Systems Constitutional: Negative for chills, fatigue and fever. HENT: Positive for sinus pressure and sinus pain. Respiratory: Positive for cough and wheezing. Negative for chest tightness and shortness of breath. Cardiovascular: Negative for chest pain. Gastrointestinal: Negative for abdominal pain, nausea and vomiting. Objective BP 142/91 Pulse 79 Temp 36.7 ?C (98.1 ?F) Resp 20 Wt (!) 140.5 kg (309 lb 11.9 oz) SpO2 100% BMI 42.01 kg/m? PAST MEDICAL HISTORY Diagnosis Date Diabetes mellitus (HCC) DVT (deep venous thrombosis) (HCC) GERD (gastroesophageal reflux disease) Hypertension PAST SURGICAL HISTORY Procedure Laterality Date HIP SURGERY HX pins in femers bilaterally KNEE SURGERY HX 2014 ALLERGIES Amoxicillin, Bee Pollen, Penicillins, and Pineapple MEDICATIONS ELIQUIS 5 mg tab(s) once daily. metFORMIN (GLUCOPHAGE) 500 mg tablet Take 2 tablets by mouth twice daily with meals. EPINEPHrine (EPIPEN 2-DIANNE) 0.3 mg/0.3 mL auto-injector Inject 0.3 mL intramuscularly as needed (for allergic reaction.Seek emergent medical care immediately after use.Disp:one 2-pack w/net trainer). omeprazole (PRILOSEC) 20 mg capsule Take 20 mg by mouth once daily. cetirizine (ZYRTEC) 10 mg tablet Take 1 tablet by mouth every morning. doxycycline (VIBRA-TABS) 100 mg tablet Take 1 tablet by mouth two times a day for 5 days. albuterol HFA (PROVENTIL HFA, VENTOLIN HFA) 90 mcg/actuation inhaler Inhale 2 puffs as instructed every 4 hours as needed for wheezing/shortness of breath. Inhalational Spacing Device 1 device one time only for 1 dose. Blue PerchTONanoledge ULTRA TEST test strip FAMILY HISTORY Problem Relation Age of Onset Diabetes Mother Ischemic Heart Disease Mother Previous stent Hypertension Father Diabetes Father Diabetes Sister Heart Sister Heart Failure Sister Social History Tobacco Use Smoking status: Every Day Current packs/day: 0.50 Types: Cigarettes Smokeless tobacco: Never Substance Use Topics Alcohol use: Yes Comment: occ Drug use: Yes Frequency: 7.0 times per week Types: Marijuana Comment: DAILY Physical Exam Constitutional: Appearance: Normal appearance. HENT: Head: Normocephalic and atraumatic. Right Ear: A middle ear effusion is present. Left Ear: A middle ear effusion is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 pain with warmth. Neurologic: No headaches. No dizziness. No lightheadedness. Skin: No rash. No change in color. Psychiatric: No depression. No anxiety. EXAM Physical Exam Narrative Exam Narrative: Afebrile. Vital signs noted. HEENT: Normocephalic. Atraumatic. PERRL, EOMI. Neck soft and supple. No pointtenderness or step off. Cardiovascular: Regular rate and rhythm. No murmurs, rubs, or gallops appreciated. Respiratory: No tachypnea. Lungs clear to auscultation bilaterally. Gastrointestinal: Abdomen soft, nontender, with normoactive bowel sounds. No rebound or guarding. Neurological: Awake. Alert. Nonfocal, nonlateralizing. Skin: No rash. Normal color. No pallor. Musculoskeletal: No pedal edema. Limited range of motion left knee secondary topain. Able to slowly lift leg off bed. No overt erythema. Positive scarring anterior tibial area. No fluctuance. Palpable dorsalis pedis pulse. Const Vital Signs: 10/15/22 13:28 Temperature 97.2 F L Temperature Source Temporal Pulse Rate 85 Respiratory Rate 16 Blood Pressure 155/105 H Blood Pressure Mean 121 Pulse Ox 100 Oxygen Delivery Method Room Air MDM MDM MDM Narrative Medical decision making narrative: Concern would be for cutaneous abscess. I have low suspicion for septic arthritis of his left knee as that area is not as warm, and he is afebrile here,there is no overt erythema of the joint. Comprehensive work-up was pursued. Hewas administered morphine and ondansetron and a bolus of normal saline provided for analgesia. I will check a CBC, CMP, and lactic acid along with an ESR and CRP. CT imaging will be obtained of the left knee and left anterior tibial areato look for effusion and/or abscess. I reviewed the patient's laboratory work, he has a normal white count of 5.9, hemoglobin 13.9, hematocrit 43.9, platelet count low at 86. There is no prior with which to compare. Review of his electrolyte panel shows sodium normal at 140 with potassium normal at 4.2, chloride slightly elevated at 111, anion gap low at 4 with a BUN of 21 and creatinine of 1.10. He was bolused normal saline 1 L intravenously. AST and ALT are normal. C-reactive protein is slightly elevated at 23.8 with a ESR of 51. However, based on review of the radiology report of the CT of the lower extremity, he does have cellulitis of the anteriortibial area. He has significant joint space narrowing and arthritis of the leftknee especially in the medial area. Once again, I have low concern for septic arthritis. The CT did reveal induration of the subcutaneous fat anterior and medial to the proximal tibia consistent with cellulitis. I do feel that is where his ESR and CRP are slightly elevated from. I do not feel that arthrocentesis is indicated. He has a normal lactic acid as well. I feel he betreated with outpatient antibiotics for his cellulitis. He was given his first doses of doxycycline and Bactrim DS here as he has a penicillin allergy of anaphylaxis. He was referred to Dr. Christianson on-call for orthopedics. He was also given a prescription for 10 Lynch tablets for analgesia. He was placed in an Wiley wrap and given crutches for his knee effusion. I feel he be discharged safely home with follow-up, I do not feel that he requires observation at this time. Patient and are agreeable to the plan. Return instructions reviewed. Disposition is discharged home in stable condition. History & Record Review Discussion w/independent historian: Patient and Family Additional record(s) reviewed:: No prior records Lab Data Attestation: I reviewed the patient's lab results. Labs: Laboratory Results - last 24 hr 10/15/22 14:40 WBC 5.9 RBC 4.83 Hgb 13.9 Hct 43.9 MCV 90.9 MCH 28.8 MCHC 31.7 L RDW Std Deviation 46.9 H RDW Coeff of Carmenza 13.9 Plt Count 86 L MPV 10.1 Immature Gran % (Auto) 0.200 Neut % (Auto) 66.9 Lymph % (Auto) 21.7 [place] % (Auto) 8.5 Eos % (Auto) 2.0 Baso % (Auto) 0.7 Absolute Neuts (auto) 4.0 Absolute Lymphs (auto) 1.28 Nucleated RBC % 0 Differential Comment SCANNED ESR 51 H Sodium 140 Potassium 4.2 Chloride 111 H Carbon Dioxide 25.0 Anion Gap 4 L BUN 21 H Creatinine 1.10 Estim Creat Clear Calc 99.94 Est GFR (MDRD) Af Amer 96 Est GFR (MDRD) Non-Af 80 BUN/Creatinine Ratio 19.1 Glucose 97 Lactic Acid 1.1 Calcium 8.7 Total Bilirubin 0.40 AST 29 ALT 51 Alkaline Phosphatase 96 C-React Prot Ext Range 23.80 H Total Protein 7.9 Albumin 3.3 Globulin 4.6 H Albumin/Globulin Ratio 0.7 L Radiography Diagnostic Testing: Clinical Impression(s) from Imaging Studies Lower Extremity CT 10/15/22 14:24 IMPRESSION: Significant degenerative arthritic changes in the knee joint with moderate narrowing of the medial knee joint compartment, mild narrowing of the lateral posterior patellofemoral joint space. Associated joint effusion Degenerative spurs and subchondral sclerotic changes and lucencies in the distal femur and tibia, the sclerotic change on the articular surface of the distal medial femur suggests osteochondritis dissecans. Lucency in the proximal tibia likely from previous hardware there is a threaded screw in the posterior femur but it is incomplete. Induration of the subcutaneous fat anterior and medial to the proximal tibia suggesting a diffuse cellulitis there is associated skin thickening. Electronically Signed: Larry Paris MD at 15:25 EDT Reading Location ID and State: [address] [place] [address] , Service support , Discharge Plan Triage Chief Complaint: Lower Extremity Injury ED Provider: Dakota Goetz Dx/Rx/DC Orders Clinical Impression: Knee effusion, left, Cellulitis, Arthritis of knee, left Instructions: ED Cellulitis, ED Knee Effusion, ED Osteoarthritis Prescriptions: New sulfamethoxazole-trimethoprim [Bactrim DS] 800-160 mg tablet 1 tab PO BID Qty: 20 0RF doxycycline hyclate 100 mg tablet 100 mg PO BID 10 Days Qty: 20 0RF hydrocodone-acetaminophen 5-325 mg tablet 1 tab PO Q6H PRN PRN (Reason: Pain) 3 Days Qty: 10 0RF Primary Care Provider: Adilia Ascencio MD Referrals: Adilia Ascencio MD [Other] Thom Christianson DO [Med Staff - Active Staff] - 3-5 Days Disposition Disposition: Home, Self Care What to do if you have Problems For any increased pain, shortness of breath, bleeding, nausea or vomiting, chestpain, or any unexpected problems, contact your Primary Care Provider. Call [employer] [facility] ([phone]) or report to the closest Emergency Room. Call 911 if necessary. 10/15/22 1512 <Electronically signed by Dakota Goetz MD> Cosigner Signature (if applicable): CC: Adilia Ascencio MD ~ Signed [facility] Work Phone: 1(258) 584-543404-21-2023 Evaluation + Plan note* Assessment & Plan Note - Adilia Ascencio MD - 06/06/2022 1:52 PM EDTAssociated Problem(s): Thrombocytopenia (CMS/HCC) No bleeding episodes. Was seeing heme every 6 mo. New referral entered. [facility] Work Phone: 1(701) 768-342004-21-2023 Evaluation + Plan note* Assessment & Plan Note - Adilia Ascencio MD - 06/06/2022 1:52 PM EDTAssociated Problem(s): Lupus anticoagulant positive Referral done. [facility] Work Phone: [phone]) 533-758004-21-2023 Evaluation + Plan note* Assessment & Plan Note - Adilia Ascencio MD - 06/06/2022 1:52 PM EDTAssociated Problem(s): Diabetes mellitus, type 2 (CMS/HCC) /Continue current regimen. Pt hoping to lose another [address] [facility] Work Phone: 1([phone]) 666-969304-21-2023 Miscellaneous Notes* Assessment & Plan Note - Adilia Ascencio MD - 06/06/2022 1:52 PM EDTAssociated Problem(s): Thrombocytopenia (CMS/HCC) No bleeding episodes. Was seeing heme every 6 mo. New referral entered. * Assessment & Plan Note - Adilia Ascencio MD - 06/06/2022 1:52 PM EDTAssociated Problem(s): Lupus anticoagulant positive Referral done. * Assessment & Plan Note - Adilia Ascencio MD - 06/06/2022 1:52 PM EDTAssociated Problem(s): Diabetes mellitus, type 2 (CMS/HCC) /Continue current regimen. Pt hoping to lose another 50 lbs * Assessment & Plan Note - Adilia Ascencio MD - 06/06/2022 1:51 PM EDTAssociated Problem(s): Chronic deep vein thrombosis (DVT) of popliteal vein of right lower extremity (CMS/HCC) Continue current regimen. [facility] Work Phone: [phone]) [phone] Evaluation + Plan note* Assessment & Plan Note - Adilia Ascencio MD - 06/06/2022 1:51 PM EDTAssociated Problem(s): Chronic deep vein thrombosis (DVT) of popliteal vein of right lower extremity (CMS/HCC) Continue current regimen. [facility] Work Phone: [phone]) [phone] History of Present illness Narrative* Adilia Ascencio MD - 06/06/2022 1:00 PM EDT Subjective Patient ID: Mitali Ramos is a 36 y.o. male who presents for Med Refill (Has been taking 2 omeprazole. ) and Paperwork (Needs paperwork for work about diagnosis. ). Follow Up Visit, past visit note reviewed. Well in interval. No specific c/o. No excess bruising, bleeding. Gets recurrent dry skin(stasis derm) bilateral, despite wearing compression . Hsa area wants me to check . Doesn'nt seem to heal. Covering it made it worse. Review of Systems No hypoglycemia. Pain , legs / ankle , manageable. Lost to followup w Hem/onc , difficulty getting scheduled , was told he had to see me for a new referral , to return to the same department , since his Hem/ onc doctor retired. (?) He hasa lost some wt, wants to lose more, and working on it. Objective BP 116/73 (BP Location: Right arm, Patient Position: Sitting, BP Cuff Size: Large adult) Pulse 88 Temp 37 C (98.6 F) (Temporal) Ht 1.829 m (6') Wt 143 kg (314 lb 14.4 oz) SpO2 97% BMI 42.71 kg/m Physical Exam Skin: Comments: Right lower leg, just above medial ankle , dry skin lesion, small grouping of scabs and dry skin Assessment/Plan Problem List Items Addressed This Visit Medium Chronic deep vein thrombosis (DVT) of popliteal vein of right lower extremity (CMS/HCC) Continue current regimen. Relevant Orders CBC and Auto Differential Comprehensive Metabolic Panel Diabetes mellitus, type 2 (CMS/HCC) - Primary /Continue current regimen. Pt hoping to lose another 50 lbs Relevant Medications blood sugar diagnostic (OneTouch Ultra Test) strip Other Relevant Orders Lipid Panel Hemoglobin A1C Albumin , Urine Random Follow Up In [facility] - PCP Lupus anticoagulant positive Referral done. Relevant Orders Referral to Hematology Thrombocytopenia (CMS/HCC) No bleeding episodes. Was seeing heme every 6 mo. New referral entered. Relevant Orders Referral to Hematology CBC and Auto Differential Comprehensive Metabolic Panel TSH with reflex to Free T4 if abnormal Other Visit Diagnoses Gastroesophageal reflux disease without esophagitis Relevant Medications omeprazole (PriLOSEC) [address] capsule Bee sting allergy Relevant Medications EPINEPHrine 0.3 mg/0.3 mL injection syringe Sonny Ascencio MD [facility] Work Phone: [phone] History of Past illness Narrative* Problem Noted Date Diagnosed Date Resolved Date Atypical chest pain 06/19/2021 06/21/19 documented as of this encounter (statuses as of 04/17/2023) [facility] History of Past illness Narrative* Problem Noted Date Diagnosed Date Resolved Date Atypical chest pain 06/19/2021 06/21/19 22 documented as of this encounter (statuses as of 04/18/2023) [facility] Hospital Discharge instructions* Instructions* Jim Macias MD - 02/10/2021 Use ibuprofen, 400 mg, every 6 hours as needed for pain relief. * Attachments The following attachments cannot be sent through Care Everywhere. * URI (Upper Respiratory Infection): Viral ([place] Korean) * Chest Pain ([place]) * Bronchitis ([place]) documented in this encounterSUMMA Work Phone: Discharge summary Author Usama Pool [facility] Note Date/Time August 09, 2024 9:18 am [facility] Medical Records Department [address] [place] [address] Emergency Department Summary 08/09/24 MR#: [id number] Acct: [id number] Name: MITALI RAMOS Rep #:[id number] : 1985 39 From: Usama [place] PCP: Status:REG ER Location: ED HPI History of Present Illness Chief Complaint: Lower Extremity Injury Informant: patient and spouse/S.O. 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 There is drainage. States that a year and a half ago had a skin tag for which he bumped it sheared off. He did have intermittent swelling and drainage that would resolve. He went to express care 1 time was told to monitor. We discussed if he is discussed this with his primary care doctor he cannot recall the discussion. She no other states when things brought up he has always been told to monitor it. No formal evaluation of it. Denies fever or chills. States yesterday withBand-Aids there is exudative drainage. Prior similar symptoms: Yes PFSH PFS Medical History Laceration of lower lip with complication Smoker On apixaban therapy DM type 2, goal HbA1c < 7.5% Open wound of left hand due to dog bite Open wound of lip due to dog bite Open wound of nose due to dog bite Dog bite Tibial anomaly Avulsion of lip Essential hypertension ED (erectile dysfunction) Depression Atypical chest pain Deep vein thrombosis (DVT) of popliteal vein of right lower extremity GERD (gastroesophageal reflux disease) Lupus anticoagulant positive CVA (cerebral vascular accident) Morbid obesity due to excess calories Tobacco abuse Elevated blood pressure reading DM type 2 (diabetes mellitus, type 2) Thrombocytopenia Home Medications ?Medication ?Instructions ?Recorded ?Last Taken ?Type metformin 1,000 mg tablet 1,000 mg PO BID diabetes Unknown History apixaban 5 mg tablet (Eliquis) 5 mg PO BID CLOT IN RT LEG 11/14/22 11/13/22 09:16 History 5 mg aspirin 81 mg chewable tablet 81 mg PO DAILY@0800 #0 t abs 11/14/22 Unknown Rx atorvastatin 80 mg tablet 80 mg PO QHS #30 tabs Unknown Rx cetirizine 10 mg tablet 10 mg PO BID ALLERGY 3 11/13/22 09:17 History 10 mg epinephrine 0.3 mg/0.3 mL 0.3 mg subcut PRN allergies 11/14/22 Unknown History injection, auto-injector clotrimazole 1 % topical cream 1 applic topical BID #1 5 grams 11/23/22 Unknown Rx omeprazole 20 mg capsule,delayed 20 mg PO BID PRN ACID REFLUX 11/25/22 Unknown History release sulfamethoxazole 800 1 tab PO BID #14 TABLETS Unknown Rx mg-trimethoprim 160 mg tablet mupirocin 2 % topical ointment 1 applic topical DAILY #22 grams 12/16/22 Unknown Rx doxycycline monohydrate 100 mg 100 mg PO BID #14 CAPSU LES 08/09/24 Unknown Rx capsule Allergy/AdvReac Type Severity Reaction Status Date / Time bee venom protein (honey bee) Allergy Severe Anaphylaxis Verified 08/09/24 07:35 Penicillins Allergy Severe Anaphylaxis Verified 08/09/24 07:35 pineapple Allergy Severe Anaphylaxis Verified 08/09/24 07:35 bee pollen Allergy Intermediate Swelling Verified 08/09/24 07:35 celecoxib AdvReac Intermediate Hives Verified 08/09/24 07:35 Family History Mother Diabetes Hypertension Heart disease DVT (deep venous thrombosis) Father Diabetes Hypertension Other Aneurysm of artery of head and neck region Surgical History History of surgery on lower extremity Social History Smoking Status: Light Smoker (<10/day) alcohol intake: current alcohol intake frequency: a few times a month substance use type: does not use ROS ROS ED Constitutional Constitutional ED: Denies fever(s) Cardiovascular Cardiovascular: Denies chest pain Respiratory/Chest Respiratory/Chest: Denies cough Gastrointestinal Gastrointestinal: Denies diarrhea or vomiting Musculoskeletal Musculoskeletal: Denies none Integumentary Reports wounds; Denies rash Neurologic Neurologic: Denies weakness EXAM Physical Exam Const Vital Signs: 08/09/24 07:33 Temperature 98.1 F Temperature Source Oral Pulse Rate 78 Respiratory Rate 16 Blood Pressure 153/92 H Blood Pressure Mean 112 Pulse Ox 100 Oxygen Delivery Method Room Air Positive well nourished and well developed General Appearance ED: well developed HEENT normocephalic and atraumatic Eyes General Eye ED: Yes normal appearance of both eyes Neck full ROM Resp normal respiratory effort and normal air movement Cardio regular rate and regular rhythm GI soft to palpation Extremity full ROM Extremity Narrative: Right lower leg: Ankle medial aspect proximal to the malleolus there is an open wound slight drainage. Dark pigmentation of skin no clear evaluation of erythema. No tenderness proximally on the skin. No crepitus. Neuro oriented x3 Skin no rashes or lesions noted and no wounds MDM MDM MDM Narrative Medical decision making narrative: Interventions / MDM: Differential diagnosis: Recurrent wound infection right leg. History of diabetes, chronic anticoagulation Diagnosis considered but do not suspect: N/A My EKG interpretation: N/A Imaging independently reviewed and interpreted by myself: Three-view x-ray rightankle: Soft tissue swelling no soft tissue air. External documents reviewed: N/A Test considered but not ordered:N/A ED course: Diabetic increasing drainage. Recurrent. I will check basic labs x- ray will obtain wound culture. 0910: White count normal at 5.7. Creatinine stable at 1.39 from previous labs. Wound culture sent pending. Patient started on doxycycline twice a day. He is given follow-up with podiatry for recurrent wound infection near his ankle. He use Tylenol as needed. Re-evaluation: stable Disposition discussed with patient/family/significant other: Patient and significant other Case discussed with consulting clinician: N/A This note was generated with [employer] software. It may contain incorrectwords, spelling, and punctuation that were not noted in checking the note beforesigning. Lab Data Attestation: I reviewed the patient's lab results. Labs: Laboratory Results - last 24 hr 08/09/24 08/09/24 08:00 08:06 WBC 5.7 RBC 4.40 L Hgb 13.3 Hct 40.0 MCV 90.9 MCH 30.2 MCHC 33.3 RDW Std Deviation 46.9 H RDW Coeff of Carmenza 13.9 Plt Count 89 L MPV 9.8 Immature Gran % (Auto) 0.500 Neut % (Auto) 61.4 Lymph % (Auto) 25.3 [place] % (Auto) 9.1 Eos % (Auto) 3.0 Baso % (Auto) 0.7 Absolute Neuts (auto) 3.5 Absolute Lymphs (auto) 1.44 Nucleated RBC % 0 Sodium 136 Potassium 5.0 Chloride 106 Carbon Dioxide 19.4 L Anion Gap 11 BUN 20 H Creatinine 1.39 H Estim Creat Clear Calc 101.66 Est GFR (MDRD) Non-Af 66 BUN/Creatinine Ratio 14.3 Glucose 224 H Calcium 8.6 Radiography Diagnostic Testing: Clinical Impression(s) from Imaging Studies Ankle X-Ray 08/09/24 07:55 IMPRESSION: Soft tissue swelling. No bony abnormality is seen. Reading Location: [facility] Discharge Plan Triage Chief Complaint: Lower Extremity Injury ED Provider: Usama Pool Dx/Rx/DC Orders Clinical Impression: Wound infection, History of diabetes mellitus, Chronic anticoagulation Instructions: ED Wound Check (Infection) Prescriptions: New doxycycline monohydrate 100 mg capsule 100 mg PO BID Qty: 14 0RF No Action mupirocin 2 % ointment 1 applic topical DAILY Qty: 22 3RF clotrimazole 1 % cream 1 applic topical BID Qty: 15 0RF Rx Instructions: applied topically until symptoms resolve metformin 1,000 mg tablet 1,000 mg PO BID cetirizine 10 mg tablet 10 mg PO BID epinephrine 0.3 mg/0.3 mL auto-injector 0.3 mg subcut PRN Eliquis 5 mg tablet 5 mg PO BID atorvastatin 80 mg Tablet 80 mg PO QHS Qty: 30 0RF aspirin 81 mg Tablet,Chewable 81 mg PO DAILY@0800 Qty: 0 0RF omeprazole 20 mg capsule,delayed release(DR/EC) 20 mg PO BID PRN (Reason: ACID REFLUX) sulfamethoxazole-trimethoprim [sulfamethoxazole-trimethoprim] 800-160 mg tablet 1 tab PO BID Qty: 14 0RF Referrals: Malachi Piña DPM [Med Staff - Active Staff] - 1 Week Care Physician,No Primary [Non-Staff] - Activity Restrictions/Additional Instructions: Recurrent wound infections to your right lower leg. White count normal wound culture sent and pending. Take antibiotic as prescribed. Daily wound care. Follow-up with podiatry. Print Language: [place] Disposition Disposition: Home, Self Care What to do if you have Problems For any increased pain, shortness of breath, bleeding, nausea or vomiting, chestpain, or any unexpected problems, contact your Primary Care Provider. Call [facility] ([phone]) or report to the closest Emergency Room. Call 911 if necessary. 08/09/24917 <Electronically signed by Usama Mayfield> Cosigner Signature (if applicable): CC: ~ Signed [facility] Work Phone: Evaluation note* Diagnosis Visit for suture removal- Primary Encounter for removal of sutures documented in this encounter [facility] Work Phone: Evaluation note* Diagnosis Chest pain, unspecified type- Primary Viral URI Acute upper respiratory infections of unspecified site documented in this encounter [facility] Work Phone: Evaluation note* Diagnosis Type 2 diabetes mellitus without complication, without long-term current use of insulin ([facility])- Primary Gastroesophageal reflux disease without esophagitis Esophageal reflux Bee sting allergy Lupus anticoagulant positive Thrombocytopenia ([facility]) Unspecified thrombocytopenia Chronic deep vein thrombosis (DVT) of popliteal vein of right lower extremity ([facility]) documented in this encounter [facility] Work Phone: Evaluation noteNo assessment information available [facility] Work Phone: Evaluation note* Diagnosis Onset Date Resolution Status CVA (cerebral vascular accident) acute DM type 2 (diabetes mellitus, type 2) acute Thrombocytopenia acute Stroke-like symptoms resolve d [facility] Work Phone: Evaluation note* Diagnosis Pharyngitis, unspecified etiology- Primary Viral illness Unspecified viral infection, in conditions classified elsewhere and of unspecified site [facility] Diagnosis Routine general medical examination at health care facility- Primary Routine general medical examination at a health care facility Type 2 diabetes mellitus without complication, without long-term current use of insulin (CMS/HCC) Lupus anticoagulant positive Thrombocytopenia (CMS/HCC) Unspecified thrombocytopenia Chronic deep vein thrombosis (DVT) of popliteal vein of right lower extremity (CMS/HCC) Seasonal allergic rhinitis due to pollen Cerebrovascular accident (CVA), unspecified mechanism ([facility]) documented in this encounter [facility] Work Phone: Evaluation note* Diagnosis Type 2 diabetes mellitus without complication, without long-term current use of insulin (Multi)- Primary Gastroesophageal reflux disease without esophagitis Esophageal reflux Bee sting allergy Lupus anticoagulant positive Thrombocytopenia ([facility]-HCC) Unspecified thrombocytopenia Chronic deep vein thrombosis (DVT) of popliteal vein of right lower extremity (Multi) Snoring Other dyspnea and respiratory abnormality documented in this encounter [facility] Work Phone: Evaluation note* Diagnosis Wheezing- Primary Acute non-recurrent maxillary sinusitis [facility]* pt here for a f/u . * Interval Hx * DM2 * sugars stable . * he takes / tolerates medication * CHronic DVT , Hx lupus Anticoag * on blood thinner , no bleeding . * Urticaria, chronic * oral antihistamine . * no recent flares, or use of epi pen * Blounts , left . 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 sometiems left eye vision blurs ;has made eye appt ; sometimes upper chest, right or left, discomfort , not to palpation ,diff to describe. not w exertion. no heavy lifting at work or home . * resolves with position change. * Recent ER visit, due to chest tightness , multiple ill exposures . [facility] Work Phone: History of Present illness Narrative* pt is her for 6 month f/u * pt would like you to look at his right leg * pt states that he gets these spells where one of his eyes will be blurry, and when it happens it fells that he is dizzy. if he closes his eye then it goes away * * Interval Hx * Urgent Care visit - for wound right leg , dxed with infx and with clot right leg, behind knee. [facility] Work Phone: History of Present illness Narrative* pt is her for 6 month f/u * pt would like you to look at his right leg * pt states that he gets these spells where one of his eyes will be blurry, and when it happens it fells that he is dizzy. if he closes his eye then it goes away * * Interval Hx * Urgent Care visit - for wound right leg , dxed with infx , treated ,and with clot right leg, behindknee. Hx of lupus anticoagulant and chronic DVT, Chronic Anticoagulation . [facility] Work Phone: History of Present illness Narrative* pt is her for 6 month f/u * pt would like you to look at his right leg * pt states that he gets these spells where one of his eyes will be blurry, and when it happens it fells that he is dizzy. if he closes his eye then it goes away * * Interval Hx * Urgent Care visit - for wound right leg , dxed with infx , treated ,and with clot right leg, behindknee. Hx of lupus anticoagulant and chronic DVT, Chronic Anticoagulation . * Feeling fine overall , and the wound healed. dizziness- not at work , usually at end of workday at home, when resting. . no recent eye exam a no assocd other sxs. * Unfortunately had a stroke (she was a patient of mine ) ; she is doing okay now. [facility] Work Phone: Hospital Discharge instructions* Attachments The following attachments cannot be sent through Care Everywhere. * Stitches and Lakia Removal: General Info ([place]) documented in this [facility] Work Phone: Hospital Discharge instructions Additional Instructions Recurrent wound infections to your right lower leg. White count normal wound culture sent and pending. Take antibiotic as prescribed. Daily wound care. Follow-up with podiatry.[facility] Work Phone: Reason for referral (narrative)* Consultation (Routine) - Authorized Specialty Diagnoses / Procedures Referred By Contbonilla t Referred To Contact Primary Care Diagnoses Type 2 diabetes mellitus without complication, without long-term current use of insulin (CMS/[facility]) Procedures Follow Up In Advanced Primary Care - PCP Adilia Ascencio MD [address] [place] [address], [facility] [address] [place] [address] Referral ID Status Reason Start Date Expiration Date V isits Requested Visits Authorized [id number] Authorized 06/06/2022 12/03/2022 1 1 * Consultation (Routine) - Authorized Specialty Diagnoses / Procedures Referred By Palac t Referred To Contact Hematology Diagnoses Lupus anticoagulant positive Thrombocytopenia (CMS/HCC) Procedures MI OFFICE/OUTPATIENT NEW HIGH MDM 60-74 MINUTES Adilia Ascencio MD [address] [place] [address], [facility] [address] [place] [address] Referral ID Status Reason Start Date Expiration Date Visits Requested Visits Authorized [id number] Authorized Specialty Services Required 06/06/2022 12/03/[address] [facility] Work Phone: Reason for referral (narrative)* Consultation (Routine) - Authorized Specialty Diagnoses / Procedures Referred By Contac t Referred To Contact Neurology Diagnoses Cerebrovascular accident (CVA), unspecified mechanism (CMS/HCC) Adilia Ascencio MD [address] [facility], [address] [place] [address] Referral ID Status Reason Start Date Expiration Date Visits Requested Visits Authorized [id number] Authorized Specialty Services Required 04/30/2023 04/29/[address] [facility] Work Phone: Reason for referral (narrative)No reason for referral information [facility] Work Phone: Summary Purpose Family History No Family History Records Found Sibling Name Dates Details Family history of myocardial infarction(V17.3, Z82.49) Status:Active Family history of hypertensi on(V17.49, Z82.49) Status:Active Family history of High jordni sterol(272.0, E78.00) Status:Active Family history of diabetes m ellitus(V18.0, Z83.3) Status:Active Mother Name Dates Details Family history of stroke(V17 .1, Z82.3) Status:Active Family history of Blood clot in vein(453.9, I82.90) Status:Active Family history of hypertensi on(V17.49, Z82.49) Status:Active Family history of High jordin sterol(272.0, E78.00) Status:Active Family history of diabetes m ellitus(V18.0, Z83.3) Status:Active Family history of kidney dis ease(V18.69, Z84.1) Status:Active Family history of eye disord er(V19.19, Z83.518) Status:Active Father Name Dates Details Family history of coronary a rtery disease(V17.3, Z82.49) Status:Active Family history of hypertensi on(V17.49, Z82.49) Status:Active Family history of High jordin sterol(272.0, E78.00) Status:Active Family history of diabetes m ellitus(V18.0, Z83.3) Status:Active Family history of liver dise ase(V18.59, Z83.79) Status:Active Family history of eye disord er(V19.19, Z83.518) Status:Active Sibling Name Dates Details Family history of myocardial infarction(V17.3, Z82.49) Status:Active Family history of hypertensi on(V17.49, Z82.49) Status:Active Family history of High jordin sterol(272.0, E78.00) Status:Active Family history of diabetes m ellitus(V18.0, Z83.3) Status:Active Mother Name Dates Details Family history of stroke(V17 .1, Z82.3) Status:Active Family history of Blood clot in vein(453.9, I82.90) Status:Active Family history of hypertensi on(V17.49, Z82.49) Status:Active Family history of High jordin sterol(272.0, E78.00) Status:Active Family history of diabetes m ellitus(V18.0, Z83.3) Status:Active Family history of kidney dis ease(V18.69, Z84.1) Status:Active Family history of eye disord er(V19.19, Z83.518) Status:Active Father Name Dates Details Family history of coronary a rtery disease(V17.3, Z82.49) Status:Active Family history of hypertensi on(V17.49, Z82.49) Status:Active Family history of High jordin sterol(272.0, E78.00) Status:Active Family history of diabetes m ellitus(V18.0, Z83.3) Status:Active Family history of liver dise ase(V18.59, Z83.79) Status:Active Family history of eye disord er(V19.19, Z83.518) Status:Active Sibling Name Dates Details Family history of myocardial infarction(V17.3, Z82.49) Status:Active Family history of hypertensi on(V17.49, Z82.49) Status:Active Family history of High jordin sterol(272.0, E78.00) Status:Active Family history of diabetes m ellitus(V18.0, Z83.3) Status:Active Mother Name Dates Details Family history of stroke(V17 .1, Z82.3) Status:Active Family history of Blood clot in vein(453.9, I82.90) Status:Active Family history of hypertensi on(V17.49, Z82.49) Status:Active Family history of High jordin sterol(272.0, E78.00) Status:Active Family history of diabetes m ellitus(V18.0, Z83.3) Status:Active Family history of kidney dis ease(V18.69, Z84.1) Status:Active Family history of eye disord er(V19.19, Z83.518) Status:Active Father Name Dates Details Family history of coronary a rtery disease(V17.3, Z82.49) Status:Active Family history of hypertensi on(V17.49, Z82.49) Status:Active Family history of High jordin sterol(272.0, E78.00) Status:Active Family history of diabetes m ellitus(V18.0, Z83.3) Status:Active Family history of liver dise ase(V18.59, Z83.79) Status:Active Family history of eye disord er(V19.19, Z83.518) Status:Active Unknown Family Member Name Dates Details Family history of eye disord er: Mother, Father(V19.19, Z83.518) Status:Active Family history of kidney dis ease: Mother(V18.69, Z84.1) Status:Active Family history of liver dise ase: Father(V18.59, Z83.79) Status:Active Family history of diabetes m ellitus: Mother, Father, Sibling(V18.0, Z83.3) Status:Active High cholesterol: Mother, Fa ther, Sibling Status:Active Family history of hypertensi on: Mother, Father, Sibling(V17.49, Z82.49) Status:Active Family history of coronary a rtery disease: Father(V17.3, Z82.49) Status:Active Family history of myocardial infarction: Sibling(V17.3, Z82.49) Status:Active Blood clot in vein: Mother Status:Active Family history of stroke: Mo ther(V17.1, Z82.3) Status:Active Unknown Family Member Name Dates Details Family history of stroke: Mo ther(V17.1, Z82.3) Status:Active Blood clot in vein: Mother Status:Active Family history of myocardial infarction: Sibling(V17.3, Z82.49) Status:Active Family history of coronary a rtery disease: Father(V17.3, Z82.49) Status:Active Family history of hypertensi on: Mother, Father, Sibling(V17.49, Z82.49) Status:Active High cholesterol: Mother, Fa ther, Sibling Status:Active Family history of diabetes m ellitus: Mother, Father, Sibling(V18.0, Z83.3) Status:Active Family history of liver dise ase: Father(V18.59, Z83.79) Status:Active Family history of kidney dis ease: Mother(V18.69, Z84.1) Status:Active Family history of eye disord er: Mother, Father(V19.19, Z83.518) Status:Active Unknown Family Member Name Dates Details Family history of stroke: Mo ther(V17.1, Z82.3) Status:Active Blood clot in vein: Mother Status:Active Family history of myocardial infarction: Sibling(V17.3, Z82.49) Status:Active Family history of coronary a rtery disease: Father(V17.3, Z82.49) Status:Active Family history of hypertensi on: Mother, Father, Sibling(V17.49, Z82.49) Status:Active High cholesterol: Mother, Fa ther, Sibling Status:Active Family history of diabetes m ellitus: Mother, Father, Sibling(V18.0, Z83.3) Status:Active Family history of liver dise ase: Father(V18.59, Z83.79) Status:Active Family history of kidney dis ease: Mother(V18.69, Z84.1) Status:Active Family history of eye disord er: Mother, Father(V19.19, Z83.518) Status:Active Unknown Family Member Name Dates Details Family history of stroke: Mo ther(V17.1, Z82.3) Status:Active Blood clot in vein: Mother Status:Active Family history of myocardial infarction: Sibling(V17.3, Z82.49) Status:Active Family history of coronary a rtery disease: Father(V17.3, Z82.49) Status:Active Family history of hypertensi on: Mother, Father, Sibling(V17.49, Z82.49) Status:Active High cholesterol: Mother, Fa ther, Sibling Status:Active Family history of diabetes m ellitus: Mother, Father, Sibling(V18.0, Z83.3) Status:Active Family history of liver dise ase: Father(V18.59, Z83.79) Status:Active Family history of kidney dis ease: Mother(V18.69, Z84.1) Status:Active Family history of eye disord er: Mother, Father(V19.19, Z83.518) Status:Active Unknown Family Member Name Dates Details Family history of stroke: Mo ther(V17.1, Z82.3) Status:Active Blood clot in vein: Mother Status:Active Family history of myocardial infarction: Sibling(V17.3, Z82.49) Status:Active Family history of coronary a rtery disease: Father(V17.3, Z82.49) Status:Active Family history of hypertensi on: Mother, Father, Sibling(V17.49, Z82.49) Status:Active High cholesterol: Mother, Fa ther, Sibling Status:Active Family history of diabetes m ellitus: Mother, Father, Sibling(V18.0, Z83.3) Status:Active Family history of liver dise ase: Father(V18.59, Z83.79) Status:Active Family history of kidney dis ease: Mother(V18.69, Z84.1) Status:Active Family history of eye disord er: Mother, Father(V19.19, Z83.518) Status:Active Unknown Family Member Name Dates Details Family history of stroke: Mo ther(V17.1, Z82.3) Status:Active Blood clot in vein: Mother Status:Active Family history of myocardial infarction: Sibling(V17.3, Z82.49) Status:Active Family history of coronary a rtery disease: Father(V17.3, Z82.49) Status:Active Family history of hypertensi on: Mother, Father, Sibling(V17.49, Z82.49) Status:Active High cholesterol: Mother, Fa ther, Sibling Status:Active Family history of diabetes m ellitus: Mother, Father, Sibling(V18.0, Z83.3) Status:Active Family history of liver dise ase: Father(V18.59, Z83.79) Status:Active Family history of kidney dis ease: Mother(V18.69, Z84.1) Status:Active Family history of eye disord er: Mother, Father(V19.19, Z83.518) Status:Active Unknown Family Member Name Dates Details Family history of stroke: Mo ther(V17.1, Z82.3) Status:Active Blood clot in vein: Mother Status:Active Family history of myocardial infarction: Sibling(V17.3, Z82.49) Status:Active Family history of coronary a rtery disease: Father(V17.3, Z82.49) Status:Active Family history of hypertensi on: Mother, Father, Sibling(V17.49, Z82.49) Status:Active High cholesterol: Mother, Fa ther, Sibling Status:Active Family history of diabetes m ellitus: Mother, Father, Sibling(V18.0, Z83.3) Status:Active Family history of liver dise ase: Father(V18.59, Z83.79) Status:Active Family history of kidney dis ease: Mother(V18.69, Z84.1) Status:Active Family history of eye disord er: Mother, Father(V19.19, Z83.518) Status:Active Relationship Condition Age at Onset Recorded Date/T brittany Not Specified Aneurysm of artery o f head and neck region Unknown mother Diabetes mellitus Unknown Hypertension Unknown Cardiac disease Unknown Deep vein thrombosis (DVT) Unknown father Diabetes mellitus Unknown Advance Directives No Advanced Directives Records FoundDocuments on File Type 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 ACP-Advance Directive ACP-Power of Machine Setter Automatic Latest Code Status on File Code Status Date Activated Date Inactivated Comments Full Code 08/27/2015 11:39 AM 08/28/2015 3:03 PM Advance Directive Response Recorded Date/ Time Living Will No October 15 3 1:36pm Power of Machine Setter Automatic No October 15 023 1:36pm Advance Directive Response Recorded Date/ Time Living Will No November 13, 2022 10:30pm Power of Machine Setter Automatic No October 10:30pm Advance Directive Response Recorded Date/ Time Living Will No December 05 9:54am Power of Machine Setter Automatic No December 05, 2022 9:54am Healthcare Agents on File Name Relationship Healthcare Agent [facility] Communication Danielle Ramos Other Health Care Agent Healthcare Agents on File Name Relationship Healthcare Agent Relationshi p Communication Danielle Ramos Other Health Care Agent Advance Directive Response Recorded Date/ Time Do you have a Healthcare Power of Machine Setter Automatic? No August 09, 2024 7:40am Chief Complaint pt here for f/u.pt presents for 6 month f/upt presents for 6 month f/upt presents for 6 month f/u Chief Complaint and Reason for Visit Chief Complaint LEFT KNEE Chief Complaint LEFT KNEE ACUTE CVA Chief Complaint LEFT KNEE ACUTE CVA ACUTE CVA RASH DOG BITE Reason for Visit CVA (cerebral vascul ar accident) DM type 2 (diabetes mellitus, type 2) Thrombocytopenia Stroke-like symptoms Chief Complaint Admit Date LOWER EXTREM August 09, 2024 7:31 am Chief Complaint Admit Date LOWER EXTREM August 09, 2024 7:31 am Localized swelling, mass and lump,BOTH L IMBS August 26, 2024 8:53am wound August 31, 2024 7:59 am Reason for Visit Admit Date DVT (deep venous thrombosis) August 31, 2024 7:59am Other specified peripheral vascular dise ases August 31, 2024 7:59am 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 August 31, 2024 7:59am 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 August 31, 2024 7:59am Health Concerns Infection Onset Date Last Indicated Resolved Time COVID-19 Rule-Out 04/17/2023 04/17/2023 Additional Source Comments (unrecognized sect ion and content) No Status Records FoundNo Status Records FoundNo Status Records FoundNo Status Records FoundNo Status Records FoundNo Status Records FoundNo Status Records FoundNo Status Records FoundNo Status Records FoundNo Status Records FoundNo Status Records FoundNo Status Records Found INFORMATION SOURCE (unrecogn ized section and content) DATE CREATED AUTHOR 08/06/2017 [facility] DATE CREATED AUTHOR AUTHOR'S ORGANIZ ATION 09/06/2017 [facility] DATE CREATED AUTHOR AUTHOR'S ORGANIZ ATION 06/15/2018 [facility] DATE CREATED AUTHOR AUTHOR'S ORGANIZ ATION 02/13/2021 [facility] DATE CREATED AUTHOR AUTHOR'S ORGANIZ ATION 09/18/2021 [facility] DATE CREATED AUTHOR AUTHOR'S ORGANIZ ATION 03/05/2022 [facility] DATE CREATED AUTHOR AUTHOR'S ORGANIZ ATION 06/07/2022 [facility] DATE CREATED AUTHOR AUTHOR'S ORGANIZ ATION 11/07/2023 [facility] DATE CREATED AUTHOR AUTHOR'S ORGANIZ ATION 02/01/2024 [facility] DATE CREATED AUTHOR AUTHOR'S ORGANIZ ATION 05/27/2024 [facility] DATE CREATED AUTHOR AUTHOR'S ORGANIZ ATION 07/06/2024 [facility] DATE CREATED AUTHOR AUTHOR'S ORGANIZ ATION 09/01/2024 [facility] Reason for Visit (unrecogniz ed section and content) Reason Comments Suture / Staple Removal placed 06/13 Reason Comments Chest Pain Cough Concern For COVID-19 Reason Comments Med Refill Has been taking 2 om eprazole. Paperwork Needs paperwork for work about diagnosis. Reason Comments Sore Throat Congestion,cough, ch ills x 4 days Reason Comments Results Reason Comments Medicare Annual Wellness Visit Subsequen t Med Refill Pt is wanting atorva statin filled. Was filled by someone else but states he hasn't found a new doctor yet Headache Wants to know if his stroke has anything to do with him having headaches. Specialty Diagnoses / Procedures Referred By Contbonilla esquivel Referred To Contact Sleep Lab Diagnoses Snoring Procedures Home sleep apnea test (HSAT) Ninfa Felipe, DO [address] [place] [address] Referral ID Status Reason Start Date Expiration Date V isits Requested Visits Authorized [id number] Pending Review 09/24/2023 09/23/2024 1 1 Reason Comments Cough Sinus congestion x1 week PRN Active and Recently Administ ered Medications (unrecognized section and content) Medication Order 02/08/2021 02/09/2021 02/10/2021 iopamidol (ISOVUE-370) 76 % injection 75 mL (COMPLETED) 75 mL, IntraVENous, IMG ONCE PRN, Other, Starting on 02/10/21 at 2031, For 1 dose 2049 (Given - Provid er: Cathleen Leonard) Care Teams (unrecognized sec tion and content) Team Status: Active Member Role Status Dates No Primary Care Physician Primary Care Provider Active Team Status: Active Member Role Status Dates Dr. Milton Taet DO Emergency Provider Active No Primary Care Physician Primary Care Provider Active Dr. Inocente Valles MD Admit Provider, Other Provide r Active Dr. Mayur Fields DO Attending Provider, Other Provid er Active Team Status: Active Member Role Status Dates No Primary Care Physician Primary Care Provider Active Dr. Amber Herrera MD Attending Provider Active Team Status: Inactive Member Role Status Dates Adilia Hawthorne MD, Sonu Primary Care Provider Active STEF Crawford Attending Provider, Referring Provide r Active Team Status: Inactive Member Role Status Dates No Primary Care Physician Primary Care Provider Active Dr. Kristy Ott MD Attending Provider, Emergency Provider Active Team Status: Inactive Member Role Status Dates Dakota Goetz MD Attending Provider, Emergency Provid er Active Sonu Jurado MD Primary Care Provider Active Team Status: Inactive Member Role Status Dates Dr. Milton Tate DO Emergency Provider Active No Primary Care Physician Primary Care Provider Active Dr. Inocente Valles MD Admit Provider, Other Provide r Active Dr. Mayur Fields DO Attending Provider Active Team Status: Inactive Member Role Status Dates No Primary Care Physician Primary Care Provider Active Dr. Malachi Jaramillo DO Emergency Provider Active Team Status: Active Member Role Status Dates Dr. Milton Tate DO Emergency Provider Active No Primary Care Physician Primary Care Provider Active Dr. Inocente Valles MD Admit Provider, Attending Pro vider Active Oracle Database Administrator Relationship Specialty Start Date End Date Adilia Ascencio MD [address] [place] [address] PCP - General 01/28/17 Team Status: Active Member Role Status Dates Adilia Ascencio Primary Care Provider Active Team Status: Inactive Member Role Status Dates Dakota Goetz MD Emergency Provider Active Sonu Jurado MD Primary Care Provider Active Oracle Database Administrator Relationship Specialty Start Date End Date Adilia Ascencio (Historical)MD PCP - General Family Medicine 01/31/17 Oracle Database Administrator Relationship Specialty Start Date End Date Adilia Ascencio (Historical)MD PCP - General Family Medicine 12/16/17 Oracle Database Administrator Relationship Specialty Start Date End Date Sonu, Adilia J, MD [address] [facility] [place], [place] [id number] PCP - [facility] Family Medicine 11/25/22 Adilia Ascencio MD [address] [facility] [place] [address] PCP - [employer] PCP 10/17/22 Oracle Database Administrator Relationship Specialty Start Date End Date Adilia Ascencio MD [address] [facility] [place], [place] [id number] PCP - [facility] Family Medicine 11/25/22 Adilia Ascencio MD [address] [facility] [place], [place] [address] PCP - [employer] PCP 06/17/23 Team Status: Inactive Member Role Status Dates Dr. Usama Pool DO Emergency Provider Active Start : August 09, 2024 End: August 09, 2024 Team Status: Active Member Role/Relationship Status Dates No Primary Care Physician Primary Care Provider Active Team Status: Inactive Member Role/Relationship Status Dates Dr. Usama Pool DO Attending Provider Active Start : August 09, 2024 End: August 09, 2024 Dr. Usama Pool DO Emergency Provider Active Start : August 09, 2024 End: August 09, 2024 Team Status: Inactive Member Role/Relationship Status Dates Dr. Malachi Piña DPM Attending Provider Active Start: August 26, 2024 End: August 26, 2024 Dr. Malachi Piña DPM Referring Provider Active Start: August 26, 2024 End: August 26, 2024 FARNAZ NATH Primary Care Provider Active Start: August 26, 2024 End: August 26, 2024 Team Status: Active Member Role/Relationship Status Dates Dr. Mayur Aguayo MD Attending Provider Active S tart: August 26, 2024 Team Status: Active Member Role/Relationship Status Dates Dr. Bill Thao DPM Attending Provider Active Start: August 31, 2024 Dr. Malachi Piña DPM Referring Provider Active Start: August 31, 2024 No Primary Care Physician Primary Care Provider Active Start: August 31, 2024 Goals (unrecognized section and content) Goals may be documented in a n alternate sectionGoals may be documented in an alternate sectionGoals may be documented in an alternate sectionGoals may be documented in an alternate sectionGoals may be documented in an alternate section Source Comments (unrecognize d section and content) In the event this informatio n is protected by the Federal Confidentiality of Alcohol and Drug Abuse Patient Records regulations: The Federal rules restrict any use of the information to criminally investigate or prosecute any alcohol or drug abuse patient.[facility] the event this information is protected by the Federal Confidentiality of Alcohol and Drug Abuse Patient Records regulations: The Federal rules restrict any use of the information to criminally investigate or prosecute any alcohol or drug abuse patient.[facility] the event this information is protected by the Federal Confidentiality of Alcohol and Drug Abuse Patient Records regulations: The Federal rules restrict any use of the information to criminally investigate or prosecute any alcohol or drug abuse patient.[facility] FOR RECORDS PERTAINING TO PATIENTS WHO ARE OR HAVE BEEN ENROLLED IN A CHEMICAL DEPENDENCY/SUBSTANCEABUSE PROGRAM, SOME INFORMATION MAY BE OMITTED. This clinical summary was aggregated from multiple sources. Caution should be exercised in using it in the provision of clinical care. This summary normalizes information from multiple sources, and as a consequence, information in this document may materially change the coding, format and clinical context of patient data. In addition, data may be omitted in some cases. CLINICAL DECISIONS SHOULD BE BASED ON THE PRIMARY CLINICAL RECORDS. [facility]. provides no warranty or guarantee of the accuracy or completeness of information in this document.
[2024-09-03 10:14] LABS: Hematocrit 44.3 % (40-54); Hemoglobin 14.6 g/dL (13.0-16.5); Mean Corp Hgb Conc 33.0 g/dL (32-36); Mean Corpuscular Volume 89.3 fL (80-94); Mean Platelet Vol. 10.7 fl (6.2-12.0); POSITIVE COUNT YES; Platelet Count 60 K/mm3 (150-450); RBC Distribution Width CV 14.0 % (11.6-14.6); RBC Distribution Width SD 45.1 fl (35.1-43.9); Red Blood Count 4.96 M/mm3 (4.6-6.2); White Blood Count 5.3 K/mm3 (4.4-11.0)
[2024-09-03 10:34] LABS: AST(SGOT) 24 U/L (<=37); Alanine Aminotransfer ALT/SGPT 21 U/L (<=46); Albumin, Serum 3.9 g/dL (3.5-5.0); Alkaline Phosphatase 94 U/L (40-129); Anion Gap 10 (5-15); BUN 16 mg/dL (4-19); BUN/Creat Ratio 12.9 RATIO (10-20); CRP 6.83 mg/L (0.0-3.0); Calcium,Total 9.0 mg/dL (7.6-11.0); Carbon Dioxide 22.4 mmol/L (21.0-32.0); Chloride 105 mmol/L (98-108); Globulin 4.0 g/dL (2.2-4.2); Glucose 118 mg/dL (70-99); Potassium 4.2 mmol/L (3.3-5.1)
[2024-09-04 08:07] LABS: Prealbumin 28 mg/dL (14-35)
== END | disposition home or self-care (01) ==
LOC: LAB 09:07
PROVIDERS: Referring Provider Podiatrist Foot & Ankle Surgery; Visit Provider Podiatrist Foot & Ankle Surgery
DX: E11.65 Type 2 diabetes mellitus with hyperglycemia (principal); L97.919 Non-pressure chronic ulcer of unspecified part of right lower leg with unspecified severity
CPT/HCPCS: 36415; 80053; 83036; 84134; 85027; 85652; 86140

== ENCOUNTER 2024-09-14 08:00 | Outpatient (RCR) | payer MEDICARE, MEDICAID, SELFPAY ==
[2024-08-31 08:18] VITALS: BP 139/89; PULSE 71; RESP 16; TEMP 36.1; BMI 41.2
[2024-09-07 08:09] VITALS: BMI 41.2
[2024-09-14 08:04] VITALS: BP 136/108; PULSE 77; RESP 14; TEMP 36.8; BMI 41.2
== END 2024-09-15 23:59 | disposition home or self-care (01) ==
LOC: WC 08:00
PROVIDERS: Referring Provider Podiatrist; Visit Provider Podiatrist Foot & Ankle Surgery
DX: E11.622 Type 2 diabetes mellitus with other skin ulcer (principal); L97.312 Non-pressure chronic ulcer of right ankle with fat layer exposed; L97.812 Non-pressure chronic ulcer of other part of right lower leg with fat layer exposed; E11.51 Type 2 diabetes mellitus with diabetic peripheral angiopathy without gangrene; R60.0 Localized edema; F17.200 Nicotine dependence, unspecified, uncomplicated; Z86.718 Personal history of other venous thrombosis and embolism
CPT/HCPCS: 11042; 15271; 29445; 29581; 99214; Q4186; G0463

== ENCOUNTER 2024-10-12 08:00 | Outpatient (RCR) | payer MEDICARE, MEDICAID, SELFPAY ==
[2024-10-05 08:04] VITALS: BP 156/97; PULSE 77; RESP 14; TEMP 36.1
[2024-10-12 08:12] VITALS: BP 154/100; PULSE 78; RESP 16; TEMP 36.3
== END 2024-10-16 23:59 | disposition home or self-care (01) ==
LOC: WC 08:00
PROVIDERS: Referring Provider Podiatrist; Visit Provider Podiatrist Foot & Ankle Surgery
DX: E11.622 Type 2 diabetes mellitus with other skin ulcer (principal); L97.312 Non-pressure chronic ulcer of right ankle with fat layer exposed; E11.51 Type 2 diabetes mellitus with diabetic peripheral angiopathy without gangrene; R60.0 Localized edema; F17.200 Nicotine dependence, unspecified, uncomplicated; Z79.82 Long term (current) use of aspirin; Z79.01 Long term (current) use of anticoagulants; Z79.84 Long term (current) use of oral hypoglycemic drugs; Z79.899 Other long term (current) drug therapy; Z86.718 Personal history of other venous thrombosis and embolism
CPT/HCPCS: 15271; 29581; Q4186

== ENCOUNTER 2024-10-26 08:10 | Outpatient (RCR) | payer MEDICARE, MEDICAID, SELFPAY ==
[2024-10-26 08:12] VITALS: BP 184/106; PULSE 73; RESP 18; TEMP 35.9
--- NOTE | 2024-10-26 08:32 | PN.PCM_ITS ---
History of Present Illness Date of Service: 10/26/24 Chief Complaint: Full-thickness wound to the right leg and ankle. History of Wound: Patient has history of chronic DVT to the right lower extremity. He was seen by outside provider and referred to the wound care center for further evaluation and treatment. Progress of Wound: Healed bilateral full-thickness wounds right lower extremity. Subjective Subjective Patient is a 39-year-old diabetic male with history of peripheral arterial disease presenting to wound care center today for follow-up evaluation of full- thickness wound to the medial aspect of the right lower extremity. Patient was recently seen in the hospital at [facility] where he was diagnosed with transischemic attack. He did have MRI of his brain that showed evidence of possibly 6-7 prior strokes. Patient is being treated by a neurologist at this time. He will be following up with hematology for treatment due to concern for clotting factor labs and lupus. He admits that he has quit smoking. His blood sugars well-controlled. He is wearing compression. He admits that his wounds are now healed. He is grateful for his care. Denies trauma. Denies c onstitutional symptoms. No other pedal complaints at this time. Objective Data Objective Data Vital Signs: Vital Signs Temp Pulse Resp BP O2 Del Method 96.7 F L 73 18 184/106 H Room Air 10/26/24 08:12 10/26/24 08:12 10/26/24 08:12 10/26/24 08:12 10/26/24 08:12 Oxygen Delivery Method Room Air Physical Exam Narrative Vascular: DP and PT pulses are palpable to the right lower extremity. Nonpitting edema appreciated right lower extremity. Skin temperature gradient is warm to warm from proximal ankles to distal digits bilateral. Nonpitting edema with hemosiderin deposits appreciated to the bilateral lower extremity. Neurological: Light touch is intact. Patient does respond to painful stimuli. Dermatological: Full-thickness wound to the right medial ankle is healed. No concern for additional wounds at this time. Musculoskeletal: No pain to palpation to the heel full-thickness wounds right lower extremity. No pain with calf compression. 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 Any new allergies or adverse reactions No Had a fall/change in ADL's that may No increase risk of falls Signs or symptoms of abuse and/or No neglect since last visit Have you been in the hospital since your Yes last visit? Has dressing in place as prescribed No Has compression in place as prescribed No Has offloadiing in place as prescribed No Experienced any changes in pain level or No management Left Footwear Regular Shoe Right Footwear Regular Shoe Pain Scale: 0-10 Numeric Is Patient Pain Free? Yes - Nurse 1 - General Ulcer Measurement Start: 10/26/24 08:12 Freq: Status: Active Protocol: Activity Type Activity Date Activity User E-sign Co-sign Detail Recorded Client Recorded 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 By Document 10/26/24 08:12 KW [id number] 10/26/24 08:18 10/26/24 08:12 Wound Center Nurse 1 1. right medial lower leg, ankle -Current Size (cm) - Length 0.1 -Current Size (cm) - Width 0.1 -Current Size (cm) - Depth 0 -Total Square Cm 0.01 -Date of Last Picture (Recall this 10/26/24 field) -Exudate Amt None Present -Texture (Dina-wound Skin Appearance) Assessed -Moisture (Dina-wound Skin Appearance) Assessed -Color (Dina-wound Skin Appearance) Assessed -Temperature (Dina-wound Skin No Abnormality Appearance) (Pt Warm) -Tenderness on Palpation (Dina-wound No Skin Appearance) -Ulcer Cleansing Soap and Water -Foul Odor after Cleansing No Right Calf (cm) 49 Right Ankle (cm) 29 WC - Nurse 2 - General Ulcer CM Notes Start: 10/26/24 08:12 Freq: Status: Active Protocol: Activity Type Activity Date Activity User E-sign Co-sign Detail Recorded Client Recorded 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 By Document 10/26/24 08:27 JF [id number] 10/26/24 08:27 YOAN 10/26/24 08:27 Wound Center Nurse 2 1. right medial lower leg, ankle -Correct Patient Yes -Correct Side, Site, Position No -Correct Procedure No -Procedure Performed No -Post Debridement (cm) - Length 0 -Post Debridement (cm) - Width 0 -Post Debridement (cm) - Depth 0 -Total Square (Post) (cm) 0 -Area of Debridement (cm) - Length 0 -Area of Debridement (cm) - Width 0 -Total Square (Area) (cm) 0 -Wound/Ulcer Outcome Healed- Epithelialized Pain Scale: 0-10 Numeric Is Patient Pain Free? Yes Assessment/Plan Assessment/Plan (1) Non-pressure chronic ulcer of right ankle with fat layer exposed: CODE(S): L97.312 - Non-pressure chronic ulcer of right ankle with fat layer exposed PLAN: Patient was examined and evaluated. All findings were discussed with the patient. All questions were answered to the patient's satisfaction. After exam the patient's full-thickness wounds to right lower extremity have healed. Encouraged continued smoking sensation. Patient will be measured today for correct compression stocking size length and width to present to the pharmacy of his choice for [id number] compression stockings. I educated the patient on the importance of blood sugar control which he is understanding of. If the patient has any issues he is to follow back up with the wound center or private office for evaluation. He will be discharged from the wound care center today. Follow-up at the wound care center with Dr. Thao as needed (2) Other specified peripheral vascular diseases: CODE(S): I73.89 - Other specified peripheral vascular diseases (3) DVT (deep venous thrombosis): CODE(S): I82.409 - Acute embolism and thrombosis of unspecified deep veins of unspecified lower extremity
--- NOTE | 2024-10-26 12:46 | WC ---
PHOTO-RIGHT [facility] 10/26/24
== END 2024-11-15 15:49 | disposition home or self-care (01) ==
LOC: WC 08:10
PROVIDERS: Referring Provider Podiatrist; Visit Provider Podiatrist Foot & Ankle Surgery
DX: Z09 Encounter for follow-up examination after completed treatment for conditions other than malignant neoplasm (principal); I73.89 Other specified peripheral vascular diseases; Z86.718 Personal history of other venous thrombosis and embolism
CPT/HCPCS: 99212; G0463